=== PATIENT | female | born 1980 | race American Indian/Alaskan Native ===

== ENCOUNTER 2016-12-10 20:18 | Emergency (ER) | payer SELFPAY ==
[2016-12-10 20:29] VITALS: BP 148/102
[2016-12-10] MEDS ORDERED: BOOSTRIX IM ONE (22:55)
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
== END 2016-12-11 00:23 | disposition home or self-care (01) ==
LOC: ED 20:18
DX: S40.871A Other superficial bite of right upper arm, initial encounter (principal); Z23 Encounter for immunization; J45.909 Unspecified asthma, uncomplicated; W50.3XXD Accidental bite by another person, subsequent encounter; Y93.89 Activity, other specified; Y99.9 Unspecified external cause status; Y92.89 Other specified places as the place of occurrence of the external cause
CPT/HCPCS: 90471; 90715

== ENCOUNTER 2021-08-26 15:04 | Emergency (ER) | payer OTHER ==
[2021-08-26 15:18] VITALS: BP 137/81
--- NOTE | 2021-08-26 15:28 | Emergency Department Report ---
ED Eye Problem HPI - General Chief complaint: Eye Problems Stated complaint: CANT SEE/FUME IN EYES Time Seen by Provider: 08/26/21 15:19 Source: patient Mode of arrival: Ambulatory Limitations: No Limitations - History of Present Illness Initial comments: Patient is a 40-year-old female presents emergency room complaints of bilateral eye burning sensation that began yesterday. She states that it is worse in the left eye. She states that the left eye has had frequent watering. She states that there were some fumes at work and she is not sure if that is what is causing the eye irritation. She denies anything getting into the eye. She denies any contact lens use. She denies any mucus drainage, crusting, eyelash matting. She states her vision feels blurry but she is still able to see. Has medical history of asthma. No allergies medications. - Related Data Previous Rx's Medication Instructions Recorded Last Taken Type Amoxicillin/K Clav Tab [Augmentin 1 tab PO Q12HR #14 tab 12/10/16 Unknown Rx 875 mg] Ibuprofen [Motrin] 800 mg PO Q8HR PRN #30 tablet 12/10/16 Unknown Rx Erythromycin [Erythromycin Ophth 1 applic OS QID 7 Days #1 tube 08/26/21 Unknown Rx Oint] Ketotifen Fumarate [Zaditor] 1 drop OP BID #1 bottle 08/26/21 Unknown Rx Allergies Allergy/AdvReac Type Severity Reaction Status Date / Time No Known Allergies Allergy Unverified 12/10/16 20:29 ED Review of Systems ROS: Stated complaint: CANT SEE/FUME IN EYES Other details as noted in HPI Comment: All other systems reviewed and negative ED Past Medical Hx - Past Medical History Previous Medical History?: Yes Hx Asthma: Yes - Surgical History Past Surgical History?: Yes Additional Surgical History: hemorrhoidectomy - Social History Smoking Status: Never Smoker Substance Use Type: None - Medications Home Medications: Home Medications Medication Instructions Recorded Confirmed Last Taken Type Amoxicillin/K Clav Tab [Augmentin 1 tab PO Q12HR #14 tab 12/10/16 Unknown Rx 875 mg] Ibuprofen [Motrin] 800 mg PO Q8HR PRN #30 tablet 12/10/16 Unknown Rx Erythromycin [Erythromycin Ophth 1 applic OS QID 7 Days #1 tube 08/26/21 Unknown Rx Oint] Ketotifen Fumarate [Zaditor] 1 drop OP BID #1 bottle 08/26/21 Unknown Rx ED Physical Exam - General Limitations: No Limitations General appearance: alert, in no apparent distress - Head Head exam: Present: atraumatic, normocephalic - Eye Eye exam: Present: PERRL, EOMI, other (small internal hordeolum present to the left upper eyelid). Absent: scleral icterus, conjunctival injection, nystagmus - ENT ENT exam: Present: mucous membranes moist - Neurological Exam Neurological exam: Present: alert, oriented X3 - Psychiatric Psychiatric exam: Present: normal affect, normal mood - Skin Skin exam: Present: warm, dry, intact ED Course Vital Signs 08/26/21 15:15 Temperature 98.4 F Pulse Rate 80 Respiratory 16 Rate Blood Pressure 137/81 [Left] O2 Sat by Pulse 100 Oximetry ED Medical Decision Making - Medical Decision Making Patient is a 40-year-old female presents emergency room complaints of bilateral eye burning sensation that began yesterday. She states that it is worse in the left eye. She states that the left eye has had frequent watering. She states that there were some fumes at work and she is not sure if that is what is causing the eye irritation. She denies anything getting into the eye. She denies any contact lens use. She denies any mucus drainage, crusting, eyelash matting. She states her vision feels blurry but she is still able to see. Has medical history of asthma. No allergies medications. Vitals are stable. On exam:small internal hordeolum present to the left upper eyelid, EOMI, PERRLA, no conjunctival injection, no signs of foreign body. Patient given prescription for medication. Advised patientPlease use medication as prescribed. Please wash hands before and after using medication. Please use warm compresses. Please separate medication by 1 hour. If you use one medication please wait 1 hour before use any other medication. Follow-up with a eye doctor if symptoms are not improving. Return to emergency room for any new or worsening symptoms. Critical care attestation.: If time is entered above; I have spent that time in minutes in the direct care of this critically ill patient, excluding procedure time. ED Disposition Clinical Impression: Eye irritation Internal hordeolum Qualifiers: Laterality: left Eyelid: upper Qualified Code(s): H00.024 - Hordeolum internum left upper eyelid Disposition: 01 HOME / SELF CARE / HOMELESS Is pt being admited?: No Does the pt Need Aspirin: No Condition: Stable Instructions: Stye Additional Instructions: Please use medication as prescribed. Please wash hands before and after using medication. Please use warm compresses. Please separate medication by 1 hour. If you use one medication please wait 1 hour before use any other medication. Follow-up with a eye doctor if symptoms are not improving. Return to emergency room for any new or worsening symptoms. Prescriptions: Erythromycin [Erythromycin Ophth Oint] 1 applic OS QID 7 Days #1 tube Ketotifen Fumarate [Zaditor] 1 drop OP BID #1 bottle Referrals: [facility] [Provider Group] - 3-5 Days Forms: Work/School Release Form(ED) Time of Disposition: 15:26 Print Language: ZIMBABWEAN
== END 2021-08-26 16:14 | disposition home or self-care (01) ==
LOC: ED 15:04
DX: H00.024 Hordeolum internum left upper eyelid (principal); H00.021 Hordeolum internum right upper eyelid; H57.13 Ocular pain, bilateral; J45.909 Unspecified asthma, uncomplicated
CPT/HCPCS: 99281

== ENCOUNTER 2022-01-28 15:55 | Inpatient (IN) | payer OTHER ==
[2022-01-28] MEDS ORDERED: hydrALAZINE 20 MG/1 ML INJ IV ONE (17:18)
[2022-01-28] MEDS ORDERED: SODIUM CHLORIDE NASAL SPRAY 44ML NS PRN (17:24)
[2022-01-28] MEDS ORDERED: SIMETHICONE 80 MG CHEW TAB PO PRN (17:24)
[2022-01-28] MEDS ORDERED: MAGNESIUM SULFATE 4 GM/100 ML BAG IV ONE (17:24)
[2022-01-28] MEDS ORDERED: ALUM-MAG HYDROXIDE-SIMETHICONE 200-200-20MG/5ML ORAL LIQD 30 ML PO PRN (17:24)
[2022-01-28] MEDS ORDERED: MAGNESIUM HYDROXIDE (MOM) ORAL LIQD UDC PO PRN (17:24)
[2022-01-28] MEDS ORDERED: DOCUSATE SODIUM 100 MG CAP PO PRN (17:24)
[2022-01-28] MEDS ORDERED: CALCIUM GLUCONATE 1000 MG/10 ML INJ IV ONE (17:24)
[2022-01-28] MEDS ORDERED: ONDANSETRON 4 MG/2 ML INJ IV PRN (17:24)
--- NOTE | 2022-01-28 17:31 | History and Physical Report ---
History of Present Illness Date of examination: 01/28/22 Date of admission: 01/28/2022 Chief complaint: My stomach was hurting. 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 Upon entering room, @ 27.6 weeks resting upright in bed, alert and oriented x4, breathing on room air in no acute distress. Continuous FHR tracing difficult d/t maternal habitus and gestational age - FHTs 140s, and Cat 1 noted when continuously tracing. Pt reporting sudden onset of upper epigastric pressure that she presently rates 6/10 and she perceives worsens with movement. 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 Pain resolved, she ate a sandwich and one hour later epigastric pressure resumed when she was driving her daughter to work and she was unable to get out of car. Has experienced episode of similar, but less intense pain one month ago that resolved on its own. Affirms movement and denies headaches, chest pain, vision changes, RUQ, vaginal bleeding, LOF and NVD. Last bowel movement today. Last dose of PO Labetalol 100mg taken this AM, has not missed any doses. Upon questioning, feels pedal edema has worsened over last few days, state she is unable to wear shoes. Endorses SOB with minimal exertion. Frequent inhaler use, last albuterol use yesterday. Uses CPAP nightly. Of note pt is being followed by [facility] d/t history of cHTN, morbid obesity, + AFP for DS, and AMA. Her labs notable for baseline protein of 618 on 11/22. -Chronic hypertension- Diagnosed in 2003. Pt reports intermittent adherence to medication regimen. Inpatient admission to [facility] (2019) for blood pressure control. Presented with severe headache and vision changes, BPs >200s/100s. Was told she had a "mini stroke behind her eyes". This history was not mentioned during her initial visit. Pt expressed disappointment about missing her oldest daughter's softball tournament this weekend, but understands the rationale for the medical recommendation to remain inpatient. EDC Calculations 04/23/2022 Gestational Age: 27.6 weeks on admission Past History : 5 Term Births: 3 Premature Births: 0 Living Children: 3 Para: 3 Mult. Births: 0 Prev : 0 Aborta: 1 Elect. Ab: 0 Spont. Ab: 1 Ectopics: 0 # 1 Delivery date: 2003 Weeks Gestation: 37 Delivery type: Hours of labor: 24 Anesthesia type: epidural Delivery location: [facility] Sex: Female weight: 6-12 Comments: PPH: had blood transfusion # 2 Delivery date: 2006 Weeks Gestation: 38 Delivery type: Hours of labor: 8 Anesthesia type: epidural Delivery location: [facility] Sex: Female weight: 9-10 Comments: No complications # 3 Delivery date: 2014 Weeks Gestation: 38 labor: no Delivery type: Hours of labor: 24 Anesthesia type: epidural Delivery location: [facility] Sex: Male weight: 7-11 Comments: PPH: Had D&C after delivery # 4 Weeks Gestation: ? Delivery type: SAB Comments: No D&C needed Past Medical History: Reviewed and updated today: Hypertension Asthma Sleep Apnea Past Surgical History: Reviewed and updated today: negative Family History Summary: Mother - Has Family History of Hypertension - Entered On: 08/28/2021 Father - Has Family History of Diabetes - Entered On: 08/28/2021 Social History: Patient is Smoking History: Patient is a former smoker. Risk Factors: Smoked Tobacco Use: Former smoker Cigarettes: Yes Year Quit: 2020 Years Since Last Quit: 1 Smokeless Tobacco Use: Never Counseled to Quit/Cut Down: yes Passive Smoke Exposure: no HIV High Risk Behavior: no Exercise: yes Times/wk: 7 Type of Exercise: walking Seatbelt Use: 100 % Sun Exposure: rarely No Dietary Counseling Reason: pn yes PAP Smear History: Date of Last PAP Smear: 02/17/2021 Results: Normal Alcohol Use: no Drug Use: no Past Medical History Anesthesia Complications: negative Anemia: negative Autoimmune Disorder: negative Bleeding Disorder: negative Blood Transfusions: negative Breast Disease: negative Diabetes: negative Heart Disease: negative Hypertension: positive Hepatitis/Liver Disease: negative Kidney Disease/UTI: negative Neurologic/Epilepsy/Migraines: negative Phlebitis/Varicosities: negative Psychiatric: negative Pulmonary Disease/Asthma: positive Thyroid Disease: negative Hospitalizations: negative 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 Infection History Hx of STD: none HIV Risk Eval: no Hepatitis B Risk Eval: low risk Personal hx. of genital herpes: no Partner hx. of genital herpes: no Varicella/Chicken Pox Status: Previous Disease TB Risk: no Genetic History ADVANCED MATERNAL AGE Congenital Heart Defect: Mom: no Dad: no Kash Disease: Mom: no Dad: no Thalassemia Mom: no Dad: no Neural Tube Defect Mom: no Dad: no Down's Syndrome Mom: no Dad: no Boogie-Sachs Mom: no Dad: no Sickle Cell Disease/Trait Mom: no Dad: no Hemophilia Mom: no Dad: no Muscular Dystrophy Mom: no Dad: no Cystic Fibrosis Mom: no Dad: no [place] Chorea Mom: no Dad: no Mental Retardation Mom: no Dad: no Fragile X Mom: no Dad: no Other Genetic/Chromosomal Disorder Mom: no Dad: no Child w/other defect Mom: no Dad: no Enviromental Exposures Xray Exposure: no Medication, drug, or alcohol use since LMP: no Chemical/Other Exposure: no Exposure to Cat Liter: no Hx of Parvovirus (Fifth Disease): no Occupational Exposure to Children: none Current Allergies (reviewed today): No known allergies Past History Past Medical History: hypertension, other (Sleep Apnea) 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 (Followed by a normal PAP in 2020.), other (PPH with last ) Family/Genetic History: diabetes, hypertension Social history: no significant social history, smoking (Quit in 2019.) - Obstetrical History Expected Date of Delivery: 04/23/22 Actual Gestation: 27 Week(s) 6 Day(s) : 5 Para: 3 Hx # Term Pregnancies: 3 Number of Pregnancies: 0 Spontaneous Abortions: 1 Induced : 0 Number of Living Children: 3 Medications and Allergies Allergies Allergy/AdvReac Type Severity Reaction Status Date / Time No Known Allergies Allergy Verified 01/28/22 17:21 Home Medications Medication Instructions Recorded Confirmed Last Taken Type Amoxicillin/K Clav Tab [Augmentin 1 tab PO Q12HR #14 tab 12/10/16 Unknown Rx 875 mg] Ibuprofen [Motrin] 800 mg PO Q8HR PRN #30 tablet 12/10/16 Unknown Rx Erythromycin [Erythromycin Ophth 1 applic OS QID 7 Days #1 tube 08/26/21 Unknown Rx Oint] Ketotifen Fumarate [Zaditor] 1 drop OP BID #1 bottle 08/26/21 Unknown Rx Active Meds: Active Medications Acetaminophen (Acetaminophen 325 Mg Tab) 650 mg PO Q4H PRN PRN Reason: Pain MILD(1-3)/Fever >100.5/GROSSMAN Al Hydrox/Mg Hydrox/Simethicone (Alum-Mag Hydroxide-Simethicone [phone]/5ml Oral Liqd 30 Ml) 30 ml PO Q6H PRN PRN Reason: Indigestion Betamethasone Acet/Betameth SodPhos (Betamet Acet/Betamet Na Ph 6 Mg/Ml Inj 5 Ml Mdv) 12 mg IM Q24HR ANNAMARIA Stop: 01/29/22 10:01 Calcium Gluconate (Calcium Gluconate 1000 Mg/10 Ml Inj) 1,000 mg IV ONCE ONE Stop: 01/28/22 17:25 Docusate Sodium (Docusate Sodium 100 Mg Cap) 100 mg PO Q12H PRN PRN Reason: Constipation Hydralazine HCl (Hydralazine 20 Mg/1 Ml Inj) 5 mg IV Q30MIN PRN PRN Reason: Hypertension Magnesium Sulfate (Magnesium Sulfate 4gm/100ml) 4 gm in 100 mls @ 300 mls/hr IV ONCE ONE Stop: 01/28/22 17:43 Magnesium Sulfate (Magnesium Sulfate 40gm/1000ml) 40 gm in 1,000 mls @ 50 mls/hr IV DIRECT ANNAMARIA Magnesium Hydroxide (Magnesium Hydroxide (Mom) Oral Liqd Udc) 30 ml PO QHS PRN PRN Reason: Laxative Effect Multivitamins/Iron/Calcium ( Qnc66-Fy Fumarate-Folic Acid Vit Tab) 1 each PO QDAY ANNAMARIA Ondansetron HCl (Ondansetron 4 Mg/2 Ml Inj) 4 mg IV Q6H PRN PRN Reason: Nausea And Vomiting Simethicone (Simethicone 80 Mg Chew Tab) 80 mg PO Q6H PRN PRN Reason: Gas pain Sodium Chloride (Sodium Chloride Nasal [place] 44ml) 2 spray NS Q4H PRN PRN Reason: Congestion Review of Systems All systems: negative Cardiovascular: dyspnea on exertion, high blood pressure, leg edema Respiratory: dyspnea on exertion, sleep apnea Breasts: deferred Gastrointestinal: abdominal pain (Epigastric region.) Genitourinary: deferred Rectal Exam: deferred - Vital Signs Vital signs: Vital Signs Temp Pulse Resp BP Pulse Ox 98.2 F 86 16 174/95 99 01/28/22 16:23 01/28/22 16:23 01/28/22 16:23 01/28/22 16:23 01/28/22 16:23 Temp Pulse Resp BP Pulse Ox 98.2 F 77 16 160/93 100 01/28/22 16:23 01/28/22 17:29 01/28/22 16:23 01/28/22 17:29 01/28/22 17:25 Pt denies GROSSMAN, blurred vision, spots before her eyes, shortness of breath. States that she has some upper abdominal pain. When pt asked to point to where the pain was at, she pointed to the epigastric region. - Physical Exam Breasts: Positive: deferred Cardiovascular: Normal S1, Normal S2 Lungs: Positive: Clear to auscultation Abdomen: Positive: normal appearance, soft, other (obeses) Uterus: Positive: enlarged (Morbid obesity and .) Extremities: Positive: edema (bilateral +2 pedal edema) Deep Tendon Reflex Grade: Normal +2 - Obstetrical FHR: other (non-continuous; FHTs 140s) Uterine Contraction Monitor Mode: External Results Result Diagrams: 01/28/22 17:17 01/28/22 Unknown All other labs normal. HBsAg Screen Negative Negative *1 RPR Non Reactive Non Reactive *2 Rubella Antibodies, IgG 1.49 index Immune >0.99 *3 Non-immune <0.90 Equivocal 0.90 - 0.99 Immune >0.99 ABO Grouping O *4 Rh Factor Positive *5 Please note: Prior records for this patient's ABO / Rh type are not available for additional verification. Antibody Screen Negative Negative *6 WBC [H] 11.4 x10E3/uL 3.4-10.8 *7 RBC 3.93 x10E6/uL 3.77-5.28 *8 Hemoglobin 11.5 g/dL 11.1-15.9 *9 Hematocrit 35.2 % 34.0-46.6 *10 MCV 90 fL 79-97 *11 MCH 29.3 pg 26.6-33.0 *12 MCHC 32.7 g/dL 31.5-35.7 *13 RDW 14.1 % 11.7-15.4 *14 Platelets 295 x10E3/uL 150-450 *15 Neutrophils 74 % Not Estab. *16 Lymphs 16 % Not Estab. *17 Monocytes 7 % Not Estab. *18 Eos 3 % Not Estab. *19 Basos 0 % Not Estab. *20 ! Immature Cells <No Reported Value> *21 Neutrophils (Absolute) [H] 8.4 x10E3/uL 1.4-7.0 *22 Lymphs (Absolute) 1.8 x10E3/uL 0.7-3.1 *23 Monocytes(Absolute) 0.8 x10E3/uL 0.1-0.9 *24 Eos (Absolute) 0.3 x10E3/uL 0.0-0.4 *25 Baso (Absolute) 0.0 x10E3/uL 0.0-0.2 *26 ! Immature Granulocytes 0 % Not Estab. *27 ! Immature Grans (Abs) 0.0 x10E3/uL 0.0-0.1 *28 ! NRBC <No Reported Value> *29 Hematology Comments: <No Reported Value> *30 Tests: (2) HB Solu + Rflx Frac ([id number]) Hemoglobin (Hgb) Solubility Negative Negative *31 Tests: (3) HIV Ag/Ab with Reflex ([id number]) HIV Screen 4th Generation wRfx Non Reactive Non Reactive *32 Tests: (4) HCV Antibody reflex to SWAPNA ([id number]) HCV Ab 0.3 s/co ratio 0.0-0.9 *33 Tests: (5) Interpretation: ([id number]) ! Interpretation: SPRCS *34 Negative Not infected with HCV, unless recent infection is suspected or other evidence exists to indicate HCV infection. Assessment and Plan A: 41 y.o. @ 27.6 wks. cHTN, morbid obesity, sleep apnea. Elevated blood pressures in . - Patient Problems (1) Chronic hypertension affecting Current Visit: Yes Status: Acute Plan to address problem: Consulted with Dr. Montemayor. Admit to labor and delivery. Initiate IV. Draw admission and pre eclampsia labs. Initiate 24 hour urine. Aguilera catheter for strict I&O's and during magnesium infusion. Steroids for lung maturity. Magnesium sulfate infusion. Increase Labetaolol to 300mg BID. Was originally on 100mg BID. IV antihypertensives ordered. (2) with 27 completed weeks gestation Current Visit: Yes Status: Acute Plan to address problem: Continuous EFM to monitor status. (3) History of sleep apnea Current Visit: Yes Status: Acute Plan to address problem: Respiratory therapy consulted for CPAP placement q HS. Anesthesia consult to be placed per [facility] recommendation d/t sleep apnea. (4) Morbid obesity Current Visit: Yes Status: Acute (5) History of asthma Current Visit: Yes Status: Acute Plan to address problem: PRN nebulizer treatments ordered.
[2022-01-28] MEDS ORDERED: LACTATED RINGERS 1,000 ML ONE (17:34)
[2022-01-28 17:46] LABS: Bilirubin,Urine NEG (Negative); Blood,Urine NEG (Negative); Color,Urine Yellow (Yellow); Mucus,Urine FEW /HPF; Protein,Urine <15 mg/dL mg/dL (Negative); Urobilinogen,Urine < 2.0 mg/dL (<2.0)
[2022-01-28] MEDS: BETAMET ACET/BETAMET NA PH 6 MG/ML INJ 5 ML MDV IM SCH (17:50)
[2022-01-28] MEDS ORDERED: MAGNESIUM SULFATE 40GM/1000ML 40 GM/1,000 ML BAG IV SCH (18:00)
[2022-01-28 18:07] LABS: Alanine Aminotransferase 27 units/L (7-56); Uric Acid 4.1 mg/dL (3.5-7.6)
[2022-01-28 18:26] LABS: Basophils % (Auto) 0.2 % (0.0-1.8); Eosinophils # (Auto) 0.1 K/mm3 (0.0-0.4); Eosinophils % (Auto) 0.9 % (0.0-4.3); Hematocrit 31.3 % (30.3-42.9); Hemoglobin 10.8 gm/dl (10.1-14.3); Lymphocytes # (Auto) 1.9 K/mm3 (1.2-5.4); Lymphocytes % (Auto) 17.7 % (13.4-35.0); Mean Corpuscular HGB Conc 35 % (30-34); Mean Corpuscular Volume 87 fl (79-97); Monocytes # (Auto) 0.8 K/mm3 (0.0-0.8); Monocytes % (Auto) 7.7 % (0.0-7.3); Platelet Count 231 K/mm3 (140-440); Red Cell Distribution Width 14.6 % (13.2-15.2)
[2022-01-28] MEDS: hydrALAZINE 20 MG/1 ML INJ IV PRN (19:23)
[2022-01-28] MEDS: ACETAMINOPHEN 325 MG TAB PO PRN (19:45)
[2022-01-29] MEDS: ACETAMINOPHEN 325 MG TAB PO PRN (00:46)
[2022-01-29] MEDS: hydrALAZINE 20 MG/1 ML INJ IV PRN ×2 (02:19→23:45)
[2022-01-29] MEDS: diphenhydrAMINE 25 MG CAP PO PRN ×3 (02:40→22:41)
[2022-01-29] MEDS ORDERED: LACTATED RINGERS 1,000 ML ONE (05:29)
[2022-01-29] MEDS ORDERED: ACETAMINOPHEN 500 MG TAB PO ONE (08:38)
[2022-01-29] MEDS: PRENATAL VIT27-FE FUMARATE-FOLIC ACID VIT TAB PO SCH (09:05)
[2022-01-29] MEDS ORDERED: METOCLOPRAMIDE 10 MG/2 ML INJ IV ONE (10:54)
--- NOTE | 2022-01-29 10:55 | Progress Note ---
Assessment and Plan Patient sitting up in bed talking on phone, denies epigastric pain or visual changes. she endorses active FM, denies ctx, leaking, bleeding. Pt states she has a migraine currently only slightly relieved by tylenol by and eating. AMFM consult ordered. - Patient Problems (1) 28 weeks gestation of Current Visit: Yes Status: Acute Plan to address problem: Continuous EFM and toco as possible - difficult d/t maternal habitus (2) Migraine Current Visit: Yes Status: Acute Qualifiers: Migraine type: without aura Intractability: intractable Plan to address problem: Pt reports hx of migraines prior to - states she usually takes something with codeine Pt reports GROSSMAN better after eating given Coke for caffeine and will give reglan/benadryl combo (3) Chronic hypertension affecting Current Visit: Yes Status: Acute Plan to address problem: 24hr urine in progress mag sulfate 2gm/hr Mag level q6h Labetalol 300mg PO BID; will titrate for b/p control (4) Morbid obesity Current Visit: Yes Status: Acute Subjective - Subjective Date of service: 01/29/22 Principal diagnosis: IUP @ 28wks; chtn & migraine Patient reports: movement normal, other (Migraine), no loss of fluid, no vaginal bleeding, no contractions Objective - Vital Signs Vital Signs: Vital Signs - 12hr 01/28/22 01/28/22 01/28/22 22:59 23:04 23:06 Temperature Pulse Rate 83 84 85 Respiratory Rate Blood Pressure 145/71 O2 Sat by Pulse 99 99 Oximetry O2 Sat by Pulse Oximetry [ Anterior Bilateral Throughout] 01/28/22 01/28/22 01/28/22 23:09 23:14 23:19 Temperature Pulse Rate 85 83 85 Respiratory Rate Blood Pressure O2 Sat by Pulse 97 98 97 Oximetry O2 Sat by Pulse Oximetry [ Anterior Bilateral Throughout] 01/28/22 01/28/22 01/28/22 23:21 23:24 23:29 Temperature Pulse Rate 86 85 98 H Respiratory Rate Blood Pressure 137/71 O2 Sat by Pulse 98 99 Oximetry O2 Sat by Pulse Oximetry [ Anterior Bilateral Throughout] 01/28/22 01/28/22 01/28/22 23:34 23:36 23:39 Temperature Pulse Rate 91 H 90 89 Respiratory Rate Blood Pressure 144/80 O2 Sat by Pulse 99 99 Oximetry O2 Sat by Pulse Oximetry [ Anterior Bilateral Throughout] 01/28/22 01/28/22 01/28/22 23:44 23:49 23:54 Temperature Pulse Rate 90 89 88 Respiratory Rate Blood Pressure O2 Sat by Pulse 99 99 100 Oximetry O2 Sat by Pulse Oximetry [ Anterior Bilateral Throughout] 01/28/22 01/29/22 01/29/22 23:59 00:04 00:09 Temperature Pulse Rate 95 H 93 H 88 Respiratory Rate Blood Pressure O2 Sat by Pulse 100 100 100 Oximetry O2 Sat by Pulse Oximetry [ Anterior Bilateral Throughout] 01/29/22 01/29/22 01/29/22 00:14 00:19 00:24 Temperature Pulse Rate 86 86 85 Respiratory Rate Blood Pressure 158/93 O2 Sat by Pulse 98 100 100 Oximetry O2 Sat by Pulse Oximetry [ Anterior Bilateral Throughout] 01/29/22 01/29/22 01/29/22 00:29 00:34 00:37 Temperature 97.7 F Pulse Rate 88 84 Respiratory 18 Rate Blood Pressure O2 Sat by Pulse 99 100 Oximetry O2 Sat by Pulse Oximetry [ Anterior Bilateral Throughout] 01/29/22 01/29/22 01/29/22 00:39 00:44 00:46 Temperature Pulse Rate 84 83 82 Respiratory Rate Blood Pressure 172/96 165/87 O2 Sat by Pulse 99 99 Oximetry O2 Sat by Pulse Oximetry [ Anterior Bilateral Throughout] 01/29/22 01/29/22 01/29/22 00:49 00:54 00:59 Temperature Pulse Rate 87 84 83 Respiratory Rate Blood Pressure O2 Sat by Pulse 100 100 100 Oximetry O2 Sat by Pulse Oximetry [ Anterior Bilateral Throughout] 01/29/22 01/29/22 01/29/22 01:04 01:09 01:14 Temperature Pulse Rate 85 82 88 Respiratory Rate Blood Pressure 153/87 O2 Sat by Pulse 100 100 100 Oximetry O2 Sat by Pulse Oximetry [ Anterior Bilateral Throughout] 01/29/22 01/29/22 01/29/22 01:19 01:24 01:29 Temperature Pulse Rate 82 82 80 Respiratory Rate Blood Pressure O2 Sat by Pulse 100 99 99 Oximetry O2 Sat by Pulse Oximetry [ Anterior Bilateral Throughout] 01/29/22 01/29/22 01/29/22 01:34 01:39 01:44 Temperature Pulse Rate 81 85 84 Respiratory Rate Blood Pressure 142/85 O2 Sat by Pulse 99 100 98 Oximetry O2 Sat by Pulse Oximetry [ Anterior Bilateral Throughout] 01/29/22 01/29/22 01/29/22 01:49 01:54 01:59 Temperature Pulse Rate 82 97 H 85 Respiratory Rate Blood Pressure O2 Sat by Pulse 99 98 99 Oximetry O2 Sat by Pulse Oximetry [ Anterior Bilateral Throughout] 01/29/22 01/29/22 01/29/22 02:04 02:09 02:14 Temperature Pulse Rate 75 92 H 76 Respiratory Rate Blood Pressure 175/91 O2 Sat by Pulse 100 99 98 Oximetry O2 Sat by Pulse Oximetry [ Anterior Bilateral Throughout] 01/29/22 01/29/22 01/29/22 02:19 02:24 02:30 Temperature Pulse Rate 83 82 83 Respiratory Rate Blood Pressure 175/91 O2 Sat by Pulse 100 100 98 Oximetry O2 Sat by Pulse Oximetry [ Anterior Bilateral Throughout] 01/29/22 01/29/22 01/29/22 02:32 02:35 02:40 Temperature Pulse Rate 90 85 85 Respiratory Rate Blood Pressure O2 Sat by Pulse 86 98 100 Oximetry O2 Sat by Pulse Oximetry [ Anterior Bilateral Throughout] 01/29/22 01/29/22 01/29/22 02:45 02:50 02:55 Temperature Pulse Rate 81 83 84 Respiratory Rate Blood Pressure 149/72 O2 Sat by Pulse 100 100 100 Oximetry O2 Sat by Pulse Oximetry [ Anterior Bilateral Throughout] 01/29/22 01/29/22 01/29/22 03:00 03:05 03:10 Temperature Pulse Rate 81 76 81 Respiratory Rate Blood Pressure 136/70 O2 Sat by Pulse 99 99 99 Oximetry O2 Sat by Pulse Oximetry [ Anterior Bilateral Throughout] 01/29/22 01/29/22 01/29/22 03:15 03:20 03:25 Temperature Pulse Rate 94 H 85 80 Respiratory Rate Blood Pressure 136/84 O2 Sat by Pulse 99 99 99 Oximetry O2 Sat by Pulse Oximetry [ Anterior Bilateral Throughout] 01/29/22 01/29/22 01/29/22 03:30 03:35 03:40 Temperature Pulse Rate 76 89 77 Respiratory Rate Blood Pressure 148/81 O2 Sat by Pulse 99 99 98 Oximetry O2 Sat by Pulse Oximetry [ Anterior Bilateral Throughout] 01/29/22 01/29/22 01/29/22 03:45 03:50 03:55 Temperature Pulse Rate 79 80 85 Respiratory Rate Blood Pressure 150/86 O2 Sat by Pulse 98 98 98 Oximetry O2 Sat by Pulse Oximetry [ Anterior Bilateral Throughout] 01/29/22 01/29/22 01/29/22 04:00 04:05 04:10 Temperature Pulse Rate 78 79 78 Respiratory Rate Blood Pressure 146/80 O2 Sat by Pulse 98 97 98 Oximetry O2 Sat by Pulse Oximetry [ Anterior Bilateral Throughout] 01/29/22 01/29/22 01/29/22 04:15 04:20 04:25 Temperature Pulse Rate 80 77 79 Respiratory Rate Blood Pressure 144/76 O2 Sat by Pulse 98 97 98 Oximetry O2 Sat by Pulse Oximetry [ Anterior Bilateral Throughout] 01/29/22 01/29/22 01/29/22 04:30 04:34 04:35 Temperature Pulse Rate 76 89 87 Respiratory Rate Blood Pressure 141/78 O2 Sat by Pulse 99 93 100 Oximetry O2 Sat by Pulse Oximetry [ Anterior Bilateral Throughout] 01/29/22 01/29/22 01/29/22 04:40 04:45 04:50 Temperature Pulse Rate 77 79 78 Respiratory Rate Blood Pressure 145/82 O2 Sat by Pulse 99 99 99 Oximetry O2 Sat by Pulse Oximetry [ Anterior Bilateral Throughout] 01/29/22 01/29/22 01/29/22 04:55 05:00 05:05 Temperature Pulse Rate 77 81 78 Respiratory Rate Blood Pressure 145/82 O2 Sat by Pulse 99 99 99 Oximetry O2 Sat by Pulse Oximetry [ Anterior Bilateral Throughout] 01/29/22 01/29/22 01/29/22 05:10 05:15 05:20 Temperature Pulse Rate 76 75 78 Respiratory Rate Blood Pressure 146/79 O2 Sat by Pulse 99 98 98 Oximetry O2 Sat by Pulse Oximetry [ Anterior Bilateral Throughout] 01/29/22 01/29/22 01/29/22 05:25 05:30 05:35 Temperature Pulse Rate 78 84 72 Respiratory Rate Blood Pressure O2 Sat by Pulse 98 99 100 Oximetry O2 Sat by Pulse Oximetry [ Anterior Bilateral Throughout] 01/29/22 01/29/22 01/29/22 05:40 05:45 05:50 Temperature Pulse Rate 71 72 71 Respiratory Rate Blood Pressure O2 Sat by Pulse 100 100 99 Oximetry O2 Sat by Pulse Oximetry [ Anterior Bilateral Throughout] 01/29/22 01/29/22 01/29/22 05:55 05:58 06:00 Temperature Pulse Rate 71 72 74 Respiratory Rate Blood Pressure 147/79 O2 Sat by Pulse 99 99 Oximetry O2 Sat by Pulse Oximetry [ Anterior Bilateral Throughout] 01/29/22 01/29/22 01/29/22 06:05 06:10 06:15 Temperature Pulse Rate 79 79 76 Respiratory Rate Blood Pressure O2 Sat by Pulse 99 100 100 Oximetry O2 Sat by Pulse Oximetry [ Anterior Bilateral Throughout] 01/29/22 01/29/22 01/29/22 06:20 06:25 06:29 Temperature Pulse Rate 75 76 74 Respiratory Rate Blood Pressure 152/84 O2 Sat by Pulse 99 99 Oximetry O2 Sat by Pulse Oximetry [ Anterior Bilateral Throughout] 01/29/22 01/29/22 01/29/22 06:30 06:35 06:37 Temperature Pulse Rate 71 76 76 Respiratory Rate Blood Pressure O2 Sat by Pulse 99 99 93 Oximetry O2 Sat by Pulse Oximetry [ Anterior Bilateral Throughout] 01/29/22 01/29/22 01/29/22 06:40 06:45 06:50 Temperature 97.7 F Pulse Rate 75 81 71 Respiratory 19 Rate Blood Pressure O2 Sat by Pulse 99 100 99 Oximetry O2 Sat by Pulse Oximetry [ Anterior Bilateral Throughout] 01/29/22 01/29/22 01/29/22 06:55 06:59 07:00 Temperature Pulse Rate 85 80 79 Respiratory Rate Blood Pressure 176/91 O2 Sat by Pulse 100 100 Oximetry O2 Sat by Pulse Oximetry [ Anterior Bilateral Throughout] 01/29/22 01/29/22 01/29/22 07:05 07:10 07:15 Temperature Pulse Rate 80 79 80 Respiratory Rate Blood Pressure O2 Sat by Pulse 99 100 100 Oximetry O2 Sat by Pulse Oximetry [ Anterior Bilateral Throughout] 01/29/22 01/29/22 01/29/22 07:20 07:25 07:29 Temperature Pulse Rate 80 89 95 H Respiratory Rate Blood Pressure 211/126 O2 Sat by Pulse 100 100 Oximetry O2 Sat by Pulse Oximetry [ Anterior Bilateral Throughout] 01/29/22 01/29/22 01/29/22 07:30 07:35 07:40 Temperature Pulse Rate 89 84 86 Respiratory Rate Blood Pressure O2 Sat by Pulse 100 99 99 Oximetry O2 Sat by Pulse Oximetry [ Anterior Bilateral Throughout] 01/29/22 01/29/22 01/29/22 07:45 07:50 07:53 Temperature 98 F Pulse Rate 86 81 Respiratory 20 Rate Blood Pressure 151/86 O2 Sat by Pulse 99 99 Oximetry O2 Sat by Pulse 100 Oximetry [ Anterior Bilateral Throughout] 01/29/22 01/29/22 01/29/22 07:55 07:58 08:00 Temperature Pulse Rate 77 85 85 Respiratory Rate Blood Pressure 138/83 O2 Sat by Pulse 99 99 Oximetry O2 Sat by Pulse Oximetry [ Anterior Bilateral Throughout] 01/29/22 01/29/22 01/29/22 08:05 08:17 08:22 Temperature Pulse Rate 84 85 89 Respiratory Rate Blood Pressure O2 Sat by Pulse 100 100 99 Oximetry O2 Sat by Pulse Oximetry [ Anterior Bilateral Throughout] 01/29/22 01/29/22 01/29/22 08:27 08:28 08:31 Temperature Pulse Rate 93 H 82 80 Respiratory Rate Blood Pressure 162/94 129/68 O2 Sat by Pulse 100 Oximetry O2 Sat by Pulse Oximetry [ Anterior Bilateral Throughout] 01/29/22 01/29/22 01/29/22 08:32 08:37 08:42 Temperature Pulse Rate 83 81 83 Respiratory Rate Blood Pressure O2 Sat by Pulse 99 98 99 Oximetry O2 Sat by Pulse Oximetry [ Anterior Bilateral Throughout] 01/29/22 01/29/22 01/29/22 08:47 08:52 08:57 Temperature Pulse Rate 85 98 H 95 H Respiratory Rate Blood Pressure O2 Sat by Pulse 100 100 100 Oximetry O2 Sat by Pulse Oximetry [ Anterior Bilateral Throughout] 01/29/22 01/29/22 01/29/22 09:02 09:07 09:12 Temperature Pulse Rate 91 H 93 H 85 Respiratory Rate Blood Pressure O2 Sat by Pulse 99 100 99 Oximetry O2 Sat by Pulse Oximetry [ Anterior Bilateral Throughout] 01/29/22 01/29/22 01/29/22 09:17 09:22 09:27 Temperature Pulse Rate 87 84 100 H Respiratory Rate Blood Pressure O2 Sat by Pulse 99 100 100 Oximetry O2 Sat by Pulse Oximetry [ Anterior Bilateral Throughout] 01/29/22 01/29/22 01/29/22 09:32 09:37 09:42 Temperature Pulse Rate 91 H 88 95 H Respiratory Rate Blood Pressure 132/63 O2 Sat by Pulse 100 100 99 Oximetry O2 Sat by Pulse Oximetry [ Anterior Bilateral Throughout] 01/29/22 01/29/22 01/29/22 09:47 09:52 09:57 Temperature Pulse Rate 94 H 93 H 93 H Respiratory Rate Blood Pressure O2 Sat by Pulse 100 98 100 Oximetry O2 Sat by Pulse Oximetry [ Anterior Bilateral Throughout] 01/29/22 01/29/22 01/29/22 10:02 10:07 10:12 Temperature Pulse Rate 91 H 86 86 Respiratory Rate Blood Pressure O2 Sat by Pulse 99 98 98 Oximetry O2 Sat by Pulse Oximetry [ Anterior Bilateral Throughout] 01/29/22 01/29/22 01/29/22 10:17 10:22 10:27 Temperature Pulse Rate 89 87 85 Respiratory Rate Blood Pressure O2 Sat by Pulse 98 98 98 Oximetry O2 Sat by Pulse Oximetry [ Anterior Bilateral Throughout] 01/29/22 01/29/22 01/29/22 10:32 10:37 10:42 Temperature Pulse Rate 89 89 89 Respiratory Rate Blood Pressure 138/74 O2 Sat by Pulse 100 99 99 Oximetry O2 Sat by Pulse Oximetry [ Anterior Bilateral Throughout] 01/29/22 01/29/22 10:47 10:52 Temperature Pulse Rate 86 90 Respiratory Rate Blood Pressure O2 Sat by Pulse 99 100 Oximetry O2 Sat by Pulse Oximetry [ Anterior Bilateral Throughout] - Exam Breasts: normal Cardiovascular: Regular rate Lungs: Normal air movement Abdomen: Present: normal appearance, soft Uterus: Present: normal, fundal height above umbilicus FHR: auscultation normal, category 1 Uterine Contraction Monitor Mode: External Uterine Contraction Pattern: Absent Uterine Tone Measurement Phase: Resting Extremities: edema (2+ pitting) Deep Tendon Reflex Grade: Normal +2 - Labs Labs: Abnormal Labs 01/28/22 01/28/22 01/29/22 17:17 Unknown 00:33 RBC 3.60 L MCHC 35 H [place] % (Auto) 7.7 H Seg Neutrophils % 73.5 H Seg Neutrophils # 8.0 H Creatinine 0.5 L Magnesium 4.10 H Lactate Dehydrogenase 252 H 01/29/22 05:28 RBC MCHC [place] % (Auto) Seg Neutrophils % Seg Neutrophils # Creatinine Magnesium 4.70 H Lactate Dehydrogenase Laboratory Results - last 24 hr 01/28/22 01/28/22 01/28/22 17:17 Unknown Unknown WBC 10.9 RBC 3.60 L Hgb 10.8 Hct 31.3 MCV 87 MCH 30 MCHC 35 H RDW 14.6 Plt Count 231 Lymph % (Auto) 17.7 [place] % (Auto) 7.7 H Eos % (Auto) 0.9 Baso % (Auto) 0.2 Lymph # (Auto) 1.9 [place] # (Auto) 0.8 Eos # (Auto) 0.1 Baso # (Auto) 0.0 Seg Neutrophils % 73.5 H Seg Neutrophils # 8.0 H Creatinine 0.5 L Estimated GFR > 60 Uric Acid 4.1 Magnesium 2.00 AST 22 ALT 27 Lactate Dehydrogenase 252 H Urine Color Yellow Urine Turbidity Clear Urine pH 7.0 Ur Specific [place] 1.015 Urine Protein <15 mg/dl Urine Glucose (UA) Neg Urine Ketones Neg Urine Blood Neg Urine Nitrite Neg Urine Bilirubin Neg Urine Urobilinogen < 2.0 Ur Leukocyte Esterase Neg Urine WBC (Auto) 1.0 Urine RBC (Auto) 1.0 U Epithel Cells (Auto) 3.0 Urine Mucus Few Syphilis IgG/IgM Ab Blood Type Antibody Screen 01/28/22 01/28/22 01/29/22 Unknown Unknown 00:33 WBC RBC Hgb Hct MCV MCH MCHC RDW Plt Count Lymph % (Auto) [place] % (Auto) Eos % (Auto) Baso % (Auto) Lymph # (Auto) [place] # (Auto) Eos # (Auto) Baso # (Auto) Seg Neutrophils % Seg Neutrophils # Creatinine Estimated GFR Uric Acid Magnesium 4.10 H AST ALT Lactate Dehydrogenase Urine Color Urine Turbidity Urine pH Ur Specific [place] Urine Protein Urine Glucose (UA) Urine Ketones Urine Blood Urine Nitrite Urine Bilirubin Urine Urobilinogen Ur Leukocyte Esterase Urine WBC (Auto) Urine RBC (Auto) U Epithel Cells (Auto) Urine Mucus Syphilis IgG/IgM Ab Nonreactive Blood Type O POSITIVE Antibody Screen Negative 01/29/22 05:28 WBC RBC Hgb Hct MCV MCH MCHC RDW Plt Count Lymph % (Auto) [place] % (Auto) Eos % (Auto) Baso % (Auto) Lymph # (Auto) [place] # (Auto) Eos # (Auto) Baso # (Auto) Seg Neutrophils % Seg Neutrophils # Creatinine Estimated GFR Uric Acid Magnesium 4.70 H AST ALT Lactate Dehydrogenase Urine Color Urine Turbidity Urine pH Ur Specific [place] Urine Protein Urine Glucose (UA) Urine Ketones Urine Blood Urine Nitrite Urine Bilirubin Urine Urobilinogen Ur Leukocyte Esterase Urine WBC (Auto) Urine RBC (Auto) U Epithel Cells (Auto) Urine Mucus Syphilis IgG/IgM Ab Blood Type Antibody Screen
[2022-01-29] MEDS: BETAMET ACET/BETAMET NA PH 6 MG/ML INJ 5 ML MDV IM SCH (18:29)
[2022-01-29] MEDS: ALBUTEROL 2.5 MG/3 ML NEBU IH PRN (23:36)
[2022-01-30] MEDS: ACETAMINOPHEN 325 MG TAB PO PRN (00:28)
--- NOTE | 2022-01-30 07:57 | Progress Note ---
Assessment and Plan Patient sleeping without complaints -denies epigastric pain or visual changes. she endorses active FM, denies ctx, leaking, bleeding. AMFM consult ordered. Labetalol increased to 300mg TID for better coverage. Plan discussed with patient, all questions addressed. 24hr urine TP 255. - Patient Problems (1) 28 weeks gestation of Current Visit: Yes Status: Acute (2) Migraine Current Visit: Yes Status: Resolved Qualifiers: Migraine type: without aura Intractability: intractable (3) Chronic hypertension affecting Current Visit: Yes Status: Acute Plan to address problem: Labetalol 300mg PO TID; will titrate for b/p control (4) Morbid obesity Current Visit: Yes Status: Acute Subjective - Subjective Date of service: 01/30/22 Principal diagnosis: IUP @ 28+1wks; chtn Patient reports: movement normal, no loss of fluid, no vaginal bleeding, no contractions Objective - Vital Signs Vital Signs: Vital Signs - 12hr 01/29/22 01/29/22 01/29/22 19:57 20:02 20:07 Temperature Pulse Rate 91 H 84 86 Pulse Rate [ Anterior Bilateral Throughout] Respiratory Rate Respiratory Rate [Anterior Bilateral Throughout] Blood Pressure O2 Sat by Pulse 100 100 98 Oximetry 01/29/22 01/29/22 01/29/22 20:56 22:36 22:38 Temperature Pulse Rate 84 72 72 Pulse Rate [ Anterior Bilateral Throughout] Respiratory Rate Respiratory Rate [Anterior Bilateral Throughout] Blood Pressure 147/79 163/85 163/85 O2 Sat by Pulse Oximetry 01/29/22 01/29/22 01/29/22 23:29 23:36 23:38 Temperature 98.3 F Pulse Rate 85 Pulse Rate [ 89 Anterior Bilateral Throughout] Respiratory 18 Rate Respiratory 22 Rate [Anterior Bilateral Throughout] Blood Pressure 183/72 O2 Sat by Pulse Oximetry 01/29/22 01/29/22 01/29/22 23:40 23:45 23:50 Temperature Pulse Rate 84 85 76 Pulse Rate [ Anterior Bilateral Throughout] Respiratory Rate Respiratory Rate [Anterior Bilateral Throughout] Blood Pressure 183/72 O2 Sat by Pulse 94 99 97 Oximetry 01/29/22 01/30/22 01/30/22 23:55 00:00 00:05 Temperature Pulse Rate 90 87 80 Pulse Rate [ Anterior Bilateral Throughout] Respiratory Rate Respiratory Rate [Anterior Bilateral Throughout] Blood Pressure 147/82 O2 Sat by Pulse 97 96 96 Oximetry 01/30/22 01/30/22 01/30/22 00:10 00:15 00:24 Temperature Pulse Rate 77 79 85 Pulse Rate [ Anterior Bilateral Throughout] Respiratory Rate Respiratory Rate [Anterior Bilateral Throughout] Blood Pressure O2 Sat by Pulse 96 96 98 Oximetry 01/30/22 01/30/22 01/30/22 00:29 00:34 00:35 Temperature Pulse Rate 92 H 86 85 Pulse Rate [ Anterior Bilateral Throughout] Respiratory Rate Respiratory Rate [Anterior Bilateral Throughout] Blood Pressure 143/73 O2 Sat by Pulse 96 97 Oximetry 01/30/22 01/30/22 01/30/22 00:39 00:44 00:49 Temperature Pulse Rate 82 90 87 Pulse Rate [ Anterior Bilateral Throughout] Respiratory Rate Respiratory Rate [Anterior Bilateral Throughout] Blood Pressure O2 Sat by Pulse 98 97 97 Oximetry 01/30/22 01/30/22 01/30/22 00:50 00:54 00:59 Temperature Pulse Rate 86 89 87 Pulse Rate [ Anterior Bilateral Throughout] Respiratory Rate Respiratory Rate [Anterior Bilateral Throughout] Blood Pressure 141/68 O2 Sat by Pulse 98 98 Oximetry 01/30/22 01/30/22 01/30/22 01:06 01:11 01:16 Temperature Pulse Rate 97 H 91 H 89 Pulse Rate [ Anterior Bilateral Throughout] Respiratory Rate Respiratory Rate [Anterior Bilateral Throughout] Blood Pressure O2 Sat by Pulse 97 97 98 Oximetry 01/30/22 01/30/22 01/30/22 01:20 01:21 01:26 Temperature Pulse Rate 90 88 89 Pulse Rate [ Anterior Bilateral Throughout] Respiratory Rate Respiratory Rate [Anterior Bilateral Throughout] Blood Pressure 161/83 O2 Sat by Pulse 98 98 Oximetry 01/30/22 01/30/22 01/30/22 01:31 01:35 01:36 Temperature Pulse Rate 94 H 88 89 Pulse Rate [ Anterior Bilateral Throughout] Respiratory Rate Respiratory Rate [Anterior Bilateral Throughout] Blood Pressure 150/73 O2 Sat by Pulse 97 97 Oximetry 01/30/22 01/30/22 01/30/22 01:41 01:46 01:50 Temperature Pulse Rate 90 100 H 97 H Pulse Rate [ Anterior Bilateral Throughout] Respiratory Rate Respiratory Rate [Anterior Bilateral Throughout] Blood Pressure 154/84 O2 Sat by Pulse 96 97 Oximetry 01/30/22 01/30/22 01/30/22 01:51 01:56 02:08 Temperature Pulse Rate 95 H 95 H 85 Pulse Rate [ Anterior Bilateral Throughout] Respiratory Rate Respiratory Rate [Anterior Bilateral Throughout] Blood Pressure O2 Sat by Pulse 98 97 97 Oximetry 01/30/22 01/30/22 01/30/22 02:13 02:18 02:20 Temperature Pulse Rate 87 79 75 Pulse Rate [ Anterior Bilateral Throughout] Respiratory Rate Respiratory Rate [Anterior Bilateral Throughout] Blood Pressure 148/81 O2 Sat by Pulse 97 96 Oximetry 01/30/22 01/30/22 01/30/22 02:23 02:28 02:33 Temperature Pulse Rate 78 80 84 Pulse Rate [ Anterior Bilateral Throughout] Respiratory Rate Respiratory Rate [Anterior Bilateral Throughout] Blood Pressure O2 Sat by Pulse 96 96 97 Oximetry 01/30/22 01/30/22 01/30/22 02:35 02:38 02:43 Temperature Pulse Rate 81 81 80 Pulse Rate [ Anterior Bilateral Throughout] Respiratory Rate Respiratory Rate [Anterior Bilateral Throughout] Blood Pressure 144/78 O2 Sat by Pulse 97 97 Oximetry 01/30/22 01/30/22 01/30/22 02:48 02:50 02:53 Temperature Pulse Rate 81 85 78 Pulse Rate [ Anterior Bilateral Throughout] Respiratory Rate Respiratory Rate [Anterior Bilateral Throughout] Blood Pressure 142/75 O2 Sat by Pulse 97 96 Oximetry 01/30/22 01/30/22 01/30/22 02:58 03:03 03:05 Temperature Pulse Rate 76 75 77 Pulse Rate [ Anterior Bilateral Throughout] Respiratory Rate Respiratory Rate [Anterior Bilateral Throughout] Blood Pressure 141/73 O2 Sat by Pulse 97 97 Oximetry 01/30/22 01/30/22 01/30/22 03:08 03:13 03:18 Temperature Pulse Rate 77 77 74 Pulse Rate [ Anterior Bilateral Throughout] Respiratory Rate Respiratory Rate [Anterior Bilateral Throughout] Blood Pressure O2 Sat by Pulse 96 97 98 Oximetry 01/30/22 01/30/22 01/30/22 03:20 03:23 03:28 Temperature Pulse Rate 69 73 72 Pulse Rate [ Anterior Bilateral Throughout] Respiratory Rate Respiratory Rate [Anterior Bilateral Throughout] Blood Pressure 129/67 O2 Sat by Pulse 97 97 Oximetry 01/30/22 01/30/22 01/30/22 03:33 03:35 03:38 Temperature Pulse Rate 76 78 77 Pulse Rate [ Anterior Bilateral Throughout] Respiratory Rate Respiratory Rate [Anterior Bilateral Throughout] Blood Pressure 129/67 O2 Sat by Pulse 97 97 Oximetry 01/30/22 01/30/22 01/30/22 03:43 03:48 03:50 Temperature Pulse Rate 87 80 76 Pulse Rate [ Anterior Bilateral Throughout] Respiratory Rate Respiratory Rate [Anterior Bilateral Throughout] Blood Pressure 138/73 O2 Sat by Pulse 92 98 Oximetry 01/30/22 01/30/22 01/30/22 03:53 03:58 04:03 Temperature Pulse Rate 81 82 79 Pulse Rate [ Anterior Bilateral Throughout] Respiratory Rate Respiratory Rate [Anterior Bilateral Throughout] Blood Pressure O2 Sat by Pulse 98 98 98 Oximetry 01/30/22 01/30/22 01/30/22 04:05 04:08 04:13 Temperature Pulse Rate 77 77 76 Pulse Rate [ Anterior Bilateral Throughout] Respiratory Rate Respiratory Rate [Anterior Bilateral Throughout] Blood Pressure 149/84 O2 Sat by Pulse 97 97 Oximetry 01/30/22 01/30/22 01/30/22 04:18 04:20 04:23 Temperature Pulse Rate 75 73 73 Pulse Rate [ Anterior Bilateral Throughout] Respiratory Rate Respiratory Rate [Anterior Bilateral Throughout] Blood Pressure 151/79 O2 Sat by Pulse 97 97 Oximetry 01/30/22 01/30/22 01/30/22 04:28 04:33 04:35 Temperature Pulse Rate 81 75 86 Pulse Rate [ Anterior Bilateral Throughout] Respiratory Rate Respiratory Rate [Anterior Bilateral Throughout] Blood Pressure 141/76 O2 Sat by Pulse 99 98 Oximetry 01/30/22 01/30/22 01/30/22 04:38 04:43 04:48 Temperature Pulse Rate 72 73 73 Pulse Rate [ Anterior Bilateral Throughout] Respiratory Rate Respiratory Rate [Anterior Bilateral Throughout] Blood Pressure O2 Sat by Pulse 98 97 98 Oximetry 01/30/22 01/30/22 01/30/22 04:50 04:53 04:58 Temperature Pulse Rate 72 82 72 Pulse Rate [ Anterior Bilateral Throughout] Respiratory Rate Respiratory Rate [Anterior Bilateral Throughout] Blood Pressure 155/81 O2 Sat by Pulse 97 97 Oximetry 01/30/22 01/30/22 01/30/22 05:03 05:05 05:08 Temperature Pulse Rate 73 69 72 Pulse Rate [ Anterior Bilateral Throughout] Respiratory Rate Respiratory Rate [Anterior Bilateral Throughout] Blood Pressure 160/83 O2 Sat by Pulse 97 97 Oximetry 01/30/22 01/30/22 01/30/22 05:13 05:18 05:20 Temperature Pulse Rate 73 73 76 Pulse Rate [ Anterior Bilateral Throughout] Respiratory Rate Respiratory Rate [Anterior Bilateral Throughout] Blood Pressure 168/91 O2 Sat by Pulse 97 97 Oximetry 01/30/22 01/30/22 01/30/22 05:23 05:24 05:28 Temperature Pulse Rate 95 H 93 H 71 Pulse Rate [ Anterior Bilateral Throughout] Respiratory Rate Respiratory Rate [Anterior Bilateral Throughout] Blood Pressure 170/116 O2 Sat by Pulse 97 98 Oximetry 01/30/22 01/30/22 01/30/22 05:31 05:33 05:35 Temperature Pulse Rate 77 83 75 Pulse Rate [ Anterior Bilateral Throughout] Respiratory Rate Respiratory Rate [Anterior Bilateral Throughout] Blood Pressure 149/83 O2 Sat by Pulse 93 97 Oximetry 01/30/22 01/30/22 01/30/22 05:38 05:43 05:48 Temperature Pulse Rate 77 76 73 Pulse Rate [ Anterior Bilateral Throughout] Respiratory Rate Respiratory Rate [Anterior Bilateral Throughout] Blood Pressure O2 Sat by Pulse 97 98 98 Oximetry 01/30/22 01/30/22 01/30/22 05:50 05:53 05:58 Temperature Pulse Rate 93 H 71 75 Pulse Rate [ Anterior Bilateral Throughout] Respiratory Rate Respiratory Rate [Anterior Bilateral Throughout] Blood Pressure 147/81 O2 Sat by Pulse 99 100 Oximetry 01/30/22 01/30/22 01/30/22 06:03 06:05 06:08 Temperature Pulse Rate 73 71 73 Pulse Rate [ Anterior Bilateral Throughout] Respiratory Rate Respiratory Rate [Anterior Bilateral Throughout] Blood Pressure 140/80 O2 Sat by Pulse 100 100 Oximetry 01/30/22 01/30/22 01/30/22 06:13 06:18 06:20 Temperature Pulse Rate 71 73 69 Pulse Rate [ Anterior Bilateral Throughout] Respiratory Rate Respiratory Rate [Anterior Bilateral Throughout] Blood Pressure 142/82 O2 Sat by Pulse 100 100 Oximetry 01/30/22 01/30/22 01/30/22 06:23 06:28 06:33 Temperature Pulse Rate 69 75 69 Pulse Rate [ Anterior Bilateral Throughout] Respiratory Rate Respiratory Rate [Anterior Bilateral Throughout] Blood Pressure O2 Sat by Pulse 100 100 99 Oximetry 01/30/22 01/30/22 01/30/22 06:35 06:38 06:43 Temperature Pulse Rate 67 68 71 Pulse Rate [ Anterior Bilateral Throughout] Respiratory Rate Respiratory Rate [Anterior Bilateral Throughout] Blood Pressure 151/85 O2 Sat by Pulse 100 100 Oximetry 01/30/22 01/30/22 01/30/22 06:48 06:50 06:53 Temperature Pulse Rate 74 73 72 Pulse Rate [ Anterior Bilateral Throughout] Respiratory Rate Respiratory Rate [Anterior Bilateral Throughout] Blood Pressure 149/85 O2 Sat by Pulse 100 99 Oximetry 01/30/22 06:54 Temperature Pulse Rate 70 Pulse Rate [ Anterior Bilateral Throughout] Respiratory Rate Respiratory Rate [Anterior Bilateral Throughout] Blood Pressure O2 Sat by Pulse 80 L Oximetry - Exam Breasts: normal Cardiovascular: Regular rate Lungs: Normal air movement Abdomen: Present: normal appearance, soft FHR: auscultation normal Uterine Contraction Monitor Mode: External Uterine Contraction Pattern: Absent Uterine Tone Measurement Phase: Resting Extremities: edema Deep Tendon Reflex Grade: Normal +2 - Labs Labs: Abnormal Labs 01/28/22 01/28/22 01/28/22 17:17 18:00 Unknown RBC 3.60 L MCHC 35 H [place] % (Auto) 7.7 H Seg Neutrophils % 73.5 H Seg Neutrophils # 8.0 H Creatinine 0.5 L Magnesium Lactate Dehydrogenase 252 H Ur Total Protein 24 Hr 255.00 H 01/29/22 01/29/22 01/29/22 00:33 05:28 12:51 RBC MCHC [place] % (Auto) Seg Neutrophils % Seg Neutrophils # Creatinine Magnesium 4.10 H 4.70 H 5.20 H Lactate Dehydrogenase Ur Total Protein 24 Hr Laboratory Results - last 24 hr 01/28/22 01/29/22 01/29/22 18:00 12:50 12:51 Magnesium 5.20 H Urine Total Volume 4250 Ur Total Protein 24 Hr 255.00 H Urine Total Protein 6 SARS-CoV-2 (PCR) Negative
[2022-01-30] MEDS: PRENATAL VIT27-FE FUMARATE-FOLIC ACID VIT TAB PO SCH (10:30)
[2022-01-30] MEDS: hydrALAZINE 20 MG/1 ML INJ IV PRN (15:12)
--- NOTE | 2022-01-30 15:19 | Event Note ---
Date: 01/30/22 Dr. D[place] called after seeing patient and gave these recommendations; * he does not believe patient has pre-e * Pt needs growth scan to r/o IUGR * pt needs upper abd scan to r/o gallbladder dx * She may d/c home if b/p's are well controlled and scans are NL * Pt has existing appt scheduled with [facility] Thursday 02/01 that she should keep if she is d/c'd by that time.
--- NOTE | 2022-01-30 17:20 | Ultrasound Report ---
ULTRASOUND OBSTETRIC, 01/30/2022 CLINICAL INFORMATION/INDICATION: Evaluate well-being COMPARISON: None FINDINGS: There is a single intrauterine . BPD = 6.7 cm = 27 weeks, 0 day(s). Head circumference = 26.6 cm = 29 weeks, 0 day(s). Abdominal circumference = 24.6 cm = 28 weeks, 6 day(s). Femur length = 5.6 cm = 29 weeks, 2 day(s). Overall estimated sonographic age = 28 weeks, 4 day(s). heart rate is 131 beats per minute. Estimated weight is 1298 grams which is 24th percentile. position is cephalic. Amniotic fluid volume appears within normal limits measuring 13.1 cm. Impression: 1. Single living intrauterine with estimated sonographic age of 28 weeks, 4 day(s). Signer Name: Cleopatra Etienne MD Signed: 01/30/2022 5:16 PM Workstation Name: [id number]
--- NOTE | 2022-01-30 17:21 | Ultrasound Report ---
ULTRASOUND BIOPHYSICAL PROFILE, 01/30/2022 INDICATION / CLINICAL INFORMATION: Evaluate well-being COMPARISON: Limited obstetrical ultrasound, 01/30/2022 FINDINGS: BREATHING MOVEMENT = 2 GROSS BODY MOVEMENT = 2 TONE = 2 QUALITATIVE AMNIOTIC FLUID VOLUME = 2 AMNIOTIC FLUID INDEX (cm) = 13.1 cm PRESENTATION: Cephalic. HEART RATE (beats per minute): 131 IMPRESSION: 1. biophysical profile = 06/06 Signer Name: Cleopatra Etienne MD Signed: 01/30/2022 5:17 PM Workstation Name: [id number]
--- NOTE | 2022-01-30 18:42 | Ultrasound Report ---
ULTRASOUND ABDOMEN, LIMITED (RIGHT UPPER QUADRANT), 01/30/2022 INDICATION: Right upper quadrant pain. COMPARISON: None FINDINGS: Pancreas: Visualized portion shows no significant abnormality. Liver: The liver appears normal in size measuring 13.2 cm in greatest dimension. Gallbladder: There is a single shadowing stone measuring approximately 5 mm within the neck of the ga llbladder. There is no wall thickening or pericholecystic fluid. Bile ducts: Common Bile Duct is normal in caliber measuring 3 mm Free fluid: None. Additional Findings: None. IMPRESSION: 1. Single stone within the neck of the gallbladder without sonographic evidence to suggest cholecysti tis Signer Name: Cleopatra Etienne MD Signed: 01/30/2022 6:38 PM Workstation Name: [id number]
[2022-01-30] MEDS: diphenhydrAMINE 25 MG CAP PO PRN (20:15)
--- NOTE | 2022-01-31 08:22 | Progress Note ---
Assessment and Plan Pt denies all complaints this am; reports +FM. POC with precautions and follow up d/w pt. Questions encouraged and addressed. Dr. Perez aware. Plan to discharge home if continues stable today to follow up with [facility] tomorrow. Pt verbalizes understanding and agrees to POC. - Patient Problems (1) 28 weeks gestation of Current Visit: Yes Status: Acute Plan to address problem[facility] (2) Chronic hypertension affecting Current Visit: Yes Status: Acute Plan to address problem: monitor for ssx of worsening BP status labetalol 300mg TID (3) Morbid obesity Current Visit: Yes Status: Acute Subjective - Subjective Date of service: 01/31/22 Principal diagnosis: IUP @ 28+2wks; chtn Patient reports: movement normal, other (denies GROSSMAN, vision changes, and RUQ pain), no new complaints, no loss of fluid, no vaginal bleeding, no contractions Objective - Vital Signs Vital Signs: Vital Signs - 12hr 01/30/22 01/30/22 01/30/22 20:24 20:29 20:34 Temperature Pulse Rate 84 95 H 84 Respiratory Rate Blood Pressure Blood Pressure [Right] O2 Sat by Pulse 99 99 99 Oximetry 01/30/22 01/30/22 01/30/22 20:39 20:44 20:49 Temperature Pulse Rate 93 H 87 79 Respiratory Rate Blood Pressure Blood Pressure [Right] O2 Sat by Pulse 99 100 100 Oximetry 01/30/22 01/30/22 01/30/22 20:54 20:59 21:04 Temperature Pulse Rate 84 83 83 Respiratory Rate Blood Pressure Blood Pressure [Right] O2 Sat by Pulse 100 99 99 Oximetry 01/30/22 01/30/22 01/30/22 21:09 21:14 21:19 Temperature Pulse Rate 80 80 74 Respiratory Rate Blood Pressure Blood Pressure [Right] O2 Sat by Pulse 100 99 99 Oximetry 01/30/22 01/30/22 01/30/22 21:24 21:29 21:34 Temperature Pulse Rate 71 71 68 Respiratory Rate Blood Pressure Blood Pressure [Right] O2 Sat by Pulse 99 99 99 Oximetry 01/30/22 01/30/22 01/30/22 21:39 21:44 21:49 Temperature Pulse Rate 76 68 68 Respiratory Rate Blood Pressure Blood Pressure [Right] O2 Sat by Pulse 99 98 98 Oximetry 01/30/22 01/30/22 01/30/22 21:54 21:59 22:04 Temperature Pulse Rate 70 70 66 Respiratory Rate Blood Pressure Blood Pressure [Right] O2 Sat by Pulse 98 98 98 Oximetry 01/30/22 01/30/22 01/30/22 22:09 22:14 22:19 Temperature Pulse Rate 69 69 68 Respiratory Rate Blood Pressure Blood Pressure [Right] O2 Sat by Pulse 98 98 98 Oximetry 01/30/22 01/30/22 01/30/22 22:24 22:29 22:34 Temperature Pulse Rate 67 67 89 Respiratory Rate Blood Pressure Blood Pressure [Right] O2 Sat by Pulse 98 98 98 Oximetry 01/30/22 01/30/22 01/30/22 22:39 22:44 22:49 Temperature Pulse Rate 65 64 68 Respiratory Rate Blood Pressure Blood Pressure [Right] O2 Sat by Pulse 98 98 98 Oximetry 01/30/22 01/30/22 01/30/22 22:54 22:59 23:04 Temperature Pulse Rate 66 68 70 Respiratory Rate Blood Pressure Blood Pressure [Right] O2 Sat by Pulse 98 98 98 Oximetry 01/30/22 01/30/22 01/30/22 23:09 23:14 23:19 Temperature Pulse Rate 66 62 63 Respiratory Rate Blood Pressure Blood Pressure [Right] O2 Sat by Pulse 98 98 98 Oximetry 01/30/22 01/30/22 01/30/22 23:24 23:34 23:39 Temperature Pulse Rate 67 95 H 73 Respiratory Rate Blood Pressure Blood Pressure [Right] O2 Sat by Pulse 98 97 98 Oximetry 01/30/22 01/30/22 01/30/22 23:41 23:43 23:44 Temperature 98.7 F Pulse Rate 72 71 74 Respiratory 18 Rate Blood Pressure 178/87 152/73 Blood Pressure 152/73 [Right] O2 Sat by Pulse 100 100 Oximetry 01/30/22 01/30/22 01/30/22 23:49 23:54 23:59 Temperature Pulse Rate 72 93 H 82 Respiratory Rate Blood Pressure Blood Pressure [Right] O2 Sat by Pulse 100 100 100 Oximetry 01/31/22 01/31/22 01/31/22 00:04 00:09 00:14 Temperature Pulse Rate 68 74 73 Respiratory Rate Blood Pressure Blood Pressure [Right] O2 Sat by Pulse 100 100 100 Oximetry 01/31/22 01/31/22 01/31/22 00:19 00:24 00:29 Temperature Pulse Rate 77 81 80 Respiratory Rate Blood Pressure Blood Pressure [Right] O2 Sat by Pulse 100 100 100 Oximetry 01/31/22 01/31/22 01/31/22 00:34 00:39 00:44 Temperature Pulse Rate 80 91 H 80 Respiratory Rate Blood Pressure Blood Pressure [Right] O2 Sat by Pulse 100 100 98 Oximetry 01/31/22 01/31/22 01/31/22 00:49 00:54 00:59 Temperature Pulse Rate 80 73 76 Respiratory Rate Blood Pressure Blood Pressure [Right] O2 Sat by Pulse 100 100 100 Oximetry 01/31/22 01/31/22 01/31/22 01:04 01:09 01:14 Temperature Pulse Rate 79 77 79 Respiratory Rate Blood Pressure Blood Pressure [Right] O2 Sat by Pulse 99 100 99 Oximetry 01/31/22 01/31/22 01/31/22 01:19 01:24 01:29 Temperature Pulse Rate 79 79 76 Respiratory Rate Blood Pressure Blood Pressure [Right] O2 Sat by Pulse 99 99 99 Oximetry 01/31/22 01/31/22 01/31/22 01:34 01:39 01:44 Temperature Pulse Rate 75 77 82 Respiratory Rate Blood Pressure Blood Pressure [Right] O2 Sat by Pulse 99 99 99 Oximetry 01/31/22 01/31/22 01/31/22 01:49 01:54 01:59 Temperature Pulse Rate 86 88 88 Respiratory Rate Blood Pressure Blood Pressure [Right] O2 Sat by Pulse 99 99 98 Oximetry 01/31/22 01/31/22 01/31/22 02:00 02:04 02:05 Temperature Pulse Rate 104 H 84 107 H Respiratory Rate Blood Pressure Blood Pressure [Right] O2 Sat by Pulse 93 99 93 Oximetry 01/31/22 01/31/22 01/31/22 02:09 02:14 02:19 Temperature Pulse Rate 85 81 80 Respiratory Rate Blood Pressure Blood Pressure [Right] O2 Sat by Pulse 98 99 99 Oximetry 01/31/22 01/31/22 01/31/22 02:24 02:29 02:34 Temperature Pulse Rate 78 80 82 Respiratory Rate Blood Pressure Blood Pressure [Right] O2 Sat by Pulse 99 99 99 Oximetry 01/31/22 01/31/22 01/31/22 02:39 02:44 02:49 Temperature Pulse Rate 84 85 78 Respiratory Rate Blood Pressure Blood Pressure [Right] O2 Sat by Pulse 99 99 99 Oximetry 01/31/22 01/31/22 01/31/22 02:54 02:59 03:04 Temperature Pulse Rate 80 91 H 77 Respiratory Rate Blood Pressure Blood Pressure [Right] O2 Sat by Pulse 99 100 100 Oximetry 01/31/22 01/31/22 01/31/22 03:13 03:18 03:23 Temperature Pulse Rate 97 H 78 97 H Respiratory Rate Blood Pressure Blood Pressure [Right] O2 Sat by Pulse 99 99 98 Oximetry 01/31/22 01/31/22 01/31/22 03:28 03:33 03:38 Temperature Pulse Rate 89 77 75 Respiratory Rate Blood Pressure Blood Pressure [Right] O2 Sat by Pulse 100 100 100 Oximetry 01/31/22 01/31/22 01/31/22 03:43 03:48 03:53 Temperature Pulse Rate 74 74 73 Respiratory Rate Blood Pressure Blood Pressure [Right] O2 Sat by Pulse 100 100 100 Oximetry 01/31/22 01/31/22 01/31/22 03:58 04:03 04:08 Temperature Pulse Rate 76 69 64 Respiratory Rate Blood Pressure Blood Pressure [Right] O2 Sat by Pulse 100 100 100 Oximetry 01/31/22 01/31/22 01/31/22 04:13 04:18 04:23 Temperature Pulse Rate 68 69 68 Respiratory Rate Blood Pressure Blood Pressure [Right] O2 Sat by Pulse 100 99 99 Oximetry 01/31/22 01/31/22 01/31/22 04:28 04:33 04:38 Temperature Pulse Rate 67 69 71 Respiratory Rate Blood Pressure Blood Pressure [Right] O2 Sat by Pulse 100 100 99 Oximetry 01/31/22 01/31/22 01/31/22 04:40 04:43 04:48 Temperature Pulse Rate 87 78 76 Respiratory Rate Blood Pressure Blood Pressure [Right] O2 Sat by Pulse 94 99 100 Oximetry 01/31/22 01/31/22 01/31/22 04:49 04:53 04:58 Temperature Pulse Rate 85 69 72 Respiratory Rate Blood Pressure Blood Pressure [Right] O2 Sat by Pulse 89 100 99 Oximetry 01/31/22 01/31/22 01/31/22 05:03 05:08 05:13 Temperature Pulse Rate 71 74 76 Respiratory Rate Blood Pressure Blood Pressure [Right] O2 Sat by Pulse 99 99 99 Oximetry 01/31/22 01/31/22 01/31/22 05:18 05:23 05:28 Temperature Pulse Rate 76 76 79 Respiratory Rate Blood Pressure Blood Pressure [Right] O2 Sat by Pulse 99 99 99 Oximetry 01/31/22 01/31/22 01/31/22 05:33 05:38 05:43 Temperature Pulse Rate 76 77 76 Respiratory Rate Blood Pressure Blood Pressure [Right] O2 Sat by Pulse 99 99 99 Oximetry 01/31/22 01/31/22 01/31/22 05:48 05:53 05:56 Temperature Pulse Rate 80 79 70 Respiratory Rate Blood Pressure 131/69 Blood Pressure [Right] O2 Sat by Pulse 99 99 Oximetry 01/31/22 01/31/22 01/31/22 05:58 06:01 06:03 Temperature 98.1 F Pulse Rate 76 70 69 Respiratory 18 Rate Blood Pressure Blood Pressure 131/69 [Right] O2 Sat by Pulse 98 100 98 Oximetry 01/31/22 01/31/22 01/31/22 06:08 06:13 06:18 Temperature Pulse Rate 73 87 77 Respiratory Rate Blood Pressure Blood Pressure [Right] O2 Sat by Pulse 98 98 98 Oximetry 01/31/22 01/31/22 01/31/22 06:23 06:31 06:36 Temperature Pulse Rate 77 83 79 Respiratory Rate Blood Pressure Blood Pressure [Right] O2 Sat by Pulse 98 99 99 Oximetry 01/31/22 01/31/22 01/31/22 06:41 06:46 06:51 Temperature Pulse Rate 69 73 75 Respiratory Rate Blood Pressure Blood Pressure [Right] O2 Sat by Pulse 99 99 99 Oximetry 01/31/22 01/31/22 01/31/22 06:56 07:01 07:06 Temperature Pulse Rate 75 68 78 Respiratory Rate Blood Pressure Blood Pressure [Right] O2 Sat by Pulse 99 99 99 Oximetry 01/31/22 01/31/22 01/31/22 07:11 07:13 07:16 Temperature Pulse Rate 77 92 H 83 Respiratory Rate Blood Pressure Blood Pressure [Right] O2 Sat by Pulse 99 88 99 Oximetry 01/31/22 01/31/22 01/31/22 07:21 07:26 07:31 Temperature Pulse Rate 81 76 70 Respiratory Rate Blood Pressure Blood Pressure [Right] O2 Sat by Pulse 99 99 99 Oximetry 01/31/22 01/31/22 01/31/22 07:36 07:41 07:46 Temperature Pulse Rate 73 85 83 Respiratory Rate Blood Pressure Blood Pressure [Right] O2 Sat by Pulse 99 98 99 Oximetry 01/31/22 01/31/22 01/31/22 07:51 07:56 08:01 Temperature Pulse Rate 81 78 74 Respiratory Rate Blood Pressure Blood Pressure [Right] O2 Sat by Pulse 100 99 99 Oximetry 01/31/22 01/31/22 01/31/22 08:03 08:06 08:07 Temperature 98.3 F Pulse Rate 73 78 Respiratory Rate Blood Pressure 137/70 137/70 137/70 Blood Pressure [Right] O2 Sat by Pulse 99 Oximetry 01/31/22 01/31/22 08:11 08:16 Temperature Pulse Rate 75 97 H Respiratory Rate Blood Pressure Blood Pressure [Right] O2 Sat by Pulse 100 100 Oximetry - Exam Breasts: deferred Cardiovascular: Regular rate Lungs: Normal air movement Abdomen: Present: normal appearance, soft. Absent: distention, tenderness, g uarding Uterus: Present: normal, other (gravid) FHR: auscultation normal, category 1 Uterine Contraction Monitor Mode: Palpation Uterine Contraction Pattern: Absent Uterine Tone Measurement Phase: Resting Extremities: normal - Labs Labs: Abnormal Labs 01/28/22 01/28/22 01/28/22 17:17 18:00 Unknown RBC 3.60 L MCHC 35 H [place] % (Auto) 7.7 H Seg Neutrophils % 73.5 H Seg Neutrophils # 8.0 H Creatinine 0.5 L Magnesium Lactate Dehydrogenase 252 H Ur Total Protein 24 Hr 255.00 H 01/29/22 01/29/22 01/29/22 00:33 05:28 12:51 RBC MCHC [place] % (Auto) Seg Neutrophils % Seg Neutrophils # Creatinine Magnesium 4.10 H 4.70 H 5.20 H Lactate Dehydrogenase Ur Total Protein 24 Hr
[2022-01-31] MEDS: ACETAMINOPHEN 325 MG TAB PO PRN (12:29)
[2022-01-31] MEDS: PRENATAL VIT27-FE FUMARATE-FOLIC ACID VIT TAB PO SCH (12:29)
--- NOTE | 2022-01-31 19:20 | Progress Note ---
Assessment and Plan VS reviewed and elevated BP's noted. Pt denies all complaints and reports desires for discharge home. NST reviewed and nonreactive; RN requested to bedside, continuous efm and toco requested. Ultrasound done and BPP 04/06. Dr. Perez made aware. Orders received. - Patient Problems (1) 28 weeks gestation of Current Visit: Yes Status: Acute (2) Chronic hypertension affecting Current Visit: Yes Status: Acute Plan to address problem: monitor for ssx of worsening BP status labetalol increased to 400mg TID (3) Morbid obesity Current Visit: Yes Status: Acute Subjective - Subjective Date of service: 01/31/22 Principal diagnosis: IUP @ 28+2wks; chtn Patient reports: movement normal, other (denies GROSSMAN, vision changes, and RUQ pain), no new complaints, no loss of fluid, no vaginal bleeding, no contractions Objective - Vital Signs Vital Signs: Vital Signs - 12hr 01/31/22 01/31/22 01/31/22 07:16 07:21 07:26 Temperature Pulse Rate 83 81 76 Blood Pressure O2 Sat by Pulse 99 99 99 Oximetry O2 Sat by Pulse Oximetry [ Anterior Bilateral Throughout] 01/31/22 01/31/22 01/31/22 07:31 07:36 07:41 Temperature Pulse Rate 70 73 85 Blood Pressure O2 Sat by Pulse 99 99 98 Oximetry O2 Sat by Pulse Oximetry [ Anterior Bilateral Throughout] 01/31/22 01/31/22 01/31/22 07:46 07:51 07:56 Temperature Pulse Rate 83 81 78 Blood Pressure O2 Sat by Pulse 99 100 99 Oximetry O2 Sat by Pulse Oximetry [ Anterior Bilateral Throughout] 01/31/22 01/31/22 01/31/22 08:01 08:03 08:06 Temperature 98.3 F Pulse Rate 74 73 78 Blood Pressure 137/70 137/70 O2 Sat by Pulse 99 99 Oximetry O2 Sat by Pulse Oximetry [ Anterior Bilateral Throughout] 01/31/22 01/31/22 01/31/22 08:07 08:11 08:16 Temperature Pulse Rate 75 97 H Blood Pressure 137/70 O2 Sat by Pulse 100 100 Oximetry O2 Sat by Pulse Oximetry [ Anterior Bilateral Throughout] 01/31/22 01/31/22 01/31/22 08:32 10:30 12:10 Temperature Pulse Rate Blood Pressure O2 Sat by Pulse Oximetry O2 Sat by Pulse 99 99 99 Oximetry [ Anterior Bilateral Throughout] 01/31/22 01/31/22 01/31/22 12:52 12:56 14:02 Temperature Pulse Rate 81 83 Blood Pressure 162/90 132/63 O2 Sat by Pulse Oximetry O2 Sat by Pulse 99 Oximetry [ Anterior Bilateral Throughout] 01/31/22 01/31/22 01/31/22 16:36 16:38 18:06 Temperature 98.6 F Pulse Rate 78 80 80 Blood Pressure 153/72 143/79 158/86 O2 Sat by Pulse Oximetry O2 Sat by Pulse 99 Oximetry [ Anterior Bilateral Throughout] 01/31/22 01/31/22 18:08 18:10 Temperature Pulse Rate 80 84 Blood Pressure 164/86 157/85 O2 Sat by Pulse Oximetry O2 Sat by Pulse Oximetry [ Anterior Bilateral Throughout] - Exam Breasts: deferred Cardiovascular: Regular rate Lungs: Normal air movement Abdomen: Present: normal appearance, soft, other (morbidly obese). Absent: distention, tenderness, guarding FHR: category 2 Uterine Contraction Monitor Mode: External Uterine Contraction Pattern: Absent Uterine Tone Measurement Phase: Resting Extremities: normal - Labs Labs: Abnormal Labs 01/28/22 01/28/22 01/28/22 17:17 18:00 Unknown RBC 3.60 L MCHC 35 H [place] % (Auto) 7.7 H Seg Neutrophils % 73.5 H Seg Neutrophils # 8.0 H Creatinine 0.5 L Magnesium Lactate Dehydrogenase 252 H Ur Total Protein 24 Hr 255.00 H 01/29/22 01/29/22 01/29/22 00:33 05:28 12:51 RBC MCHC [place] % (Auto) Seg Neutrophils % Seg Neutrophils # Creatinine Magnesium 4.10 H 4.70 H 5.20 H Lactate Dehydrogenase Ur Total Protein 24 Hr
--- NOTE | 2022-01-31 20:05 | Ultrasound Report ---
US OB BPP wo non-stress INDICATION / CLINICAL INFORMATION: wellbeing. TECHNIQUE: Transabdominal. Duplex Color Doppler used: Yes. COMPARISON: None available FINDINGS: Biophysical Profile: breathing movements: 0 movements:2 posture and tone:2 Qualitative amniotic fluid volume: 2 heart rate is 147 bpm. IMPRESSION: 1. Biophysical profile 6 of 8. No breathing movements detected. Signer Name: Liban Lucio MD Signed: 01/31/2022 8:00 PM Workstation Name: [email or web address]
[2022-01-31] MEDS: diphenhydrAMINE 25 MG CAP PO PRN (21:29)
[2022-01-31] MEDS: ALBUTEROL 2.5 MG/3 ML NEBU IH PRN (22:27)
--- NOTE | 2022-02-01 07:47 | Progress Note ---
Assessment and Plan pt sitting up in chair, anxious to go home but understanding of plan.Pt denies s/s pre-e, reports + FM, denies ctx, leaking or bleeding. blood pressures 140-160/70-90's after labetalol titrated to 400mg TID. Will add procardia 30mg QD. plan to continue cont efm/toco and repeat bpp this afternoon. RN aware of plan, all questions addressed. - Patient Problems (1) 28 weeks gestation of Current Visit: Yes Status: Acute (2) Migraine Current Visit: Yes Status: Resolved Qualifiers: Migraine type: without aura Intractability: intractable (3) Chronic hypertension affecting Current Visit: Yes Status: Acute Plan to address problem: Labetalol 400 mg PO TID Procardia 30 QD added - will titrate for b/p control (4) Morbid obesity Current Visit: Yes Status: Acute Subjective - Subjective Date of service: 02/01/22 Principal diagnosis: IUP @ 28+3 wks; chtn Patient reports: movement normal, other (denies GROSSMAN, vision changes, and RUQ pain), no new complaints, no loss of fluid, no vaginal bleeding, no contractions Objective - Vital Signs Vital Signs: Vital Signs - 12hr 01/31/22 01/31/22 01/31/22 20:00 20:23 22:28 Pulse Rate 75 75 Pulse Rate [ 66 Anterior Bilateral Throughout] Respiratory 16 Rate [Anterior Bilateral Throughout] Blood Pressure 160/75 160/75 O2 Sat by Pulse Oximetry 01/31/22 01/31/22 01/31/22 22:30 22:35 22:39 Pulse Rate 74 64 41 L Pulse Rate [ Anterior Bilateral Throughout] Respiratory Rate [Anterior Bilateral Throughout] Blood Pressure O2 Sat by Pulse 99 99 91 Oximetry 01/31/22 01/31/22 01/31/22 23:01 23:03 23:04 Pulse Rate 76 70 Pulse Rate [ Anterior Bilateral Throughout] Respiratory Rate [Anterior Bilateral Throughout] Blood Pressure 168/97 O2 Sat by Pulse 92 98 Oximetry 01/31/22 01/31/22 01/31/22 23:08 23:13 23:18 Pulse Rate 68 70 63 Pulse Rate [ Anterior Bilateral Throughout] Respiratory Rate [Anterior Bilateral Throughout] Blood Pressure O2 Sat by Pulse 98 98 97 Oximetry 01/31/22 01/31/22 01/31/22 23:23 23:28 23:33 Pulse Rate 67 79 68 Pulse Rate [ Anterior Bilateral Throughout] Respiratory Rate [Anterior Bilateral Throughout] Blood Pressure O2 Sat by Pulse 98 99 97 Oximetry 01/31/22 01/31/22 01/31/22 23:38 23:43 23:48 Pulse Rate 64 68 89 Pulse Rate [ Anterior Bilateral Throughout] Respiratory Rate [Anterior Bilateral Throughout] Blood Pressure O2 Sat by Pulse 97 97 98 Oximetry 01/31/22 01/31/22 02/01/22 23:53 23:58 00:03 Pulse Rate 81 74 84 Pulse Rate [ Anterior Bilateral Throughout] Respiratory Rate [Anterior Bilateral Throughout] Blood Pressure O2 Sat by Pulse 100 97 99 Oximetry 02/01/22 02/01/22 02/01/22 00:13 00:18 00:23 Pulse Rate 91 H 80 82 Pulse Rate [ Anterior Bilateral Throughout] Respiratory Rate [Anterior Bilateral Throughout] Blood Pressure O2 Sat by Pulse 98 98 99 Oximetry 02/01/22 02/01/22 02/01/22 00:28 00:33 00:35 Pulse Rate 78 80 91 H Pulse Rate [ Anterior Bilateral Throughout] Respiratory Rate [Anterior Bilateral Throughout] Blood Pressure O2 Sat by Pulse 98 100 94 Oximetry 02/01/22 02/01/22 02/01/22 00:38 00:43 00:48 Pulse Rate 78 74 72 Pulse Rate [ Anterior Bilateral Throughout] Respiratory Rate [Anterior Bilateral Throughout] Blood Pressure O2 Sat by Pulse 96 96 97 Oximetry 02/01/22 02/01/22 02/01/22 00:53 00:58 01:03 Pulse Rate 72 72 70 Pulse Rate [ Anterior Bilateral Throughout] Respiratory Rate [Anterior Bilateral Throughout] Blood Pressure 149/81 O2 Sat by Pulse 98 97 98 Oximetry 02/01/22 02/01/22 02/01/22 01:08 01:11 01:13 Pulse Rate 76 84 79 Pulse Rate [ Anterior Bilateral Throughout] Respiratory Rate [Anterior Bilateral Throughout] Blood Pressure O2 Sat by Pulse 96 93 98 Oximetry 02/01/22 02/01/22 02/01/22 01:18 01:23 01:28 Pulse Rate 77 74 71 Pulse Rate [ Anterior Bilateral Throughout] Respiratory Rate [Anterior Bilateral Throughout] Blood Pressure O2 Sat by Pulse 97 97 97 Oximetry 02/01/22 02/01/22 02/01/22 01:33 01:38 01:43 Pulse Rate 70 73 71 Pulse Rate [ Anterior Bilateral Throughout] Respiratory Rate [Anterior Bilateral Throughout] Blood Pressure O2 Sat by Pulse 97 97 97 Oximetry 02/01/22 02/01/22 02/01/22 01:48 01:53 01:58 Pulse Rate 73 69 71 Pulse Rate [ Anterior Bilateral Throughout] Respiratory Rate [Anterior Bilateral Throughout] Blood Pressure O2 Sat by Pulse 97 97 97 Oximetry 02/01/22 02/01/22 02/01/22 02:03 02:04 02:08 Pulse Rate 75 70 71 Pulse Rate [ Anterior Bilateral Throughout] Respiratory Rate [Anterior Bilateral Throughout] Blood Pressure 145/77 O2 Sat by Pulse 97 97 Oximetry 02/01/22 02/01/22 02/01/22 02:13 02:18 02:23 Pulse Rate 72 68 69 Pulse Rate [ Anterior Bilateral Throughout] Respiratory Rate [Anterior Bilateral Throughout] Blood Pressure O2 Sat by Pulse 99 98 98 Oximetry 02/01/22 02/01/22 02/01/22 02:28 02:33 02:38 Pulse Rate 68 73 78 Pulse Rate [ Anterior Bilateral Throughout] Respiratory Rate [Anterior Bilateral Throughout] Blood Pressure O2 Sat by Pulse 98 98 98 Oximetry 02/01/22 02/01/22 02/01/22 02:43 02:48 02:51 Pulse Rate 70 88 74 Pulse Rate [ Anterior Bilateral Throughout] Respiratory Rate [Anterior Bilateral Throughout] Blood Pressure O2 Sat by Pulse 98 96 92 Oximetry 02/01/22 02/01/22 02/01/22 02:53 02:58 03:03 Pulse Rate 80 72 78 Pulse Rate [ Anterior Bilateral Throughout] Respiratory Rate [Anterior Bilateral Throughout] Blood Pressure O2 Sat by Pulse 97 97 98 Oximetry 02/01/22 02/01/22 02/01/22 03:04 03:08 03:13 Pulse Rate 74 72 71 Pulse Rate [ Anterior Bilateral Throughout] Respiratory Rate [Anterior Bilateral Throughout] Blood Pressure 144/78 O2 Sat by Pulse 98 98 Oximetry 02/01/22 02/01/22 02/01/22 03:18 03:23 03:28 Pulse Rate 71 79 74 Pulse Rate [ Anterior Bilateral Throughout] Respiratory Rate [Anterior Bilateral Throughout] Blood Pressure O2 Sat by Pulse 97 97 97 Oximetry 02/01/22 02/01/22 02/01/22 03:33 03:38 03:43 Pulse Rate 74 71 73 Pulse Rate [ Anterior Bilateral Throughout] Respiratory Rate [Anterior Bilateral Throughout] Blood Pressure O2 Sat by Pulse 97 97 98 Oximetry 02/01/22 02/01/22 02/01/22 03:48 03:53 03:58 Pulse Rate 72 71 69 Pulse Rate [ Anterior Bilateral Throughout] Respiratory Rate [Anterior Bilateral Throughout] Blood Pressure O2 Sat by Pulse 98 98 98 Oximetry 02/01/22 02/01/22 02/01/22 04:03 04:04 04:08 Pulse Rate 70 69 75 Pulse Rate [ Anterior Bilateral Throughout] Respiratory Rate [Anterior Bilateral Throughout] Blood Pressure 124/61 O2 Sat by Pulse 98 97 Oximetry 02/01/22 02/01/22 02/01/22 04:13 04:18 04:23 Pulse Rate 70 68 70 Pulse Rate [ Anterior Bilateral Throughout] Respiratory Rate [Anterior Bilateral Throughout] Blood Pressure O2 Sat by Pulse 98 98 98 Oximetry 02/01/22 02/01/22 02/01/22 04:27 04:28 04:32 Pulse Rate 78 74 82 Pulse Rate [ Anterior Bilateral Throughout] Respiratory Rate [Anterior Bilateral Throughout] Blood Pressure O2 Sat by Pulse 94 97 93 Oximetry 02/01/22 02/01/22 02/01/22 04:33 04:38 04:43 Pulse Rate 69 73 77 Pulse Rate [ Anterior Bilateral Throughout] Respiratory Rate [Anterior Bilateral Throughout] Blood Pressure O2 Sat by Pulse 98 97 99 Oximetry 02/01/22 02/01/22 02/01/22 04:48 04:53 05:01 Pulse Rate 69 81 81 Pulse Rate [ Anterior Bilateral Throughout] Respiratory Rate [Anterior Bilateral Throughout] Blood Pressure O2 Sat by Pulse 98 97 98 Oximetry 02/01/22 02/01/22 02/01/22 05:04 05:06 05:11 Pulse Rate 73 77 76 Pulse Rate [ Anterior Bilateral Throughout] Respiratory Rate [Anterior Bilateral Throughout] Blood Pressure 143/91 O2 Sat by Pulse 99 99 Oximetry 02/01/22 02/01/22 02/01/22 05:16 05:21 05:26 Pulse Rate 70 71 76 Pulse Rate [ Anterior Bilateral Throughout] Respiratory Rate [Anterior Bilateral Throughout] Blood Pressure O2 Sat by Pulse 96 96 96 Oximetry 02/01/22 02/01/22 02/01/22 05:31 05:36 05:41 Pulse Rate 73 69 83 Pulse Rate [ Anterior Bilateral Throughout] Respiratory Rate [Anterior Bilateral Throughout] Blood Pressure O2 Sat by Pulse 97 98 98 Oximetry 02/01/22 02/01/22 02/01/22 05:46 05:51 05:56 Pulse Rate 94 H 77 74 Pulse Rate [ Anterior Bilateral Throughout] Respiratory Rate [Anterior Bilateral Throughout] Blood Pressure O2 Sat by Pulse 97 97 98 Oximetry 02/01/22 02/01/22 02/01/22 06:01 06:04 06:06 Pulse Rate 80 81 82 Pulse Rate [ Anterior Bilateral Throughout] Respiratory Rate [Anterior Bilateral Throughout] Blood Pressure 149/81 O2 Sat by Pulse 99 98 Oximetry 02/01/22 02/01/22 02/01/22 06:11 06:16 06:21 Pulse Rate 79 95 H 88 Pulse Rate [ Anterior Bilateral Throughout] Respiratory Rate [Anterior Bilateral Throughout] Blood Pressure O2 Sat by Pulse 98 97 97 Oximetry 02/01/22 02/01/22 02/01/22 06:33 06:38 06:43 Pulse Rate 86 81 76 Pulse Rate [ Anterior Bilateral Throughout] Respiratory Rate [Anterior Bilateral Throughout] Blood Pressure O2 Sat by Pulse 100 99 99 Oximetry 02/01/22 02/01/22 02/01/22 06:48 06:53 06:58 Pulse Rate 75 75 79 Pulse Rate [ Anterior Bilateral Throughout] Respiratory Rate [Anterior Bilateral Throughout] Blood Pressure O2 Sat by Pulse 99 100 99 Oximetry 02/01/22 02/01/22 02/01/22 07:03 07:08 07:13 Pulse Rate 78 78 78 Pulse Rate [ Anterior Bilateral Throughout] Respiratory Rate [Anterior Bilateral Throughout] Blood Pressure O2 Sat by Pulse 100 99 100 Oximetry 02/01/22 02/01/22 02/01/22 07:18 07:23 07:28 Pulse Rate 76 79 77 Pulse Rate [ Anterior Bilateral Throughout] Respiratory Rate [Anterior Bilateral Throughout] Blood Pressure O2 Sat by Pulse 99 100 100 Oximetry 02/01/22 02/01/22 02/01/22 07:33 07:38 07:43 Pulse Rate 77 79 76 Pulse Rate [ Anterior Bilateral Throughout] Respiratory Rate [Anterior Bilateral Throughout] Blood Pressure O2 Sat by Pulse 99 99 99 Oximetry - Exam Breasts: normal Cardiovascular: Regular rate Lungs: Normal air movement Abdomen: Present: soft Vulva: both: normal Uterus: Present: normal FHR: category 1 Uterine Contraction Monitor Mode: External Uterine Contraction Pattern: Absent Uterine Tone Measurement Phase: Resting Extremities: edema Deep Tendon Reflex Grade: Normal +2 - Labs Labs: Abnormal Labs 01/28/22 01/28/22 01/28/22 17:17 18:00 Unknown RBC 3.60 L MCHC 35 H Carl[place] % (Auto) 7.7 H Seg Neutrophils % 73.5 H Seg Neutrophils # 8.0 H Creatinine 0.5 L Magnesium Lactate Dehydrogenase 252 H Ur Total Protein 24 Hr 255.00 H 01/29/22 01/29/22 01/29/22 00:33 05:28 12:51 RBC MCHC Carl[place] % (Auto) Seg Neutrophils % Seg Neutrophils # Creatinine Magnesium 4.10 H 4.70 H 5.20 H Lactate Dehydrogenase Ur Total Protein 24 Hr
[2022-02-01] MEDS ORDERED: NIFEdipine XL 30 MG TAB PO SCH (10:00)
[2022-02-01] MEDS: PRENATAL VIT27-FE FUMARATE-FOLIC ACID VIT TAB PO SCH (10:10)
[2022-02-01 16:08] VITALS: BP 157/87
--- NOTE | 2022-02-01 16:25 | Discharge Summary ---
Providers - Providers Date of Admission: 01/28/22 17:25 Date of discharge: 02/01/22 Attending physician: MONTANA BYNUM 01/29/22 11:52 Consult to Physician [CONS] Routine Comment: Consulting Provider: MARJORIE BOB Physician Instructions: Reason For Exam: elevated b/p r/o superimposed pre-e @ 28wks Primary care physician: [facility] Hospitalization Reason for admission: other (elevated blood pressure) Pertinent studies: BPP 8 Condition at discharge: Good Disposition: 01 HOME / SELF CARE / HOMELESS - Discharge Diagnoses (1) 28 weeks gestation of Status: Acute (2) Migraine Status: Resolved Qualifiers: Migraine type: without aura Intractability: intractable (3) Chronic hypertension affecting Status: Acute (4) Morbid obesity Status: Acute Plan - Discharge Medications Prescriptions: labetaloL [Labetalol 200mg TAB] 400 mg PO TID #60 tab Albuterol Mdi (or & Nicu Only) [ProAir HFA Inhaler] 2 puff IH Q6HR PRN #8.5 gram PRN Reason: Bronchospasm NIFEdipine XL [Procardia Xl] 30 mg PO QDAY #30 tablet - Provider Discharge Summary Activity: routine Diet: routine Instructions: routine Additional instructions: [] Smoking cessation referral if applicable(refer to patient education folder for contact #) [] Refer to [facility]'s [facility] Booklet Call your doctor immediately for: * Fever > 100.5 * Severe persistent headache * Shortness of breath * Reddened, hot, painful area to leg or breast * decreased movement * Vaginal bleeding, leaking fluid from vagina or contractions. - Follow up plan Follow up: PRIMARY CARE, [Primary Care Provider] - 7 Days LISSA WEINBERG CNM [Advanced Practice Nurse] - 02/02/22 9:30 am (Please call for any headaches, upper abdominal pain or changes to your vision. We will see you tomorrow morning @ 0930 in the [place] office. Call [facility] to reschedule your appointment SANDI.)
--- NOTE | 2022-02-01 18:02 | Ultrasound Report ---
ULTRASOUND OBSTETRIC LIMITED ULTRASOUND BIOPHYSICAL PROFILE INDICATION / CLINICAL INFORMATION: well being. Clinical Gestational Age (GA) in weeks, days: 29, 4 TECHNIQUE: Transabdominal. COMPARISON: None available. FINDINGS: BREATHING MOVEMENT = 2 GROSS BODY MOVEMENT = 2 TONE = 2 QUALITATIVE AMNIOTIC FLUID VOLUME = 2 TOTAL BIOPHYSICAL SCORE = 8/8 HEART RATE (beats per minute): 143 PRESENTATION: Cephalic. ADDITIONAL FINDINGS: None. IMPRESSION: 1. Biophysical Score = 8/8 Signer Name: Charly Teresa DO Signed: 02/01/2022 5:57 PM Workstation Name: [id number]
== END 2022-02-01 17:09 | disposition home or self-care (01) | DRG 781 ==
LOC: TRG 15:55 → APU 15:56 → TRG 17:56 → LD 18:31
PROVIDERS: ADMIT Obstetrics & Gynecology; ATTEND Obstetrics & Gynecology
DX: O10.913 Unspecified pre-existing hypertension complicating pregnancy, third trimester (principal); E66.01 Morbid (severe) obesity due to excess calories; Z20.822 Contact with and (suspected) exposure to COVID-19; O99.213 Obesity complicating pregnancy, third trimester; O99.513 Diseases of the respiratory system complicating pregnancy, third trimester; Z3A.27 27 weeks gestation of pregnancy; O99.353 Diseases of the nervous system complicating pregnancy, third trimester; G43.909 Migraine, unspecified, not intractable, without status migrainosus
CPT/HCPCS: 36415; 59025; 76705; 76816; 76819; 81001; 82565; 83615; 83735; 84156; 84450; 84460; 84550; 85025; 86592; 86850; 86900; 86901; 94640; 96360; 96365; 96366; G0378; J3490; J0360; J0702; J2765; J3475; U0003

== ENCOUNTER 2022-02-08 17:04 | Inpatient (IN) | payer OTHER ==
[2022-02-08] MEDS ORDERED: SENNOSIDES/DOCUSATE SODIUM 8.6/50 MG TAB PO PRN (17:26)
[2022-02-08] MEDS ORDERED: ONDANSETRON 4 MG/2 ML INJ IV PRN (17:26)
[2022-02-08] MEDS ORDERED: ACETAMINOPHEN 325 MG TAB PO PRN (17:26)
[2022-02-08] MEDS ORDERED: ALUM-MAG HYDROXIDE-SIMETHICONE 200-200-20MG/5ML ORAL LIQD 30 ML PO PRN (17:26)
[2022-02-08] MEDS ORDERED: NIFEdipine XL 30 MG TAB PO SCH (18:00)
[2022-02-08 18:03] LABS: Bacteria,Urine 4+ /HPF (Negative); Bilirubin,Urine NEG (Negative); Blood,Urine NEG (Negative); Color,Urine Yellow (Yellow); Mucus,Urine FEW /HPF
--- NOTE | 2022-02-08 18:12 | History and Physical Report ---
History of Present Illness Date of examination: 02/08/22 (272) Date of admission: 02/08/22 17:27 Chief complaint: "My blood pressure is high." Sent from [facility] for sustained SRBP History of present illness: @ 29 wks sent from [facility] appointment this afternoon for sustained SRBP. Affirms movement and denies vaginal bleeding, LOF, chest pain, SOB at rest, headaches and NVD. Upon questioning does endorse SOB with minimal exertion, as well as intermittent blurred vision since discharge from hospital last week. States blurred vision occurs randomly. Pt affirms she has not missed any of her prescribed antihypertensives in the last 2 days, though she did miss one dose of her TID labetalol on both Monday and Monday this past weekend. Of note pt was previously admitted to the antepartum service from 01/28-02/01/22 for blood pressure control. Total 24 hr protein in September 2021 was 618 and last admission on 01/28/2022 was 255. EDC Calculations LMP: 04/23/2022 Gestational Age: 29.3 weeks on admission Past History : 5 Term Births: 3 Premature Births: 0 Living Children: 3 Para: 3 Mult. Births: 0 Prev : 0 Aborta: 1 Elect. Ab: 0 Spont. Ab: 1 Ectopics: 0 # 1 Delivery date: 2003 Weeks Gestation: 37 Delivery type: Hours of labor: 24 Anesthesia type: epidural Delivery location: [facility] Sex: Female weight: 6-12 Comments: PPH: had blood transfusion # 2 Delivery date: 2005 Weeks Gestation: 38 Delivery type: Hours of labor: 8 Anesthesia type: epidural Delivery location: [facility] Sex: Female weight: 9-10 Comments: No complications # 3 Delivery date: 2013 Weeks Gestation: 38 labor: no Delivery type: Hours of labor: 24 Anesthesia type: epidural Delivery location: [facility] Sex: Male weight: 7-11 Comments: PPH: Had D&C after delivery # 4 Weeks Gestation: ? Delivery type: SAB Comments: No D&C needed Past Medical History: Reviewed and updated today: Hypertension Asthma Sleep Apnea Past Surgical History: Reviewed and updated today: D&C ( 2013) Family History Summary: Mother - Has Family History of Hypertension - Entered On: 08/28/2021 Father - Has Family History of Diabetes - Entered On: 08/28/2021 Risk Factors: Smoked Tobacco Use: Former smoker Cigarettes: Yes Year Quit: 2020 Years Since Last Quit: 1 Smokeless Tobacco Use: Never Counseled to Quit/Cut Down: yes Passive Smoke Exposure: no HIV High Risk Behavior: no Exercise: yes Times/wk: 7 Type of Exercise: walking Seatbelt Use: 100 % Sun Exposure: rarely No Dietary Counseling Reason: pn yes PAP Smear History: Date of Last PAP Smear: 02/17/2021 Results: Normal Alcohol Use: no Drug Use: no Past Medical History: Anesthesia Complications: negative Anemia: negative Autoimmune Disorder: negative Bleeding Disorder: negative Blood Transfusions: negative Breast Disease: negative Diabetes: negative Heart Disease: negative Hypertension: positive Hepatitis/Liver Disease: negative Kidney Disease/UTI: negative Neurologic/Epilepsy/Migraines: negative Phlebitis/Varicosities: negative Psychiatric: negative Pulmonary Disease/Asthma: positive Thyroid Disease: negative Hospitalizations: negative Surgery (Non-city wellness coordinator): negative Abnormal PAP: positive, HPV, this PAP 2020 normal SHANNAN Exposure: negative Infertility: negative Uterine Anomaly: negative Uterine Surgery (not C/S): negative Other Gynecologic Problems: negative Social Hx: Patient is Smoking History: Patient is a former smoker. Infection History: Hx of STD: none HIV Risk Eval: no Hepatitis B Risk Eval: low risk Personal hx. of genital herpes: no Partner hx. of genital herpes: no Varicella/Chicken Pox Status: Previous Disease TB Risk: no Genetic History: ADVANCED MATERNAL AGE Congenital Heart Defect: Mom: no Dad: no Kash Disease: Mom: no Dad: no Thalassemia Mom: no Dad: no Neural Tube Defect Mom: no Dad: no Down's Syndrome Mom: no Dad: no Boogie-Sachs Mom: no Dad: no Sickle Cell Disease/Trait Mom: no Dad: no Hemophilia Mom: no Dad: no Muscular Dystrophy Mom: no Dad: no Cystic Fibrosis Mom: no Dad: no Roane Chorea Mom: no Dad: no Mental Retardation Mom: no Dad: no Fragile X Mom: no Dad: no Other Genetic/Chromosomal Disorder Mom: no Dad: no Child w/other defect Mom: no Dad: no Environmental Exposures: Xray Exposure: no Medication, drug, or alcohol use since LMP: no Chemical/Other Exposure: no Exposure to Cat Liter: no Hx of Parvovirus (Fifth Disease): no Occupational Exposure to Children: none Current Allergies (reviewed today): No known allergies Past History Past Medical History: asthma, hypertension, other (morbid obesity (BMI 60); sleep apnea; advanced maternal age) Past Surgical History: D&C (2013 ()) Family/Genetic History: diabetes, hypertension Social history: - Obstetrical History Expected Date of Delivery: 04/23/22 Actual Gestation: 29 Week(s) 3 Day(s) : 5 Para: 3 Hx # Term Pregnancies: 3 Number of Pregnancies: 0 Spontaneous Abortions: 1 Induced : 0 Number of Living Children: 3 Medications and Allergies Allergies Allergy/AdvReac Type Severity Reaction Status Date / Time No Known Allergies Allergy Verified 01/28/22 17:21 Home Medications Medication Instructions Recorded Confirmed Last Taken Type Amoxicillin/K Clav Tab [Augmentin 1 tab PO Q12HR #14 tab 12/10/16 Unknown Rx 875 mg] Ibuprofen [Motrin] 800 mg PO Q8HR PRN #30 tablet 12/10/16 Unknown Rx Erythromycin [Erythromycin Ophth 1 applic OS QID 7 Days #1 tube 08/26/21 Unknown Rx Oint] Ketotifen Fumarate [Zaditor] 1 drop OP BID #1 bottle 08/26/21 Unknown Rx Albuterol Mdi (or & Nicu Only) 2 puff IH Q6HR PRN #8.5 gram 02/01/22 Unknown Rx [ProAir HFA Inhaler] NIFEdipine XL [Procardia Xl] 30 mg PO QDAY #30 tablet 02/01/22 Unknown Rx labetaloL [Labetalol 200mg TAB] 400 mg PO TID #60 tab 02/01/22 Unknown Rx Active Meds: Active Medications Acetaminophen (Acetaminophen 325 Mg Tab) 650 mg PO Q4H PRN PRN Reason: Pain MILD(1-3)/Fever >100.5/GROSSMAN Al Hydrox/Mg Hydrox/Simethicone (Alum-Mag Hydroxide-Simethicone [id number]/5ml Oral Liqd 30 Ml) 30 ml PO Q6H PRN PRN Reason: Indigestion Docusate Sodium (Docusate Sodium 100 Mg Cap) 100 mg PO Q12H PRN PRN Reason: Constipation Lactated Ringer's (Lactated Ringers) 1,000 mls @ 75 mls/hr IV DIRECT ANNAMARIA Labetalol HCl (Labetalol 200 Mg Tab) 400 mg PO TID ANNAMARIA Magnesium Hydroxide (Magnesium Hydroxide (Mom) Oral Liqd Udc) 30 ml PO QHS PRN PRN Reason: Laxative Effect Multivitamins/Iron/Calcium ( Lgb02-Fu Fumarate-Folic Acid Vit Tab) 1 each PO QDAY ANNAMARIA Nifedipine (Nifedipine Xl 30 Mg Tab) 30 mg PO QDAY ANNAMARIA Ondansetron HCl (Ondansetron 4 Mg/2 Ml Inj) 4 mg IV Q6H PRN PRN Reason: Nausea And Vomiting Senna/Docusate Sodium (Sennosides/Docusate Sodium 8.6/50 Mg Tab) 2 tab PO Q12H PRN PRN Reason: Laxative Effect Simethicone (Simethicone 80 Mg Chew Tab) 80 mg PO Q6H PRN PRN Reason: Gas pain Review of Systems Cardiovascular: dyspnea on exertion, high blood pressure, leg edema Breasts: deferred Rectal Exam: deferred Neurological: other (intermittent blurred vision) - Physical Exam Breasts: Positive: deferred Cardiovascular: Regular rate Lungs: Positive: Clear to auscultation, Normal air movement Extremities: Positive: edema Results All other labs normal. HBsAg Screen Negative Negative *1 RPR Non Reactive Non Reactive *2 Rubella Antibodies, IgG 1.49 index Immune >0.99 *3 Non-immune <0.90 Equivocal 0.90 - 0.99 Immune >0.99 ABO Grouping O *4 Rh Factor Positive *5 Please note: Prior records for this patient's ABO / Rh type are not available for additional verification. Antibody Screen Negative Negative *6 Tests: (2) HB Solu + Rflx Fra (176800) Hemoglobin (Hgb) Solubility Negative Negative *31 Tests: (3) HIV Ag/Ab with Reflex (211229) HIV Screen 4th Generation wRfx Non Reactive Non Reactive *32 Tests: (4) HCV Antibody reflex to SWAPNA (801960) HCV Ab 0.3 s/co ratio 0.0-0.9 *33 Tests: (5) Interpretation: ([id number]) ! Interpretation: SPRCS *34 Negative Not infected with HCV, unless recent infection is suspected or other evidence exists to indicate HCV infection. Assessment and Plan A: 41 yo @29.3 weeks cHTN, compliance with anti-hypertensive medication regimen? vs cHTN not well controlled Advanced maternal age Asthma Morbid obesity Sleep apnea P: Blood pressure monitoring 24 hour urine collection Preeclampsia labs cEFM Maintain BP <160/90 Titration of medication if needed Monitor for signs and symptoms of worsening preeclampsia - Patient Problems (1) Chronic hypertension affecting Current Visit: Yes Status: Chronic (2) History of asthma Current Visit: Yes Status: Chronic (3) History of sleep apnea Current Visit: Yes Status: Chronic (4) Morbid obesity Current Visit: Yes Status: Chronic (5) with 29 completed weeks gestation Current Visit: Yes Status: Acute
[2022-02-08 19:10] LABS: Hematocrit 32.5 % (30.3-42.9); Hemoglobin 10.3 gm/dl (10.1-14.3); Mean Corpuscular HGB Conc 32 % (30-34); Mean Corpuscular Volume 89 fl (79-97); Platelet Count 220 K/mm3 (140-440); Red Blood Count 3.67 M/mm3 (3.65-5.03)
[2022-02-08 19:35] LABS: Alanine Aminotransferase 25 units/L (7-56); Uric Acid 5.6 mg/dL (3.5-7.6)
[2022-02-08] MEDS ORDERED: MAGNESIUM SULFATE 4 GM/100 ML BAG IV ONE (20:49)
[2022-02-08] MEDS ORDERED: hydrALAZINE 20 MG/1 ML INJ IV ONE (21:00)
[2022-02-08] MEDS: NIFEdipine XL 30 MG TAB PO SCH (21:13)
[2022-02-08] MEDS: MAGNESIUM SULFATE 40GM/1000ML 40 GM/1,000 ML BAG IV SCH (21:30)
[2022-02-09] MEDS: NITROFURANTOIN MONOHYD/M-CRYST 100 MG CAP PO SCH ×3 (01:14→23:07)
[2022-02-09] MEDS: hydrALAZINE 20 MG/1 ML INJ IV PRN ×4 (04:02→20:52)
[2022-02-09 05:20] LABS: Creatinine,Urine 24.2 mg/dL (0.1-20.0); Protein/Creatinine Ratio,Urine 0.45
--- NOTE | 2022-02-09 07:26 | Progress Note ---
Assessment and Plan patient sleeping on and off during assessment. She reports feeling hungry and having migraine that started earlier this morning. Pt states she is otherwise symptom free - no epigastric pain, no visual changes, + FM, no ctx/SROM/vag bleeding. 24hr urine in progress. AM labetalol due now, if b/p remains in severe range will need dose of hydralizine. - Patient Problems (1) with 29 completed weeks gestation Current Visit: Yes Status: Acute (2) Chronic hypertension affecting Current Visit: Yes Status: Chronic Plan to address problem: Blood pressure monitoring 24 hour urine collection ( started @ 0400) Preeclampsia labs cEFM Maintain BP <160/90 Titration of medication if needed Monitor for signs and symptoms of worsening preeclampsia (3) Morbid obesity Current Visit: Yes Status: Chronic (4) Migraine Current Visit: No Status: Resolved Qualifiers: Migraine type: without aura Intractability: intractable Plan to address problem: Fioricet PO now light low/decreased simulation Pt given apple sauce Subjective - Subjective Date of service: 02/09/22 Principal diagnosis: IUP @ 29+4; htn r/o superimposed pre-e Patient reports: new complaints (Migrane started @ 0400), movement normal, no loss of fluid, no vaginal bleeding, no contractions, no other (no epigastric pain, SOB, visual changes) Objective - Vital Signs Vital Signs: Vital Signs - 12hr 02/08/22 02/08/22 02/08/22 19:29 19:34 19:38 Temperature Pulse Rate 78 79 79 Respiratory Rate Blood Pressure 187/104 O2 Sat by Pulse 98 98 Oximetry O2 Sat by Pulse Oximetry [ Bilateral Throughout] 02/08/22 02/08/22 02/08/22 19:39 19:43 19:44 Temperature Pulse Rate 80 78 81 Respiratory Rate Blood Pressure 187/103 O2 Sat by Pulse 98 98 Oximetry O2 Sat by Pulse Oximetry [ Bilateral Throughout] 02/08/22 02/08/22 02/08/22 19:49 19:54 19:58 Temperature Pulse Rate 83 85 75 Respiratory Rate Blood Pressure 174/97 O2 Sat by Pulse 98 98 Oximetry O2 Sat by Pulse Oximetry [ Bilateral Throughout] 02/08/22 02/08/22 02/08/22 19:59 20:04 20:09 Temperature Pulse Rate 76 84 75 Respiratory Rate Blood Pressure 199/101 O2 Sat by Pulse 98 98 98 Oximetry O2 Sat by Pulse Oximetry [ Bilateral Throughout] 02/08/22 02/08/22 02/08/22 20:11 20:42 20:47 Temperature Pulse Rate 77 73 73 Respiratory Rate Blood Pressure 194/95 178/92 O2 Sat by Pulse 99 98 Oximetry O2 Sat by Pulse Oximetry [ Bilateral Throughout] 02/08/22 02/08/22 02/08/22 20:52 20:57 20:58 Temperature Pulse Rate 77 79 77 Respiratory Rate Blood Pressure 178/92 O2 Sat by Pulse 98 99 Oximetry O2 Sat by Pulse Oximetry [ Bilateral Throughout] 02/08/22 02/08/22 02/08/22 20:59 21:02 21:07 Temperature Pulse Rate 78 76 85 Respiratory Rate Blood Pressure 178/92 O2 Sat by Pulse 98 99 Oximetry O2 Sat by Pulse Oximetry [ Bilateral Throughout] 02/08/22 02/08/22 02/08/22 21:12 21:16 21:17 Temperature Pulse Rate 86 92 H 87 Respiratory Rate Blood Pressure 171/102 O2 Sat by Pulse 99 93 100 Oximetry O2 Sat by Pulse Oximetry [ Bilateral Throughout] 02/08/22 02/08/22 02/08/22 21:22 21:27 21:32 Temperature Pulse Rate 83 83 81 Respiratory Rate Blood Pressure O2 Sat by Pulse 99 99 98 Oximetry O2 Sat by Pulse Oximetry [ Bilateral Throughout] 02/08/22 02/08/22 02/08/22 21:37 21:42 21:46 Temperature Pulse Rate 83 83 85 Respiratory Rate Blood Pressure O2 Sat by Pulse 98 99 94 Oximetry O2 Sat by Pulse Oximetry [ Bilateral Throughout] 02/08/22 02/08/22 02/08/22 21:47 21:52 21:57 Temperature Pulse Rate 85 86 78 Respiratory Rate Blood Pressure 156/84 O2 Sat by Pulse 98 98 99 Oximetry O2 Sat by Pulse Oximetry [ Bilateral Throughout] 02/08/22 02/08/22 02/08/22 22:02 22:03 22:07 Temperature Pulse Rate 84 81 83 Respiratory Rate Blood Pressure 138/75 O2 Sat by Pulse 98 94 97 Oximetry O2 Sat by Pulse Oximetry [ Bilateral Throughout] 02/08/22 02/08/22 02/08/22 22:08 22:12 22:13 Temperature Pulse Rate 77 81 77 Respiratory Rate Blood Pressure 145/80 152/81 O2 Sat by Pulse 97 Oximetry O2 Sat by Pulse Oximetry [ Bilateral Throughout] 02/08/22 02/08/22 02/08/22 22:17 22:18 22:22 Temperature Pulse Rate 82 81 79 Respiratory Rate Blood Pressure 146/76 O2 Sat by Pulse 97 94 97 Oximetry O2 Sat by Pulse Oximetry [ Bilateral Throughout] 02/08/22 02/08/22 02/08/22 22:23 22:27 22:28 Temperature Pulse Rate 80 81 80 Respiratory Rate Blood Pressure 149/78 147/78 O2 Sat by Pulse 97 94 Oximetry O2 Sat by Pulse Oximetry [ Bilateral Throughout] 02/08/22 02/08/22 02/08/22 22:32 22:33 22:37 Temperature Pulse Rate 81 81 80 Respiratory Rate Blood Pressure 147/77 O2 Sat by Pulse 97 97 Oximetry O2 Sat by Pulse Oximetry [ Bilateral Throughout] 02/08/22 02/08/22 02/08/22 22:38 22:42 22:43 Temperature Pulse Rate 79 90 85 Respiratory Rate Blood Pressure 143/77 149/83 O2 Sat by Pulse 94 98 Oximetry O2 Sat by Pulse Oximetry [ Bilateral Throughout] 02/08/22 02/08/22 02/08/22 22:47 22:48 22:52 Temperature Pulse Rate 84 85 95 H Respiratory Rate Blood Pressure 142/77 O2 Sat by Pulse 97 99 Oximetry O2 Sat by Pulse Oximetry [ Bilateral Throughout] 02/08/22 02/08/22 02/08/22 22:57 22:59 23:02 Temperature Pulse Rate 91 H 88 84 Respiratory Rate Blood Pressure 152/66 O2 Sat by Pulse 97 97 Oximetry O2 Sat by Pulse Oximetry [ Bilateral Throughout] 02/08/22 02/08/22 02/08/22 23:03 23:07 23:08 Temperature Pulse Rate 83 82 79 Respiratory Rate Blood Pressure 158/83 160/91 O2 Sat by Pulse 93 98 Oximetry O2 Sat by Pulse Oximetry [ Bilateral Throughout] 02/08/22 02/08/22 02/08/22 23:12 23:13 23:17 Temperature Pulse Rate 84 80 86 Respiratory Rate Blood Pressure 153/84 O2 Sat by Pulse 99 97 Oximetry O2 Sat by Pulse Oximetry [ Bilateral Throughout] 02/08/22 02/08/22 02/08/22 23:22 23:27 23:32 Temperature Pulse Rate 86 84 84 Respiratory Rate Blood Pressure O2 Sat by Pulse 98 98 98 Oximetry O2 Sat by Pulse Oximetry [ Bilateral Throughout] 02/08/22 02/08/22 02/08/22 23:33 23:35 23:37 Temperature 98.7 F Pulse Rate 78 Respiratory 18 Rate Blood Pressure O2 Sat by Pulse 97 Oximetry O2 Sat by Pulse 97 Oximetry [ Bilateral Throughout] 02/08/22 02/08/22 02/08/22 23:42 23:44 23:47 Temperature Pulse Rate 77 78 76 Respiratory Rate Blood Pressure 150/89 O2 Sat by Pulse 97 90 97 Oximetry O2 Sat by Pulse Oximetry [ Bilateral Throughout] 02/08/22 02/08/22 02/08/22 23:52 23:56 23:57 Temperature Pulse Rate 78 77 81 Respiratory Rate Blood Pressure O2 Sat by Pulse 97 93 97 Oximetry O2 Sat by Pulse Oximetry [ Bilateral Throughout] 02/09/22 02/09/22 02/09/22 00:02 00:03 00:07 Temperature Pulse Rate 76 80 82 Respiratory Rate Blood Pressure O2 Sat by Pulse 97 94 97 Oximetry O2 Sat by Pulse Oximetry [ Bilateral Throughout] 02/09/22 02/09/22 02/09/22 00:08 00:12 00:14 Temperature Pulse Rate 78 83 77 Respiratory Rate Blood Pressure 149/86 O2 Sat by Pulse 94 97 90 Oximetry O2 Sat by Pulse Oximetry [ Bilateral Throughout] 02/09/22 02/09/22 02/09/22 00:17 00:22 00:27 Temperature Pulse Rate 77 77 77 Respiratory Rate Blood Pressure O2 Sat by Pulse 97 97 97 Oximetry O2 Sat by Pulse Oximetry [ Bilateral Throughout] 02/09/22 02/09/22 02/09/22 00:32 00:37 00:42 Temperature Pulse Rate 79 78 77 Respiratory Rate Blood Pressure O2 Sat by Pulse 97 97 97 Oximetry O2 Sat by Pulse Oximetry [ Bilateral Throughout] 02/09/22 02/09/22 02/09/22 00:44 00:47 00:52 Temperature Pulse Rate 75 76 77 Respiratory Rate Blood Pressure 143/84 O2 Sat by Pulse 94 97 97 Oximetry O2 Sat by Pulse Oximetry [ Bilateral Throughout] 02/09/22 02/09/22 02/09/22 00:57 01:02 01:07 Temperature Pulse Rate 87 76 76 Respiratory Rate Blood Pressure O2 Sat by Pulse 98 97 97 Oximetry O2 Sat by Pulse Oximetry [ Bilateral Throughout] 02/09/22 02/09/22 02/09/22 01:12 01:14 01:17 Temperature Pulse Rate 81 80 81 Respiratory Rate Blood Pressure 136/83 O2 Sat by Pulse 99 93 99 Oximetry O2 Sat by Pulse Oximetry [ Bilateral Throughout] 02/09/22 02/09/22 02/09/22 01:22 01:34 01:39 Temperature Pulse Rate 84 87 82 Respiratory Rate Blood Pressure O2 Sat by Pulse 99 99 98 Oximetry O2 Sat by Pulse Oximetry [ Bilateral Throughout] 02/09/22 02/09/22 02/09/22 01:44 01:50 01:55 Temperature Pulse Rate 81 81 78 Respiratory Rate Blood Pressure 129/76 O2 Sat by Pulse 97 99 98 Oximetry O2 Sat by Pulse Oximetry [ Bilateral Throughout] 02/09/22 02/09/22 02/09/22 02:00 02:05 02:10 Temperature 98.5 F Pulse Rate 77 80 81 Respiratory Rate Blood Pressure O2 Sat by Pulse 98 99 99 Oximetry O2 Sat by Pulse Oximetry [ Bilateral Throughout] 02/09/22 02/09/22 02/09/22 02:14 02:15 02:20 Temperature Pulse Rate 78 83 78 Respiratory Rate Blood Pressure 138/74 O2 Sat by Pulse 98 98 Oximetry O2 Sat by Pulse Oximetry [ Bilateral Throughout] 02/09/22 02/09/22 02/09/22 02:25 02:30 02:35 Temperature Pulse Rate 75 74 73 Respiratory Rate Blood Pressure O2 Sat by Pulse 98 98 98 Oximetry O2 Sat by Pulse Oximetry [ Bilateral Throughout] 02/09/22 02/09/22 02/09/22 02:40 02:44 02:45 Temperature Pulse Rate 74 75 74 Respiratory Rate Blood Pressure 140/73 O2 Sat by Pulse 98 98 Oximetry O2 Sat by Pulse Oximetry [ Bilateral Throughout] 02/09/22 02/09/22 02/09/22 02:50 02:55 03:00 Temperature Pulse Rate 74 74 75 Respiratory Rate Blood Pressure O2 Sat by Pulse 98 98 99 Oximetry O2 Sat by Pulse Oximetry [ Bilateral Throughout] 02/09/22 02/09/22 02/09/22 03:05 03:10 03:14 Temperature Pulse Rate 73 73 76 Respiratory Rate Blood Pressure 141/76 O2 Sat by Pulse 98 98 94 Oximetry O2 Sat by Pulse Oximetry [ Bilateral Throughout] 02/09/22 02/09/22 02/09/22 03:15 03:20 03:25 Temperature Pulse Rate 74 83 86 Respiratory Rate Blood Pressure O2 Sat by Pulse 98 99 98 Oximetry O2 Sat by Pulse Oximetry [ Bilateral Throughout] 02/09/22 02/09/22 02/09/22 03:30 03:35 03:40 Temperature Pulse Rate 82 87 84 Respiratory Rate Blood Pressure O2 Sat by Pulse 99 99 98 Oximetry O2 Sat by Pulse Oximetry [ Bilateral Throughout] 02/09/22 02/09/22 02/09/22 03:44 03:45 03:48 Temperature Pulse Rate 83 88 82 Respiratory Rate Blood Pressure 177/106 164/89 O2 Sat by Pulse 94 97 Oximetry O2 Sat by Pulse Oximetry [ Bilateral Throughout] 02/09/22 02/09/22 02/09/22 03:50 03:55 04:00 Temperature Pulse Rate 89 79 79 Respiratory Rate Blood Pressure O2 Sat by Pulse 99 99 99 Oximetry O2 Sat by Pulse Oximetry [ Bilateral Throughout] 02/09/22 02/09/22 02/09/22 04:02 04:05 04:10 Temperature Pulse Rate 78 82 79 Respiratory Rate Blood Pressure 164/89 O2 Sat by Pulse 99 100 Oximetry O2 Sat by Pulse Oximetry [ Bilateral Throughout] 02/09/22 02/09/22 02/09/22 04:14 04:15 04:20 Temperature Pulse Rate 78 79 83 Respiratory Rate Blood Pressure 137/93 O2 Sat by Pulse 100 100 Oximetry O2 Sat by Pulse Oximetry [ Bilateral Throughout] 02/09/22 02/09/22 02/09/22 04:25 04:30 04:35 Temperature Pulse Rate 81 80 82 Respiratory Rate Blood Pressure O2 Sat by Pulse 100 100 99 Oximetry O2 Sat by Pulse Oximetry [ Bilateral Throughout] 02/09/22 02/09/22 02/09/22 04:39 04:44 04:50 Temperature Pulse Rate 81 81 81 Respiratory Rate Blood Pressure 156/92 O2 Sat by Pulse 99 99 99 Oximetry O2 Sat by Pulse Oximetry [ Bilateral Throughout] 02/09/22 02/09/22 02/09/22 04:53 04:55 05:00 Temperature Pulse Rate 78 86 79 Respiratory Rate Blood Pressure O2 Sat by Pulse 92 99 98 Oximetry O2 Sat by Pulse Oximetry [ Bilateral Throughout] 04/02/09/22 02/09/22 05:05 05:10 05:14 Temperature Pulse Rate 82 79 81 Respiratory Rate Blood Pressure 140/93 O2 Sat by Pulse 98 98 92 Oximetry O2 Sat by Pulse Oximetry [ Bilateral Throughout] 02/09/22 02/09/22 02/09/22 05:15 05:20 05:25 Temperature Pulse Rate 77 76 77 Respiratory Rate Blood Pressure O2 Sat by Pulse 97 97 97 Oximetry O2 Sat by Pulse Oximetry [ Bilateral Throughout] 02/09/22 02/09/22 02/09/22 05:30 05:35 05:40 Temperature Pulse Rate 77 77 76 Respiratory Rate Blood Pressure O2 Sat by Pulse 97 97 97 Oximetry O2 Sat by Pulse Oximetry [ Bilateral Throughout] 02/09/22 02/09/22 02/09/22 05:44 05:45 05:50 Temperature Pulse Rate 77 77 86 Respiratory Rate Blood Pressure 142/89 O2 Sat by Pulse 93 97 98 Oximetry O2 Sat by Pulse Oximetry [ Bilateral Throughout] 02/09/22 02/09/22 02/09/22 05:55 06:00 06:05 Temperature Pulse Rate 76 77 74 Respiratory Rate Blood Pressure O2 Sat by Pulse 97 98 97 Oximetry O2 Sat by Pulse Oximetry [ Bilateral Throughout] 02/09/22 02/09/22 02/09/22 06:09 06:10 06:14 Temperature Pulse Rate 80 76 79 Respiratory Rate Blood Pressure 144/76 O2 Sat by Pulse 89 95 92 Oximetry O2 Sat by Pulse Oximetry [ Bilateral Throughout] 02/09/22 02/09/22 02/09/22 06:15 06:20 06:25 Temperature Pulse Rate 80 81 79 Respiratory Rate Blood Pressure O2 Sat by Pulse 93 93 97 Oximetry O2 Sat by Pulse Oximetry [ Bilateral Throughout] 02/09/22 02/09/22 02/09/22 06:30 06:35 06:40 Temperature Pulse Rate 79 88 78 Respiratory Rate Blood Pressure O2 Sat by Pulse 98 99 98 Oximetry O2 Sat by Pulse Oximetry [ Bilateral Throughout] 02/09/22 02/09/22 02/09/22 06:44 06:45 06:50 Temperature Pulse Rate 85 86 83 Respiratory Rate Blood Pressure 136/69 O2 Sat by Pulse 97 98 Oximetry O2 Sat by Pulse Oximetry [ Bilateral Throughout] 04/13/22 04/13/22 04/13/22 06:55 07:00 07:05 Temperature Pulse Rate 86 82 80 Respiratory Rate Blood Pressure O2 Sat by Pulse 98 98 98 Oximetry O2 Sat by Pulse Oximetry [ Bilateral Throughout] 02/09/22 02/09/22 02/09/22 07:10 07:14 07:15 Temperature Pulse Rate 78 78 79 Respiratory Rate Blood Pressure 156/87 O2 Sat by Pulse 98 94 97 Oximetry O2 Sat by Pulse Oximetry [ Bilateral Throughout] 02/09/22 02/09/22 07:20 07:25 Temperature Pulse Rate 75 76 Respiratory Rate Blood Pressure O2 Sat by Pulse 96 96 Oximetry O2 Sat by Pulse Oximetry [ Bilateral Throughout] - Exam Breasts: normal Cardiovascular: Regular rate Lungs: Normal air movement Abdomen: Present: normal appearance, soft Uterus: Present: fundal height above umbilicus FHR: category 1 Uterine Contraction Monitor Mode: External Uterine Contraction Pattern: Absent Uterine Tone Measurement Phase: Resting Extremities: edema (1+) - Labs Labs: Abnormal Labs 02/08/22 02/08/22 02/08/22 18:40 18:40 22:52 WBC 11.8 H Magnesium 3.80 H Lactate Dehydrogenase 305 H Urine Creatinine 02/09/22 02/09/22 04:42 05:49 WBC Magnesium 5.20 H Lactate Dehydrogenase Urine Creatinine 24.2 H Laboratory Results - last 24 hr 02/08/22 02/08/22 02/08/22 18:40 18:40 18:40 WBC 11.8 H RBC 3.67 Hgb 10.3 Hct 32.5 MCV 89 MCH 28 MCHC 32 RDW 15.0 Plt Count 220 Creatinine 0.7 Estimated GFR > 60 Uric Acid 5.6 Magnesium AST 22 ALT 25 Lactate Dehydrogenase 305 H Urine Color Urine Turbidity Urine pH Ur Specific [place] Urine Protein Urine Glucose (UA) Urine Ketones Urine Blood Urine Nitrite Urine Bilirubin Urine Urobilinogen Ur Leukocyte Esterase Urine WBC (Auto) Urine RBC (Auto) U Epithel Cells (Auto) Urine Bacteria (Auto) Urine Mucus Urine Creatinine Protein/Creatinin Ratio Urine Total Protein Syphilis IgG/IgM Ab Blood Type O POSITIVE Antibody Screen Negative 02/08/22 02/08/22 02/08/22 18:40 22:52 Unknown WBC RBC Hgb Hct MCV MCH MCHC RDW Plt Count Creatinine Estimated GFR Uric Acid Magnesium 3.80 H AST ALT Lactate Dehydrogenase Urine Color Yellow Urine Turbidity Hazy Urine pH 6.0 Ur Specific [place] 1.024 Urine Protein 30 mg/dl Urine Glucose (UA) Neg Urine Ketones Neg Urine Blood Neg Urine Nitrite Pos Urine Bilirubin Neg Urine Urobilinogen 2.0 Ur Leukocyte Esterase Neg Urine WBC (Auto) 2.0 Urine RBC (Auto) 1.0 U Epithel Cells (Auto) < 1.0 Urine Bacteria (Auto) 4+ Urine Mucus Few Urine Creatinine Protein/Creatinin Ratio Urine Total Protein Syphilis IgG/IgM Ab Nonreactive Blood Type Antibody Screen 02/09/22 02/09/22 04:42 05:49 WBC RBC Hgb Hct MCV MCH MCHC RDW Plt Count Creatinine Estimated GFR Uric Acid Magnesium 5.20 H AST ALT Lactate Dehydrogenase Urine Color Urine Turbidity Urine pH Ur Specific [place] Urine Protein Urine Glucose (UA) Urine Ketones Urine Blood Urine Nitrite Urine Bilirubin Urine Urobilinogen Ur Leukocyte Esterase Urine WBC (Auto) Urine RBC (Auto) U Epithel Cells (Auto) Urine Bacteria (Auto) Urine Mucus Urine Creatinine 24.2 H Protein/Creatinin Ratio 0.45 Urine Total Protein 11 Syphilis IgG/IgM Ab Blood Type Antibody Screen
[2022-02-09] MEDS ORDERED: BUTALB/ACETAMINOPHEN/CAFFEINE TAB PO NR (07:50)
[2022-02-09] MEDS: PRENATAL VIT27-FE FUMARATE-FOLIC ACID VIT TAB PO SCH (10:18)
[2022-02-09] MEDS: NIFEdipine XL 30 MG TAB PO SCH ×2 (10:18→23:07)
[2022-02-09] MEDS: LACTATED RINGERS 1,000 ML IV SCH (10:20)
--- NOTE | 2022-02-09 11:33 | Event Note ---
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 24 urine restred due to previous sample being thrown out but is in progress at this time. Pt continues to need coverage with hydralazine due to elevated blood pressure. Will await recommendations from m regarding adjusting meds as well as results of ECHO that was ordered. Con't current management at this time.
--- NOTE | 2022-02-09 12:07 | Consultation ---
History of Present Illness Consult date: 02/09/22 Past History Past Medical History: asthma, hypertension, other (morbid obesity (BMI 60); sleep apnea; advanced maternal age) Past Surgical History: D&C (2013 ()) Family/Genetic History: diabetes, hypertension - Obstetrical History : 5 Medications and Allergies Allergies Allergy/AdvReac Type Severity Reaction Status Date / Time No Known Allergies Allergy Verified 01/28/22 17:21 Home Medications Medication Instructions Recorded Confirmed Last Taken Type Amoxicillin/K Clav Tab [Augmentin 1 tab PO Q12HR #14 tab 12/10/16 Unknown Rx 875 mg] Ibuprofen [Motrin] 800 mg PO Q8HR PRN #30 tablet 12/10/16 Unknown Rx Erythromycin [Erythromycin Ophth 1 applic OS QID 7 Days #1 tube 08/26/21 Unknown Rx Oint] Ketotifen Fumarate [Zaditor] 1 drop OP BID #1 bottle 08/26/21 Unknown Rx Albuterol Mdi (or & Nicu Only) 2 puff IH Q6HR PRN #8.5 gram 02/01/22 Unknown Rx [ProAir HFA Inhaler] NIFEdipine XL [Procardia Xl] 30 mg PO QDAY #30 tablet 02/01/22 Unknown Rx labetaloL [Labetalol 200mg TAB] 400 mg PO TID #60 tab 02/01/22 Unknown Rx Active Meds: Active Medications Acetaminophen (Acetaminophen 325 Mg Tab) 650 mg PO Q4H PRN PRN Reason: Pain MILD(1-3)/Fever >100.5/[facility]OS[employer] Al Hydrox/Mg Hydrox/Simethicone (Alum-Mag Hydroxide-Simethicone [id number]/5ml Oral Liqd 30 Ml) 30 ml PO Q6H PRN PRN Reason: Indigestion Docusate Sodium (Docusate Sodium 100 Mg Cap) 100 mg PO Q12H PRN PRN Reason: Constipation Hydralazine HCl (Hydralazine 20 Mg/1 Ml Inj) 5 mg IV Q30MIN PRN PRN Reason: Hypertension Last Admin: 02/09/22 08:08 Dose: 5 mg Lactated Ringer's (Lactated Ringers) 1,000 mls @ 75 mls/hr IV DIRECT [facility] Last Admin: 02/09/22 10:20 Dose: 75 mls/hr Magnesium Sulfate (Magnesium Sulfate 40gm/1000ml) 40 gm in 1,000 mls @ 50 mls/hr IV DIRECT [facility] Last Admin: 02/08/22 21:30 Dose: 2 gm/hr, 50 mls/hr Labetalol HCl (Labetalol 200 Mg Tab) 400 mg PO TID [facility] Last Admin: 02/09/22 08:03 Dose: 400 mg Magnesium Hydroxide (Magnesium Hydroxide (Mom) Oral Liqd Udc) 30 ml PO QHS PRN PRN Reason: Laxative Effect Multivitamins/Iron/Calcium ( Cji63-Bl Fumarate-Folic Acid Vit Tab) 1 each PO QDAY [facility] Last Admin: 02/09/22 10:18 Dose: 1 each Nifedipine (Nifedipine Xl 30 Mg Tab) 30 mg PO BID [facility] Last Admin: 02/09/22 10:18 Dose: 30 mg Nitrofurantoin Macrocrystals (Nitrofurantoin Monohyd/M-Cryst 100 Mg Cap) 100 mg PO Q12HR [facility] Stop: 02/13/22 10:01 Last Admin: 02/09/22 10:17 Dose: 100 mg Ondansetron HCl (Ondansetron 4 Mg/2 Ml Inj) 4 mg IV Q6H PRN PRN Reason: Nausea And Vomiting Senna/Docusate Sodium (Sennosides/Docusate Sodium 8.6/50 Mg Tab) 2 tab PO Q12H PRN PRN Reason: Laxative Effect Simethicone (Simethicone 80 Mg Chew Tab) 80 mg PO Q6H PRN PRN Reason: Gas pain - Vital Signs Vital signs: Vital Signs Pulse BP Pulse Ox 83 146/90 98 02/08/22 18:23 02/08/22 18:23 02/08/22 18:23 Temp Pulse Resp BP Pulse Ox 97.9 F 78 18 155/71 98 02/09/22 07:32 02/09/22 12:05 02/09/22 07:32 02/09/22 11:44 02/09/22 12:05 Results Result Diagrams: 02/08/22 18:40 02/08/22 18:40 Abnormal lab results 02/08/22 02/08/22 02/08/22 Range/Units 18:40 18:40 22:52 WBC 11.8 H (4.5-11.0) K/mm3 Magnesium 3.80 H (1.7-2.3) mg/dL Lactate Dehydrogenase 305 H (91-180) units/L Urine Creatinine (0.1-20.0) mg/dL 02/09/22 02/09/22 Range/Units 04:42 05:49 WBC (4.5-11.0) K/mm3 Magnesium 5.20 H (1.7-2.3) mg/dL Lactate Dehydrogenase (91-180) units/L Urine Creatinine 24.2 H (0.1-20.0) mg/dL All other labs normal. Assessment and Plan [facility] Pt seen Full consult to follow
[2022-02-09] MEDS: diphenhydrAMINE 50 MG CAP PO SCH (14:08)
[2022-02-09] MEDS: MAGNESIUM SULFATE 40GM/1000ML 40 GM/1,000 ML BAG IV SCH (16:30)
[2022-02-09] MEDS ORDERED: diphenhydrAMINE 50 MG CAP PO NR (23:45)
[2022-02-10] MEDS: diphenhydrAMINE 50 MG CAP PO SCH (00:06)
[2022-02-10] MEDS: LACTATED RINGERS 1,000 ML IV SCH ×2 (00:06→15:19)
[2022-02-10] MEDS ORDERED: hydrALAZINE 20 MG/1 ML INJ IV ONE (05:07)
[2022-02-10] MEDS ORDERED: BUTALB/ACETAMINOPHEN/CAFFEINE TAB PO ONE (05:09)
--- NOTE | 2022-02-10 05:38 | Progress Note ---
Assessment and Plan Pt reports migraine headache and took fioricet recently as desired and ordered. BP 178/104, hydralazine 10mg IV given and BP now 157/87. Urine 24hr protein 495. Dr Johnson made aware. ECHO requested to be done as ordered. Per RN, to be completed today on day shift. Pt denies any questions or concerns. Magnesium infusing. Pt to receive PO labetalol 600mg @0730. Continue to monitor and notify provider for any ssx of worsening preeclampsia. - Patient Problems (1) with 29 completed weeks gestation Current Visit: Yes Status: Acute (2) Chronic hypertension affecting Current Visit: Yes Status: Chronic (3) History of asthma Current Visit: Yes Status: Chronic (4) History of sleep apnea Current Visit: Yes Status: Chronic (5) Morbid obesity Current Visit: Yes Status: Chronic (6) Migraine Current Visit: No Status: Resolved Qualifiers: Migraine type: without aura Intractability: intractable Subjective - Subjective Date of service: 02/10/22 Principal diagnosis: IUP @ 29+5; htn r/o superimposed pre-e, asthma, BMI 60, sleep apnea Patient reports: movement normal, no new complaints, no loss of fluid, no vaginal bleeding, no contractions, no other (no epigastric pain, SOB, visual changes, abdominal pain, or chest pain) Objective - Vital Signs Vital Signs: Vital Signs - 12hr 02/09/22 02/09/22 02/09/22 17:41 17:44 17:46 Temperature Pulse Rate 80 78 80 Respiratory Rate Blood Pressure 143/89 O2 Sat by Pulse 97 99 Oximetry O2 Sat by Pulse Oximetry [ Bilateral Throughout] 02/09/22 02/09/22 02/09/22 17:51 17:56 18:01 Temperature Pulse Rate 87 84 81 Respiratory Rate Blood Pressure O2 Sat by Pulse 100 100 99 Oximetry O2 Sat by Pulse Oximetry [ Bilateral Throughout] 02/09/22 02/09/22 02/09/22 18:06 18:11 18:14 Temperature Pulse Rate 86 81 83 Respiratory Rate Blood Pressure 173/103 O2 Sat by Pulse 100 99 Oximetry O2 Sat by Pulse Oximetry [ Bilateral Throughout] 02/09/22 02/09/22 02/09/22 18:16 18:21 18:26 Temperature Pulse Rate 84 83 84 Respiratory Rate Blood Pressure O2 Sat by Pulse 99 99 98 Oximetry O2 Sat by Pulse Oximetry [ Bilateral Throughout] 02/09/22 02/09/22 02/09/22 18:28 18:31 18:36 Temperature Pulse Rate 81 82 81 Respiratory Rate Blood Pressure 152/80 O2 Sat by Pulse 98 99 Oximetry O2 Sat by Pulse Oximetry [ Bilateral Throughout] 02/09/22 02/09/22 02/09/22 18:41 18:44 18:46 Temperature Pulse Rate 92 H 81 79 Respiratory Rate Blood Pressure 157/93 O2 Sat by Pulse 99 99 Oximetry O2 Sat by Pulse Oximetry [ Bilateral Throughout] 02/09/22 02/09/22 02/09/22 18:51 18:56 19:01 Temperature Pulse Rate 83 85 83 Respiratory Rate Blood Pressure O2 Sat by Pulse 99 99 100 Oximetry O2 Sat by Pulse Oximetry [ Bilateral Throughout] 02/09/22 02/09/22 02/09/22 19:06 19:11 19:14 Temperature Pulse Rate 85 87 82 Respiratory Rate Blood Pressure 161/100 O2 Sat by Pulse 98 100 Oximetry O2 Sat by Pulse Oximetry [ Bilateral Throughout] 02/09/22 02/09/22 02/09/22 19:17 19:22 19:27 Temperature Pulse Rate 88 80 86 Respiratory Rate Blood Pressure O2 Sat by Pulse 100 99 100 Oximetry O2 Sat by Pulse Oximetry [ Bilateral Throughout] 02/09/22 02/09/22 02/09/22 19:32 19:37 19:42 Temperature Pulse Rate 82 82 81 Respiratory Rate Blood Pressure O2 Sat by Pulse 98 99 98 Oximetry O2 Sat by Pulse Oximetry [ Bilateral Throughout] 02/09/22 02/09/22 02/09/22 19:44 19:47 19:52 Temperature Pulse Rate 82 81 89 Respiratory Rate Blood Pressure 170/85 O2 Sat by Pulse 98 97 Oximetry O2 Sat by Pulse Oximetry [ Bilateral Throughout] 02/09/22 02/09/22 02/09/22 19:57 20:02 20:07 Temperature Pulse Rate 83 79 79 Respiratory Rate Blood Pressure O2 Sat by Pulse 98 100 100 Oximetry O2 Sat by Pulse Oximetry [ Bilateral Throughout] 02/09/22 02/09/22 02/09/22 20:12 20:14 20:17 Temperature Pulse Rate 79 79 78 Respiratory Rate Blood Pressure 156/92 O2 Sat by Pulse 99 99 Oximetry O2 Sat by Pulse Oximetry [ Bilateral Throughout] 02/09/22 02/09/22 02/09/22 20:20 20:22 20:27 Temperature Pulse Rate 83 79 86 Respiratory 19 Rate Blood Pressure O2 Sat by Pulse 99 100 Oximetry O2 Sat by Pulse 99 Oximetry [ Bilateral Throughout] 02/09/22 02/09/22 02/09/22 20:32 20:37 20:42 Temperature Pulse Rate 83 84 87 Respiratory Rate Blood Pressure O2 Sat by Pulse 99 99 98 Oximetry O2 Sat by Pulse Oximetry [ Bilateral Throughout] 02/09/22 02/09/22 02/09/22 20:45 20:47 20:52 Temperature Pulse Rate 82 79 81 Respiratory Rate Blood Pressure 171/98 171/98 O2 Sat by Pulse 94 97 99 Oximetry O2 Sat by Pulse Oximetry [ Bilateral Throughout] 02/09/22 02/09/22 02/09/22 20:54 20:57 21:02 Temperature Pulse Rate 88 90 Respiratory Rate Blood Pressure 171/98 O2 Sat by Pulse 100 99 Oximetry O2 Sat by Pulse Oximetry [ Bilateral Throughout] 02/09/22 02/09/22 02/09/22 21:07 21:12 21:14 Temperature Pulse Rate 80 81 79 Respiratory Rate Blood Pressure 146/88 O2 Sat by Pulse 99 99 93 Oximetry O2 Sat by Pulse Oximetry [ Bilateral Throughout] 02/09/22 02/09/22 02/09/22 21:17 21:22 21:27 Temperature Pulse Rate 79 80 81 Respiratory Rate Blood Pressure O2 Sat by Pulse 98 99 99 Oximetry O2 Sat by Pulse Oximetry [ Bilateral Throughout] 02/09/22 02/09/22 02/09/22 21:32 21:37 21:42 Temperature Pulse Rate 78 83 87 Respiratory Rate Blood Pressure O2 Sat by Pulse 99 98 98 Oximetry O2 Sat by Pulse Oximetry [ Bilateral Throughout] 02/09/22 02/09/22 02/09/22 21:44 21:47 21:52 Temperature Pulse Rate 89 86 78 Respiratory Rate Blood Pressure 136/82 O2 Sat by Pulse 93 99 98 Oximetry O2 Sat by Pulse Oximetry [ Bilateral Throughout] 02/09/22 02/09/22 02/09/22 21:57 22:02 22:07 Temperature Pulse Rate 79 81 81 Respiratory Rate Blood Pressure O2 Sat by Pulse 97 97 99 Oximetry O2 Sat by Pulse Oximetry [ Bilateral Throughout] 02/09/22 02/09/2222 22:12 22:14 22:17 Temperature Pulse Rate 81 81 79 Respiratory Rate Blood Pressure 137/89 O2 Sat by Pulse 99 94 99 Oximetry O2 Sat by Pulse Oximetry [ Bilateral Throughout] 02/09/22 02/09/22 02/09/22 22:22 22:27 22:32 Temperature Pulse Rate 80 81 81 Respiratory Rate Blood Pressure O2 Sat by Pulse 99 99 99 Oximetry O2 Sat by Pulse Oximetry [ Bilateral Throughout] 02/09/22 02/09/22 02/09/22 22:37 22:42 22:44 Temperature Pulse Rate 80 78 79 Respiratory Rate Blood Pressure 136/86 O2 Sat by Pulse 99 99 92 Oximetry O2 Sat by Pulse Oximetry [ Bilateral Throughout] 02/09/22 02/09/22 02/09/22 22:47 22:52 22:57 Temperature Pulse Rate 79 77 79 Respiratory Rate Blood Pressure O2 Sat by Pulse 99 100 99 Oximetry O2 Sat by Pulse Oximetry [ Bilateral Throughout] 02/09/22 02/09/22 02/09/22 23:02 23:07 23:12 Temperature Pulse Rate 83 83 86 Respiratory Rate Blood Pressure O2 Sat by Pulse 98 99 97 Oximetry O2 Sat by Pulse Oximetry [ Bilateral Throughout] 02/09/22 02/09/22 02/09/22 23:17 23:22 23:27 Temperature Pulse Rate 86 83 82 Respiratory Rate Blood Pressure O2 Sat by Pulse 97 96 96 Oximetry O2 Sat by Pulse Oximetry [ Bilateral Throughout] 02/09/22 02/09/22 02/09/22 23:32 23:37 23:42 Temperature Pulse Rate 81 82 80 Respiratory Rate Blood Pressure O2 Sat by Pulse 97 97 98 Oximetry O2 Sat by Pulse Oximetry [ Bilateral Throughout] 02/09/22 02/09/22 02/09/22 23:44 23:47 23:52 Temperature Pulse Rate 80 80 83 Respiratory Rate Blood Pressure 136/91 O2 Sat by Pulse 94 98 98 Oximetry O2 Sat by Pulse Oximetry [ Bilateral Throughout] 02/09/22 02/10/22 02/10/22 23:57 00:02 00:07 Temperature Pulse Rate 82 81 87 Respiratory Rate Blood Pressure O2 Sat by Pulse 97 97 99 Oximetry O2 Sat by Pulse Oximetry [ Bilateral Throughout] 02/10/22 02/10/22 02/10/22 00:12 00:14 00:17 Temperature Pulse Rate 81 80 79 Respiratory Rate Blood Pressure 134/82 O2 Sat by Pulse 98 94 97 Oximetry O2 Sat by Pulse Oximetry [ Bilateral Throughout] 02/10/22 02/10/22 02/10/22 00:22 00:27 00:32 Temperature Pulse Rate 79 78 79 Respiratory Rate Blood Pressure O2 Sat by Pulse 97 97 97 Oximetry O2 Sat by Pulse Oximetry [ Bilateral Throughout] 02/10/22 02/10/22 02/10/22 00:37 00:42 00:44 Temperature Pulse Rate 78 78 78 Respiratory Rate Blood Pressure 133/81 O2 Sat by Pulse 97 97 90 Oximetry O2 Sat by Pulse Oximetry [ Bilateral Throughout] 02/10/22 02/10/22 02/10/22 00:47 00:52 00:57 Temperature Pulse Rate 77 76 76 Respiratory Rate Blood Pressure O2 Sat by Pulse 97 97 98 Oximetry O2 Sat by Pulse Oximetry [ Bilateral Throughout] 02/10/22 02/10/22 02/10/22 01:02 01:07 01:12 Temperature Pulse Rate 77 75 76 Respiratory Rate Blood Pressure O2 Sat by Pulse 97 97 97 Oximetry O2 Sat by Pulse Oximetry [ Bilateral Throughout] 02/10/22 02/10/22 02/10/22 01:14 01:17 01:22 Temperature Pulse Rate 73 74 75 Respiratory Rate Blood Pressure 139/85 O2 Sat by Pulse 94 97 97 Oximetry O2 Sat by Pulse Oximetry [ Bilateral Throughout] 02/10/22 02/10/22 02/10/22 01:27 01:32 01:37 Temperature Pulse Rate 78 75 74 Respiratory Rate Blood Pressure O2 Sat by Pulse 98 98 98 Oximetry O2 Sat by Pulse Oximetry [ Bilateral Throughout] 02/10/22 02/10/22 02/10/22 01:42 01:44 01:47 Temperature Pulse Rate 74 73 76 Respiratory Rate Blood Pressure 155/94 O2 Sat by Pulse 98 93 98 Oximetry O2 Sat by Pulse Oximetry [ Bilateral Throughout] 02/10/22 02/10/22 02/10/22 01:52 01:57 02:02 Temperature 98.2 F Pulse Rate 75 74 85 Respiratory 18 Rate Blood Pressure O2 Sat by Pulse 97 97 99 Oximetry O2 Sat by Pulse Oximetry [ Bilateral Throughout] 02/10/22 02/10/22 02/10/22 02:07 02:12 02:14 Temperature Pulse Rate 73 73 73 Respiratory Rate Blood Pressure 158/99 O2 Sat by Pulse 98 98 93 Oximetry O2 Sat by Pulse Oximetry [ Bilateral Throughout] 02/10/22 02/10/22 02/10/22 02:17 02:22 02:25 Temperature Pulse Rate 74 74 77 Respiratory Rate Blood Pressure O2 Sat by Pulse 98 97 94 Oximetry O2 Sat by Pulse Oximetry [ Bilateral Throughout] 02/10/22 02/10/22 02/10/22 02:27 02:32 02:34 Temperature Pulse Rate 76 76 77 Respiratory Rate Blood Pressure O2 Sat by Pulse 97 96 94 Oximetry O2 Sat by Pulse Oximetry [ Bilateral Throughout] 02/10/22 02/10/22 02/10/22 02:37 02:42 02:43 Temperature Pulse Rate 77 73 80 Respiratory Rate Blood Pressure O2 Sat by Pulse 98 98 93 Oximetry O2 Sat by Pulse Oximetry [ Bilateral Throughout] 02/10/22 02/10/22 02/10/22 02:44 02:47 02:52 Temperature Pulse Rate 80 78 74 Respiratory Rate Blood Pressure 159/97 O2 Sat by Pulse 98 98 Oximetry O2 Sat by Pulse Oximetry [ Bilateral Throughout] 02/10/22 02/10/22 02/10/22 02:57 03:02 03:07 Temperature Pulse Rate 77 78 76 Respiratory Rate Blood Pressure O2 Sat by Pulse 98 98 98 Oximetry O2 Sat by Pulse Oximetry [ Bilateral Throughout] 02/10/22 02/10/22 02/10/22 03:12 03:14 03:17 Temperature Pulse Rate 77 75 76 Respiratory Rate Blood Pressure 156/94 O2 Sat by Pulse 98 91 97 Oximetry O2 Sat by Pulse Oximetry [ Bilateral Throughout] 02/10/22 02/10/22 02/10/22 03:22 03:27 03:32 Temperature Pulse Rate 75 76 74 Respiratory Rate Blood Pressure O2 Sat by Pulse 97 98 98 Oximetry O2 Sat by Pulse Oximetry [ Bilateral Throughout] 02/10/22 02/10/22 02/10/22 03:37 03:42 03:44 Temperature Pulse Rate 75 75 75 Respiratory Rate Blood Pressure 156/92 O2 Sat by Pulse 98 98 91 Oximetry O2 Sat by Pulse Oximetry [ Bilateral Throughout] 02/10/22 02/10/22 02/10/22 03:47 03:52 03:57 Temperature Pulse Rate 76 77 77 Respiratory Rate Blood Pressure O2 Sat by Pulse 97 98 97 Oximetry O2 Sat by Pulse Oximetry [ Bilateral Throughout] 02/10/22 02/10/22 02/10/22 04:02 04:07 04:12 Temperature Pulse Rate 77 76 78 Respiratory Rate Blood Pressure O2 Sat by Pulse 97 98 98 Oximetry O2 Sat by Pulse Oximetry [ Bilateral Throughout] 02/10/22 02/10/22 02/10/22 04:14 04:17 04:19 Temperature Pulse Rate 77 77 76 Respiratory Rate Blood Pressure 145/93 O2 Sat by Pulse 91 98 90 Oximetry O2 Sat by Pulse Oximetry [ Bilateral Throughout] 02/10/22 02/10/22 02/10/22 04:22 04:27 04:32 Temperature Pulse Rate 77 93 H 84 Respiratory Rate Blood Pressure O2 Sat by Pulse 97 98 99 Oximetry O2 Sat by Pulse Oximetry [ Bilateral Throughout] 02/10/22 02/10/22 02/10/22 04:37 04:42 04:44 Temperature Pulse Rate 82 83 84 Respiratory Rate Blood Pressure 178/104 O2 Sat by Pulse 97 98 93 Oximetry O2 Sat by Pulse Oximetry [ Bilateral Throughout] 02/10/22 02/10/22 02/10/22 04:47 04:52 04:57 Temperature Pulse Rate 83 83 83 Respiratory Rate Blood Pressure O2 Sat by Pulse 97 97 97 Oximetry O2 Sat by Pulse Oximetry [ Bilateral Throughout] 02/10/22 02/10/22 02/10/22 05:02 05:07 05:12 Temperature Pulse Rate 82 84 80 Respiratory Rate Blood Pressure O2 Sat by Pulse 97 97 97 Oximetry O2 Sat by Pulse Oximetry [ Bilateral Throughout] 02/10/22 02/10/22 02/10/22 05:14 05:16 05:17 Temperature Pulse Rate 76 82 83 Respiratory Rate Blood Pressure 178/104 O2 Sat by Pulse 92 98 Oximetry O2 Sat by Pulse Oximetry [ Bilateral Throughout] 02/10/22 02/10/22 02/10/22 05:22 05:27 05:31 Temperature Pulse Rate 90 84 85 Respiratory Rate Blood Pressure 157/87 O2 Sat by Pulse 98 99 94 Oximetry O2 Sat by Pulse Oximetry [ Bilateral Throughout] 02/10/22 02/10/22 05:33 05:38 Temperature Pulse Rate 85 84 Respiratory Rate Blood Pressure O2 Sat by Pulse 97 97 Oximetry O2 Sat by Pulse Oximetry [ Bilateral Throughout] - Exam Breasts: deferred Cardiovascular: Regular rate Lungs: Normal air movement Abdomen: Present: normal appearance, soft, other (obese). Absent: tenderness, guarding Uterus: Present: normal, other (gravid) FHR: auscultation normal, category 1 Uterine Contraction Monitor Mode: External Uterine Contraction Pattern: Absent Uterine Tone Measurement Phase: Resting Extremities: edema (2+ pitting BLE ) - Labs Labs: Abnormal Labs 02/08/22 02/08/22 02/08/22 18:40 18:40 22:52 WBC 11.8 H Magnesium 3.80 H Lactate Dehydrogenase 305 H Urine Creatinine Ur Total Protein 24 Hr 02/09/22 02/09/22 02/09/22 04:00 04:42 05:49 WBC Magnesium 5.20 H Lactate Dehydrogenase Urine Creatinine 24.2 H Ur Total Protein 24 Hr 495.00 H 02/09/22 02/10/22 12:07 00:05 WBC Magnesium 5.30 H 5.00 H Lactate Dehydrogenase Urine Creatinine Ur Total Protein 24 Hr Laboratory Results - last 24 hr 02/09/22 02/09/22 02/09/22 04:00 05:49 12:07 Magnesium 5.20 H 5.30 H Urine Total Volume 4500 Ur Total Protein 24 Hr 495.00 H Urine Total Protein 11 02/10/22 00:05 Magnesium 5.00 H Urine Total Volume Ur Total Protein 24 Hr Urine Total Protein
[2022-02-10] MEDS: DOCUSATE SODIUM 100 MG CAP PO PRN (10:54)
[2022-02-10] MEDS: NIFEdipine XL 30 MG TAB PO SCH ×2 (10:54→22:04)
[2022-02-10] MEDS: NITROFURANTOIN MONOHYD/M-CRYST 100 MG CAP PO SCH ×2 (10:54→22:03)
--- NOTE | 2022-02-10 13:20 | Progress Note ---
Assessment and Plan A: IUP at 29 5/7 weeks gestation CHTN with superimposed preeclampsia with severe features LI Morbid obesity Echo reviewed , normal EF , mild Pul HTN Rec: Continue Labetalol 600mg TID , procardia 30mg XL Titrate the Labetalol to maintain BP 120-160/80-105mmhg , if her HR allows Max goal is 2400mg daily Magnesium sulfate can be held today if her BP remains stable /cerebral symptoms do not return Twice weekly CBC/CMP to screen for end organ damage ( renal failure, thrombocytopenia, HELLP) Growth scan q 3 weeks Twice weekly BPP Cardiology consult NICU consult Delivery at 34 0/7 weeks gestations. Immediate delivery is advised if her severe HTN is uncontrolled, Cerebral symptoms persist, pt develops Pul edema, HELLP, renal failure, plt count <100,000, eclampsia, distress Discussed with Jazmin Senior Subjective - Subjective Date of service: 02/10/22 Principal diagnosis: IUP @ 29+5; htn r/o superimposed pre-e, asthma, BMI 60, sleep apnea Interval history: She had a GROSSMAN earlier that improved with Fiorecet She denied visual changes, CP, SOB, abdominal pain Patient reports: movement normal, no new complaints, no loss of fluid, no vaginal bleeding, no contractions, no other (no epigastric pain, SOB, visual changes, abdominal pain, or chest pain) Objective - Vital Signs Vital Signs: Vital Signs - 12hr 02/10/22 02/10/22 02/10/22 01:17 01:22 01:27 Temperature Pulse Rate 74 75 78 Respiratory Rate Blood Pressure O2 Sat by Pulse 97 97 98 Oximetry O2 Sat by Pulse Oximetry [ Bilateral Throughout] 02/10/22 02/10/22 02/10/22 01:32 01:37 01:42 Temperature Pulse Rate 75 74 74 Respiratory Rate Blood Pressure O2 Sat by Pulse 98 98 98 Oximetry O2 Sat by Pulse Oximetry [ Bilateral Throughout] 02/10/22 02/10/22 02/10/22 01:44 01:47 01:52 Temperature Pulse Rate 73 76 75 Respiratory Rate Blood Pressure 155/94 O2 Sat by Pulse 93 98 97 Oximetry O2 Sat by Pulse Oximetry [ Bilateral Throughout] 02/10/22 02/10/22 02/10/22 01:57 02:02 02:07 Temperature 98.2 F Pulse Rate 74 85 73 Respiratory 18 Rate Blood Pressure O2 Sat by Pulse 97 99 98 Oximetry O2 Sat by Pulse Oximetry [ Bilateral Throughout] 02/10/22 02/10/22 02/10/22 02:12 02:14 02:17 Temperature Pulse Rate 73 73 74 Respiratory Rate Blood Pressure 158/99 O2 Sat by Pulse 98 93 98 Oximetry O2 Sat by Pulse Oximetry [ Bilateral Throughout] 02/10/22 02/10/22 02/10/22 02:22 02:25 02:27 Temperature Pulse Rate 74 77 76 Respiratory Rate Blood Pressure O2 Sat by Pulse 97 94 97 Oximetry O2 Sat by Pulse Oximetry [ Bilateral Throughout] 02/10/22 02/10/22 02/10/22 02:32 02:34 02:37 Temperature Pulse Rate 76 77 77 Respiratory Rate Blood Pressure O2 Sat by Pulse 96 94 98 Oximetry O2 Sat by Pulse Oximetry [ Bilateral Throughout] 02/10/22 02/10/22 02/10/22 02:42 02:43 02:44 Temperature Pulse Rate 73 80 80 Respiratory Rate Blood Pressure 159/97 O2 Sat by Pulse 98 93 Oximetry O2 Sat by Pulse Oximetry [ Bilateral Throughout] 02/10/22 02/10/22 02/10/22 02:47 02:52 02:57 Temperature Pulse Rate 78 74 77 Respiratory Rate Blood Pressure O2 Sat by Pulse 98 98 98 Oximetry O2 Sat by Pulse Oximetry [ Bilateral Throughout] 02/10/22 02/10/22 02/10/22 03:02 03:07 03:12 Temperature Pulse Rate 78 76 77 Respiratory Rate Blood Pressure O2 Sat by Pulse 98 98 98 Oximetry O2 Sat by Pulse Oximetry [ Bilateral Throughout] 02/10/22 02/10/22 02/10/22 03:14 03:17 03:22 Temperature Pulse Rate 75 76 75 Respiratory Rate Blood Pressure 156/94 O2 Sat by Pulse 91 97 97 Oximetry O2 Sat by Pulse Oximetry [ Bilateral Throughout] 02/10/22 02/10/22 02/10/22 03:27 03:32 03:37 Temperature Pulse Rate 76 74 75 Respiratory Rate Blood Pressure O2 Sat by Pulse 98 98 98 Oximetry O2 Sat by Pulse Oximetry [ Bilateral Throughout] 02/10/22 02/10/22 02/10/22 03:42 03:44 03:47 Temperature Pulse Rate 75 75 76 Respiratory Rate Blood Pressure 156/92 O2 Sat by Pulse 98 91 97 Oximetry O2 Sat by Pulse Oximetry [ Bilateral Throughout] 02/10/22 02/10/22 02/10/22 03:52 03:57 04:02 Temperature Pulse Rate 77 77 77 Respiratory Rate Blood Pressure O2 Sat by Pulse 98 97 97 Oximetry O2 Sat by Pulse Oximetry [ Bilateral Throughout] 02/10/22 02/10/22 02/10/22 04:07 04:12 04:14 Temperature Pulse Rate 76 78 77 Respiratory Rate Blood Pressure 145/93 O2 Sat by Pulse 98 98 91 Oximetry O2 Sat by Pulse Oximetry [ Bilateral Throughout] 02/10/22 02/10/22 02/10/22 04:17 04:19 04:22 Temperature Pulse Rate 77 76 77 Respiratory Rate Blood Pressure O2 Sat by Pulse 98 90 97 Oximetry O2 Sat by Pulse Oximetry [ Bilateral Throughout] 02/10/22 02/10/22 02/10/22 04:27 04:32 04:37 Temperature Pulse Rate 93 H 84 82 Respiratory Rate Blood Pressure O2 Sat by Pulse 98 99 97 Oximetry O2 Sat by Pulse Oximetry [ Bilateral Throughout] 02/10/22 02/10/22 02/10/22 04:42 04:44 04:47 Temperature Pulse Rate 83 84 83 Respiratory Rate Blood Pressure 178/104 O2 Sat by Pulse 98 93 97 Oximetry O2 Sat by Pulse Oximetry [ Bilateral Throughout] 02/10/22 02/10/22 02/10/22 04:52 04:57 05:02 Temperature Pulse Rate 83 83 82 Respiratory Rate Blood Pressure O2 Sat by Pulse 97 97 97 Oximetry O2 Sat by Pulse Oximetry [ Bilateral Throughout] 02/10/22 02/10/22 02/10/22 05:07 05:12 05:14 Temperature Pulse Rate 84 80 76 Respiratory Rate Blood Pressure O2 Sat by Pulse 97 97 92 Oximetry O2 Sat by Pulse Oximetry [ Bilateral Throughout] 02/10/22 02/10/22 02/10/22 05:16 05:17 05:22 Temperature Pulse Rate 82 83 90 Respiratory Rate Blood Pressure 178/104 O2 Sat by Pulse 98 98 Oximetry O2 Sat by Pulse Oximetry [ Bilateral Throughout] 02/10/22 02/10/22 02/10/22 05:27 05:31 05:33 Temperature Pulse Rate 84 85 85 Respiratory Rate Blood Pressure 157/87 O2 Sat by Pulse 99 94 97 Oximetry O2 Sat by Pulse Oximetry [ Bilateral Throughout] 04/02/10/22 02/10/22 05:38 05:40 05:43 Temperature Pulse Rate 84 83 83 Respiratory Rate Blood Pressure 154/88 O2 Sat by Pulse 97 97 Oximetry O2 Sat by Pulse Oximetry [ Bilateral Throughout] 02/10/22 02/10/22 02/10/22 05:48 05:50 05:53 Temperature Pulse Rate 81 81 83 Respiratory Rate Blood Pressure 152/89 O2 Sat by Pulse 97 97 Oximetry O2 Sat by Pulse Oximetry [ Bilateral Throughout] 02/10/22 02/10/22 02/10/22 05:58 06:00 06:03 Temperature Pulse Rate 81 83 80 Respiratory Rate Blood Pressure 153/86 O2 Sat by Pulse 97 94 97 Oximetry O2 Sat by Pulse Oximetry [ Bilateral Throughout] 02/10/22 02/10/22 02/10/22 06:07 06:08 06:10 Temperature Pulse Rate 76 83 78 Respiratory Rate Blood Pressure 148/82 O2 Sat by Pulse 92 91 Oximetry O2 Sat by Pulse Oximetry [ Bilateral Throughout] 02/10/22 02/10/22 02/10/22 06:12 06:13 06:18 Temperature Pulse Rate 78 80 83 Respiratory Rate Blood Pressure O2 Sat by Pulse 93 94 97 Oximetry O2 Sat by Pulse Oximetry [ Bilateral Throughout] 02/10/22 02/10/22 02/10/22 06:20 06:23 06:25 Temperature 97.9 F Pulse Rate 80 81 Respiratory 20 Rate Blood Pressure 149/84 O2 Sat by Pulse 94 96 Oximetry O2 Sat by Pulse Oximetry [ Bilateral Throughout] 02/10/22 02/10/22 02/10/22 06:28 06:33 06:38 Temperature Pulse Rate 80 79 76 Respiratory Rate Blood Pressure O2 Sat by Pulse 97 96 97 Oximetry O2 Sat by Pulse Oximetry [ Bilateral Throughout] 02/10/22 02/10/22 02/10/22 06:43 06:48 06:53 Temperature Pulse Rate 86 78 78 Respiratory Rate Blood Pressure 144/87 O2 Sat by Pulse 93 97 97 Oximetry O2 Sat by Pulse Oximetry [ Bilateral Throughout] 02/10/22 02/10/22 02/10/22 06:58 07:03 07:08 Temperature Pulse Rate 74 76 78 Respiratory Rate Blood Pressure 151/86 O2 Sat by Pulse 94 97 97 Oximetry O2 Sat by Pulse Oximetry [ Bilateral Throughout] 02/10/22 02/10/2222 07:13 07:18 07:23 Temperature Pulse Rate 71 80 75 Respiratory Rate Blood Pressure 154/82 O2 Sat by Pulse 94 97 97 Oximetry O2 Sat by Pulse Oximetry [ Bilateral Throughout] 02/10/22 02/10/22 02/10/22 07:28 07:33 07:34 Temperature Pulse Rate 76 76 78 Respiratory Rate Blood Pressure 157/80 O2 Sat by Pulse 94 97 91 Oximetry O2 Sat by Pulse Oximetry [ Bilateral Throughout] 02/10/22 02/10/22 02/10/22 07:38 07:40 07:43 Temperature Pulse Rate 75 77 80 Respiratory Rate Blood Pressure 161/89 O2 Sat by Pulse 95 86 94 Oximetry O2 Sat by Pulse Oximetry [ Bilateral Throughout] 02/10/22 02/10/22 02/10/22 07:48 07:53 07:58 Temperature Pulse Rate 79 77 77 Respiratory Rate Blood Pressure 153/91 O2 Sat by Pulse 95 97 93 Oximetry O2 Sat by Pulse Oximetry [ Bilateral Throughout] 02/10/22 02/10/22 02/10/22 08:03 08:08 08:13 Temperature Pulse Rate 87 79 84 Respiratory Rate Blood Pressure 149/73 O2 Sat by Pulse 98 100 94 Oximetry O2 Sat by Pulse Oximetry [ Bilateral Throughout] 02/10/22 02/10/22 02/10/22 08:15 08:18 08:23 Temperature Pulse Rate 86 88 Respiratory Rate Blood Pressure O2 Sat by Pulse 99 97 Oximetry O2 Sat by Pulse 97 Oximetry [ Bilateral Throughout] 02/10/22 02/10/22 02/10/22 08:28 08:33 08:38 Temperature Pulse Rate 83 84 83 Respiratory Rate Blood Pressure 149/82 O2 Sat by Pulse 94 97 97 Oximetry O2 Sat by Pulse Oximetry [ Bilateral Throughout] 02/10/22 02/10/22 02/10/22 08:43 08:48 08:53 Temperature Pulse Rate 81 82 80 Respiratory Rate Blood Pressure 125/66 O2 Sat by Pulse 94 96 96 Oximetry O2 Sat by Pulse Oximetry [ Bilateral Throughout] 02/10/22 02/10/22 02/10/22 08:58 09:03 09:08 Temperature Pulse Rate 77 78 77 Respiratory Rate Blood Pressure 137/71 O2 Sat by Pulse 94 96 96 Oximetry O2 Sat by Pulse Oximetry [ Bilateral Throughout] 02/10/22 02/10/2222 09:13 09:18 09:23 Temperature Pulse Rate 82 81 86 Respiratory Rate Blood Pressure 101/57 O2 Sat by Pulse 98 97 97 Oximetry O2 Sat by Pulse Oximetry [ Bilateral Throughout] 02/10/22 02/10/22 02/10/22 09:28 09:33 09:38 Temperature Pulse Rate 82 70 81 Respiratory Rate Blood Pressure O2 Sat by Pulse 100 98 97 Oximetry O2 Sat by Pulse Oximetry [ Bilateral Throughout] 02/10/22 02/10/22 02/10/22 09:43 09:48 09:53 Temperature Pulse Rate 83 81 78 Respiratory Rate Blood Pressure O2 Sat by Pulse 97 98 98 Oximetry O2 Sat by Pulse Oximetry [ Bilateral Throughout] 02/10/22 02/10/22 02/10/22 09:58 10:03 10:08 Temperature Pulse Rate 83 80 79 Respiratory Rate Blood Pressure O2 Sat by Pulse 98 98 99 Oximetry O2 Sat by Pulse Oximetry [ Bilateral Throughout] 02/10/22 02/10/22 02/10/22 10:14 10:19 10:24 Temperature Pulse Rate 83 78 87 Respiratory Rate Blood Pressure O2 Sat by Pulse 99 98 98 Oximetry O2 Sat by Pulse Oximetry [ Bilateral Throughout] 02/10/22 02/10/22 02/10/22 10:29 10:34 10:39 Temperature Pulse Rate 82 85 87 Respiratory Rate Blood Pressure O2 Sat by Pulse 100 98 99 Oximetry O2 Sat by Pulse Oximetry [ Bilateral Throughout] 02/10/22 02/10/22 02/10/22 10:44 10:49 10:54 Temperature Pulse Rate 87 88 86 Respiratory Rate Blood Pressure O2 Sat by Pulse 99 95 99 Oximetry O2 Sat by Pulse Oximetry [ Bilateral Throughout] 02/10/22 02/10/22 02/10/22 10:59 11:04 11:09 Temperature Pulse Rate 85 85 84 Respiratory Rate Blood Pressure O2 Sat by Pulse 97 97 100 Oximetry O2 Sat by Pulse Oximetry [ Bilateral Throughout] 02/10/22 02/10/22 02/10/22 11:14 11:19 11:24 Temperature Pulse Rate 89 88 88 Respiratory Rate Blood Pressure O2 Sat by Pulse 98 98 98 Oximetry O2 Sat by Pulse Oximetry [ Bilateral Throughout] 02/10/22 02/10/22 02/10/22 11:29 11:34 11:36 Temperature Pulse Rate 87 85 104 H Respiratory Rate Blood Pressure O2 Sat by Pulse 97 98 80 L Oximetry O2 Sat by Pulse Oximetry [ Bilateral Throughout] - Exam Narrative Exam: Sitting at bedside Extremities: edema (3+) - Labs Labs: Abnormal Labs 02/08/22 02/08/22 02/08/22 18:40 18:40 22:52 WBC 11.8 H Magnesium 3.80 H Lactate Dehydrogenase 305 H Urine Creatinine Ur Total Protein 24 Hr 02/09/22 02/09/22 02/09/22 04:00 04:42 05:49 WBC Magnesium 5.20 H Lactate Dehydrogenase Urine Creatinine 24.2 H Ur Total Protein 24 Hr 495.00 H 02/09/22 02/10/22 02/10/22 12:07 00:05 06:40 WBC Magnesium 5.30 H 5.00 H 5.40 H Lactate Dehydrogenase Urine Creatinine Ur Total Protein 24 Hr Laboratory Results - last 24 hr 02/09/22 02/10/22 02/10/22 04:00 00:05 06:40 Magnesium 5.00 H 5.40 H Urine Total Volume 4500 Ur Total Protein 24 Hr 495.00 H Urine Total Protein 11
[2022-02-10 14:05] LABS: Hematocrit 33.2 % (30.3-42.9); Mean Corpuscular HGB Conc 33 % (30-34); Mean Corpuscular Volume 89 fl (79-97); Platelet Count 218 K/mm3 (140-440); Red Blood Count 3.74 M/mm3 (3.65-5.03); Red Cell Distribution Width 15.2 % (13.2-15.2)
[2022-02-10] MEDS: hydrALAZINE 20 MG/1 ML INJ IV PRN ×2 (15:08→22:09)
--- NOTE | 2022-02-10 18:48 | Consultation ---
History of Present Illness Consult date: 02/10/22 Consult reason: hypertension History of present illness: The patient is a 41-year-old who is 30 weeks , admitted with preecl ampsia and uncontrolled hypertension. And her pre state, she has chronic hypertension managed with lisinopril. However during this , her blood pressure has elevated, has remained uncontrolled despite the use of magnesium infusion, labetalol, nifedipine XL. Cardiology consultation is requested for assistance in blood pressure management. Current systolic blood pressures have ranged from 140s to 160s. The patient has no chest pain, no shortness of breath, no palpitations, no lower extremity edema. She otherwise looks and feels well. A current 12-lead ECG is not available in the chart, but she had an echocardiogram that demonstrated normal left ventricular systolic function with ejection fraction 55 to 60%. Past History Past Medical History: hypertension Social history: Medications and Allergies Allergies Allergy/AdvReac Type Severity Reaction Status Date / Time No Known Allergies Allergy Verified 01/28/22 17:21 Home Medications Medication Instructions Recorded Confirmed Last Taken Type Amoxicillin/K Clav Tab [Augmentin 1 tab PO Q12HR #14 tab 12/10/16 Unknown Rx 875 mg] Ibuprofen [Motrin] 800 mg PO Q8HR PRN #30 tablet 12/10/16 Unknown Rx Erythromycin [Erythromycin Ophth 1 applic OS QID 7 Days #1 tube 08/26/21 Unknown Rx Oint] Ketotifen Fumarate [Zaditor] 1 drop OP BID #1 bottle 08/26/21 Unknown Rx Albuterol Mdi (or & Nicu Only) 2 puff IH Q6HR PRN #8.5 gram 02/01/22 Unknown Rx [ProAir HFA Inhaler] NIFEdipine XL [Procardia Xl] 30 mg PO QDAY #30 tablet 02/01/22 Unknown Rx labetaloL [Labetalol 200mg TAB] 400 mg PO TID #60 tab 02/01/22 Unknown Rx Active Meds: Active Medications Acetaminophen (Acetaminophen 325 Mg Tab) 650 mg PO Q4H PRN PRN Reason: Pain MILD(1-3)/Fever >100.5/GROSSMAN Al Hydrox/Mg Hydrox/Simethicone (Alum-Mag Hydroxide-Simethicone [id number]/5ml Oral Liqd 30 Ml) 30 ml PO Q6H PRN PRN Reason: Indigestion Docusate Sodium (Docusate Sodium 100 Mg Cap) 100 mg PO Q12H PRN PRN Reason: Constipation Last Admin: 02/10/22 10:54 Dose: 100 mg Hydralazine HCl (Hydralazine 20 Mg/1 Ml Inj) 5 mg IV Q30MIN PRN PRN Reason: Hypertension Last Admin: 02/10/22 15:08 Dose: 5 mg Hydralazine HCl (Hydralazine 25 Mg Tab) 50 mg PO Q8HR [facility] Lactated Ringer's (Lactated Ringers) 1,000 mls @ 75 mls/hr IV DIRECT [facility] Last Admin: 02/10/22 15:19 Dose: 75 mls/hr Labetalol HCl (Labetalol 200 Mg Tab) 600 mg PO TID [facility] Last Admin: 02/10/22 15:10 Dose: 600 mg Magnesium Hydroxide (Magnesium Hydroxide (Mom) Oral Liqd Udc) 30 ml PO QHS PRN PRN Reason: Laxative Effect Multivitamins/Iron/Calcium ( Ont47-Br Fumarate-Folic Acid Vit Tab) 1 each PO QDAY [facility] Last Admin: 02/09/22 10:18 Dose: 1 each Nifedipine (Nifedipine Xl 30 Mg Tab) 60 mg PO BID [facility] Nitrofurantoin Macrocrystals (Nitrofurantoin Monohyd/M-Cryst 100 Mg Cap) 100 mg PO Q12HR [facility] Stop: 02/13/22 10:01 Last Admin: 02/10/22 10:54 Dose: 100 mg Ondansetron HCl (Ondansetron 4 Mg/2 Ml Inj) 4 mg IV Q6H PRN PRN Reason: Nausea And Vomiting Senna/Docusate Sodium (Sennosides/Docusate Sodium 8.6/50 Mg Tab) 2 tab PO Q12H PRN PRN Reason: Laxative Effect Simethicone (Simethicone 80 Mg Chew Tab) 80 mg PO Q6H PRN PRN Reason: Gas pain Review of Systems Cardiovascular: no chest pain, no orthopnea, no palpitations, no rapid/irregular heart beat, no edema, no syncope, no lightheadedness, no shortness of breath Physical Examination Vital Signs Pulse BP Pulse Ox 83 146/90 98 02/08/22 18:23 02/08/22 18:23 02/08/22 18:23 General appearance: no acute distress HEENT: Positive: PERRL Neck: Positive: neck supple Cardiac: Positive: Reg Rate and Rhythm Lungs: Positive: clear to auscultation Neuro: Positive: Grossly Intact Abdomen: Positive: Distended (30 weeks ) Female genitourinary: deferred Skin: Positive: Clear Extremities: Absent: edema Results 02/10/22 13:31 02/08/22 18:40 CBC 02/10/22 Range/Units 13:31 WBC 10.8 (4.5-11.0) K/mm3 RBC 3.74 (3.65-5.03) M/mm3 Hgb 11.0 (10.1-14.3) gm/dl Hct 33.2 (30.3-42.9) % Plt Count 218 (140-440) K/mm3 Assessment and Plan - Patient Problems (1) Chronic hypertension affecting Current Visit: Yes Status: Chronic Plan to address problem: We will increase Procardia XL to 60 mg twice daily, and add hydralazine 50 mg every 8 hours. Continue supportive management of blood pressure and medical therapy as tolerated. Otherwise, no further cardiac interventions, will follow intermittently.
[2022-02-10] MEDS ORDERED: diphenhydrAMINE 50 MG CAP PO NR (21:00)
[2022-02-10] MEDS: hydrALAZINE 25 MG TAB PO SCH (21:12)
[2022-02-11] MEDS: hydrALAZINE 20 MG/1 ML INJ IV PRN (00:30)
--- NOTE | 2022-02-11 00:41 | Event Note ---
Date: 02/11/22 b/p 167/111 after PM dose of hydralizine and procardia as ordered by cardiology. reviewed with Dr. Perez, Will treat severe range b/p >160/100 with Labetaol IV 10mg and titrate to 20mg if needed for b/p management.
[2022-02-11] MEDS: hydrALAZINE 25 MG TAB PO SCH ×3 (07:26→22:19)
--- NOTE | 2022-02-11 08:22 | Progress Note ---
Assessment and Plan Pt reports migraine headaches and takes fioricet with relief. Denies all other complaints today. Precautions and POC reviewed. Questions encouraged. No questions verbalized. Pt verbalizes understanding and agrees to POC. Continue to monitor and notify provider for any ssx of worsening preeclampsia. Dr. Benavides aware. Per [facility]- Rec: Continue Labetalol 600mg TID , procardia 30mg XL Titrate the Labetalol to maintain BP 120-160/80-105mmhg , if her HR allows Max goal is 2400mg daily Magnesium sulfate can be held if her BP remains stable /cerebral symptoms do not return Twice weekly CBC/CMP to screen for end organ damage ( renal failure, thrombocytopenia, HELLP), next ordered on 02/13 Growth scan q 3 weeks Twice weekly BPP, next ordered for today Cardiology consult NICU consult Delivery at 34 0/7 weeks gestations. Immediate delivery is advised if her severe HTN is uncontrolled, Cerebral symptoms persist, pt develops Pul edema, HELLP, renal failure, plt count <100,000, eclampsia, distress - Patient Problems (1) with 29 completed weeks gestation Current Visit: Yes Status: Acute (2) Chronic hypertension affecting Current Visit: Yes Status: Chronic (3) History of asthma Current Visit: Yes Status: Chronic (4) History of sleep apnea Current Visit: Yes Status: Chronic (5) Morbid obesity Current Visit: Yes Status: Chronic (6) Migraine Current Visit: No Status: Resolved Qualifiers: Migraine type: without aura Intractability: intractable Subjective - Subjective Date of service: 02/11/22 Principal diagnosis: IUP @ 29+6; htn r/o superimposed pre-e, asthma, BMI 60, sleep apnea Patient reports: movement normal, no new complaints, no loss of fluid, no vaginal bleeding, no contractions, no other (no RUQ abdominal pain or vision changes) Objective - Vital Signs Vital Signs: Vital Signs - 12hr 02/10/22 02/10/22 02/10/22 21:12 21:13 21:42 Pulse Rate 83 83 81 Blood Pressure 159/99 159/99 168/107 02/10/22 02/10/22 02/10/22 22:07 22:09 22:41 Pulse Rate 81 81 86 Blood Pressure 173/101 173/101 157/90 02/11/22 02/11/22 02/11/22 00:12 00:39 00:49 Pulse Rate 74 80 88 Blood Pressure 167/111 174/104 171/102 02/11/22 02/11/22 02/11/22 00:59 01:09 01:19 Pulse Rate 89 87 95 H Blood Pressure 153/79 138/73 126/65 02/11/22 02/11/22 02/11/22 01:29 01:39 01:49 Pulse Rate 90 90 87 Blood Pressure 112/59 106/52 110/51 02/11/22 02/11/22 02/11/22 01:59 02:09 02:18 Pulse Rate 88 81 98 H Blood Pressure 108/53 94/53 106/53 02/11/22 02/11/22 02/11/22 02:29 02:39 02:49 Pulse Rate 85 83 82 Blood Pressure 124/67 147/87 124/62 - Exam Lungs: Normal air movement Abdomen: Present: soft, other (morbid obesity) FHR: category 2 Uterine Contraction Monitor Mode: Palpation Uterine Contraction Pattern: Absent Uterine Tone Measurement Phase: Resting Extremities: normal - Labs Labs: Abnormal Labs 02/08/22 02/08/22 02/08/22 18:40 18:40 22:52 WBC 11.8 H Magnesium 3.80 H Lactate Dehydrogenase 305 H Urine Creatinine Ur Total Protein 24 Hr 02/09/22 02/09/22 02/09/22 04:00 04:42 05:49 WBC Magnesium 5.20 H Lactate Dehydrogenase Urine Creatinine 24.2 H Ur Total Protein 24 Hr 495.00 H 02/09/22 02/10/22 02/10/22 12:07 00:05 06:40 WBC Magnesium 5.30 H 5.00 H 5.40 H Lactate Dehydrogenase Urine Creatinine Ur Total Protein 24 Hr 02/10/22 13:49 WBC Magnesium 4.70 H Lactate Dehydrogenase Urine Creatinine Ur Total Protein 24 Hr Laboratory Results - last 24 hr 02/10/22 02/10/22 13:31 13:49 WBC 10.8 RBC 3.74 Hgb 11.0 Hct 33.2 MCV 89 MCH 29 MCHC 33 RDW 15.2 Plt Count 218 Magnesium 4.70 H
[2022-02-11] MEDS: NIFEdipine XL 30 MG TAB PO SCH ×2 (10:46→23:41)
[2022-02-11] MEDS: PRENATAL VIT27-FE FUMARATE-FOLIC ACID VIT TAB PO SCH (10:46)
[2022-02-11] MEDS: NITROFURANTOIN MONOHYD/M-CRYST 100 MG CAP PO SCH ×2 (10:46→22:19)
[2022-02-11] MEDS ORDERED: ACETAMINOPHEN 325 MG TAB PO PRN (15:59)
--- NOTE | 2022-02-11 16:41 | Ultrasound Report ---
ULTRASOUND BIOPHYSICAL PROFILE INDICATION / CLINICAL INFORMATION: well being. COMPARISON: 02/01/2022 FINDINGS: BREATHING MOVEMENT = 2 GROSS BODY MOVEMENT = 2 TONE = 2 QUALITATIVE AMNIOTIC FLUID VOLUME = 2 TOTAL BIOPHYSICAL SCORE = 06/06 PRESENTATION: Cephalic. HEART RATE (beats per minute): 134 IMPRESSION: 1. biophysical profile = 06/06 Signer Name: Lars Saenz MD Signed: 02/11/2022 4:37 PM Workstation Name: [employer]
--- NOTE | 2022-02-11 19:41 | Event Note ---
Date: 02/11/22 Patient restingin bed, no complaints. States GROSSMAN feels he same as when she has a migraine that resolves with Fioricet. She was given one dose and GROSSMAN has improved. .Questions encouraged and answered. Plan of care explained, she voiced understanding. BP's improved with Hydralazine 50mg q8hr and Procardia XL 60mg daily BID.
[2022-02-12] MEDS ORDERED: ALBUTEROL 2.5 MG/3 ML NEBU IH PRN (00:05)
[2022-02-12] MEDS: diphenhydrAMINE 25 MG CAP PO PRN (00:54)
[2022-02-12] MEDS: hydrALAZINE 25 MG TAB PO SCH ×2 (06:43→14:44)
--- NOTE | 2022-02-12 09:16 | Progress Note ---
Assessment and Plan Pt reports headaches have resolved. Denies all complaints today. Precautions and POC reviewed. Questions and answered. Pt verbalizes understanding and agrees to POC. Continue to monitor and notify provider for any ssx of worsening status. Dr. Johnson made aware. Plan: Twice weekly CBC/CMP to screen for end organ damage ( renal failure, t hrombocytopenia, HELLP), next ordered on 02/13 Growth scan q 3 weeks, last completed 02/08/22 EFW 52% 1464g, next due March 01 Twice weekly BPP, 06/06 yesterday, next ordered on 02/13 Cardiology consult completed and medications changed to Procardia XL to 60 mg twice daily, and add hydralazine 50 mg every 8 hours NICU consult ordered Delivery at 34 0/7 weeks gestations. Immediate delivery is advised if her severe HTN is uncontrolled, Cerebral symptoms persist, pt develops Pul edema, HELLP, renal failure, plt count <100,000, eclampsia, distress - Patient Problems (1) Chronic hypertension affecting Current Visit: Yes Status: Chronic (2) History of asthma Current Visit: Yes Status: Chronic (3) History of sleep apnea Current Visit: Yes Status: Chronic (4) Morbid obesity Current Visit: Yes Status: Chronic (5) 30 weeks gestation of Current Visit: Yes Status: Acute Subjective - Subjective Date of service: 02/12/22 Principal diagnosis: IUP @ 30wks ; CHTN with superimposed Preeclampsia, BMI 60, sleep apnea Patient reports: movement normal, no new complaints, no loss of fluid, no vaginal bleeding, no contractions, no other (denies GROSSMAN, RUQ abdominal pain, and vision changes) Objective - Vital Signs Vital Signs: Vital Signs - 12hr 02/11/22 02/11/22 02/11/22 21:30 22:18 22:20 Pulse Rate 83 75 Pulse Rate [ 101 H Bilateral Throughout] Respiratory 18 Rate [Bilateral Throughout] Blood Pressure 166/88 162/88 O2 Sat by Pulse Oximetry 02/11/22 02/11/22 02/11/22 23:15 23:17 23:20 Pulse Rate 94 H 93 H 87 Pulse Rate [ Bilateral Throughout] Respiratory Rate [Bilateral Throughout] Blood Pressure 204/110 O2 Sat by Pulse 100 100 Oximetry 02/11/22 02/11/22 02/11/22 23:25 23:30 23:35 Pulse Rate 78 79 84 Pulse Rate [ Bilateral Throughout] Respiratory Rate [Bilateral Throughout] Blood Pressure O2 Sat by Pulse 100 100 100 Oximetry 02/11/22 02/11/22 02/11/22 23:38 23:40 23:45 Pulse Rate 81 77 82 Pulse Rate [ Bilateral Throughout] Respiratory Rate [Bilateral Throughout] Blood Pressure 166/90 O2 Sat by Pulse 100 100 Oximetry 02/11/22 02/11/22 02/12/22 23:50 23:55 00:00 Pulse Rate 79 80 80 Pulse Rate [ Bilateral Throughout] Respiratory Rate [Bilateral Throughout] Blood Pressure O2 Sat by Pulse 100 100 100 Oximetry 02/12/22 02/12/22 02/12/22 00:05 00:09 00:10 Pulse Rate 75 81 81 Pulse Rate [ Bilateral Throughout] Respiratory Rate [Bilateral Throughout] Blood Pressure 162/81 O2 Sat by Pulse 99 100 Oximetry 02/12/22 02/12/22 02/12/22 00:15 00:17 00:25 Pulse Rate 87 89 Pulse Rate [ Bilateral Throughout] Respiratory Rate [Bilateral Throughout] Blood Pressure O2 Sat by Pulse 100 85 81 L Oximetry 02/12/22 02/12/22 02/12/22 00:31 00:47 00:52 Pulse Rate Pulse Rate [ Bilateral Throughout] Respiratory Rate [Bilateral Throughout] Blood Pressure O2 Sat by Pulse 77 L 90 79 L Oximetry 02/12/22 02/12/22 02/12/22 00:53 01:09 01:39 Pulse Rate 82 87 87 Pulse Rate [ Bilateral Throughout] Respiratory Rate [Bilateral Throughout] Blood Pressure 191/103 157/79 180/86 O2 Sat by Pulse Oximetry 02/12/22 02/12/22 02/12/22 01:51 02:17 02:22 Pulse Rate 93 H 89 81 Pulse Rate [ Bilateral Throughout] Respiratory Rate [Bilateral Throughout] Blood Pressure 158/82 160/82 159/80 O2 Sat by Pulse Oximetry 02/12/22 02/12/22 02/12/22 02:52 03:22 06:41 Pulse Rate 100 H 77 88 Pulse Rate [ Bilateral Throughout] Respiratory Rate [Bilateral Throughout] Blood Pressure 166/94 144/71 158/74 O2 Sat by Pulse Oximetry 02/12/22 02/12/22 02/12/22 07:12 07:42 08:12 Pulse Rate 78 73 76 Pulse Rate [ Bilateral Throughout] Respiratory Rate [Bilateral Throughout] Blood Pressure 155/91 160/93 145/78 O2 Sat by Pulse Oximetry - Exam Abdomen: Present: soft, other (morbidly obese) Uterine Contraction Pattern: Absent Extremities: normal - Labs Labs: Abnormal Labs 02/08/22 02/08/22 02/08/22 18:40 18:40 22:52 WBC 11.8 H Magnesium 3.80 H Lactate Dehydrogenase 305 H Urine Creatinine Ur Total Protein 24 Hr 02/09/22 02/09/22 02/09/22 04:00 04:42 05:49 WBC Magnesium 5.20 H Lactate Dehydrogenase Urine Creatinine 24.2 H Ur Total Protein 24 Hr 495.00 H 02/09/22 02/10/22 02/10/22 12:07 00:05 06:40 WBC Magnesium 5.30 H 5.00 H 5.40 H Lactate Dehydrogenase Urine Creatinine Ur Total Protein 24 Hr 02/10/22 13:49 WBC Magnesium 4.70 H Lactate Dehydrogenase Urine Creatinine Ur Total Protein 24 Hr
[2022-02-12] MEDS: NITROFURANTOIN MONOHYD/M-CRYST 100 MG CAP PO SCH ×2 (10:01→21:48)
[2022-02-12] MEDS: NIFEdipine XL 30 MG TAB PO SCH ×2 (10:02→21:48)
[2022-02-12] MEDS: PRENATAL VIT27-FE FUMARATE-FOLIC ACID VIT TAB PO SCH (10:02)
--- NOTE | 2022-02-12 11:24 | Event Note ---
Date: 02/12/22 (late entry Pt seen at 0800) Agree with MW note and exam. Pt seen and evaluated. Plan of care d/w including possible need for delivery. NICU consulted today. Pt bps have improved with mediation change by Cardiology team who is also following pt with thanks. At this point, she does not show an s/sx of worsening disease so will con't to c losely monitor. Questions were encouraged and were addressed and answered.
[2022-02-12] MEDS: hydrALAZINE 20 MG/1 ML INJ IV PRN (13:12)
--- NOTE | 2022-02-12 14:08 | Event Note ---
Date: 02/12/22 Cardiology BP signfiicantly elevated today - will add PO labetalol AG
--- NOTE | 2022-02-12 14:49 | Event Note ---
Date: 02/12/[address] Denton. BP's reviewed and in severe range for the last 2 hours. CNM not made aware. Shira RN requested to call if BP >160 systolic or >100 diastolic. RN verbalizes understanding. Dr. Denton to bedside for exam. Pt denies all complaints. Dr. Johnson made aware. Cardiology consult recently completed and medications changed to add 200mg labetalol PO. RN to give dose now. POC discussed with Dr. Oconnell Fisher Seal and Dr. Denton on unit. Orders received to discontinue Hydralazine PO and change dose to up-titrate labetalol starting at 600mg TID to max of 2400mg per day. Dr. Johnson made aware. Will continue to follow consult recommendations.
--- NOTE | 2022-02-12 14:50 | Progress Note ---
Assessment and Plan 1. IUP at 300/7 weeks' 2. Essential hypertension with severe range BP's 3. Morbid obesity 4. AMA 1. Restart labetalol at 600 mg tid; titrate up to 800 mg tid to keep BP < 160/110 2. Repeat CBC/CMP today 3. Continue BPP at least twice weekly 4. EFW q 2 weeks 5. Proceed with delivery if unable to control BP [<160/110] Subjective - Subjective Date of service: 02/12/22 Principal diagnosis: IUP @ 30wks ; CHTN with superimposed Preeclampsia, BMI 60, sleep apnea Interval history: Feeling well, fetus active; specifically denied GROSSMAN, scotomata, epigastric pain. Reported an active fetus. Patient reports: movement normal, no new complaints, no loss of fluid, no vaginal bleeding, no contractions, no other (denies GROSSMAN, RUQ abdominal pain, and vision changes) Objective - Vital Signs Vital Signs: Vital Signs - 12hr 02/12/22 02/12/22 02/12/22 02:52 03:22 06:41 Pulse Rate 100 H 77 88 Blood Pressure 166/94 144/71 158/74 02/12/22 02/12/22 02/12/22 07:12 07:42 08:12 Pulse Rate 78 73 76 Blood Pressure 155/91 160/93 145/78 02/12/22 02/12/22 02/12/22 12:04 12:44 13:12 Pulse Rate 75 77 77 Blood Pressure 167/90 184/106 184/106 02/12/22 02/12/22 02/12/22 13:55 13:57 14:05 Pulse Rate 93 H 88 90 Blood Pressure 193/103 184/98 191/104 - Exam Narrative Exam: Abd soft, nontender; FHT's reassuring; DTR 2+ - Labs Labs: Abnormal Labs 02/08/22 02/08/22 02/08/22 18:40 18:40 22:52 WBC 11.8 H Magnesium 3.80 H Lactate Dehydrogenase 305 H Urine Creatinine Ur Total Protein 24 Hr 02/09/22 02/09/22 02/09/22 04:00 04:42 05:49 WBC Magnesium 5.20 H Lactate Dehydrogenase Urine Creatinine 24.2 H Ur Total Protein 24 Hr 495.00 H 02/09/22 02/10/22 02/10/22 12:07 00:05 06:40 WBC Magnesium 5.30 H 5.00 H 5.40 H Lactate Dehydrogenase Urine Creatinine Ur Total Protein 24 Hr 02/10/22 13:49 WBC Magnesium 4.70 H Lactate Dehydrogenase Urine Creatinine Ur Total Protein 24 Hr
--- NOTE | 2022-02-12 15:22 | Progress Note ---
Assessment and Plan Uncontrolled hypertension Third trimester Recommend: Restart PO labetalol and continue procardia Subjective Date of service: 02/12/22 Principal diagnosis: IUP @ 30wks ; CHTN with superimposed Preeclampsia, BMI 60, sleep apnea Interval history: BP significantly elevated today Pt has no cardiac complaints Objective Vital Signs Temp Pulse Pulse Resp BP Pulse Ox Pulse Ox 02/12/22 15:13 87 177/111 02/12/22 14:45 191/104 02/12/22 14:44 191/104 02/12/22 14:05 90 191/104 02/12/22 13:57 88 184/98 02/12/22 13:55 93 H 193/103 02/12/22 13:12 77 184/106 02/12/22 12:44 77 184/106 02/12/22 12:04 75 167/90 02/12/22 08:12 76 145/78 02/12/22 07:42 73 160/93 02/12/22 07:12 78 155/91 02/12/22 06:41 88 158/74 02/12/22 03:22 77 144/71 02/12/22 02:52 100 H 166/94 02/12/22 02:22 81 159/80 02/12/22 02:17 89 160/82 02/12/22 01:51 93 H 158/82 02/12/22 01:39 87 180/86 02/12/22 01:09 87 157/79 02/12/22 00:53 82 191/103 02/12/22 00:52 79 L 02/12/22 00:47 90 02/12/22 00:31 77 L 02/12/22 00:25 81 L 02/12/22 00:17 89 85 02/12/22 00:15 87 100 02/12/22 00:10 81 100 02/12/22 00:09 81 162/81 02/12/22 00:05 75 99 02/12/22 00:00 80 100 02/11/22 23:55 80 100 02/11/22 23:50 79 100 02/11/22 23:45 82 100 02/11/22 23:40 77 100 02/11/22 23:38 81 166/90 02/11/22 23:35 84 100 02/11/22 23:30 79 100 02/11/22 23:25 78 100 02/11/22 23:20 87 100 02/11/22 23:17 93 H 204/110 02/11/22 23:15 94 H 100 02/11/22 22:20 75 162/88 02/11/22 22:18 83 166/88 02/11/22 21:30 101 H 18 02/11/22 20:00 98.8 F 98 02/11/22 18:52 94 H 144/73 02/11/22 18:00 98.5 F 02/11/22 17:58 97 H 147/77 - Physical Examination HEENT: Positive: PERRL Neck: Positive: neck supple Cardiac: Positive: Reg Rate and Rhythm Lungs: Positive: clear to auscultation Neuro: Positive: Grossly Intact Abdomen: Positive: Distended (30 weeks ) Skin: Positive: Clear Extremities: Absent: edema
[2022-02-12 17:28] LABS: Hematocrit 32.9 % (30.3-42.9); Hemoglobin 10.9 gm/dl (10.1-14.3); Mean Corpuscular HGB Conc 33 % (30-34); Mean Corpuscular Volume 89 fl (79-97); Red Cell Distribution Width 15.2 % (13.2-15.2)
[2022-02-12 17:48] LABS: Alanine Aminotransferase 25 units/L (7-56); Albumin 3.3 g/dL (3.9-5); Blood Urea Nitrogen 10 mg/dL (7-17); Calcium 9.3 mg/dL (8.4-10.2); Hemolysis Index 39
[2022-02-12 17:49] LABS: BUN/Creatinine Ratio 14
[2022-02-12] MEDS ORDERED: BUTALB/ACETAMINOPHEN/CAFFEINE TAB PO ONE (18:00)
[2022-02-12 18:10] LABS: Platelet Count 73 K/mm3 (140-440)
--- NOTE | 2022-02-12 18:48 | Event Note ---
Date: 02/12/22 Platelets are 73. Consult[address] with Dr[address] Bertin FRITZ and recommends delivery due to worsening symptoms and now begining of HELLP. Plan of care d/w pt and all questions were addressed and answered. Will obtain sono to confirm presentation and make charge nurse and NICU aware.
[2022-02-12] MEDS ORDERED: MAGNESIUM SULFATE 4 GM/100 ML BAG IV ONE (19:25)
--- NOTE | 2022-02-12 19:25 | Progress Note ---
Assessment and Plan Labs significant for platelets decreased to 73 (today) from 218 (on 02/10). Delivery advised if platelets less than 100. Dr. Johnson at bedside. POC reviewed with pt. Questions encouraged and answered. Pt verbalizes understanding and agrees to POC. Pt cephalic on bedside ultrasound at this time. Plan to start Magnesium Sulfate IV and cervidil induction. RN made aware. Continue to monitor and notify provider for any ssx of worsening status. - Patient Problems (1) Chronic hypertension affecting Current Visit: Yes Status: Chronic Plan to address problem: Continue labetalol 600mg TID, will increase up to max of 2400mg/day for uncontrolled BPs continue procardia XL 60mg daily Magnesium Sulfate 4gm bolus and 2gm/hr maintenance rate seizure precautions monitor closely for ssx of worsening preeclampsia cervidil ordered to be placed (2) History of asthma Current Visit: Yes Status: Chronic Plan to address problem: respiratory treatments as ordered will not give Hemabate (3) History of sleep apnea Current Visit: Yes Status: Chronic (4) Morbid obesity Current Visit: Yes Status: Chronic (5) 30 weeks gestation of Current Visit: Yes Status: Acute Plan to address problem: NICU requested to consult GBS unknown- Ampicillin q4h until delivery ordered Subjective - Subjective Date of service: 02/12/22 Principal diagnosis: IUP @ 30wks ; CHTN with superimposed Preeclampsia, BMI 60, sleep apnea Patient reports: movement normal, no new complaints, no loss of fluid, no vaginal bleeding, no contractions Objective - Vital Signs Vital Signs: Vital Signs - 12hr 02/12/22 02/12/22 02/12/22 07:42 08:12 12:04 Pulse Rate 73 76 75 Blood Pressure 160/93 145/78 167/90 02/12/22 02/12/22 02/12/22 12:44 13:12 13:55 Pulse Rate 77 77 93 H Blood Pressure 184/106 184/106 193/103 02/12/22 02/12/22 02/12/22 13:57 14:05 14:44 Pulse Rate 88 90 Blood Pressure 184/98 191/104 191/104 02/12/22 02/12/22 02/12/22 14:45 15:13 15:28 Pulse Rate 87 89 Blood Pressure 191/104 177/111 154/97 02/12/22 02/12/22 02/12/22 15:43 15:58 16:13 Pulse Rate 90 86 84 Blood Pressure 153/93 139/84 151/89 02/12/22 02/12/22 02/12/22 16:28 16:43 16:58 Pulse Rate 81 81 83 Blood Pressure 141/80 140/79 159/96 02/12/22 02/12/22 02/12/22 18:13 18:28 18:43 Pulse Rate 95 H 85 83 Blood Pressure 176/94 168/87 161/83 02/12/22 18:58 Pulse Rate 90 Blood Pressure 165/88 - Exam Abdomen: Present: soft, other (morbidly obese). Absent: tenderness Vulva: both: normal Uterine Contraction Monitor Mode: Palpation Cervical Dilatation: 0 Cervical Effacement Percentage: 0 station: -4 Uterine Contraction Pattern: Absent Uterine Tone Measurement Phase: Resting - Labs Labs: Abnormal Labs 02/08/22 02/08/22 02/08/22 18:40 18:40 22:52 WBC 11.8 H Plt Count Sodium Carbon Dioxide Magnesium 3.80 H Alkaline Phosphatase Lactate Dehydrogenase 305 H Albumin Urine Creatinine Ur Total Protein 24 Hr 02/09/22 02/09/22 02/09/22 04:00 04:42 05:49 WBC Plt Count Sodium Carbon Dioxide Magnesium 5.20 H Alkaline Phosphatase Lactate Dehydrogenase Albumin Urine Creatinine 24.2 H Ur Total Protein 24 Hr 495.00 H 02/09/22 02/10/22 02/10/22 12:07 00:05 06:40 WBC Plt Count Sodium Carbon Dioxide Magnesium 5.30 H 5.00 H 5.40 H Alkaline Phosphatase Lactate Dehydrogenase Albumin Urine Creatinine Ur Total Protein 24 Hr 02/10/22 02/12/22 02/12/22 13:49 16:56 16:56 WBC Plt Count 73 L Sodium 131 L Carbon Dioxide 19 L Magnesium 4.70 H Alkaline Phosphatase 205 H Lactate Dehydrogenase Albumin 3.3 L Urine Creatinine Ur Total Protein 24 Hr Laboratory Results - last 24 hr 02/12/22 02/12/22 16:56 16:56 WBC 9.4 RBC 3.70 Hgb 10.9 Hct 32.9 MCV 89 MCH 29 MCHC 33 RDW 15.2 Plt Count 73 L Sodium 131 L Potassium 5.0 Chloride 100.0 Carbon Dioxide 19 L Anion Gap 17 BUN 10 Creatinine 0.7 Estimated GFR > 60 BUN/Creatinine Ratio 14 Glucose 80 Calcium 9.3 Total Bilirubin 0.20 AST 24 ALT 25 Alkaline Phosphatase 205 H Total Protein 6.5 Albumin 3.3 L Albumin/Globulin Ratio 1.0
[2022-02-12] MEDS ORDERED: OXYTOCIN 10 UNIT/1 ML INJ IM PRN (19:27)
[2022-02-12] MEDS ORDERED: NalbUPHINE 10 MG/1 ML INJ IV PRN (19:27)
[2022-02-12] MEDS ORDERED: LIDOCAINE (2%) 20 MG/1 ML VIAL 20 ML MDV INFILTRATI ONE (19:27)
[2022-02-12] MEDS ORDERED: AMPICILLIN/NS 2 GM/100 ML 2 GM/100 ML BAG IV ONE (19:27)
[2022-02-12] MEDS ORDERED: MINERAL OIL 30 ML ORAL LIQD PO PRN (19:27)
[2022-02-12] MEDS ORDERED: ePHEDrine SULFATE 50 MG/1 ML INJ IV PRN (19:27)
[2022-02-12] MEDS ORDERED: DINOPROSTONE 10 MG VAG SUPP VG ONE (19:27)
[2022-02-12] MEDS ORDERED: BUTORPHANOL 2 MG/1 ML INJ IV PRN (19:27)
[2022-02-12] MEDS ORDERED: miSOPROStol 200 MCG TAB PR PRN (19:27)
[2022-02-12] MEDS ORDERED: LACTATED RINGERS 1,000 ML IV SCH ×2 (19:30)
--- NOTE | 2022-02-12 19:44 | Ultrasound Report ---
ULTRASOUND OBSTETRIC LIMITED INDICATION / CLINICAL INFORMATION: presentation. - Clinical Gestational Age (GA) in weeks, days: 31, 1 TECHNIQUE: Transabdominal. COMPARISON: Ultrasound dated 02/11/22 FINDINGS: HEART RATE (beats per minute): 143 AMNIOTIC FLUID INDEX (cm) = not evaluated (normal = 7-24 cm) PRESENTATION: Cephalic. ADDITIONAL FINDINGS: None. IMPRESSION: 1. Cephalic presentation. Signer Name: Yfn Saavedra MD Signed: 02/12/2022 7:39 PM Workstation Name: [id number]
--- NOTE | 2022-02-12 19:59 | Event Note ---
Date: 02/12/22 As per [facility] recommendations will proceed with ordering the platelets q 4 hours and plan to transfuse if less than 50K. Will order platelets at this time. As per the blood bank, there are not any that are inhouse at this time. Will start magnesium sulfate, antibx, and order platelets so that they can be inhouse at time of induction of labor is being started.
[2022-02-12] MEDS ORDERED: OXYTOCIN DRIP 30 UNITS/500 ML BAG IV SCH ×2 (20:00)
[2022-02-12] MEDS ORDERED: MAGNESIUM SULFATE 40GM/1000ML 40 GM/1,000 ML BAG IV SCH (20:00)
[2022-02-12] MEDS ORDERED: SODIUM CHLORIDE 0.9% 500 ML 500 ML IV ONE (20:08)
[2022-02-12] MEDS ORDERED: TERBUTALINE 1 MG/1 ML INJ SUB-Q PRN (20:30)
[2022-02-12 21:44] LABS: Hematocrit 31.6 % (30.3-42.9); Hemoglobin 10.6 gm/dl (10.1-14.3); Mean Corpuscular HGB Conc 34 % (30-34); Mean Corpuscular Volume 88 fl (79-97); Platelet Count 219 K/mm3 (140-440); Red Blood Count 3.58 M/mm3 (3.65-5.03); Red Cell Distribution Width 15.3 % (13.2-15.2)
[2022-02-12] MEDS: LACTATED RINGERS 1,000 ML IV SCH (21:51)
--- NOTE | 2022-02-12 22:52 | Consultation ---
Consult Note - Parent Education I met with parent(s) and discussed the following:: Need for NICU admission, Poss ible need for intubation and surfactant or other resp support, Temperature regulation, Head ultrasounds to evaluate IVH, Eye exams for ROP screening, Possible need for IV fluids/TPN and IV antibiotics, Possible need for umbilical lines, Importance of providing breast milk & encouraged pumping aft delivery, Slow feeding advancement and monitoring of tolerance. NG/OG feeds, Need to monitor for jaundice, Data for survival & survival without significant co- morbidities Parent(s) demonstrated understanding of all the information:: Yes Additional Comment: Asked to consult with Mrs Villela for IUP @ 30wks ; CHTN with superimposed Preeclampsia, BMI 60, sleep apnea; history of asthma. SHe is receiving, labetalol, and Mag Sulfate; mom reports EFW last Monday of ~ 3 lbs; she did receive x 2 doses of steroids during her previous admission last week; OB is planning induction when plt count is stable and platelets are available for transfusion. Explained that NICU team would be present for delivery and would keep both mom and dad updated on 's condition. Mom has a 17yr and 15yr old at home and hopes they will be allowed to see the baby. Assessment and Plan - Assessment Gestation:: 30 Estimated Weight: 3 pounds per mom Baby's gender: Male - Plan Plan: Agree with Mag & steroids Will attend delivery Please call NICU with questions
[2022-02-13] MEDS ORDERED: AMPICILLIN/NS 1 GM/50 ML 1 GM/50 ML BAG IV SCH
[2022-02-13 00:37] LABS: Hematocrit 31.5 % (30.3-42.9); Hemoglobin 10.6 gm/dl (10.1-14.3); Mean Corpuscular HGB Conc 34 % (30-34); Mean Corpuscular Volume 88 fl (79-97); Platelet Count 223 K/mm3 (140-440); Red Blood Count 3.59 M/mm3 (3.65-5.03); Red Cell Distribution Width 15.4 % (13.2-15.2)
[2022-02-13] MEDS ORDERED: hydrALAZINE 20 MG/1 ML INJ ONE (02:51)
[2022-02-13] MEDS: hydrALAZINE 20 MG/1 ML INJ IV PRN ×2 (02:59→18:47)
[2022-02-13] MEDS: LACTATED RINGERS 1,000 ML IV SCH (04:00)
[2022-02-13 05:26] LABS: Hematocrit 32.7 % (30.3-42.9); Hemoglobin 10.5 gm/dl (10.1-14.3); Mean Corpuscular HGB Conc 32 % (30-34); Mean Corpuscular Volume 89 fl (79-97); Platelet Count 229 K/mm3 (140-440); Red Blood Count 3.66 M/mm3 (3.65-5.03); Red Cell Distribution Width 15.3 % (13.2-15.2)
[2022-02-13] MEDS ORDERED: BUTALB/ACETAMINOPHEN/CAFFEINE TAB PO ONE (07:31)
[2022-02-13 07:45] LABS: Hemoglobin 10.8 gm/dl (10.1-14.3); Mean Corpuscular HGB Conc 33 % (30-34); Mean Corpuscular Volume 88 fl (79-97); Platelet Count 216 K/mm3 (140-440); Red Blood Count 3.73 M/mm3 (3.65-5.03); Red Cell Distribution Width 15.3 % (13.2-15.2)
[2022-02-13 07:46] LABS: Alanine Aminotransferase 24 units/L (7-56); Albumin 3.3 g/dL (3.9-5); Blood Urea Nitrogen 10 mg/dL (7-17); Calcium 8.3 mg/dL (8.4-10.2); Hemolysis Index 12
[2022-02-13 07:53] LABS: BUN/Creatinine Ratio 14
--- NOTE | 2022-02-13 08:53 | Event Note ---
Date: 02/13/22 Appears the initial platelet count was a lab error as all subsequent counts have been normal. Blood pressures are improved but pt also restarted on the magnesium in prep for IOL. Will con't to monitor labs at this time as welll as d/c the magnesium as we are not inducing at this time.
--- NOTE | 2022-02-13 09:25 | Progress Note ---
Assessment and Plan Orders received from Dr. Johnson to discontinue IOL orders and Magnesium IV. POC reviewed with pt. Pt denies all complaints this am and reports positive movement. Questions encouraged and answered. Pt verbalizes understanding and agrees to POC. RN made aware. Pt may eat cardiac diet breakfast. Continue to monitor and notify provider for any ssx of worsening status. Plan: Twice weekly CMP to screen for end organ damage ( renal failure, thrombocytopenia, HELLP), last completed yesterday, next ordered for tomorrow Daily CBC to watch platelet trends Growth scan q 2 weeks, last completed 02/08/22 EFW 52% 1464g, next due 02/22 Twice weekly BPP, 8/8 on 02/11, next ordered for today Cardiology consult completed and medications changed to Procardia XL to 60 mg twice daily, and labetalol 600mg TID NICU consult ordered Delivery at 34 0/7 weeks gestations. Immediate delivery is advised if her severe HTN is uncontrolled, Cerebral symptoms persist, pt develops Pul edema, HELLP, renal failure, plt count <100,000, eclampsia, distress - Patient Problems (1) Chronic hypertension affecting Current Visit: Yes Status: Chronic Plan to address problem: Continue labetalol 600mg TID, will increase per consults, up to max of 2400mg/day for uncontrolled BPs continue procardia XL 60mg daily Magnesium Sulfate stopped continue to monitor closely for ssx of worsening preeclampsia strict I&O (2) History of asthma Current Visit: Yes Status: Chronic Plan to address problem: respiratory treatments as ordered will not order Hemabate for post delivery (3) History of sleep apnea Current Visit: Yes Status: Chronic (4) Morbid obesity Current Visit: Yes Status: Chronic (5) 30 weeks gestation of Current Visit: Yes Status: Acute Subjective - Subjective Date of service: 02/13/22 Principal diagnosis: IUP @ 30.1wks ; CHTN with superimposed Preeclampsia, BMI 60, sleep apnea Patient reports: movement normal, other (no complaints), no new complaints, no loss of fluid, no vaginal bleeding, no contractions Objective - Vital Signs Vital Signs: Vital Signs - 12hr 02/12/22 02/12/22 02/12/22 21:28 21:33 21:38 Temperature Pulse Rate 80 84 84 Respiratory Rate Blood Pressure Blood Pressure [Right] O2 Sat by Pulse 99 100 99 Oximetry O2 Sat by Pulse Oximetry [ Bilateral Throughout] 02/12/22 02/12/22 02/12/22 21:41 21:43 21:46 Temperature 98.2 F Pulse Rate 83 83 86 Respiratory 18 Rate Blood Pressure 173/95 164/92 Blood Pressure [Right] O2 Sat by Pulse 93 99 99 Oximetry O2 Sat by Pulse Oximetry [ Bilateral Throughout] 02/12/22 02/12/22 02/12/22 21:47 21:48 21:53 Temperature Pulse Rate 82 83 83 Respiratory Rate Blood Pressure 164/92 Blood Pressure [Right] O2 Sat by Pulse 98 99 Oximetry O2 Sat by Pulse Oximetry [ Bilateral Throughout] 02/12/22 02/12/22 02/12/22 21:58 22:03 22:08 Temperature Pulse Rate 82 79 82 Respiratory Rate Blood Pressure Blood Pressure [Right] O2 Sat by Pulse 99 99 98 Oximetry O2 Sat by Pulse Oximetry [ Bilateral Throughout] 02/12/22 02/12/22 02/12/22 22:13 22:18 22:23 Temperature Pulse Rate 78 81 80 Respiratory Rate Blood Pressure Blood Pressure [Right] O2 Sat by Pulse 99 99 99 Oximetry O2 Sat by Pulse Oximetry [ Bilateral Throughout] 02/12/22 02/12/22 02/12/22 22:28 22:33 22:37 Temperature Pulse Rate 82 81 81 Respiratory 20 Rate Blood Pressure 143/95 Blood Pressure [Right] O2 Sat by Pulse 98 98 99 Oximetry O2 Sat by Pulse Oximetry [ Bilateral Throughout] 02/12/22 02/12/22 02/12/22 22:38 22:43 22:48 Temperature Pulse Rate 86 88 83 Respiratory Rate Blood Pressure Blood Pressure [Right] O2 Sat by Pulse 99 98 100 Oximetry O2 Sat by Pulse Oximetry [ Bilateral Throughout] 02/12/22 02/12/22 02/12/22 22:53 22:57 23:03 Temperature Pulse Rate 83 86 84 Respiratory Rate Blood Pressure Blood Pressure [Right] O2 Sat by Pulse 100 98 99 Oximetry O2 Sat by Pulse Oximetry [ Bilateral Throughout] 02/12/22 02/12/22 02/12/22 23:08 23:13 23:18 Temperature Pulse Rate 84 84 84 Respiratory Rate Blood Pressure Blood Pressure [Right] O2 Sat by Pulse 100 100 99 Oximetry O2 Sat by Pulse Oximetry [ Bilateral Throughout] 02/12/22 02/12/22 02/12/22 23:23 23:28 23:32 Temperature Pulse Rate 82 83 83 Respiratory Rate Blood Pressure 143/88 Blood Pressure [Right] O2 Sat by Pulse 99 99 87 Oximetry O2 Sat by Pulse Oximetry [ Bilateral Throughout] 02/12/22 02/12/22 02/12/22 23:33 23:38 23:41 Temperature Pulse Rate 83 83 80 Respiratory 20 Rate Blood Pressure 140/83 Blood Pressure [Right] O2 Sat by Pulse 100 99 Oximetry O2 Sat by Pulse Oximetry [ Bilateral Throughout] 02/12/22 02/12/22 02/12/22 23:43 23:48 23:53 Temperature Pulse Rate 83 89 84 Respiratory Rate Blood Pressure Blood Pressure [Right] O2 Sat by Pulse 99 100 98 Oximetry O2 Sat by Pulse Oximetry [ Bilateral Throughout] 02/12/22 02/13/22 02/13/22 23:58 00:03 00:08 Temperature Pulse Rate 86 86 84 Respiratory Rate Blood Pressure Blood Pressure [Right] O2 Sat by Pulse 99 100 99 Oximetry O2 Sat by Pulse Oximetry [ Bilateral Throughout] 02/13/22 02/13/22 02/13/22 00:13 00:18 00:23 Temperature Pulse Rate 79 81 79 Respiratory Rate Blood Pressure Blood Pressure [Right] O2 Sat by Pulse 98 99 99 Oximetry O2 Sat by Pulse Oximetry [ Bilateral Throughout] 02/13/22 02/13/22 02/13/22 00:28 00:33 00:38 Temperature Pulse Rate 82 80 80 Respiratory Rate Blood Pressure Blood Pressure [Right] O2 Sat by Pulse 99 99 99 Oximetry O2 Sat by Pulse Oximetry [ Bilateral Throughout] 02/13/22 02/13/22 02/13/22 00:42 00:43 00:48 Temperature 97.9 F Pulse Rate 80 80 78 Respiratory 18 Rate Blood Pressure 133/76 Blood Pressure [Right] O2 Sat by Pulse 99 99 99 Oximetry O2 Sat by Pulse Oximetry [ Bilateral Throughout] 02/13/22 02/13/22 02/13/22 00:53 00:58 01:03 Temperature Pulse Rate 80 78 78 Respiratory Rate Blood Pressure Blood Pressure [Right] O2 Sat by Pulse 99 99 99 Oximetry O2 Sat by Pulse Oximetry [ Bilateral Throughout] 02/13/22 02/13/22 02/13/22 01:08 01:13 01:18 Temperature Pulse Rate 82 83 78 Respiratory Rate Blood Pressure Blood Pressure [Right] O2 Sat by Pulse 98 99 98 Oximetry O2 Sat by Pulse Oximetry [ Bilateral Throughout] 02/13/22 02/13/22 02/13/22 01:21 01:23 01:28 Temperature Pulse Rate 83 84 79 Respiratory Rate Blood Pressure Blood Pressure [Right] O2 Sat by Pulse 92 99 99 Oximetry O2 Sat by Pulse Oximetry [ Bilateral Throughout] 02/13/22 02/13/22 02/13/22 01:33 01:38 01:42 Temperature Pulse Rate 80 80 75 Respiratory Rate Blood Pressure 136/78 Blood Pressure [Right] O2 Sat by Pulse 99 99 Oximetry O2 Sat by Pulse Oximetry [ Bilateral Throughout] 02/13/22 02/13/22 02/13/22 01:43 01:48 01:51 Temperature Pulse Rate 78 78 Respiratory 18 Rate Blood Pressure Blood Pressure [Right] O2 Sat by Pulse 93 99 99 Oximetry O2 Sat by Pulse Oximetry [ Bilateral Throughout] 02/13/22 02/13/22 02/13/22 01:53 01:58 02:03 Temperature Pulse Rate 82 78 79 Respiratory Rate Blood Pressure Blood Pressure [Right] O2 Sat by Pulse 99 99 99 Oximetry O2 Sat by Pulse Oximetry [ Bilateral Throughout] 02/13/22 02/13/22 02/13/22 02:08 02:13 02:18 Temperature Pulse Rate 79 79 76 Respiratory Rate Blood Pressure Blood Pressure [Right] O2 Sat by Pulse 99 98 98 Oximetry O2 Sat by Pulse Oximetry [ Bilateral Throughout] 02/13/22 02/13/22 02/13/22 02:23 02:28 02:33 Temperature Pulse Rate 85 78 79 Respiratory Rate Blood Pressure Blood Pressure [Right] O2 Sat by Pulse 99 99 98 Oximetry O2 Sat by Pulse Oximetry [ Bilateral Throughout] 02/13/22 02/13/22 02/13/22 02:38 02:42 02:43 Temperature Pulse Rate 84 80 80 Respiratory Rate Blood Pressure 162/94 Blood Pressure [Right] O2 Sat by Pulse 99 91 99 Oximetry O2 Sat by Pulse Oximetry [ Bilateral Throughout] 02/13/22 02/13/22 02/13/22 02:44 02:48 02:53 Temperature Pulse Rate 83 84 76 Respiratory Rate Blood Pressure 169/93 Blood Pressure [Right] O2 Sat by Pulse 99 99 Oximetry O2 Sat by Pulse Oximetry [ Bilateral Throughout] 02/13/22 02/13/22 02/13/22 02:58 03:03 03:05 Temperature Pulse Rate 77 75 77 Respiratory Rate Blood Pressure 166/109 Blood Pressure [Right] O2 Sat by Pulse 99 99 Oximetry O2 Sat by Pulse Oximetry [ Bilateral Throughout] 02/13/22 02/13/22 02/13/22 03:06 03:08 03:13 Temperature Pulse Rate 81 78 78 Respiratory Rate Blood Pressure 142/91 Blood Pressure [Right] O2 Sat by Pulse 98 98 Oximetry O2 Sat by Pulse Oximetry [ Bilateral Throughout] 02/13/22 02/13/22 02/13/22 03:18 03:23 03:28 Temperature Pulse Rate 81 80 77 Respiratory Rate Blood Pressure Blood Pressure [Right] O2 Sat by Pulse 98 99 100 Oximetry O2 Sat by Pulse Oximetry [ Bilateral Throughout] 02/13/22 02/13/22 02/13/22 03:33 03:37 03:38 Temperature Pulse Rate 77 76 76 Respiratory 20 Rate Blood Pressure 135/78 Blood Pressure [Right] O2 Sat by Pulse 99 94 99 Oximetry O2 Sat by Pulse Oximetry [ Bilateral Throughout] 02/13/22 02/13/22 02/13/22 03:43 03:48 03:53 Temperature Pulse Rate 77 80 79 Respiratory Rate Blood Pressure Blood Pressure [Right] O2 Sat by Pulse 99 99 99 Oximetry O2 Sat by Pulse Oximetry [ Bilateral Throughout] 02/13/22 02/13/22 02/13/22 03:58 04:03 04:07 Temperature Pulse Rate 79 89 82 Respiratory Rate Blood Pressure 138/84 Blood Pressure [Right] O2 Sat by Pulse 99 99 Oximetry O2 Sat by Pulse Oximetry [ Bilateral Throughout] 02/13/22 02/13/22 02/13/22 04:08 04:13 04:15 Temperature Pulse Rate 86 86 82 Respiratory Rate Blood Pressure Blood Pressure [Right] O2 Sat by Pulse 100 97 93 Oximetry O2 Sat by Pulse Oximetry [ Bilateral Throughout] 02/13/22 02/13/22 02/13/22 04:18 04:23 04:28 Temperature Pulse Rate 82 78 81 Respiratory Rate Blood Pressure Blood Pressure [Right] O2 Sat by Pulse 98 99 99 Oximetry O2 Sat by Pulse Oximetry [ Bilateral Throughout] 02/13/22 02/13/22 02/13/22 04:33 04:37 04:38 Temperature 98.3 F Pulse Rate 80 79 78 Respiratory 20 Rate Blood Pressure 146/90 Blood Pressure [Right] O2 Sat by Pulse 98 93 97 Oximetry O2 Sat by Pulse Oximetry [ Bilateral Throughout] 02/13/22 02/13/22 02/13/22 04:43 04:48 04:53 Temperature Pulse Rate 79 78 77 Respiratory Rate Blood Pressure Blood Pressure [Right] O2 Sat by Pulse 97 99 98 Oximetry O2 Sat by Pulse Oximetry [ Bilateral Throughout] 02/13/22 02/13/22 02/13/22 04:58 05:03 05:07 Temperature Pulse Rate 88 78 75 Respiratory Rate Blood Pressure 137/95 Blood Pressure [Right] O2 Sat by Pulse 99 99 87 Oximetry O2 Sat by Pulse Oximetry [ Bilateral Throughout] 02/13/22 02/13/22 02/13/22 05:08 05:13 05:18 Temperature Pulse Rate 80 77 81 Respiratory Rate Blood Pressure Blood Pressure [Right] O2 Sat by Pulse 97 98 99 Oximetry O2 Sat by Pulse Oximetry [ Bilateral Throughout] 02/13/22 02/13/22 02/13/22 05:23 05:28 05:33 Temperature Pulse Rate 78 77 79 Respiratory Rate Blood Pressure Blood Pressure [Right] O2 Sat by Pulse 99 99 99 Oximetry O2 Sat by Pulse Oximetry [ Bilateral Throughout] 02/13/22 02/13/22 02/13/22 05:37 05:38 05:43 Temperature Pulse Rate 81 81 79 Respiratory 20 Rate Blood Pressure 135/80 Blood Pressure [Right] O2 Sat by Pulse 93 99 99 Oximetry O2 Sat by Pulse Oximetry [ Bilateral Throughout] 02/13/22 02/13/22 02/13/22 05:48 05:53 05:54 Temperature Pulse Rate 79 79 80 Respiratory Rate Blood Pressure Blood Pressure [Right] O2 Sat by Pulse 99 98 92 Oximetry O2 Sat by Pulse Oximetry [ Bilateral Throughout] 02/13/22 02/13/22 02/13/22 05:58 06:03 06:07 Temperature Pulse Rate 86 84 78 Respiratory Rate Blood Pressure 130/79 Blood Pressure [Right] O2 Sat by Pulse 98 98 Oximetry O2 Sat by Pulse Oximetry [ Bilateral Throughout] 02/13/22 02/13/22 02/13/22 06:08 06:13 06:18 Temperature Pulse Rate 72 78 79 Respiratory Rate Blood Pressure Blood Pressure [Right] O2 Sat by Pulse 99 100 99 Oximetry O2 Sat by Pulse Oximetry [ Bilateral Throughout] 02/13/22 02/13/22 02/13/22 06:23 06:28 06:33 Temperature Pulse Rate 77 76 78 Respiratory Rate Blood Pressure Blood Pressure [Right] O2 Sat by Pulse 99 99 99 Oximetry O2 Sat by Pulse Oximetry [ Bilateral Throughout] 02/13/22 02/13/22 02/13/22 06:37 06:38 06:43 Temperature Pulse Rate 78 77 78 Respiratory 20 Rate Blood Pressure 134/75 Blood Pressure [Right] O2 Sat by Pulse 91 97 100 Oximetry O2 Sat by Pulse Oximetry [ Bilateral Throughout] 02/13/22 02/13/22 02/13/22 06:48 06:53 06:58 Temperature Pulse Rate 77 76 75 Respiratory Rate Blood Pressure Blood Pressure [Right] O2 Sat by Pulse 99 100 100 Oximetry O2 Sat by Pulse Oximetry [ Bilateral Throughout] 02/13/22 02/13/22 02/13/22 07:03 07:07 07:08 Temperature Pulse Rate 91 H 77 76 Respiratory Rate Blood Pressure 135/84 Blood Pressure [Right] O2 Sat by Pulse 99 93 99 Oximetry O2 Sat by Pulse Oximetry [ Bilateral Throughout] 02/13/22 02/13/22 02/13/22 07:13 07:18 07:23 Temperature Pulse Rate 85 78 79 Respiratory Rate Blood Pressure Blood Pressure [Right] O2 Sat by Pulse 99 99 99 Oximetry O2 Sat by Pulse Oximetry [ Bilateral Throughout] 02/13/22 02/13/22 02/13/22 07:28 07:29 07:33 Temperature Pulse Rate 81 80 76 Respiratory Rate Blood Pressure Blood Pressure [Right] O2 Sat by Pulse 98 94 98 Oximetry O2 Sat by Pulse Oximetry [ Bilateral Throughout] 02/13/22 02/13/22 02/13/22 07:37 07:38 07:43 Temperature Pulse Rate 78 80 77 Respiratory Rate Blood Pressure 140/82 Blood Pressure [Right] O2 Sat by Pulse 89 99 99 Oximetry O2 Sat by Pulse Oximetry [ Bilateral Throughout] 02/13/22 02/13/22 02/13/22 07:45 07:48 07:53 Temperature 98.6 F Pulse Rate 87 82 79 Respiratory 20 Rate Blood Pressure Blood Pressure 140/82 [Right] O2 Sat by Pulse 99 99 99 Oximetry O2 Sat by Pulse 99 Oximetry [ Bilateral Throughout] 04/02/13/22 02/13/22 07:58 08:03 08:08 Temperature Pulse Rate 80 78 88 Respiratory Rate Blood Pressure 128/106 Blood Pressure [Right] O2 Sat by Pulse 99 99 93 Oximetry O2 Sat by Pulse Oximetry [ Bilateral Throughout] 02/13/22 02/13/22 02/13/22 08:13 08:18 08:23 Temperature Pulse Rate 79 80 76 Respiratory Rate Blood Pressure Blood Pressure [Right] O2 Sat by Pulse 98 98 98 Oximetry O2 Sat by Pulse Oximetry [ Bilateral Throughout] 02/13/22 02/13/22 02/13/22 08:28 08:33 08:37 Temperature Pulse Rate 82 76 73 Respiratory Rate Blood Pressure 142/95 Blood Pressure [Right] O2 Sat by Pulse 98 99 Oximetry O2 Sat by Pulse Oximetry [ Bilateral Throughout] 02/13/22 02/13/22 02/13/22 08:38 08:43 08:48 Temperature Pulse Rate 78 87 83 Respiratory Rate Blood Pressure Blood Pressure [Right] O2 Sat by Pulse 99 100 100 Oximetry O2 Sat by Pulse Oximetry [ Bilateral Throughout] 02/13/22 02/13/22 02/13/22 08:53 08:58 09:03 Temperature Pulse Rate 80 88 84 Respiratory Rate Blood Pressure Blood Pressure [Right] O2 Sat by Pulse 99 99 99 Oximetry O2 Sat by Pulse Oximetry [ Bilateral Throughout] 02/13/22 02/13/22 02/13/22 09:07 09:08 09:09 Temperature Pulse Rate 85 85 80 Respiratory Rate Blood Pressure 150/85 Blood Pressure [Right] O2 Sat by Pulse 94 97 Oximetry O2 Sat by Pulse Oximetry [ Bilateral Throughout] 02/13/22 02/13/22 02/13/22 09:13 09:18 09:23 Temperature Pulse Rate 80 52 L 79 Respiratory Rate Blood Pressure Blood Pressure [Right] O2 Sat by Pulse 99 96 98 Oximetry O2 Sat by Pulse Oximetry [ Bilateral Throughout] - Exam Abdomen: Present: soft, other (morbidly obese) Uterine Contraction Monitor Mode: Palpation Uterine Contraction Pattern: Absent Uterine Tone Measurement Phase: Resting Extremities: normal - Labs Labs: Abnormal Labs 02/08/22 02/08/22 02/08/22 18:40 18:40 22:52 WBC 11.8 H RBC RDW Plt Count Sodium Chloride Carbon Dioxide Calcium Magnesium 3.80 H Alkaline Phosphatase Lactate Dehydrogenase 305 H Albumin Urine Creatinine Ur Total Protein 24 Hr 02/09/22 02/09/22 02/09/22 04:00 04:42 05:49 WBC RBC RDW Plt Count Sodium Chloride Carbon Dioxide Calcium Magnesium 5.20 H Alkaline Phosphatase Lactate Dehydrogenase Albumin Urine Creatinine 24.2 H Ur Total Protein 24 Hr 495.00 H 02/09/22 02/10/22 02/10/22 12:07 00:05 06:40 WBC RBC RDW Plt Count Sodium Chloride Carbon Dioxide Calcium Magnesium 5.30 H 5.00 H 5.40 H Alkaline Phosphatase Lactate Dehydrogenase Albumin Urine Creatinine Ur Total Protein 24 Hr 02/10/22 02/12/22 02/12/22 13:49 16:56 16:56 WBC RBC RDW Plt Count 73 L Sodium 131 L Chloride Carbon Dioxide 19 L Calcium Magnesium 4.70 H Alkaline Phosphatase 205 H Lactate Dehydrogenase Albumin 3.3 L Urine Creatinine Ur Total Protein 24 Hr 02/12/22 02/13/22 02/13/22 20:22 00:23 02:25 WBC RBC 3.58 L 3.59 L RDW 15.3 H 15.4 H Plt Count Sodium Chloride Carbon Dioxide Calcium Magnesium 4.30 H Alkaline Phosphatase Lactate Dehydrogenase Albumin Urine Creatinine Ur Total Protein 24 Hr 02/13/22 02/13/22 02/13/22 04:38 07:12 07:12 WBC RBC RDW 15.3 H 15.3 H Plt Count Sodium 131 L Chloride 97.5 L Carbon Dioxide 21 L Calcium 8.3 L Magnesium Alkaline Phosphatase 200 H Lactate Dehydrogenase Albumin 3.3 L Urine Creatinine Ur Total Protein 24 Hr Laboratory Results - last 24 hr 02/12/22 02/12/22 02/12/22 16:56 16:56 19:46 WBC 9.4 RBC 3.70 Hgb 10.9 Hct 32.9 MCV 89 MCH 29 MCHC 33 RDW 15.2 Plt Count 73 L Sodium 131 L Potassium 5.0 Chloride 100.0 Carbon Dioxide 19 L Anion Gap 17 BUN 10 Creatinine 0.7 Estimated GFR > 60 BUN/Creatinine Ratio 14 Glucose 80 Calcium 9.3 Magnesium Total Bilirubin 0.20 AST 24 ALT 25 Alkaline Phosphatase 205 H Total Protein 6.5 Albumin 3.3 L Albumin/Globulin Ratio 1.0 Syphilis IgG/IgM Ab Blood Type O POSITIVE Antibody Screen Negative 02/12/22 02/12/22 02/13/22 20:22 20:22 00:23 WBC 10.8 10.9 RBC 3.58 L 3.59 L Hgb 10.6 10.6 Hct 31.6 31.5 MCV 88 88 MCH 30 30 MCHC 34 34 RDW 15.3 H 15.4 H Plt Count 219 D 223 Sodium Potassium Chloride Carbon Dioxide Anion Gap BUN Creatinine Estimated GFR BUN/Creatinine Ratio Glucose Calcium Magnesium Total Bilirubin AST ALT Alkaline Phosphatase Total Protein Albumin Albumin/Globulin Ratio Syphilis IgG/IgM Ab Nonreactive Blood Type Antibody Screen 02/13/22 02/13/22 02/13/22 02:25 04:38 07:12 WBC 9.8 9.4 RBC 3.66 3.73 Hgb 10.5 10.8 Hct 32.7 33.0 MCV 89 88 MCH 29 29 MCHC 32 33 RDW 15.3 H 15.3 H Plt Count 229 216 Sodium Potassium Chloride Carbon Dioxide Anion Gap BUN Creatinine Estimated GFR BUN/Creatinine Ratio Glucose Calcium Magnesium 4.30 H Total Bilirubin AST ALT Alkaline Phosphatase Total Protein Albumin Albumin/Globulin Ratio Syphilis IgG/IgM Ab Blood Type Antibody Screen 02/13/22 07:12 WBC RBC Hgb Hct MCV MCH MCHC RDW Plt Count Sodium 131 L Potassium 4.9 Chloride 97.5 L Carbon Dioxide 21 L Anion Gap 17 BUN 10 Creatinine 0.7 Estimated GFR > 60 BUN/Creatinine Ratio 14 Glucose 85 Calcium 8.3 L Magnesium Total Bilirubin 0.30 AST 21 ALT 24 Alkaline Phosphatase 200 H Total Protein 6.4 Albumin 3.3 L Albumin/Globulin Ratio 1.1 Syphilis IgG/IgM Ab Blood Type Antibody Screen
--- NOTE | 2022-02-13 11:02 | Ultrasound Report ---
ULTRASOUND BIOPHYSICAL PROFILE INDICATION / CLINICAL INFORMATION: well being. Clinical Gestational Age (GA) in weeks, days: 31 weeks 2 days TECHNIQUE: Transabdominal. COMPARISON: 02/11/2022 FINDINGS: BREATHING MOVEMENT = 2 GROSS BODY MOVEMENT = 2 TONE = 2 QUALITATIVE AMNIOTIC FLUID VOLUME = 2 TOTAL BIOPHYSICAL SCORE = 8/8 HEART RATE (beats per minute): 130 PRESENTATION: Cephalic. ADDITIONAL FINDINGS: None. IMPRESSION: 1. Biophysical Score = 8/8 Signer Name: Mai Hood MD Signed: 02/13/2022 10:58 AM Workstation Name: [id number]
[2022-02-13] MEDS: NIFEdipine XL 30 MG TAB PO SCH ×2 (11:04→23:12)
[2022-02-13] MEDS: NITROFURANTOIN MONOHYD/M-CRYST 100 MG CAP PO SCH (11:04)
[2022-02-13] MEDS: PRENATAL VIT27-FE FUMARATE-FOLIC ACID VIT TAB PO SCH (11:05)
[2022-02-13] MEDS: ACETAMINOPHEN 500 MG TAB PO PRN (18:48)
[2022-02-13] MEDS: diphenhydrAMINE 25 MG CAP PO PRN (23:12)
--- NOTE | 2022-02-14 07:49 | Progress Note ---
Assessment and Plan A: 41 y.o. @ 30.2 wks, CHTN with superimposed Preeclampsia, BMI 60 - Patient Problems (1) Morbid obesity Current Visit: Yes Status: Chronic (2) 30 weeks gestation of Current Visit: Yes Status: Acute Plan to address problem: Continue with q 4 hr NST's. BPP twice weekly. - Last completed on 02/13/, vertex, SHAYY WNL. - Next ordered for 02/15. Growth Scans q 2 wks. - Ordered for 02/15. (3) Pre-eclampsia superimposed on chronic hypertension Current Visit: Yes Status: Acute Plan to address problem: Cardiology and AMFM continues to follow patient. Continue Labetalol; titrate up to 800 mg tid to keep BP < 160/110 Continue with Procardia 60 mg BID. Repeat CBC/CMP at least twice weekly - Platelets 219 today. -CMP next ordered for 02/16. - Next CBC ordered for 02/15. Proceed with delivery if unable to control BP [<160/110] Continue to monitor blood pressures. Continue to monitor for worsening s/sx of pre eclampsia. Subjective - Subjective Date of service: 02/14/22 Principal diagnosis: IUP @ 30.2 wks, CHTN with superimposed Preeclampsia, BMI 60 Interval history: Pt denies GROSSMAN, blurred vision, spots before her eyes, chest pain, shortness of breath, upper abdominal pain, ctxs, vaginal bleeding, LOF. Patient reports: movement normal, other (no complaints), no new complaints, no loss of fluid, no vaginal bleeding, no contractions Objective - Vital Signs Vital Signs: Vital Signs - 12hr 02/13/22 02/13/22 02/13/22 19:57 20:12 20:26 Temperature Pulse Rate 83 83 81 Respiratory Rate Blood Pressure 111/64 117/83 113/75 02/13/22 02/13/22 02/13/22 20:41 20:56 21:12 Temperature Pulse Rate 77 86 78 Respiratory Rate Blood Pressure 117/74 120/76 123/75 02/13/22 02/14/22 02/14/22 23:43 00:05 05:32 Temperature 97.7 F Pulse Rate 76 79 Respiratory 15 Rate Blood Pressure 142/83 136/77 02/14/22 05:40 Temperature 97.9 F Pulse Rate Respiratory 15 Rate Blood Pressure - Exam Breasts: deferred Cardiovascular: Regular rate Lungs: Normal air movement Abdomen: Present: normal appearance, soft FHR: category 1 (NST's have been category 1. ) Uterine Contraction Pattern: Absent Extremities: edema (+1 edema noted to bilateral hands and feet. ) Deep Tendon Reflex Grade: Normal +2 - Labs Labs: Abnormal Labs 02/08/22 02/08/22 02/08/22 18:40 18:40 22:52 WBC 11.8 H RBC RDW Plt Count Sodium Chloride Carbon Dioxide Calcium Magnesium 3.80 H Alkaline Phosphatase Lactate Dehydrogenase 305 H Albumin Urine Creatinine Ur Total Protein 24 Hr 02/09/22 02/09/22 02/09/22 04:00 04:42 05:49 WBC RBC RDW Plt Count Sodium Chloride Carbon Dioxide Calcium Magnesium 5.20 H Alkaline Phosphatase Lactate Dehydrogenase Albumin Urine Creatinine 24.2 H Ur Total Protein 24 Hr 495.00 H 02/09/22 02/10/22 02/10/22 12:07 00:05 06:40 WBC RBC RDW Plt Count Sodium Chloride Carbon Dioxide Calcium Magnesium 5.30 H 5.00 H 5.40 H Alkaline Phosphatase Lactate Dehydrogenase Albumin Urine Creatinine Ur Total Protein 24 Hr 02/10/22 02/12/22 02/12/22 13:49 16:56 16:56 WBC RBC RDW Plt Count 73 L Sodium 131 L Chloride Carbon Dioxide 19 L Calcium Magnesium 4.70 H Alkaline Phosphatase 205 H Lactate Dehydrogenase Albumin 3.3 L Urine Creatinine Ur Total Protein 24 Hr 02/12/22 02/13/22 02/13/22 20:22 00:23 02:25 WBC RBC 3.58 L 3.59 L RDW 15.3 H 15.4 H Plt Count Sodium Chloride Carbon Dioxide Calcium Magnesium 4.30 H Alkaline Phosphatase Lactate Dehydrogenase Albumin Urine Creatinine Ur Total Protein 24 Hr 02/13/22 02/13/22 02/13/22 04:38 07:12 07:12 WBC RBC RDW 15.3 H 15.3 H Plt Count Sodium 131 L Chloride 97.5 L Carbon Dioxide 21 L Calcium 8.3 L Magnesium Alkaline Phosphatase 200 H Lactate Dehydrogenase Albumin 3.3 L Urine Creatinine Ur Total Protein 24 Hr Laboratory Results - last 24 hr 02/13/22 02/13/22 02/13/22 07:12 07:12 10:00 WBC 9.4 RBC 3.73 Hgb 10.8 Hct 33.0 MCV 88 MCH 29 MCHC 33 RDW 15.3 H Plt Count 216 Sodium 131 L Potassium 4.9 Chloride 97.5 L Carbon Dioxide 21 L Anion Gap 17 BUN 10 Creatinine 0.7 Estimated GFR > 60 BUN/Creatinine Ratio 14 Glucose 85 Calcium 8.3 L Total Bilirubin 0.30 AST 21 ALT 24 Alkaline Phosphatase 200 H Total Protein 6.4 Albumin 3.3 L Albumin/Globulin Ratio 1.1 SARS-CoV-2 (PCR) Negative
[2022-02-14 08:23] LABS: Hematocrit 32.5 % (30.3-42.9); Hemoglobin 10.9 gm/dl (10.1-14.3); Mean Corpuscular HGB Conc 33 % (30-34); Mean Corpuscular Volume 88 fl (79-97); Platelet Count 219 K/mm3 (140-440); Red Blood Count 3.71 M/mm3 (3.65-5.03); Red Cell Distribution Width 15.4 % (13.2-15.2)
[2022-02-14 08:46] LABS: Alanine Aminotransferase 20 units/L (7-56); Albumin 3.4 g/dL (3.9-5); BUN/Creatinine Ratio 17; Blood Urea Nitrogen 15 mg/dL (7-17); Calcium 8.8 mg/dL (8.4-10.2); Hemolysis Index 6
[2022-02-14] MEDS: NIFEdipine XL 30 MG TAB PO SCH ×2 (11:27→22:21)
[2022-02-14] MEDS: PRENATAL VIT27-FE FUMARATE-FOLIC ACID VIT TAB PO SCH (11:27)
--- NOTE | 2022-02-14 18:22 | Progress Note ---
Assessment and Plan 1. IUP at 30 2/7 weeks' 2. Essential hypertension with severe range BP's 3. Morbid obesity 4. AMA 1. Continue labetalol; titrate up to 800 mg tid to keep BP < 160/110 2. Repeat CBC/CMP at least twice weekly 3. Continue BPP at least twice weekly 4. EFW q 2 weeks 5. Proceed with delivery if unable to control BP [<160/110] Subjective - Subjective Date of service: 02/14/22 Principal diagnosis: IUP @ 30.2 wks ; CHTN with superimposed Preeclampsia, BMI 60 Interval history: Patient in shower; chart reviewed Patient reports: movement normal, other (no complaints), no new complaints, no loss of fluid, no vaginal bleeding, no contractions Objective - Vital Signs Vital Signs: Vital Signs - 12hr 02/14/22 02/14/22 02/14/22 08:37 11:26 11:49 Pulse Rate 18 L 74 75 Blood Pressure 142/96 154/99 O2 Sat by Pulse 99 Oximetry [ Bilateral Throughout] 02/14/22 02/14/22 02/14/22 12:04 12:19 12:34 Pulse Rate 75 72 74 Blood Pressure 153/94 163/101 158/97 O2 Sat by Pulse Oximetry [ Bilateral Throughout] 02/14/22 02/14/22 02/14/22 13:04 13:19 13:34 Pulse Rate 85 77 83 Blood Pressure 133/74 128/67 127/67 O2 Sat by Pulse Oximetry [ Bilateral Throughout] 02/14/22 02/14/22 02/14/22 13:49 14:19 14:34 Pulse Rate 86 81 76 Blood Pressure 126/68 122/75 144/79 O2 Sat by Pulse Oximetry [ Bilateral Throughout] 02/14/22 02/14/22 02/14/22 15:34 15:49 16:04 Pulse Rate 78 75 79 Blood Pressure 117/62 147/94 147/94 O2 Sat by Pulse Oximetry [ Bilateral Throughout] 02/14/22 02/14/22 02/14/22 16:19 16:35 17:04 Pulse Rate 69 84 76 Blood Pressure 153/96 173/92 160/89 O2 Sat by Pulse Oximetry [ Bilateral Throughout] 02/14/22 17:20 Pulse Rate 86 Blood Pressure 179/104 O2 Sat by Pulse Oximetry [ Bilateral Throughout] - Exam Narrative Exam: FHT's reassuring; latest BPP 06/06; labs reviewed: no evidence HELLP Syndrome, renal insufficiency - Labs Labs: Abnormal Labs 02/08/22 02/08/22 02/08/22 18:40 18:40 22:52 WBC 11.8 H RBC RDW Plt Count Sodium Chloride Carbon Dioxide Glucose Calcium Magnesium 3.80 H Alkaline Phosphatase Lactate Dehydrogenase 305 H Albumin Urine Creatinine Ur Total Protein 24 Hr 02/09/22 02/09/22 02/09/22 04:00 04:42 05:49 WBC RBC RDW Plt Count Sodium Chloride Carbon Dioxide Glucose Calcium Magnesium 5.20 H Alkaline Phosphatase Lactate Dehydrogenase Albumin Urine Creatinine 24.2 H Ur Total Protein 24 Hr 495.00 H 02/09/22 02/10/22 02/10/22 12:07 00:05 06:40 WBC RBC RDW Plt Count Sodium Chloride Carbon Dioxide Glucose Calcium Magnesium 5.30 H 5.00 H 5.40 H Alkaline Phosphatase Lactate Dehydrogenase Albumin Urine Creatinine Ur Total Protein 24 Hr 02/10/22 02/12/22 02/12/22 13:49 16:56 16:56 WBC RBC RDW Plt Count 73 L Sodium 131 L Chloride Carbon Dioxide 19 L Glucose Calcium Magnesium 4.70 H Alkaline Phosphatase 205 H Lactate Dehydrogenase Albumin 3.3 L Urine Creatinine Ur Total Protein 24 Hr 02/12/22 02/13/22 02/13/22 20:22 00:23 02:25 WBC RBC 3.58 L 3.59 L RDW 15.3 H 15.4 H Plt Count Sodium Chloride Carbon Dioxide Glucose Calcium Magnesium 4.30 H Alkaline Phosphatase Lactate Dehydrogenase Albumin Urine Creatinine Ur Total Protein 24 Hr 02/13/22 02/13/22 02/13/22 04:38 07:12 07:12 WBC RBC RDW 15.3 H 15.3 H Plt Count Sodium 131 L Chloride 97.5 L Carbon Dioxide 21 L Glucose Calcium 8.3 L Magnesium Alkaline Phosphatase 200 H Lactate Dehydrogenase Albumin 3.3 L Urine Creatinine Ur Total Protein 24 Hr 02/14/22 02/14/22 08:19 08:19 WBC RBC RDW 15.4 H Plt Count Sodium 135 L Chloride Carbon Dioxide 21 L Glucose 133 H Calcium Magnesium Alkaline Phosphatase 200 H Lactate Dehydrogenase Albumin 3.4 L Urine Creatinine Ur Total Protein 24 Hr Laboratory Results - last 24 hr 02/14/22 02/14/22 08:19 08:19 WBC 9.3 RBC 3.71 Hgb 10.9 Hct 32.5 MCV 88 MCH 29 MCHC 33 RDW 15.4 H Plt Count 219 Sodium 135 L Potassium 4.6 Chloride 103.3 Carbon Dioxide 21 L Anion Gap 15 BUN 15 Creatinine 0.9 Estimated GFR > 60 BUN/Creatinine Ratio 17 Glucose 133 H Calcium 8.8 Total Bilirubin 0.20 AST 17 ALT 20 Alkaline Phosphatase 200 H Total Protein 6.5 Albumin 3.4 L Albumin/Globulin Ratio 1.1
[2022-02-14] MEDS: diphenhydrAMINE 25 MG CAP PO PRN (22:21)
[2022-02-15] MEDS: hydrALAZINE 20 MG/1 ML INJ IV PRN (04:59)
--- NOTE | 2022-02-15 08:18 | Progress Note ---
Assessment and Plan POC reviewed with pt. Pt denies all complaints and reports positive movement. Questions encouraged and answered. Pt verbalizes understanding and agrees to POC. Dr. Johnson made aware- BP uncontrolled, order received to increase labetalol Plan: Twice weekly CBC/CMP to screen for end organ damage ( renal failure, thrombocytopenia, HELLP), last completed yesterday, next ordered for tomorrow Growth scan q 2 weeks, last completed 02/08/22 EFW 52% 1464g, next ordered today Twice weekly BPP, 06/06 on 02/13, next ordered for today Cardiology consult completed Delivery at 34 0/7 weeks gestations. Immediate delivery is advised if her severe HTN is uncontrolled, Cerebral symptoms persist, pt develops Pul edema, HELLP, renal failure, plt count <100,000, eclampsia, distress - Patient Problems (1) Chronic hypertension affecting Current Visit: Yes Status: Chronic Plan to address problem: labetalol increased to 700mg TID, will increase per consults up to max of 2400mg/day for uncontrolled BPs continue procardia XL 60mg daily continue to monitor closely for ssx of worsening preeclampsia strict I&O (2) History of asthma Current Visit: Yes Status: Chronic Plan to address problem: respiratory treatments as ordered (3) History of sleep apnea Current Visit: Yes Status: Chronic (4) Morbid obesity Current Visit: Yes Status: Chronic (5) 30 weeks gestation of Current Visit: Yes Status: Acute Plan to address problem: NICU consult completed Subjective - Subjective Date of service: 02/15/22 Principal diagnosis: IUP @ 30.3 wks, CHTN with superimposed Preeclampsia, BMI 60 Patient reports: movement normal, other (no complaints), no new complaints, no loss of fluid, no vaginal bleeding, no contractions Objective - Vital Signs Vital Signs: Vital Signs - 12hr 02/14/22 02/14/22 02/14/22 21:09 22:09 22:39 Temperature Pulse Rate 78 82 69 Respiratory Rate Blood Pressure 139/87 133/85 143/95 02/14/22 02/14/22 02/15/22 23:09 23:45 00:09 Temperature 98.1 F Pulse Rate 80 70 Respiratory 18 Rate Blood Pressure 126/82 132/86 02/15/22 02/15/22 02/15/22 04:43 04:54 04:59 Temperature 98.2 F Pulse Rate 74 Respiratory 19 Rate Blood Pressure 163/94 163/94 02/15/22 02/15/22 02/15/22 05:15 05:30 05:45 Temperature Pulse Rate 78 79 86 Respiratory Rate Blood Pressure 161/100 155/82 143/84 02/15/22 02/15/22 02/15/22 06:00 06:15 06:32 Temperature Pulse Rate 85 84 79 Respiratory Rate Blood Pressure 142/78 137/71 138/76 02/15/22 02/15/22 02/15/22 06:45 07:00 07:15 Temperature Pulse Rate 78 76 75 Respiratory Rate Blood Pressure 133/71 139/72 137/71 02/15/22 02/15/22 02/15/22 07:30 07:45 08:00 Temperature Pulse Rate 72 75 68 Respiratory Rate Blood Pressure 149/78 139/73 140/70 02/15/22 08:15 Temperature Pulse Rate 78 Respiratory Rate Blood Pressure 153/77 - Exam Breasts: deferred Abdomen: Present: soft, other (morbidly obese) Uterus: Present: other (gravid) FHR: auscultation normal, category 1 Uterine Contraction Monitor Mode: Palpation Uterine Contraction Pattern: Absent Uterine Tone Measurement Phase: Resting Extremities: normal - Labs Labs: Abnormal Labs 02/08/22 02/08/22 02/08/22 18:40 18:40 22:52 WBC 11.8 H RBC RDW Plt Count Sodium Chloride Carbon Dioxide Glucose Calcium Magnesium 3.80 H Alkaline Phosphatase Lactate Dehydrogenase 305 H Albumin Urine Creatinine Ur Total Protein 24 Hr 02/09/22 02/09/22 02/09/22 04:00 04:42 05:49 WBC RBC RDW Plt Count Sodium Chloride Carbon Dioxide Glucose Calcium Magnesium 5.20 H Alkaline Phosphatase Lactate Dehydrogenase Albumin Urine Creatinine 24.2 H Ur Total Protein 24 Hr 495.00 H 02/09/22 02/10/22 02/10/22 12:07 00:05 06:40 WBC RBC RDW Plt Count Sodium Chloride Carbon Dioxide Glucose Calcium Magnesium 5.30 H 5.00 H 5.40 H Alkaline Phosphatase Lactate Dehydrogenase Albumin Urine Creatinine Ur Total Protein 24 Hr 02/10/22 02/12/22 02/12/22 13:49 16:56 16:56 WBC RBC RDW Plt Count 73 L Sodium 131 L Chloride Carbon Dioxide 19 L Glucose Calcium Magnesium 4.70 H Alkaline Phosphatase 205 H Lactate Dehydrogenase Albumin 3.3 L Urine Creatinine Ur Total Protein 24 Hr 02/12/22 02/13/22 02/13/22 20:22 00:23 02:25 WBC RBC 3.58 L 3.59 L RDW 15.3 H 15.4 H Plt Count Sodium Chloride Carbon Dioxide Glucose Calcium Magnesium 4.30 H Alkaline Phosphatase Lactate Dehydrogenase Albumin Urine Creatinine Ur Total Protein 24 Hr 02/13/22 02/13/22 02/13/22 04:38 07:12 07:12 WBC RBC RDW 15.3 H 15.3 H Plt Count Sodium 131 L Chloride 97.5 L Carbon Dioxide 21 L Glucose Calcium 8.3 L Magnesium Alkaline Phosphatase 200 H Lactate Dehydrogenase Albumin 3.3 L Urine Creatinine Ur Total Protein 24 Hr 02/14/22 02/14/22 08:19 08:19 WBC RBC RDW 15.4 H Plt Count Sodium 135 L Chloride Carbon Dioxide 21 L Glucose 133 H Calcium Magnesium Alkaline Phosphatase 200 H Lactate Dehydrogenase Albumin 3.4 L Urine Creatinine Ur Total Protein 24 Hr Laboratory Results - last 24 hr 02/14/22 02/14/22 08:19 08:19 WBC 9.3 RBC 3.71 Hgb 10.9 Hct 32.5 MCV 88 MCH 29 MCHC 33 RDW 15.4 H Plt Count 219 Sodium 135 L Potassium 4.6 Chloride 103.3 Carbon Dioxide 21 L Anion Gap 15 BUN 15 Creatinine 0.9 Estimated GFR > 60 BUN/Creatinine Ratio 17 Glucose 133 H Calcium 8.8 Total Bilirubin 0.20 AST 17 ALT 20 Alkaline Phosphatase 200 H Total Protein 6.5 Albumin 3.4 L Albumin/Globulin Ratio 1.1
[2022-02-15 10:03] LABS: Hematocrit 33.9 % (30.3-42.9); Hemoglobin 11.2 gm/dl (10.1-14.3); Mean Corpuscular HGB Conc 33 % (30-34); Mean Corpuscular Volume 88 fl (79-97); Platelet Count 233 K/mm3 (140-440); Red Blood Count 3.83 M/mm3 (3.65-5.03); Red Cell Distribution Width 15.3 % (13.2-15.2)
[2022-02-15] MEDS: NIFEdipine XL 30 MG TAB PO SCH (11:09)
[2022-02-15] MEDS: PRENATAL VIT27-FE FUMARATE-FOLIC ACID VIT TAB PO SCH (11:09)
--- NOTE | 2022-02-15 12:49 | Ultrasound Report ---
ULTRASOUND BIOPHYSICAL PROFILE INDICATION / CLINICAL INFORMATION: growth and well being. Clinical Gestational Age (GA) in weeks, days: 31 weeks 4 days TECHNIQUE: Transabdominal. COMPARISON: Biophysical profile 02/13/2022. FINDINGS: BREATHING MOVEMENT = 0 GROSS BODY MOVEMENT = 2 TONE = 2 QUALITATIVE AMNIOTIC FLUID VOLUME = 2 TOTAL BIOPHYSICAL SCORE = 6/8 HEART RATE (beats per minute): 131 BPM PRESENTATION: Cephalic. ADDITIONAL FINDINGS: None. IMPRESSION: 1. Biophysical Score = 6/8 ULTRASOUND OBSTETRIC LIMITED INDICATION / CLINICAL INFORMATION: growth and well being. Clinical Gestational Age (GA) in weeks, days: 31 weeks 4 days TECHNIQUE: Transabdominal. COMPARISON: Limited OB ultrasound 02/12/2022. FINDINGS: HEART RATE (beats per minute): 148 bpm AMNIOTIC FLUID INDEX (cm) = 19.6 cm (normal = 7-24 cm) PRESENTATION: Cephalic. Biparietal Diameter = 7.3 cm = 29.3 weeks, days Head Circumference = 28.1 cm = 30.6 weeks, days Abdominal Circumference = 26.8 cm = 30.6 weeks, days Femur Length = 5.6 cm = 29.3 weeks, days Average Ultrasound Age (AUA) = 30.1 weeks, days Estimated Weight in grams (if calculated): 1545 g ADDITIONAL FINDINGS: None. IMPRESSION: 1. Single, living intrauterine with estimated sonographic age of 30.1 weeks.days. 2. No significant sonographic abnormality. Scribed by: Susana Younger RDMS, CATRACHITO, SHILOH Scribed: 02/15/2022 11:10 AM I have reviewed the images, agree with this report, and edited this report as needed. Signer Name: Lars Saenz MD Signed: 02/15/2022 12:45 PM Workstation Name: [id number]
--- NOTE | 2022-02-15 13:44 | Event Note ---
Date: 02/15/22 Agree with MW note and exam. I have spoken to who is coving [facility] for AMFM today and updated her on both the increase in labetalol to 700mg tid for better bp control as well as bpp results today of 04/06 via text message. She acknowledged the message and notes adjustments. Will cont current plan at this time.
[2022-02-15] MEDS: NIFEdipine XL 60 MG TAB PO SCH (22:21)
[2022-02-15] MEDS: diphenhydrAMINE 25 MG CAP PO PRN (22:23)
[2022-02-16 05:33] LABS: Alanine Aminotransferase 24 units/L (7-56); Albumin 3.3 g/dL (3.9-5); BUN/Creatinine Ratio 23; Blood Urea Nitrogen 18 mg/dL (7-17); Calcium 8.8 mg/dL (8.4-10.2); Hemolysis Index 53
[2022-02-16] MEDS ORDERED: LOPERAMIDE 2 MG CAP ONE (08:16)
[2022-02-16 08:31] LABS: Hematocrit 31.6 % (30.3-42.9); Mean Corpuscular HGB Conc 35 % (30-34); Mean Corpuscular Volume 88 fl (79-97); Platelet Count 204 K/mm3 (140-440); Red Blood Count 3.61 M/mm3 (3.65-5.03); Red Cell Distribution Width 15.4 % (13.2-15.2)
[2022-02-16] MEDS: PRENATAL VIT27-FE FUMARATE-FOLIC ACID VIT TAB PO SCH (11:31)
[2022-02-16] MEDS: NIFEdipine XL 60 MG TAB PO SCH ×2 (11:57→21:52)
--- NOTE | 2022-02-16 13:42 | Progress Note ---
Assessment and Plan A: IUP at 30 4/7 weeks gestation CHTN with superimposed preeclampsia with severe features LI Morbid obesity Echo reviewed , normal EF , mild Pul HTN Rec: Continue Labetalol 700mg TID , procardia 30mg XL Titrate the Labetalol to maintain BP 120-160/80-105mmhg , if her HR allows Max goal is 2400mg daily Twice weekly CBC/CMP to screen for end organ damage ( renal failure, thrombocytopenia, HELLP) Growth scan q 3 weeks Twice weekly BPP NICU consult Delivery at 34 0/7 weeks gestations. Immediate delivery is advised if her severe HTN is uncontrolled, Cerebral symptoms persist, pt develops Pul edema, HELLP, renal failure, plt count <100,000, eclampsia, distress Subjective - Subjective Principal diagnosis: IUP @ 30.3 wks, CHTN with superimposed Preeclampsia, BMI 60 Interval history: Patient reports she is doing well and denies complaints. She denies headaches, visual changes, chest pain, SOB or RUQ pain. Good movement. Patient reports: movement normal, other (no complaints), no new complaints, no loss of fluid, no vaginal bleeding, no contractions Objective - Vital Signs Vital Signs: Vital Signs - 12hr 02/16/22 02/16/22 02/16/22 06:52 07:30 11:31 Temperature 98.4 F Pulse Rate 75 82 75 Respiratory 16 Rate Blood Pressure 121/68 121/68 Blood Pressure 144/75 [Right] 02/16/22 02/16/22 12:56 13:01 Temperature 98.8 F Pulse Rate 80 80 Respiratory 16 Rate Blood Pressure 130/76 Blood Pressure 130/76 [Right] - Exam Abdomen: Present: soft - Labs Labs: Abnormal Labs 02/08/22 02/08/22 02/08/22 18:40 18:40 22:52 WBC 11.8 H RBC MCHC RDW Plt Count Sodium Potassium Chloride Carbon Dioxide BUN Glucose Calcium Magnesium 3.80 H Alkaline Phosphatase Lactate Dehydrogenase 305 H Albumin Urine Creatinine Ur Total Protein 24 Hr 02/09/22 02/09/22 02/09/22 04:00 04:42 05:49 WBC RBC MCHC RDW Plt Count Sodium Potassium Chloride Carbon Dioxide BUN Glucose Calcium Magnesium 5.20 H Alkaline Phosphatase Lactate Dehydrogenase Albumin Urine Creatinine 24.2 H Ur Total Protein 24 Hr 495.00 H 02/09/22 02/10/22 02/10/22 12:07 00:05 06:40 WBC RBC MCHC RDW Plt Count Sodium Potassium Chloride Carbon Dioxide BUN Glucose Calcium Magnesium 5.30 H 5.00 H 5.40 H Alkaline Phosphatase Lactate Dehydrogenase Albumin Urine Creatinine Ur Total Protein 24 Hr 02/10/22 02/12/22 02/12/22 13:49 16:56 16:56 WBC RBC MCHC RDW Plt Count 73 L Sodium 131 L Potassium Chloride Carbon Dioxide 19 L BUN Glucose Calcium Magnesium 4.70 H Alkaline Phosphatase 205 H Lactate Dehydrogenase Albumin 3.3 L Urine Creatinine Ur Total Protein 24 Hr 02/12/22 02/13/22 02/13/22 20:22 00:23 02:25 WBC RBC 3.58 L 3.59 L MCHC RDW 15.3 H 15.4 H Plt Count Sodium Potassium Chloride Carbon Dioxide BUN Glucose Calcium Magnesium 4.30 H Alkaline Phosphatase Lactate Dehydrogenase Albumin Urine Creatinine Ur Total Protein 24 Hr 02/13/22 02/13/22 02/13/22 04:38 07:12 07:12 WBC RBC MCHC RDW 15.3 H 15.3 H Plt Count Sodium 131 L Potassium Chloride 97.5 L Carbon Dioxide 21 L BUN Glucose Calcium 8.3 L Magnesium Alkaline Phosphatase 200 H Lactate Dehydrogenase Albumin 3.3 L Urine Creatinine Ur Total Protein 24 Hr 02/14/22 02/14/22 02/15/22 08:19 08:19 09:41 WBC RBC MCHC RDW 15.4 H 15.3 H Plt Count Sodium 135 L Potassium Chloride Carbon Dioxide 21 L BUN Glucose 133 H Calcium Magnesium Alkaline Phosphatase 200 H Lactate Dehydrogenase Albumin 3.4 L Urine Creatinine Ur Total Protein 24 Hr 02/16/22 02/16/22 04:42 07:59 WBC RBC 3.61 L MCHC 35 H RDW 15.4 H Plt Count Sodium 136 L Potassium 5.3 H Chloride Carbon Dioxide BUN 18 H Glucose Calcium Magnesium Alkaline Phosphatase 204 H Lactate Dehydrogenase Albumin 3.3 L Urine Creatinine Ur Total Protein 24 Hr Laboratory Results - last 24 hr 02/16/22 02/16/22 04:42 07:59 WBC 8.9 RBC 3.61 L Hgb 11.0 Hct 31.6 MCV 88 MCH 30 MCHC 35 H RDW 15.4 H Plt Count 204 Sodium 136 L Potassium 5.3 H Chloride 104.2 Carbon Dioxide 22 Anion Gap 15 BUN 18 H Creatinine 0.8 Estimated GFR > 60 BUN/Creatinine Ratio 23 Glucose 92 Calcium 8.8 Total Bilirubin < 0.20 AST 22 ALT 24 Alkaline Phosphatase 204 H Total Protein 6.6 Albumin 3.3 L Albumin/Globulin Ratio 1.0
--- NOTE | 2022-02-16 16:45 | Progress Note ---
Assessment and Plan A: 41 y.o. @ 30.5 wks, cHTN super imposed on pre eclampsia, hyperkalemia, BMI 60, - Patient Problems (1) Morbid obesity Current Visit: Yes Status: Chronic (2) 30 weeks gestation of Current Visit: Yes Status: Acute Plan to address problem: Continue with q 4 hr NST's. BPP twice weekly. - Last completed on 02/16 8/, vertex, SHAYY WNL. - Next ordered for 02/18. - Vertex presentation. Growth Scans q 2 wks. - On 02/15 1545 gms. - Ordered next for March 01. (3) Pre-eclampsia superimposed on chronic hypertension Current Visit: Yes Status: Acute Plan to address problem: Cardiology and AMFM continues to follow patient. Continue Labetalol; titrate up to 800 mg tid to keep BP < 160/110 - Currently at 700mg TID. Continue with Procardia 60 mg BID. Repeat CBC/CMP at least twice weekly - Platelets 204 today. -CMP and CBC ordered for 02/18. Proceed with delivery if unable to control BP [<160/110] Continue to monitor blood pressures. Continue to monitor for worsening s/sx of pre eclampsia. (4) Hyperkalemia Current Visit: Yes Status: Acute Plan to address problem: Potassium on: - 02/15 was 5.3 - 02/16 was 5.2 -Trending down. - Next ordered for 02/17. Subjective - Subjective Date of service: 02/16/22 Principal diagnosis: IUP @ 30.4 wks, CHTN with superimposed Preeclampsia, BMI 60, hyperkalemia Interval history: Pt denies GROSSMAN, blurred vision, spots before her eyes, chest pain, shortness of breath, upper abdominal pain, ctxs, vaginal bleeding, LOF. Patient reports: movement normal, other (no complaints), no new complaints, no loss of fluid, no vaginal bleeding, no contractions Objective - Vital Signs Vital Signs: Vital Signs - 12hr 02/16/22 02/16/22 02/16/22 06:52 07:30 11:31 Temperature 98.4 F Pulse Rate 75 82 75 Respiratory 16 Rate Blood Pressure 121/68 121/68 Blood Pressure 144/75 [Right] O2 Sat by Pulse Oximetry [ Bilateral Throughout] 02/16/22 02/16/22 02/16/22 12:56 13:01 14:07 Temperature 98.8 F Pulse Rate 80 80 Respiratory 16 Rate Blood Pressure 130/76 Blood Pressure 130/76 [Right] O2 Sat by Pulse 99 Oximetry [ Bilateral Throughout] 02/16/22 16:25 Temperature Pulse Rate 77 Respiratory Rate Blood Pressure 125/73 Blood Pressure [Right] O2 Sat by Pulse Oximetry [ Bilateral Throughout] - Exam Breasts: deferred Cardiovascular: Regular rate Lungs: Normal air movement Abdomen: Present: normal appearance, soft Uterus: Present: normal FHR: category 1 Uterine Contraction Monitor Mode: External Uterine Contraction Pattern: Irregular (Occasional) Uterine Tone Measurement Phase: Resting Uterine Contraction Intensity: Mild Extremities: edema (+ 1 edema to bilateral hands and feet. ) Deep Tendon Reflex Grade: Normal +2 - Labs Labs: Abnormal Labs 02/08/22 02/08/22 02/08/22 18:40 18:40 22:52 WBC 11.8 H RBC MCHC RDW Plt Count Sodium Potassium Chloride Carbon Dioxide BUN Glucose Calcium Magnesium 3.80 H Alkaline Phosphatase Lactate Dehydrogenase 305 H Albumin Urine Creatinine Ur Total Protein 24 Hr 02/09/22 02/09/22 02/09/22 04:00 04:42 05:49 WBC RBC MCHC RDW Plt Count Sodium Potassium Chloride Carbon Dioxide BUN Glucose Calcium Magnesium 5.20 H Alkaline Phosphatase Lactate Dehydrogenase Albumin Urine Creatinine 24.2 H Ur Total Protein 24 Hr 495.00 H 02/09/22 02/10/22 02/10/22 12:07 00:05 06:40 WBC RBC MCHC RDW Plt Count Sodium Potassium Chloride Carbon Dioxide BUN Glucose Calcium Magnesium 5.30 H 5.00 H 5.40 H Alkaline Phosphatase Lactate Dehydrogenase Albumin Urine Creatinine Ur Total Protein 24 Hr 02/10/22 02/12/22 02/12/22 13:49 16:56 16:56 WBC RBC MCHC RDW Plt Count 73 L Sodium 131 L Potassium Chloride Carbon Dioxide 19 L BUN Glucose Calcium Magnesium 4.70 H Alkaline Phosphatase 205 H Lactate Dehydrogenase Albumin 3.3 L Urine Creatinine Ur Total Protein 24 Hr 02/12/22 02/13/22 02/13/22 20:22 00:23 02:25 WBC RBC 3.58 L 3.59 L MCHC RDW 15.3 H 15.4 H Plt Count Sodium Potassium Chloride Carbon Dioxide BUN Glucose Calcium Magnesium 4.30 H Alkaline Phosphatase Lactate Dehydrogenase Albumin Urine Creatinine Ur Total Protein 24 Hr 02/13/22 02/13/22 02/13/22 04:38 07:12 07:12 WBC RBC MCHC RDW 15.3 H 15.3 H Plt Count Sodium 131 L Potassium Chloride 97.5 L Carbon Dioxide 21 L BUN Glucose Calcium 8.3 L Magnesium Alkaline Phosphatase 200 H Lactate Dehydrogenase Albumin 3.3 L Urine Creatinine Ur Total Protein 24 Hr 02/14/22 02/14/22 02/15/22 08:19 08:19 09:41 WBC RBC MCHC RDW 15.4 H 15.3 H Plt Count Sodium 135 L Potassium Chloride Carbon Dioxide 21 L BUN Glucose 133 H Calcium Magnesium Alkaline Phosphatase 200 H Lactate Dehydrogenase Albumin 3.4 L Urine Creatinine Ur Total Protein 24 Hr 02/16/22 02/16/22 02/16/22 04:42 07:59 14:20 WBC RBC 3.61 L MCHC 35 H RDW 15.4 H Plt Count Sodium 136 L Potassium 5.3 H 5.2 H Chloride Carbon Dioxide BUN 18 H Glucose Calcium Magnesium Alkaline Phosphatase 204 H Lactate Dehydrogenase Albumin 3.3 L Urine Creatinine Ur Total Protein 24 Hr Laboratory Results - last 24 hr 02/16/22 02/16/22 02/16/22 04:42 07:59 14:20 WBC 8.9 RBC 3.61 L Hgb 11.0 Hct 31.6 MCV 88 MCH 30 MCHC 35 H RDW 15.4 H Plt Count 204 Sodium 136 L Potassium 5.3 H 5.2 H Chloride 104.2 Carbon Dioxide 22 Anion Gap 15 BUN 18 H Creatinine 0.8 Estimated GFR > 60 BUN/Creatinine Ratio 23 Glucose 92 Calcium 8.8 Total Bilirubin < 0.20 AST 22 ALT 24 Alkaline Phosphatase 204 H Total Protein 6.6 Albumin 3.3 L Albumin/Globulin Ratio 1.0
[2022-02-16] MEDS: DOCUSATE SODIUM 100 MG CAP PO PRN (21:49)
[2022-02-16] MEDS: diphenhydrAMINE 25 MG CAP PO PRN (21:58)
[2022-02-17] MEDS: LACTATED RINGERS 1,000 ML IV SCH (03:06)
--- NOTE | 2022-02-17 07:26 | Ultrasound Report ---
ULTRASOUND OBSTETRIC LIMITED ULTRASOUND BIOPHYSICAL PROFILE INDICATION / CLINICAL INFORMATION: wellbeing. TECHNIQUE: Transabdominal. COMPARISON: None available. FINDINGS: BREATHING MOVEMENT = 2 GROSS BODY MOVEMENT = 2 TONE = 2 QUALITATIVE AMNIOTIC FLUID VOLUME = 2 TOTAL BIOPHYSICAL SCORE = 8/8 HEART RATE (beats per minute): 127 PRESENTATION: Cephalic. ADDITIONAL FINDINGS: None. IMPRESSION: 1. Biophysical Score = 8/8 Signer Name: Nicholas Hinkle MD Signed: 02/16/2022 3:50 PM Workstation Name: [email or web address]
--- NOTE | 2022-02-17 07:54 | Event Note ---
Date: 02/17/22 Pt continue to do well. No changes from previous assessment. Pt continues to have occasional contractions. Denies GROSSMAN, blurred vision, spots before her eyes, chest pain, shortness of breath, upper abdominal pain, vaginal bleeding, LOF, ctxs. Discussed when to call with questions and concerns. Blood pressure ranges have been 120's-140's/60-90's. Discussed with patient should any of the above s/sx occur, she will let her nurse know immediately. Discussed with Dr. Montgomery. If K+ still elevated obtain an EKG and internal medicine consult.
--- NOTE | 2022-02-17 08:06 | Progress Note ---
Assessment and Plan A: IUP at 30 6/7 weeks gestation CHTN with superimposed preeclampsia with severe features LI Morbid obesity Echo reviewed , normal EF , mild Pul HTN Hyperkalemia Rec: Continue Labetalol 700mg TID , procardia 30mg XL Titrate the Labetalol to maintain BP 120-160/80-105mmhg , if her HR allows Max goal is 2400mg daily Twice weekly CBC/CMP to screen for end organ damage ( renal failure, thrombocytopenia, HELLP) Growth scan q 3 weeks Twice weekly BPP Delivery at 34 0/7 weeks gestations. Immediate delivery is advised if her severe HTN is uncontrolled, Cerebral symptoms persist, pt develops Pul edema, HELLP, renal failure, plt count <100,000, eclampsia, distress Repeat Potassium level is pending this morning . Perform Maternal EKG If the hyperkalemia persists. If normal continue to monitor potassium levels daily if they continue to trend downward . If there are EKG changes or K is >6, Consult IMS as pt will require treatment Subjective - Subjective Principal diagnosis: IUP @ 30.6 wks, CHTN with superimposed Preeclampsia, BMI 60, hyperkalemia Interval history: She has no complaints Denied chest pain , palpitations , SOB MAR reviewed Pt has not received any potassium repletion Patient reports: movement normal, other (no complaints), no new complaints, no loss of fluid, no vaginal bleeding, no contractions Objective - Vital Signs Vital Signs: Vital Signs - 12hr 02/16/22 02/16/22 02/16/22 20:15 20:19 20:20 Temperature Pulse Rate 81 77 Blood Pressure Blood Pressure 131/64 [Right] O2 Sat by Pulse 0 L 99 Oximetry O2 Sat by Pulse 100 Oximetry [ Bilateral Throughout] 02/16/22 02/16/22 02/16/22 20:25 20:30 20:35 Temperature Pulse Rate 83 83 84 Blood Pressure 131/64 Blood Pressure [Right] O2 Sat by Pulse 98 98 99 Oximetry O2 Sat by Pulse Oximetry [ Bilateral Throughout] 02/16/22 02/16/22 02/16/22 20:40 20:45 20:50 Temperature Pulse Rate 80 76 71 Blood Pressure Blood Pressure [Right] O2 Sat by Pulse 99 99 98 Oximetry O2 Sat by Pulse Oximetry [ Bilateral Throughout] 02/16/22 02/16/22 02/16/22 20:55 21:00 21:04 Temperature 98.5 F Pulse Rate 70 78 Blood Pressure Blood Pressure [Right] O2 Sat by Pulse 97 99 Oximetry O2 Sat by Pulse Oximetry [ Bilateral Throughout] 02/16/22 02/16/22 02/16/22 21:05 21:10 21:15 Temperature Pulse Rate 79 84 85 Blood Pressure Blood Pressure [Right] O2 Sat by Pulse 98 98 99 Oximetry O2 Sat by Pulse Oximetry [ Bilateral Throughout] 02/16/22 02/16/22 02/16/22 21:20 21:25 21:26 Temperature Pulse Rate 76 77 75 Blood Pressure Blood Pressure [Right] O2 Sat by Pulse 97 97 94 Oximetry O2 Sat by Pulse Oximetry [ Bilateral Throughout] 02/16/22 02/16/22 02/16/22 21:30 21:35 21:40 Temperature Pulse Rate 81 84 82 Blood Pressure Blood Pressure [Right] O2 Sat by Pulse 99 97 98 Oximetry O2 Sat by Pulse Oximetry [ Bilateral Throughout] 02/16/22 02/16/22 02/16/22 21:49 21:51 21:56 Temperature Pulse Rate 82 77 76 Blood Pressure 141/77 141/77 Blood Pressure [Right] O2 Sat by Pulse 95 98 Oximetry O2 Sat by Pulse Oximetry [ Bilateral Throughout] 02/16/22 02/16/22 02/16/22 22:01 22:06 22:11 Temperature Pulse Rate 73 80 76 Blood Pressure Blood Pressure [Right] O2 Sat by Pulse 98 100 99 Oximetry O2 Sat by Pulse Oximetry [ Bilateral Throughout] 02/16/22 02/16/22 02/16/22 22:16 22:21 22:26 Temperature Pulse Rate 76 76 74 Blood Pressure Blood Pressure [Right] O2 Sat by Pulse 100 98 99 Oximetry O2 Sat by Pulse Oximetry [ Bilateral Throughout] 02/16/22 02/16/22 02/16/22 22:27 22:31 22:36 Temperature Pulse Rate 71 75 74 Blood Pressure 138/82 Blood Pressure [Right] O2 Sat by Pulse 99 99 Oximetry O2 Sat by Pulse Oximetry [ Bilateral Throughout] 02/16/22 02/16/22 02/16/22 22:41 22:46 22:51 Temperature Pulse Rate 73 74 80 Blood Pressure Blood Pressure [Right] O2 Sat by Pulse 99 99 99 Oximetry O2 Sat by Pulse Oximetry [ Bilateral Throughout] 04/02/16/22 02/16/22 23:26 23:31 23:36 Temperature Pulse Rate 69 72 71 Blood Pressure 128/84 Blood Pressure [Right] O2 Sat by Pulse 97 97 98 Oximetry O2 Sat by Pulse Oximetry [ Bilateral Throughout] 02/16/22 02/16/22 02/16/22 23:41 23:46 23:51 Temperature Pulse Rate 71 70 78 Blood Pressure Blood Pressure [Right] O2 Sat by Pulse 97 97 98 Oximetry O2 Sat by Pulse Oximetry [ Bilateral Throughout] 02/16/22 02/17/22 02/17/22 23:56 00:01 00:06 Temperature Pulse Rate 69 67 77 Blood Pressure Blood Pressure [Right] O2 Sat by Pulse 98 98 97 Oximetry O2 Sat by Pulse Oximetry [ Bilateral Throughout] 02/17/22 02/17/22 02/17/22 00:11 00:16 00:21 Temperature Pulse Rate 74 72 70 Blood Pressure Blood Pressure [Right] O2 Sat by Pulse 96 96 96 Oximetry O2 Sat by Pulse Oximetry [ Bilateral Throughout] 02/17/22 02/17/22 02/17/22 00:26 00:31 00:36 Temperature Pulse Rate 69 72 70 Blood Pressure 139/87 Blood Pressure [Right] O2 Sat by Pulse 92 98 98 Oximetry O2 Sat by Pulse Oximetry [ Bilateral Throughout] 02/17/22 02/17/22 02/17/22 00:38 00:41 00:44 Temperature Pulse Rate 80 78 79 Blood Pressure Blood Pressure [Right] O2 Sat by Pulse 89 96 88 Oximetry O2 Sat by Pulse Oximetry [ Bilateral Throughout] 02/17/22 02/17/22 02/17/22 00:46 00:49 00:51 Temperature Pulse Rate 77 79 70 Blood Pressure Blood Pressure [Right] O2 Sat by Pulse 97 92 98 Oximetry O2 Sat by Pulse Oximetry [ Bilateral Throughout] 02/17/22 02/17/22 02/17/22 00:56 01:01 01:05 Temperature Pulse Rate 74 70 Blood Pressure Blood Pressure [Right] O2 Sat by Pulse 97 97 Oximetry O2 Sat by Pulse 98 Oximetry [ Bilateral Throughout] 02/17/22 02/17/22 02/17/22 01:06 01:11 01:16 Temperature Pulse Rate 69 70 70 Blood Pressure Blood Pressure [Right] O2 Sat by Pulse 97 97 97 Oximetry O2 Sat by Pulse Oximetry [ Bilateral Throughout] 02/17/22 02/17/22 02/17/22 01:21 01:26 01:31 Temperature Pulse Rate 71 71 72 Blood Pressure 132/85 Blood Pressure [Right] O2 Sat by Pulse 97 94 97 Oximetry O2 Sat by Pulse Oximetry [ Bilateral Throughout] 02/17/22 02/17/22 02/17/22 01:36 01:41 01:46 Temperature Pulse Rate 70 72 71 Blood Pressure Blood Pressure [Right] O2 Sat by Pulse 96 97 97 Oximetry O2 Sat by Pulse Oximetry [ Bilateral Throughout] 02/17/22 02/17/22 02/17/22 01:51 01:56 02:01 Temperature Pulse Rate 71 67 68 Blood Pressure Blood Pressure [Right] O2 Sat by Pulse 97 97 97 Oximetry O2 Sat by Pulse Oximetry [ Bilateral Throughout] 02/17/22 02/17/22 02/17/22 02:06 02:11 02:16 Temperature Pulse Rate 70 69 67 Blood Pressure Blood Pressure [Right] O2 Sat by Pulse 97 97 97 Oximetry O2 Sat by Pulse Oximetry [ Bilateral Throughout] 02/17/22 02/17/22 02/17/22 02:21 02:26 02:31 Temperature Pulse Rate 69 77 70 Blood Pressure 138/90 Blood Pressure [Right] O2 Sat by Pulse 97 94 98 Oximetry O2 Sat by Pulse Oximetry [ Bilateral Throughout] 02/17/22 02/17/22 02/17/22 02:32 02:36 02:39 Temperature Pulse Rate 73 70 73 Blood Pressure Blood Pressure [Right] O2 Sat by Pulse 92 97 94 Oximetry O2 Sat by Pulse Oximetry [ Bilateral Throughout] 02/17/22 02/17/22 02/17/22 02:40 02:41 02:53 Temperature 98.0 F Pulse Rate 73 75 Blood Pressure Blood Pressure [Right] O2 Sat by Pulse 97 100 Oximetry O2 Sat by Pulse Oximetry [ Bilateral Throughout] 02/17/22 02/17/22 02/17/22 02:58 03:03 03:08 Temperature Pulse Rate 75 70 72 Blood Pressure Blood Pressure [Right] O2 Sat by Pulse 98 98 98 Oximetry O2 Sat by Pulse Oximetry [ Bilateral Throughout] 02/17/22 02/17/22 02/17/22 03:13 03:18 03:23 Temperature Pulse Rate 72 71 69 Blood Pressure Blood Pressure [Right] O2 Sat by Pulse 99 99 99 Oximetry O2 Sat by Pulse Oximetry [ Bilateral Throughout] 02/17/22 02/17/22 02/17/22 03:25 03:26 03:28 Temperature Pulse Rate 81 71 72 Blood Pressure 133/85 140/91 Blood Pressure [Right] O2 Sat by Pulse 99 Oximetry O2 Sat by Pulse Oximetry [ Bilateral Throughout] 02/17/22 02/17/22 02/17/22 03:33 03:38 03:43 Temperature Pulse Rate 70 71 71 Blood Pressure Blood Pressure [Right] O2 Sat by Pulse 97 97 97 Oximetry O2 Sat by Pulse Oximetry [ Bilateral Throughout] 02/17/22 02/17/22 02/17/22 03:48 03:53 03:58 Temperature Pulse Rate 70 68 74 Blood Pressure Blood Pressure [Right] O2 Sat by Pulse 97 97 96 Oximetry O2 Sat by Pulse Oximetry [ Bilateral Throughout] 02/17/22 02/17/22 02/17/22 04:03 04:08 04:13 Temperature Pulse Rate 65 66 65 Blood Pressure Blood Pressure [Right] O2 Sat by Pulse 97 97 96 Oximetry O2 Sat by Pulse Oximetry [ Bilateral Throughout] 02/17/22 02/17/22 02/17/22 04:18 04:23 04:26 Temperature Pulse Rate 66 67 65 Blood Pressure 140/84 Blood Pressure [Right] O2 Sat by Pulse 97 97 94 Oximetry O2 Sat by Pulse Oximetry [ Bilateral Throughout] 02/17/22 02/17/22 02/17/22 04:28 04:32 04:33 Temperature Pulse Rate 72 73 75 Blood Pressure Blood Pressure [Right] O2 Sat by Pulse 94 91 93 Oximetry O2 Sat by Pulse Oximetry [ Bilateral Throughout] 02/17/22 02/17/22 02/17/22 04:37 04:38 04:43 Temperature Pulse Rate 71 68 78 Blood Pressure Blood Pressure [Right] O2 Sat by Pulse 93 97 97 Oximetry O2 Sat by Pulse Oximetry [ Bilateral Throughout] 02/17/22 02/17/22 02/17/22 04:48 04:51 04:53 Temperature Pulse Rate 69 70 67 Blood Pressure Blood Pressure [Right] O2 Sat by Pulse 97 94 97 Oximetry O2 Sat by Pulse Oximetry [ Bilateral Throughout] 02/17/22 02/17/22 02/17/22 04:58 05:03 05:08 Temperature Pulse Rate 64 68 68 Blood Pressure Blood Pressure [Right] O2 Sat by Pulse 97 97 97 Oximetry O2 Sat by Pulse Oximetry [ Bilateral Throughout] 02/17/22 02/17/22 02/17/22 05:13 05:18 05:22 Temperature 98.2 F Pulse Rate 67 68 Blood Pressure Blood Pressure [Right] O2 Sat by Pulse 97 97 Oximetry O2 Sat by Pulse Oximetry [ Bilateral Throughout] 02/17/22 02/17/22 02/17/22 05:23 05:30 05:35 Temperature Pulse Rate 67 94 H 67 Blood Pressure Blood Pressure [Right] O2 Sat by Pulse 97 97 98 Oximetry O2 Sat by Pulse Oximetry [ Bilateral Throughout] 02/17/22 02/17/22 02/17/22 05:40 05:45 05:50 Temperature Pulse Rate 71 71 72 Blood Pressure Blood Pressure [Right] O2 Sat by Pulse 97 98 98 Oximetry O2 Sat by Pulse Oximetry [ Bilateral Throughout] 02/17/22 02/17/22 02/17/22 05:55 06:00 06:05 Temperature Pulse Rate 75 74 79 Blood Pressure Blood Pressure [Right] O2 Sat by Pulse 98 97 99 Oximetry O2 Sat by Pulse Oximetry [ Bilateral Throughout] 02/17/22 02/17/22 02/17/22 06:10 06:15 06:20 Temperature Pulse Rate 77 75 82 Blood Pressure Blood Pressure [Right] O2 Sat by Pulse 98 97 98 Oximetry O2 Sat by Pulse Oximetry [ Bilateral Throughout] 02/17/22 02/17/22 02/17/22 06:25 06:26 06:30 Temperature Pulse Rate 76 76 79 Blood Pressure 121/65 Blood Pressure [Right] O2 Sat by Pulse 97 92 97 Oximetry O2 Sat by Pulse Oximetry [ Bilateral Throughout] 02/17/22 02/17/22 02/17/22 06:35 06:40 06:45 Temperature Pulse Rate 74 73 76 Blood Pressure Blood Pressure [Right] O2 Sat by Pulse 98 98 93 Oximetry O2 Sat by Pulse Oximetry [ Bilateral Throughout] 02/17/22 02/17/22 02/17/22 06:50 06:55 07:00 Temperature Pulse Rate 77 83 83 Blood Pressure Blood Pressure [Right] O2 Sat by Pulse 98 98 99 Oximetry O2 Sat by Pulse Oximetry [ Bilateral Throughout] 02/17/22 02/17/22 02/17/22 07:05 07:10 07:15 Temperature Pulse Rate 89 85 80 Blood Pressure Blood Pressure [Right] O2 Sat by Pulse 100 100 100 Oximetry O2 Sat by Pulse Oximetry [ Bilateral Throughout] 02/17/22 02/17/22 02/17/22 07:20 07:25 07:27 Temperature Pulse Rate 77 69 84 Blood Pressure Blood Pressure [Right] O2 Sat by Pulse 99 100 92 Oximetry O2 Sat by Pulse Oximetry [ Bilateral Throughout] 02/17/22 02/17/22 02/17/22 07:30 07:54 07:59 Temperature Pulse Rate 74 78 73 Blood Pressure Blood Pressure [Right] O2 Sat by Pulse 99 98 99 Oximetry O2 Sat by Pulse Oximetry [ Bilateral Throughout] - Exam Narrative Exam: sitting up in bed - Labs Labs: Abnormal Labs 02/08/22 02/08/22 02/08/22 18:40 18:40 22:52 WBC 11.8 H RBC MCHC RDW Plt Count Sodium Potassium Chloride Carbon Dioxide BUN Glucose Calcium Magnesium 3.80 H Alkaline Phosphatase Lactate Dehydrogenase 305 H Albumin Urine Creatinine Ur Total Protein 24 Hr 02/09/22 02/09/22 02/09/22 04:00 04:42 05:49 WBC RBC MCHC RDW Plt Count Sodium Potassium Chloride Carbon Dioxide BUN Glucose Calcium Magnesium 5.20 H Alkaline Phosphatase Lactate Dehydrogenase Albumin Urine Creatinine 24.2 H Ur Total Protein 24 Hr 495.00 H 02/09/22 02/10/22 02/10/22 12:07 00:05 06:40 WBC RBC MCHC RDW Plt Count Sodium Potassium Chloride Carbon Dioxide BUN Glucose Calcium Magnesium 5.30 H 5.00 H 5.40 H Alkaline Phosphatase Lactate Dehydrogenase Albumin Urine Creatinine Ur Total Protein 24 Hr 02/10/22 02/12/22 02/12/22 13:49 16:56 16:56 WBC RBC MCHC RDW Plt Count 73 L Sodium 131 L Potassium Chloride Carbon Dioxide 19 L BUN Glucose Calcium Magnesium 4.70 H Alkaline Phosphatase 205 H Lactate Dehydrogenase Albumin 3.3 L Urine Creatinine Ur Total Protein 24 Hr 02/12/22 02/13/22 02/13/22 20:22 00:23 02:25 WBC RBC 3.58 L 3.59 L MCHC RDW 15.3 H 15.4 H Plt Count Sodium Potassium Chloride Carbon Dioxide BUN Glucose Calcium Magnesium 4.30 H Alkaline Phosphatase Lactate Dehydrogenase Albumin Urine Creatinine Ur Total Protein 24 Hr 02/13/22 02/13/22 02/13/22 04:38 07:12 07:12 WBC RBC MCHC RDW 15.3 H 15.3 H Plt Count Sodium 131 L Potassium Chloride 97.5 L Carbon Dioxide 21 L BUN Glucose Calcium 8.3 L Magnesium Alkaline Phosphatase 200 H Lactate Dehydrogenase Albumin 3.3 L Urine Creatinine Ur Total Protein 24 Hr 02/14/22 02/14/22 02/15/22 08:19 08:19 09:41 WBC RBC MCHC RDW 15.4 H 15.3 H Plt Count Sodium 135 L Potassium Chloride Carbon Dioxide 21 L BUN Glucose 133 H Calcium Magnesium Alkaline Phosphatase 200 H Lactate Dehydrogenase Albumin 3.4 L Urine Creatinine Ur Total Protein 24 Hr 02/16/22 02/16/22 02/16/22 04:42 07:59 14:20 WBC RBC 3.61 L MCHC 35 H RDW 15.4 H Plt Count Sodium 136 L Potassium 5.3 H 5.2 H Chloride Carbon Dioxide BUN 18 H Glucose Calcium Magnesium Alkaline Phosphatase 204 H Lactate Dehydrogenase Albumin 3.3 L Urine Creatinine Ur Total Protein 24 Hr Laboratory Results - last 24 hr 02/16/22 02/16/22 07:59 14:20 WBC 8.9 RBC 3.61 L Hgb 11.0 Hct 31.6 MCV 88 MCH 30 MCHC 35 H RDW 15.4 H Plt Count 204 Potassium 5.2 H
[2022-02-17] MEDS: PRENATAL VIT27-FE FUMARATE-FOLIC ACID VIT TAB PO SCH (09:14)
[2022-02-17] MEDS: NIFEdipine XL 60 MG TAB PO SCH ×2 (10:49→22:09)
[2022-02-17 21:03] LABS: Alanine Aminotransferase 24 units/L (7-56); Albumin 3.6 g/dL (3.9-5); BUN/Creatinine Ratio 20; Blood Urea Nitrogen 18 mg/dL (7-17); Calcium 9.2 mg/dL (8.4-10.2); Hemolysis Index 0
[2022-02-17] MEDS: diphenhydrAMINE 25 MG CAP PO PRN (22:09)
[2022-02-17 22:44] LABS: Hepatitis B Surface Antigen Non-Reactive (Negative); Hepatitis C Virus Antibody Non-Reactive (NonReactive)
[2022-02-18] MEDS ORDERED: SODIUM POLYSTYRENE 15 GM/60 ML ORAL LIQD PO ONE (02:47)
[2022-02-18] MEDS ORDERED: CALCIUM GLUCONATE 1000 MG/10 ML INJ IV ONE (02:48)
--- NOTE | 2022-02-18 03:17 | Event Note ---
Date: 02/18/22 41 yrs old female IUP at 30 6/7 weeks gestation CHTN with superimposed preeclampsia with severe features LI Morbid obesity Echo reviewed , normal EF , mild Pul HTN Hyperkalemia Continue Labetalol 700mg TID , procardia 30mg XL Titrate the Labetalol to maintain BP 120-160/80-105mmhg , if her HR allows Max goal is 2400mg daily Medical consult for hyperkalemia. Patient is seen and examined. Patient is given Kayexalate 30 g p.o. x1 dose. Calcium gluconate 1 g IV x1 dose. We will recheck the BMP at 6:00 on 02/18/2022. We will monitor the patient closely.
[2022-02-18 07:16] LABS: BUN/Creatinine Ratio 20; Blood Urea Nitrogen 16 mg/dL (7-17); Calcium 9.4 mg/dL (8.4-10.2); Hemolysis Index 2
--- NOTE | 2022-02-18 08:04 | Progress Note ---
Assessment and Plan POC with precautions reviewed with pt. Pt denies all complaints and reports positive movement. Questions encouraged and answered. Pt verbalizes understanding and agrees to POC. Dr. Johnson made aware. Pt given Rx for breast pump and excuse letter for work. Plan: Daily CBC/CMP to screen for end organ damage ( renal failure, thrombocytopenia, HELLP) Growth scan q 2 weeks, last completed 02/15/22 EFW 1545g cephalic SHAYY 19.6cm Twice weekly BPP, 8/8 on 02/16, next ordered for today Delivery at 34 0/7 weeks gestations. Immediate delivery is advised if her severe HTN is uncontrolled, Cerebral symptoms persist, pt develops Pul edema, HELLP, renal failure, plt count <100,000, eclampsia, distress - Patient Problems (1) History of asthma Current Visit: Yes Status: Chronic Plan to address problem: respiratory treatments as ordered (2) History of sleep apnea Current Visit: Yes Status: Chronic (3) Morbid obesity Current Visit: Yes Status: Chronic (4) Hyperkalemia Current Visit: Yes Status: Acute Plan to address problem: Per Dr. Jerome consultation note- Medical consult completed; pt given Kayexalate 30 g p.o. x1 dose. Calcium gluconate 1 g IV x1 dose. rpt BMP completed 01/29 am. to continue to follow Per Dr. Montgomery consultation note- continue to monitor potassium levels daily; If there are EKG changes or K is >6, Consult IMS as pt will require treatment (5) 31 weeks gestation of Current Visit: Yes Status: Acute Plan to address problem: NICU consult completed (6) Pre-eclampsia superimposed on chronic hypertension Current Visit: Yes Status: Acute Plan to address problem: TP 495 on 02/09/22 cardiology consult done EKG done continue labetalol 700mg TID, will increase per consults up to max of 2400mg/day for uncontrolled BPs continue procardia XL 60mg daily continue to monitor closely for ssx of worsening preeclampsia Subjective - Subjective Date of service: 02/18/22 Principal diagnosis: IUP @ 31 wks, CHTN with superimposed Preeclampsia, BMI 60, hyperkalemia Patient reports: movement normal, other (no complaints), no new co mplaints, no loss of fluid, no vaginal bleeding, no contractions Objective - Vital Signs Vital Signs: Vital Signs - 12hr 02/17/22 02/17/22 02/17/22 20:16 20:19 20:20 Temperature 98.6 F Pulse Rate 70 72 74 Respiratory 18 Rate Blood Pressure 136/77 Blood Pressure 136/77 [Left] O2 Sat by Pulse 100 91 99 Oximetry O2 Sat by Pulse Oximetry [ Bilateral Throughout] 02/17/22 02/17/22 02/17/22 21:19 23:55 23:56 Temperature Pulse Rate 86 Respiratory Rate Blood Pressure Blood Pressure [Left] O2 Sat by Pulse 86 98 Oximetry O2 Sat by Pulse 100 Oximetry [ Bilateral Throughout] 02/17/22 02/18/22 02/18/22 23:58 00:01 00:06 Temperature 98.3 F Pulse Rate 73 73 72 Respiratory 16 Rate Blood Pressure 140/78 140/78 Blood Pressure 140/78 [Left] O2 Sat by Pulse 100 98 Oximetry O2 Sat by Pulse Oximetry [ Bilateral Throughout] 02/18/22 02/18/22 02/18/22 00:11 00:16 00:21 Temperature Pulse Rate 79 72 74 Respiratory Rate Blood Pressure Blood Pressure [Left] O2 Sat by Pulse 100 100 99 Oximetry O2 Sat by Pulse Oximetry [ Bilateral Throughout] 02/18/22 02/18/22 02/18/22 00:26 00:31 00:32 Temperature Pulse Rate 87 84 Respiratory Rate Blood Pressure Blood Pressure [Left] O2 Sat by Pulse 99 99 82 L Oximetry O2 Sat by Pulse Oximetry [ Bilateral Throughout] 02/18/22 02/18/22 02/18/22 00:41 00:44 00:46 Temperature Pulse Rate 72 57 L Respiratory Rate Blood Pressure Blood Pressure [Left] O2 Sat by Pulse 0 L 86 80 L Oximetry O2 Sat by Pulse Oximetry [ Bilateral Throughout] 02/18/22 02/18/22 02/18/22 00:52 00:57 01:04 Temperature Pulse Rate 70 51 L Respiratory Rate Blood Pressure Blood Pressure [Left] O2 Sat by Pulse 68 L 78 L 80 L Oximetry O2 Sat by Pulse Oximetry [ Bilateral Throughout] 02/18/22 02/18/22 02/18/22 01:09 05:12 05:13 Temperature Pulse Rate 68 82 Respiratory Rate Blood Pressure Blood Pressure [Left] O2 Sat by Pulse 70 L 84 92 Oximetry O2 Sat by Pulse Oximetry [ Bilateral Throughout] 02/18/22 02/18/22 05:16 05:18 Temperature 98.6 F Pulse Rate 73 163 H Respiratory 18 Rate Blood Pressure 136/92 Blood Pressure 136/92 [Left] O2 Sat by Pulse 99 78 L Oximetry O2 Sat by Pulse Oximetry [ Bilateral Throughout] - Exam Abdomen: Present: soft, other (morbidly obese) FHR: category 2 FHR comments: BPP ordered for today Uterine Contraction Pattern: Absent Uterine Tone Measurement Phase: Resting Extremities: normal - Labs Labs: Abnormal Labs 02/08/22 02/08/22 02/08/22 18:40 18:40 22:52 WBC 11.8 H RBC MCHC RDW Plt Count Sodium Potassium Chloride Carbon Dioxide BUN Glucose Calcium Magnesium 3.80 H Alkaline Phosphatase Lactate Dehydrogenase 305 H Albumin Urine Creatinine Ur Total Protein 24 Hr 02/09/22 02/09/22 02/09/22 04:00 04:42 05:49 WBC RBC MCHC RDW Plt Count Sodium Potassium Chloride Carbon Dioxide BUN Glucose Calcium Magnesium 5.20 H Alkaline Phosphatase Lactate Dehydrogenase Albumin Urine Creatinine 24.2 H Ur Total Protein 24 Hr 495.00 H 02/09/22 02/10/22 02/10/22 12:07 00:05 06:40 WBC RBC MCHC RDW Plt Count Sodium Potassium Chloride Carbon Dioxide BUN Glucose Calcium Magnesium 5.30 H 5.00 H 5.40 H Alkaline Phosphatase Lactate Dehydrogenase Albumin Urine Creatinine Ur Total Protein 24 Hr 02/10/22 02/12/22 02/12/22 13:49 16:56 16:56 WBC RBC MCHC RDW Plt Count 73 L Sodium 131 L Potassium Chloride Carbon Dioxide 19 L BUN Glucose Calcium Magnesium 4.70 H Alkaline Phosphatase 205 H Lactate Dehydrogenase Albumin 3.3 L Urine Creatinine Ur Total Protein 24 Hr 02/12/22 02/13/22 02/13/22 20:22 00:23 02:25 WBC RBC 3.58 L 3.59 L MCHC RDW 15.3 H 15.4 H Plt Count Sodium Potassium Chloride Carbon Dioxide BUN Glucose Calcium Magnesium 4.30 H Alkaline Phosphatase Lactate Dehydrogenase Albumin Urine Creatinine Ur Total Protein 24 Hr 02/13/22 02/13/22 02/13/22 04:38 07:12 07:12 WBC RBC MCHC RDW 15.3 H 15.3 H Plt Count Sodium 131 L Potassium Chloride 97.5 L Carbon Dioxide 21 L BUN Glucose Calcium 8.3 L Magnesium Alkaline Phosphatase 200 H Lactate Dehydrogenase Albumin 3.3 L Urine Creatinine Ur Total Protein 24 Hr 02/14/22 02/14/22 02/15/22 08:19 08:19 09:41 WBC RBC MCHC RDW 15.4 H 15.3 H Plt Count Sodium 135 L Potassium Chloride Carbon Dioxide 21 L BUN Glucose 133 H Calcium Magnesium Alkaline Phosphatase 200 H Lactate Dehydrogenase Albumin 3.4 L Urine Creatinine Ur Total Protein 24 Hr 02/16/22 02/16/22 02/16/22 04:42 07:59 14:20 WBC RBC 3.61 L MCHC 35 H RDW 15.4 H Plt Count Sodium 136 L Potassium 5.3 H 5.2 H Chloride Carbon Dioxide BUN 18 H Glucose Calcium Magnesium Alkaline Phosphatase 204 H Lactate Dehydrogenase Albumin 3.3 L Urine Creatinine Ur Total Protein 24 Hr 02/17/22 02/17/22 02/18/22 08:08 20:14 06:36 WBC RBC MCHC RDW Plt Count Sodium 134 L 136 L Potassium 5.1 H 5.4 H 5.2 H Chloride Carbon Dioxide 19 L 19 L BUN 18 H Glucose Calcium Magnesium Alkaline Phosphatase 231 H Lactate Dehydrogenase Albumin 3.6 L Urine Creatinine Ur Total Protein 24 Hr Laboratory Results - last 24 hr 02/17/22 02/17/22 02/17/22 08:08 20:14 22:00 Sodium 134 L Potassium 5.1 H 5.4 H Chloride 104.0 Carbon Dioxide 19 L Anion Gap 16 BUN 18 H Creatinine 0.9 Estimated GFR > 60 BUN/Creatinine Ratio 20 Glucose 87 Calcium 9.2 Total Bilirubin < 0.20 AST 17 ALT 24 Alkaline Phosphatase 231 H Total Protein 6.3 Albumin 3.6 L Albumin/Globulin Ratio 1.3 Hepatitis A IgM Ab Non-reactive Hep Bs Antigen Non-reactive Hep B Core IgM Ab Non-reactive Hepatitis C Antibody Non-reactive HIV 1&2 Antibody Rapid HIV P24 Antigen 02/17/22 02/18/22 22:00 06:36 Sodium 136 L Potassium 5.2 H Chloride 105.1 Carbon Dioxide 19 L Anion Gap 17 BUN 16 Creatinine 0.8 Estimated GFR > 60 BUN/Creatinine Ratio 20 Glucose 83 Calcium 9.4 Total Bilirubin AST ALT Alkaline Phosphatase Total Protein Albumin Albumin/Globulin Ratio Hepatitis A IgM Ab Hep Bs Antigen Hep B Core IgM Ab Hepatitis C Antibody HIV 1&2 Antibody Rapid Non react HIV P24 Antigen Non react
--- NOTE | 2022-02-18 10:17 | Electrocardiograph Report ---
[facility] Test Date: 2022-02-17 Test Time: 18:39:29 Pat Name: DIMITRIS VALDEZ Department: Room: 2004 10 Gender: F [employer]: BERNARDA : 1980 Requested By: SHAMAR ALEXANDER Order Number: [id number] Reading MD: Jonah Culver Measurements Intervals [place] Rate: 73 P: 18 OK: 160 QRS: -18 QRSD: 88 T: 44 QT: 363 QTc: 400 Interpretive Statements Sinus rhythm Left ventricular hypertrophy No previous ECG available for comparison Electronically Signed On 02-18-2022 10:16:56 EDT by Jonah Culver
[2022-02-18] MEDS: PRENATAL VIT27-FE FUMARATE-FOLIC ACID VIT TAB PO SCH (10:55)
[2022-02-18] MEDS: NIFEdipine XL 60 MG TAB PO SCH ×2 (10:56→22:16)
--- NOTE | 2022-02-18 15:28 | Ultrasound Report ---
ULTRASOUND OBSTETRIC LIMITED ULTRASOUND BIOPHYSICAL PROFILE INDICATION / CLINICAL INFORMATION: Well Being. Clinical Gestational Age (GA) in weeks, days: 32 weeks 0 days TECHNIQUE: Transabdominal. COMPARISON: Biophysical profile 02/16/2022. FINDINGS: BREATHING MOVEMENT = 2 GROSS BODY MOVEMENT = 2 TONE = 2 QUALITATIVE AMNIOTIC FLUID VOLUME = 2 TOTAL BIOPHYSICAL SCORE = 8/8 HEART RATE (beats per minute): 137 bpm PRESENTATION: Cephalic. ADDITIONAL FINDINGS: None. IMPRESSION: 1. Biophysical Score = 8/8 Scribed by: Susana Younger RDMS, RVT, RMSKS Scribed: 02/18/2022 12:54 PM I have reviewed the images, agree with this report, and edited this report as needed. Signer Name: Shaq Neves MD Signed: 02/18/2022 3:23 PM Workstation Name: [id number]
[2022-02-18] MEDS: hydrALAZINE 25 MG TAB PO SCH (21:19)
[2022-02-18] MEDS: diphenhydrAMINE 25 MG CAP PO PRN (22:50)
--- NOTE | 2022-02-18 23:10 | Consultation ---
History of Present Illness - Reason for Consult Consult date: 02/17/22 Hyperkalemia Requesting physician: RANDY OLMSTEAD - History of Present Illness 41 yrs old female IUP at 30 6/7 weeks gestation CHTN with superimposed preeclampsia with severe features LI Morbid obesity Echo reviewed , normal EF , mild Pul HTN Hyperkalemia Continue Labetalol 700mg TID , procardia 30mg XL Titrate the Labetalol to maintain BP 120-160/80-105mmhg , if her HR allows Max goal is 2400mg daily Medical consult for hyperkalemia. Patient is seen and examined. Patient is given Kayexalate 30 g p.o. x1 dose. Calcium gluconate 1 g IV x1 dose. We will recheck the BMP at 6:00 on 02/18/2022. We will monitor the patient closely. Past History Past Medical History: hypertension Social history: Medications and Allergies Allergies Allergy/AdvReac Type Severity Reaction Status Date / Time No Known Allergies Allergy Verified 01/28/22 17:21 Home Medications Medication Instructions Recorded Confirmed Last Taken Type Amoxicillin/K Clav Tab [Augmentin 1 tab PO Q12HR #14 tab 12/10/16 Unknown Rx 875 mg] Ibuprofen [Motrin] 800 mg PO Q8HR PRN #30 tablet 12/10/16 Unknown Rx Erythromycin [Erythromycin Ophth 1 applic OS QID 7 Days #1 tube 08/26/21 Unknown Rx Oint] Ketotifen Fumarate [Zaditor] 1 drop OP BID #1 bottle 08/26/21 Unknown Rx Albuterol Mdi (or & Nicu Only) 2 puff IH Q6HR PRN #8.5 gram 02/01/22 Unknown Rx [ProAir HFA Inhaler] NIFEdipine XL [Procardia Xl] 30 mg PO QDAY #30 tablet 02/01/22 Unknown Rx labetaloL [Labetalol 200mg TAB] 400 mg PO TID #60 tab 02/01/22 Unknown Rx Active Meds: Active Medications Acetaminophen (Acetaminophen 500 Mg Tab) 1,000 mg PO Q6H PRN PRN Reason: Pain, Mild (1-3) Last Admin: 02/13/22 18:48 Dose: 1,000 mg Al Hydrox/Mg Hydrox/Simethicone (Alum-Mag Hydroxide-Simethicone [id number]/5ml Oral Liqd 30 Ml) 30 ml PO Q6H PRN PRN Reason: Indigestion Albuterol (Albuterol 2.5 Mg/3 Ml Nebu) 2.5 mg IH Q4HRT PRN PRN Reason: Shortness Of Breath Diphenhydramine HCl (Diphenhydramine 25 Mg Cap) 25 mg PO QHS PRN PRN Reason: Sleep Last Admin: 02/18/22 22:50 Dose: 25 mg Docusate Sodium (Docusate Sodium 100 Mg Cap) 100 mg PO Q12H PRN PRN Reason: Constipation Last Admin: 02/16/22 21:49 Dose: 100 mg Ephedrine Sulfate (Ephedrine Sulfate 50 Mg/1 Ml Inj) 10 mg IV Q2M PRN PRN Reason: Hypotension Hydralazine HCl (Hydralazine 20 Mg/1 Ml Inj) 5 mg IV Q30MIN PRN PRN Reason: Hypertension Last Admin: 02/15/22 04:59 Dose: 5 mg Hydralazine HCl (Hydralazine 25 Mg Tab) 25 mg PO Q8HR [facility] Last Admin: 02/18/22 21:19 Dose: 25 mg Lactated Ringer's (Lactated Ringers) 1,000 mls @ 75 mls/hr IV DIRECT [facility] Last Admin: 02/17/22 03:06 Dose: 75 mls/hr Labetalol HCl (Labetalol 200 Mg Tab) 600 mg PO TID [facility] Last Admin: 02/18/22 20:01 Dose: 600 mg Labetalol HCl (Labetalol 100 Mg Tab) 100 mg PO TID [facility] Last Admin: 02/18/22 20:01 Dose: 100 mg Magnesium Hydroxide (Magnesium Hydroxide (Mom) Oral Liqd Udc) 30 ml PO QHS PRN PRN Reason: Laxative Effect Multivitamins/Iron/Calcium ( [id number]-Eo Fumarate-Folic Acid Vit Tab) 1 each PO QDAY [facility] Last Admin: 02/18/22 10:55 Dose: 1 each Nifedipine (Nifedipine Xl 60 Mg Tab) 60 mg PO BID [facility] Last Admin: 02/18/22 22:16 Dose: 60 mg Ondansetron HCl (Ondansetron 4 Mg/2 Ml Inj) 4 mg IV Q8H PRN PRN Reason: Nausea And Vomiting Senna/Docusate Sodium (Sennosides/Docusate Sodium 8.6/50 Mg Tab) 2 tab PO Q12H PRN PRN Reason: Laxative Effect Simethicone (Simethicone 80 Mg Chew Tab) 80 mg PO Q6H PRN PRN Reason: Gas pain Terbutaline Sulfate (Terbutaline 1 Mg/1 Ml Inj) 0.25 mg SUB-Q ONCE PRN PRN Reason: Hyperstimulation/Hypertonicity Review of Systems All systems: negative Exam - Constitutional Vitals: Temp Pulse Resp BP Pulse Ox 97.9 F 79 16 139/92 88 02/18/22 22:49 02/18/22 22:53 02/18/22 15:04 02/18/22 22:53 02/18/22 21:17 General appearance: Present: no acute distress, well-nourished - EENT Eyes: Present: PERRL ENT: hearing intact, clear oral mucosa - Neck Neck: Present: supple, normal ROM - Respiratory Respiratory effort: normal Respiratory: bilateral: CTA - Cardiovascular Heart Sounds: Present: S1 & S2. Absent: rub, click - Extremities Extremities: pulses symmetrical, No edema Peripheral Pulses: within normal limits - Abdominal General gastrointestinal: Present: soft, non-tender, non-distended, normal bowel sounds Female genitourinary: Present: normal - Integumentary Integumentary: Present: clear, warm, dry - Musculoskeletal Musculoskeletal: gait normal, strength equal bilaterally - Psychiatric Psychiatric: appropriate mood/affect, intact judgment & insight - Neurologic Neurologic: CNII-XII intact, moves all extremities Results - Labs CBC & Chem 7: 02/16/22 07:59 02/18/22 06:36 Labs: Abnormal lab results 02/18/22 Range/Units 06:36 Sodium 136 L (137-145) mmol/L Potassium 5.2 H (3.6-5.0) mmol/L Carbon Dioxide 19 L (22-30) mmol/L Assessment and Plan - Patient Problems (1) Hyperkalemia Current Visit: Yes Status: Acute Plan to address problem: 41 yrs old female IUP at 30 6/7 weeks gestation CHTN with superimposed preeclampsia with severe features LI Morbid obesity Echo reviewed , normal EF , mild Pul HTN Hyperkalemia Continue Labetalol 700mg TID , procardia 30mg XL Titrate the Labetalol to maintain BP 120-160/80-105mmhg , if her HR allows Max goal is 2400mg daily Medical consult for hyperkalemia. Patient is seen and examined. Patient is given Kayexalate 30 g p.o. x1 dose. Calcium gluconate 1 g IV x1 dose. We will recheck the BMP at 6:00 on 02/18/2022. We will monitor the patient closely.
[2022-02-19] MEDS: LACTATED RINGERS 1,000 ML IV SCH (05:44)
[2022-02-19] MEDS: hydrALAZINE 25 MG TAB PO SCH ×3 (06:44→22:36)
--- NOTE | 2022-02-19 09:12 | Ultrasound Report ---
ULTRASOUND OBSTETRIC LIMITED ULTRASOUND BIOPHYSICAL PROFILE INDICATION / CLINICAL INFORMATION: [facility]. TECHNIQUE: Transabdominal. COMPARISON: None available. FINDINGS: BREATHING MOVEMENT = 2 GROSS BODY MOVEMENT = 2 TONE = 2 QUALITATIVE AMNIOTIC FLUID VOLUME = 2 TOTAL BIOPHYSICAL SCORE = 8/8 HEART RATE (beats per minute): 141 PRESENTATION: Cephalic. ADDITIONAL FINDINGS: None. IMPRESSION: 1. Biophysical Score = 8/8 Signer Name: Nicholas Hinkle MD Signed: 02/19/2022 9:07 AM Workstation Name: [id number]
[2022-02-19] MEDS ORDERED: NIFEdipine XL 30 MG TAB PO ONE (09:51)
[2022-02-19] MEDS: PRENATAL VIT27-FE FUMARATE-FOLIC ACID VIT TAB PO SCH (10:02)
[2022-02-19] MEDS: NIFEdipine XL 60 MG TAB PO SCH ×2 (10:11→22:36)
[2022-02-19 12:09] LABS: Hematocrit 33.8 % (30.3-42.9); Hemoglobin 10.9 gm/dl (10.1-14.3); Mean Corpuscular HGB Conc 32 % (30-34); Mean Corpuscular Volume 90 fl (79-97); Platelet Count 225 K/mm3 (140-440); Red Blood Count 3.77 M/mm3 (3.65-5.03); Red Cell Distribution Width 15.7 % (13.2-15.2)
--- NOTE | 2022-02-19 12:27 | Progress Note ---
Assessment and Plan A: 41 y.o. @ 31 wks, CHTN with superimposed Preeclampsia, BMI 60 - Patient Problems (1) Morbid obesity Current Visit: Yes Status: Chronic (2) Pre-eclampsia superimposed on chronic hypertension Current Visit: Yes Status: Acute Plan to address problem: Cardiology and AMFM continues to follow patient. Continue Labetalol; titrate up to 800 mg tid to keep BP < 160/110 - Currently at 700mg TID. Continue with Procardia 60 mg BID. Hydralazine 25 mg PO q 8 hrs re-added to blood pressure regime. Repeat CBC/CMP at least twice weekly -CMP and CBC ordered for 02/21. Delivery at 34 0/7 weeks gestations. Immediate delivery is advised if her severe HTN is uncontrolled, Cerebral symptoms persist, pt develops Pul edema, HELLP, renal failure, plt count <100,000, eclampsia, distress Continue to monitor blood pressures. Continue to monitor for worsening s/sx of pre eclampsia. (3) Hyperkalemia Current Visit: Yes Status: Resolved Plan to address problem: Potassium on: - 02/15 was 5.3 - 02/16 was 5.2 -> 5.3 -02/18 5.2 -02/19 4.7 Now 4.7. - s/p Kayexalate and Calcium glcuconate (4) 31 weeks gestation of Current Visit: Yes Status: Acute Plan to address problem: Continue with q 4 hr NST's once monitor strip reactive. - For now continuous monitoring. BPP twice weekly. - Last completed on 02/19 06/06, vertex. - Next ordered for 02/20. - Vertex presentation. Growth Scans q 2 wks. - On 02/15 1545 gms. - Ordered next for March 01. Subjective - Subjective Date of service: 02/19/22 Principal diagnosis: IUP @ 31 wks, CHTN with superimposed Preeclampsia, BMI 60 Interval history: Pt denies GROSSMAN, blurred vision, spots before her eyes, chest pain, shortness of breath, upper abdominal pain, ctxs, vaginal bleeding, LOF. Patient reports: movement normal, other (no complaints), no new complaints, no loss of fluid, no vaginal bleeding, no contractions Objective - Vital Signs Vital Signs: Vital Signs - 12hr 02/19/22 02/19/22 02/19/22 00:27 00:29 00:32 Temperature Pulse Rate 67 68 67 Blood Pressure 147/92 O2 Sat by Pulse 100 100 Oximetry 02/19/22 02/19/22 02/19/22 00:37 00:42 00:44 Temperature Pulse Rate 67 68 61 Blood Pressure 151/91 O2 Sat by Pulse 99 99 Oximetry 02/19/22 02/19/22 02/19/22 00:47 00:52 00:57 Temperature Pulse Rate 64 65 67 Blood Pressure O2 Sat by Pulse 99 100 100 Oximetry 02/19/22 02/19/22 02/19/22 01:02 01:07 01:12 Temperature Pulse Rate 68 66 68 Blood Pressure O2 Sat by Pulse 100 100 100 Oximetry 02/19/22 02/19/22 02/19/22 01:17 01:22 01:27 Temperature Pulse Rate 77 74 73 Blood Pressure O2 Sat by Pulse 100 100 100 Oximetry 02/19/22 02/19/22 02/19/22 01:32 01:37 01:42 Temperature Pulse Rate 72 74 73 Blood Pressure O2 Sat by Pulse 99 99 98 Oximetry 02/19/22 02/19/22 02/19/22 01:47 01:50 01:52 Temperature Pulse Rate 72 71 70 Blood Pressure 124/66 O2 Sat by Pulse 99 99 Oximetry 02/19/22 02/19/22 02/19/22 01:57 02:02 02:07 Temperature Pulse Rate 73 71 69 Blood Pressure O2 Sat by Pulse 99 98 97 Oximetry 02/19/22 02/19/22 02/19/22 02:12 02:15 02:18 Temperature Pulse Rate 74 73 84 Blood Pressure O2 Sat by Pulse 99 94 99 Oximetry 02/19/22 02/19/22 02/19/22 03:44 03:47 03:50 Temperature 98.4 F Pulse Rate 73 71 Blood Pressure 173/80 161/79 O2 Sat by Pulse 100 Oximetry 02/19/22 02/19/22 02/19/22 03:52 03:57 04:02 Temperature Pulse Rate 70 70 67 Blood Pressure O2 Sat by Pulse 100 100 100 Oximetry 02/19/22 02/19/22 02/19/22 04:07 04:12 04:17 Temperature Pulse Rate 68 69 67 Blood Pressure O2 Sat by Pulse 100 100 100 Oximetry 02/19/22 02/19/22 02/19/22 04:22 04:27 04:32 Temperature Pulse Rate 63 67 67 Blood Pressure 143/83 O2 Sat by Pulse 100 100 100 Oximetry 02/19/22 02/19/22 02/19/22 04:37 04:42 04:47 Temperature Pulse Rate 65 65 66 Blood Pressure O2 Sat by Pulse 100 100 100 Oximetry 02/19/22 02/19/22 02/19/22 04:52 04:56 05:02 Temperature Pulse Rate 69 69 71 Blood Pressure 154/89 O2 Sat by Pulse 100 98 100 Oximetry 02/19/22 02/19/22 02/19/22 05:07 05:12 05:17 Temperature Pulse Rate 65 71 68 Blood Pressure O2 Sat by Pulse 100 100 100 Oximetry 02/19/22 02/19/22 02/19/22 05:22 05:27 05:32 Temperature Pulse Rate 73 74 75 Blood Pressure 140/75 O2 Sat by Pulse 100 100 100 Oximetry 02/19/22 02/19/22 02/19/22 05:37 05:52 05:53 Temperature Pulse Rate 85 67 67 Blood Pressure 140/88 O2 Sat by Pulse 100 100 Oximetry 02/19/22 02/19/22 02/19/22 05:57 06:02 06:07 Temperature Pulse Rate 69 63 63 Blood Pressure O2 Sat by Pulse 100 100 100 Oximetry 02/19/22 02/19/22 02/19/22 06:12 06:17 06:22 Temperature Pulse Rate 62 63 60 Blood Pressure 133/81 O2 Sat by Pulse 100 100 100 Oximetry 02/19/22 02/19/22 02/19/22 06:27 06:32 06:37 Temperature Pulse Rate 83 68 66 Blood Pressure O2 Sat by Pulse 100 100 100 Oximetry 02/19/22 02/19/22 02/19/22 06:42 06:47 06:52 Temperature Pulse Rate 68 67 65 Blood Pressure 133/71 O2 Sat by Pulse 100 100 100 Oximetry 02/19/22 02/19/22 02/19/22 06:57 07:02 07:07 Temperature Pulse Rate 70 70 68 Blood Pressure O2 Sat by Pulse 100 100 100 Oximetry 02/19/22 02/19/22 02/19/22 07:12 07:17 07:22 Temperature Pulse Rate 69 70 74 Blood Pressure 134/69 O2 Sat by Pulse 100 96 88 Oximetry 02/19/22 02/19/22 02/19/22 07:26 07:28 07:33 Temperature Pulse Rate 75 151 H Blood Pressure O2 Sat by Pulse 94 96 0 L Oximetry 02/19/22 02/19/22 02/19/22 07:38 07:43 07:45 Temperature Pulse Rate 74 75 84 Blood Pressure O2 Sat by Pulse 0 L 98 91 Oximetry 02/19/22 02/19/22 02/19/22 07:48 07:52 07:53 Temperature Pulse Rate 75 76 73 Blood Pressure 134/70 O2 Sat by Pulse 99 99 Oximetry 02/19/22 02/19/22 02/19/22 07:58 08:03 08:06 Temperature Pulse Rate 73 72 70 Blood Pressure 139/73 O2 Sat by Pulse 97 99 Oximetry 02/19/22 02/19/22 02/19/22 08:07 08:08 09:17 Temperature Pulse Rate 65 71 73 Blood Pressure 139/73 139/73 O2 Sat by Pulse 98 97 Oximetry 02/19/22 02/19/22 02/19/22 09:22 09:23 09:27 Temperature Pulse Rate 81 83 82 Blood Pressure 128/74 O2 Sat by Pulse 97 98 Oximetry 02/19/22 02/19/22 02/19/22 09:32 09:37 09:42 Temperature Pulse Rate 70 79 81 Blood Pressure O2 Sat by Pulse 92 99 99 Oximetry 02/19/22 02/19/22 02/19/22 09:47 09:52 09:57 Temperature Pulse Rate 78 76 83 Blood Pressure 109/82 O2 Sat by Pulse 99 99 99 Oximetry 02/19/22 02/19/22 02/19/22 10:02 10:07 10:12 Temperature Pulse Rate 78 91 H 84 Blood Pressure O2 Sat by Pulse 97 99 98 Oximetry 02/19/22 02/19/22 02/19/22 10:17 10:22 10:27 Temperature Pulse Rate 81 81 77 Blood Pressure 135/63 O2 Sat by Pulse 98 98 98 Oximetry 02/19/22 02/19/22 02/19/22 10:32 10:37 10:42 Temperature Pulse Rate 79 84 76 Blood Pressure O2 Sat by Pulse 99 99 99 Oximetry 02/19/22 02/19/22 02/19/22 10:47 10:52 10:53 Temperature Pulse Rate 79 79 76 Blood Pressure 126/68 O2 Sat by Pulse 99 99 Oximetry 02/19/22 02/19/22 02/19/22 10:57 11:02 11:07 Temperature Pulse Rate 92 H 78 83 Blood Pressure O2 Sat by Pulse 100 100 98 Oximetry 02/19/22 02/19/22 02/19/22 11:12 11:17 11:22 Temperature Pulse Rate 74 75 74 Blood Pressure 131/80 O2 Sat by Pulse 99 100 99 Oximetry 02/19/22 02/19/22 02/19/22 11:27 11:32 11:37 Temperature Pulse Rate 70 68 78 Blood Pressure O2 Sat by Pulse 99 99 100 Oximetry 02/19/22 02/19/22 02/19/22 11:45 11:50 11:52 Temperature Pulse Rate 75 73 67 Blood Pressure 121/75 O2 Sat by Pulse 100 99 Oximetry 02/19/22 02/19/22 02/19/22 11:55 12:00 12:05 Temperature Pulse Rate 65 75 81 Blood Pressure O2 Sat by Pulse 100 100 100 Oximetry 02/19/22 02/19/22 02/19/22 12:10 12:15 12:20 Temperature Pulse Rate 70 70 78 Blood Pressure O2 Sat by Pulse 80 L 82 L 82 L Oximetry 02/19/22 02/19/22 12:22 12:25 Temperature Pulse Rate 68 73 Blood Pressure 151/90 O2 Sat by Pulse 72 L Oximetry - Exam Narrative Exam: Minimal variability noted on monitor strip. Due to minimal variability a BPP was ordered and completed @ 0500am which resulted as 8/8. Breasts: deferred Cardiovascular: Normal S1, Normal S2 Lungs: Clear to auscultation Abdomen: Present: normal appearance, soft Uterus: Present: normal FHR: category 2 (Minimal variability.) Uterine Contraction Monitor Mode: External Uterine Contraction Pattern: Absent Extremities: edema (+1 edema noted to hands and feet.) - Labs Labs: Abnormal Labs 02/08/22 02/08/22 02/08/22 18:40 18:40 22:52 WBC 11.8 H RBC MCHC RDW Plt Count Sodium Potassium Chloride Carbon Dioxide BUN Glucose Calcium Magnesium 3.80 H Alkaline Phosphatase Lactate Dehydrogenase 305 H Albumin Urine Creatinine Ur Total Protein 24 Hr 02/09/22 02/09/22 02/09/22 04:00 04:42 05:49 WBC RBC MCHC RDW Plt Count Sodium Potassium Chloride Carbon Dioxide BUN Glucose Calcium Magnesium 5.20 H Alkaline Phosphatase Lactate Dehydrogenase Albumin Urine Creatinine 24.2 H Ur Total Protein 24 Hr 495.00 H 02/09/22 02/10/22 02/10/22 12:07 00:05 06:40 WBC RBC MCHC RDW Plt Count Sodium Potassium Chloride Carbon Dioxide BUN Glucose Calcium Magnesium 5.30 H 5.00 H 5.40 H Alkaline Phosphatase Lactate Dehydrogenase Albumin Urine Creatinine Ur Total Protein 24 Hr 02/10/22 02/12/22 02/12/22 13:49 16:56 16:56 WBC RBC MCHC RDW Plt Count 73 L Sodium 131 L Potassium Chloride Carbon Dioxide 19 L BUN Glucose Calcium Magnesium 4.70 H Alkaline Phosphatase 205 H Lactate Dehydrogenase Albumin 3.3 L Urine Creatinine Ur Total Protein 24 Hr 02/12/22 02/13/22 02/13/22 20:22 00:23 02:25 WBC RBC 3.58 L 3.59 L MCHC RDW 15.3 H 15.4 H Plt Count Sodium Potassium Chloride Carbon Dioxide BUN Glucose Calcium Magnesium 4.30 H Alkaline Phosphatase Lactate Dehydrogenase Albumin Urine Creatinine Ur Total Protein 24 Hr 02/13/22 02/13/22 02/13/22 04:38 07:12 07:12 WBC RBC MCHC RDW 15.3 H 15.3 H Plt Count Sodium 131 L Potassium Chloride 97.5 L Carbon Dioxide 21 L BUN Glucose Calcium 8.3 L Magnesium Alkaline Phosphatase 200 H Lactate Dehydrogenase Albumin 3.3 L Urine Creatinine Ur Total Protein 24 Hr 02/14/22 02/14/22 02/15/22 08:19 08:19 09:41 WBC RBC MCHC RDW 15.4 H 15.3 H Plt Count Sodium 135 L Potassium Chloride Carbon Dioxide 21 L BUN Glucose 133 H Calcium Magnesium Alkaline Phosphatase 200 H Lactate Dehydrogenase Albumin 3.4 L Urine Creatinine Ur Total Protein 24 Hr 02/16/22 02/16/22 02/16/22 04:42 07:59 14:20 WBC RBC 3.61 L MCHC 35 H RDW 15.4 H Plt Count Sodium 136 L Potassium 5.3 H 5.2 H Chloride Carbon Dioxide BUN 18 H Glucose Calcium Magnesium Alkaline Phosphatase 204 H Lactate Dehydrogenase Albumin 3.3 L Urine Creatinine Ur Total Protein 24 Hr 02/17/22 02/17/22 02/18/22 08:08 20:14 06:36 WBC RBC MCHC RDW Plt Count Sodium 134 L 136 L Potassium 5.1 H 5.4 H 5.2 H Chloride Carbon Dioxide 19 L 19 L BUN 18 H Glucose Calcium Magnesium Alkaline Phosphatase 231 H Lactate Dehydrogenase Albumin 3.6 L Urine Creatinine Ur Total Protein 24 Hr 02/19/22 11:48 WBC RBC MCHC RDW 15.7 H Plt Count Sodium Potassium Chloride Carbon Dioxide BUN Glucose Calcium Magnesium Alkaline Phosphatase Lactate Dehydrogenase Albumin Urine Creatinine Ur Total Protein 24 Hr Laboratory Results - last 24 hr 02/19/22 11:48 WBC 8.8 RBC 3.77 Hgb 10.9 Hct 33.8 MCV 90 MCH 29 MCHC 32 RDW 15.7 H Plt Count 225
[2022-02-19 12:32] LABS: Alanine Aminotransferase 20 units/L (7-56); Albumin 3.5 g/dL (3.9-5); Blood Urea Nitrogen 13 mg/dL (7-17); Calcium 9.5 mg/dL (8.4-10.2); Hemolysis Index 0
[2022-02-19 12:35] LABS: BUN/Creatinine Ratio 19
--- NOTE | 2022-02-19 14:10 | Progress Note ---
Assessment and Plan : IUP at 31 1/7 weeks gestation CHTN with superimposed preeclampsia with severe features LI Morbid obesity Echo reviewed , normal EF , mild Pul HTN Hyperkalemia - resolved Rec: Continue Labetalol 700mg TID , procardia 30mg XL Titrate the Labetalol to maintain BP 120-160/80-105mmhg , if her HR allows Max goal is 2400mg daily Twice weekly CBC/CMP to screen for end organ damage ( renal failure, thrombocytopenia, HELLP) Growth scan q 3 weeks Twice weekly BPP Delivery at 34 0/7 weeks gestations. Immediate delivery is advised if her severe HTN is uncontrolled, Cerebral symptoms persist, pt develops Pul edema, HELLP, renal failure, plt count <100,000, eclampsia, distress Subjective - Subjective Principal diagnosis: IUP @ 31 2/7 wks, CHTN with superimposed Preeclampsia, BMI 60, hyperkalemia Interval history: She has no complaints Denied chest pain , palpitations , SOB She is s/p treatment of hyperkalemia Patient reports: movement normal, other (no complaints), no new complaints, no loss of fluid, no vaginal bleeding, no contractions Objective - Vital Signs Vital Signs: Vital Signs - 12hr 02/19/22 02/19/22 02/19/22 02:12 02:15 02:18 Temperature Pulse Rate 74 73 84 Blood Pressure O2 Sat by Pulse 99 94 99 Oximetry 02/19/22 02/19/22 02/19/22 03:44 03:47 03:50 Temperature 98.4 F Pulse Rate 73 71 Blood Pressure 173/80 161/79 O2 Sat by Pulse 100 Oximetry 02/19/22 02/19/22 02/19/22 03:52 03:57 04:02 Temperature Pulse Rate 70 70 67 Blood Pressure O2 Sat by Pulse 100 100 100 Oximetry 02/19/22 02/19/22 02/19/22 04:07 04:12 04:17 Temperature Pulse Rate 68 69 67 Blood Pressure O2 Sat by Pulse 100 100 100 Oximetry 02/19/22 02/19/22 02/19/22 04:22 04:27 04:32 Temperature Pulse Rate 63 67 67 Blood Pressure 143/83 O2 Sat by Pulse 100 100 100 Oximetry 02/19/22 02/19/22 02/19/22 04:37 04:42 04:47 Temperature Pulse Rate 65 65 66 Blood Pressure O2 Sat by Pulse 100 100 100 Oximetry 02/19/22 02/19/22 02/19/22 04:52 04:56 05:02 Temperature Pulse Rate 69 69 71 Blood Pressure 154/89 O2 Sat by Pulse 100 98 100 Oximetry 02/19/22 02/19/22 02/19/22 05:07 05:12 05:17 Temperature Pulse Rate 65 71 68 Blood Pressure O2 Sat by Pulse 100 100 100 Oximetry 02/19/22 02/19/22 02/19/22 05:22 05:27 05:32 Temperature Pulse Rate 73 74 75 Blood Pressure 140/75 O2 Sat by Pulse 100 100 100 Oximetry 02/19/22 02/19/22 02/19/22 05:37 05:52 05:53 Temperature Pulse Rate 85 67 67 Blood Pressure 140/88 O2 Sat by Pulse 100 100 Oximetry 02/19/22 02/19/22 02/19/22 05:57 06:02 06:07 Temperature Pulse Rate 69 63 63 Blood Pressure O2 Sat by Pulse 100 100 100 Oximetry 02/19/22 02/19/22 02/19/22 06:12 06:17 06:22 Temperature Pulse Rate 62 63 60 Blood Pressure 133/81 O2 Sat by Pulse 100 100 100 Oximetry 02/19/22 02/19/22 02/19/22 06:27 06:32 06:37 Temperature Pulse Rate 83 68 66 Blood Pressure O2 Sat by Pulse 100 100 100 Oximetry 02/19/22 02/19/22 02/19/22 06:42 06:47 06:52 Temperature Pulse Rate 68 67 65 Blood Pressure 133/71 O2 Sat by Pulse 100 100 100 Oximetry 02/19/22 02/19/22 02/19/22 06:57 07:02 07:07 Temperature Pulse Rate 70 70 68 Blood Pressure O2 Sat by Pulse 100 100 100 Oximetry 02/19/22 02/19/22 02/19/22 07:12 07:17 07:22 Temperature Pulse Rate 69 70 74 Blood Pressure 134/69 O2 Sat by Pulse 100 96 88 Oximetry 02/19/22 02/19/22 02/19/22 07:26 07:28 07:33 Temperature Pulse Rate 75 151 H Blood Pressure O2 Sat by Pulse 94 96 0 L Oximetry 02/19/22 02/19/22 02/19/22 07:38 07:43 07:45 Temperature Pulse Rate 74 75 84 Blood Pressure O2 Sat by Pulse 0 L 98 91 Oximetry 02/19/22 02/19/22 02/19/22 07:48 07:52 07:53 Temperature Pulse Rate 75 76 73 Blood Pressure 134/70 O2 Sat by Pulse 99 99 Oximetry 02/19/22 02/19/22 02/19/22 07:58 08:03 08:06 Temperature Pulse Rate 73 72 70 Blood Pressure 139/73 O2 Sat by Pulse 97 99 Oximetry 02/19/22 02/19/22 02/19/22 08:07 08:08 09:17 Temperature Pulse Rate 65 71 73 Blood Pressure 139/73 139/73 O2 Sat by Pulse 98 97 Oximetry 02/19/22 02/19/22 02/19/22 09:22 09:23 09:27 Temperature Pulse Rate 81 83 82 Blood Pressure 128/74 O2 Sat by Pulse 97 98 Oximetry 02/19/22 02/19/22 02/19/22 09:32 09:37 09:42 Temperature Pulse Rate 70 79 81 Blood Pressure O2 Sat by Pulse 92 99 99 Oximetry 02/19/22 02/19/22 02/19/22 09:47 09:52 09:57 Temperature Pulse Rate 78 76 83 Blood Pressure 109/82 O2 Sat by Pulse 99 99 99 Oximetry 02/19/22 02/19/22 02/19/22 10:02 10:07 10:12 Temperature Pulse Rate 78 91 H 84 Blood Pressure O2 Sat by Pulse 97 99 98 Oximetry 02/19/22 02/19/22 02/19/22 10:17 10:22 10:27 Temperature Pulse Rate 81 81 77 Blood Pressure 135/63 O2 Sat by Pulse 98 98 98 Oximetry 02/19/22 02/19/22 02/19/22 10:32 10:37 10:42 Temperature Pulse Rate 79 84 76 Blood Pressure O2 Sat by Pulse 99 99 99 Oximetry 02/19/22 02/19/22 02/19/22 10:47 10:52 10:53 Temperature Pulse Rate 79 79 76 Blood Pressure 126/68 O2 Sat by Pulse 99 99 Oximetry 02/19/22 02/19/22 02/19/22 10:57 11:02 11:07 Temperature Pulse Rate 92 H 78 83 Blood Pressure O2 Sat by Pulse 100 100 98 Oximetry 02/19/22 02/19/2202/19/22 11:12 11:17 11:22 Temperature Pulse Rate 74 75 74 Blood Pressure 131/80 O2 Sat by Pulse 99 100 99 Oximetry 02/19/22 02/19/22 02/19/22 11:27 11:32 11:37 Temperature Pulse Rate 70 68 78 Blood Pressure O2 Sat by Pulse 99 99 100 Oximetry 02/19/22 02/19/22 02/19/22 11:45 11:50 11:52 Temperature Pulse Rate 75 73 67 Blood Pressure 121/75 O2 Sat by Pulse 100 99 Oximetry 02/19/22 02/19/22 02/19/22 11:55 12:00 12:05 Temperature Pulse Rate 65 75 81 Blood Pressure O2 Sat by Pulse 100 100 100 Oximetry 02/19/22 02/19/22 02/19/22 12:10 12:15 12:20 Temperature Pulse Rate 70 70 78 Blood Pressure O2 Sat by Pulse 80 L 82 L 82 L Oximetry 02/19/22 02/19/22 02/19/22 12:22 12:25 12:30 Temperature Pulse Rate 68 73 58 L Blood Pressure 151/90 O2 Sat by Pulse 72 L 80 L Oximetry 02/19/22 02/19/22 02/19/22 12:35 12:36 12:41 Temperature Pulse Rate 97 H 82 141 H Blood Pressure O2 Sat by Pulse 100 79 L 83 L Oximetry 02/19/22 02/19/22 02/19/22 12:46 12:51 12:52 Temperature Pulse Rate 72 76 75 Blood Pressure 118/86 O2 Sat by Pulse 99 99 Oximetry 02/19/22 02/19/22 02/19/22 13:23 13:28 13:33 Temperature Pulse Rate 84 85 84 Blood Pressure O2 Sat by Pulse 99 99 99 Oximetry 02/19/22 02/19/22 02/19/22 13:38 13:43 13:48 Temperature Pulse Rate 84 82 84 Blood Pressure O2 Sat by Pulse 99 98 99 Oximetry 02/19/22 02/19/22 02/19/22 13:52 13:53 13:58 Temperature Pulse Rate 86 90 80 Blood Pressure 128/64 O2 Sat by Pulse 99 99 Oximetry 02/19/22 02/19/22 14:03 14:06 Temperature Pulse Rate 78 79 Blood Pressure 128/64 O2 Sat by Pulse 97 Oximetry - Exam Narrative Exam: Laying in bed NAD Abdomen: Present: soft FHR: category 1 Uterine Contraction Pattern: Absent - Labs Labs: Abnormal Labs 02/08/22 02/08/22 02/08/22 18:40 18:40 22:52 WBC 11.8 H RBC MCHC RDW Plt Count Sodium Potassium Chloride Carbon Dioxide BUN Glucose Calcium Magnesium 3.80 H Alkaline Phosphatase Lactate Dehydrogenase 305 H Total Protein Albumin Urine Creatinine Ur Total Protein 24 Hr 02/09/22 02/09/22 02/09/22 04:00 04:42 05:49 WBC RBC MCHC RDW Plt Count Sodium Potassium Chloride Carbon Dioxide BUN Glucose Calcium Magnesium 5.20 H Alkaline Phosphatase Lactate Dehydrogenase Total Protein Albumin Urine Creatinine 24.2 H Ur Total Protein 24 Hr 495.00 H 02/09/22 02/10/22 02/10/22 12:07 00:05 06:40 WBC RBC MCHC RDW Plt Count Sodium Potassium Chloride Carbon Dioxide BUN Glucose Calcium Magnesium 5.30 H 5.00 H 5.40 H Alkaline Phosphatase Lactate Dehydrogenase Total Protein Albumin Urine Creatinine Ur Total Protein 24 Hr 02/10/22 02/12/22 02/12/22 13:49 16:56 16:56 WBC RBC MCHC RDW Plt Count 73 L Sodium 131 L Potassium Chloride Carbon Dioxide 19 L BUN Glucose Calcium Magnesium 4.70 H Alkaline Phosphatase 205 H Lactate Dehydrogenase Total Protein Albumin 3.3 L Urine Creatinine Ur Total Protein 24 Hr 02/12/22 02/13/22 02/13/22 20:22 00:23 02:25 WBC RBC 3.58 L 3.59 L MCHC RDW 15.3 H 15.4 H Plt Count Sodium Potassium Chloride Carbon Dioxide BUN Glucose Calcium Magnesium 4.30 H Alkaline Phosphatase Lactate Dehydrogenase Total Protein Albumin Urine Creatinine Ur Total Protein 24 Hr 02/13/22 02/13/22 02/13/22 04:38 07:12 07:12 WBC RBC MCHC RDW 15.3 H 15.3 H Plt Count Sodium 131 L Potassium Chloride 97.5 L Carbon Dioxide 21 L BUN Glucose Calcium 8.3 L Magnesium Alkaline Phosphatase 200 H Lactate Dehydrogenase Total Protein Albumin 3.3 L Urine Creatinine Ur Total Protein 24 Hr 02/14/22 02/14/22 02/15/22 08:19 08:19 09:41 WBC RBC MCHC RDW 15.4 H 15.3 H Plt Count Sodium 135 L Potassium Chloride Carbon Dioxide 21 L BUN Glucose 133 H Calcium Magnesium Alkaline Phosphatase 200 H Lactate Dehydrogenase Total Protein Albumin 3.4 L Urine Creatinine Ur Total Protein 24 Hr 02/16/22 02/16/22 02/16/22 04:42 07:59 14:20 WBC RBC 3.61 L MCHC 35 H RDW 15.4 H Plt Count Sodium 136 L Potassium 5.3 H 5.2 H Chloride Carbon Dioxide BUN 18 H Glucose Calcium Magnesium Alkaline Phosphatase 204 H Lactate Dehydrogenase Total Protein Albumin 3.3 L Urine Creatinine Ur Total Protein 24 Hr 02/17/22 02/17/22 02/18/22 08:08 20:14 06:36 WBC RBC MCHC RDW Plt Count Sodium 134 L 136 L Potassium 5.1 H 5.4 H 5.2 H Chloride Carbon Dioxide 19 L 19 L BUN 18 H Glucose Calcium Magnesium Alkaline Phosphatase 231 H Lactate Dehydrogenase Total Protein Albumin 3.6 L Urine Creatinine Ur Total Protein 24 Hr 02/19/22 02/19/22 11:48 11:48 WBC RBC MCHC RDW 15.7 H Plt Count Sodium 135 L Potassium Chloride Carbon Dioxide 19 L BUN Glucose Calcium Magnesium Alkaline Phosphatase 220 H Lactate Dehydrogenase Total Protein 5.9 L Albumin 3.5 L Urine Creatinine Ur Total Protein 24 Hr Laboratory Results - last 24 hr 02/19/22 02/19/22 11:48 11:48 WBC 8.8 RBC 3.77 Hgb 10.9 Hct 33.8 MCV 90 MCH 29 MCHC 32 RDW 15.7 H Plt Count 225 Sodium 135 L Potassium 4.7 Chloride 103.2 Carbon Dioxide 19 L Anion Gap 18 BUN 13 Creatinine 0.7 Estimated GFR > 60 BUN/Creatinine Ratio 19 Glucose 95 Calcium 9.5 Total Bilirubin < 0.20 AST 15 ALT 20 Alkaline Phosphatase 220 H Total Protein 5.9 L Albumin 3.5 L Albumin/Globulin Ratio 1.5
--- NOTE | 2022-02-19 17:09 | Event Note ---
Date: 02/19/22 monitor strip currently minimal variability with occasional decelerations. FHR monitor strip is hard to monitor d/t patient's morbid obesity, and patient moving around in bed. There was a period of the strip in the last 30 minutes that looked reactive. Consulted with Dr. Benavides. Discussed with patient the need for continuous monitoring at this time. We also discussed that we will obtain another BPP with a full SHAYY to see how the baby is doing. BPP with full SHAYY ordered for 0800am on 02/20.
--- NOTE | 2022-02-19 17:20 | Progress Note ---
Assessment and Plan Assessment and plan: --Hyperkalemia; resolved Closely monitor electrolytes --Hypertension; well controlled Continue current antihypertensives and as needed medications Rest of the management per [employer]ELTING [employer]INE[employer] Plan of care reviewed with the patient and her nurse Thank you for this consultation Will sign off Reconsult us if needed History Interval history: 41-year-old female patient with intrauterine at 30. 6/7 weeks gestation was admitted by SMELTING ENGINEER For further evaluation and management. Hospitalist service was consulted to manage hyperkalemia. Patient received doses of Kayexalate, today patient's potassium is within normal limits Blood pressures well controlled I have seen and examined the patient at the bedside in her room Patient feels better no new complaints Hospitalist Physical - Constitutional Vitals: Temp Pulse Resp BP Pulse Ox 98.4 F 62 16 136/82 81 L 02/19/22 03:44 02/19/22 17:14 02/18/22 15:04 02/19/22 16:52 02/19/22 17:14 General appearance: Present: no acute distress, well-nourished, obese (Morbidly obese) - EENT Eyes: Present: PERRL, EOM intact - Neck Neck: Present: supple, normal ROM - Respiratory Respiratory effort: normal Respiratory: bilateral: diminished, negative: rales, rhonchi, wheezing - Cardiovascular Rhythm: regular Heart Sounds: Present: S1 & S2 - Extremities Extremities: no ischemia, Full ROM - Abdominal General gastrointestinal: soft, non-tender, non-distended, normal bowel sounds - Integumentary Integumentary: Present: clear, warm - Psychiatric Psychiatric: appropriate mood/affect, cooperative - Neurologic Neurologic: moves all extremities Results - Labs CBC & Chem 7: 02/19/22 11:48 02/19/22 11:48 Labs: Laboratory Last Values WBC 8.8 K/mm3 (4.5-11.0) 02/19/22 11:48 RBC 3.77 M/mm3 (3.65-5.03) 02/19/22 11:48 Hgb 10.9 gm/dl (10.1-14.3) 02/19/22 11:48 Hct 33.8 % (30.3-42.9) 02/19/22 11:48 MCV 90 fl (79-97) 02/19/22 11:48 MCH 29 pg (28-32) 02/19/22 11:48 MCHC 32 % (30-34) 02/19/22 11:48 RDW 15.7 % (13.2-15.2) H 02/19/22 11:48 Plt Count 225 K/mm3 (140-440) 02/19/22 11:48 Sodium 135 mmol/L (137-145) L 02/19/22 11:48 Potassium 4.7 mmol/L (3.6-5.0) 02/19/22 11:48 Chloride 103.2 mmol/L (98-107) 02/19/22 11:48 Carbon Dioxide 19 mmol/L (22-30) L 02/19/22 11:48 Anion Gap 18 mmol/L 02/19/22 11:48 BUN 13 mg/dL (7-17) 02/19/22 11:48 Creatinine 0.7 mg/dL (0.6-1.2) 02/19/22 11:48 Estimated GFR > 60 ml/min 02/19/22 11:48 BUN/Creatinine Ratio 19 % 02/19/22 11:48 Glucose 95 mg/dL (65-100) 02/19/22 11:48 Uric Acid 5.6 mg/dL (3.5-7.6) 02/08/22 18:40 Calcium 9.5 mg/dL (8.4-10.2) 02/19/22 11:48 Magnesium 4.30 mg/dL (1.7-2.3) H 02/13/22 02:25 Total Bilirubin < 0.20 mg/dL (0.1-1.2) 02/19/22 11:48 AST 15 units/L (5-40) 02/19/22 11:48 ALT 20 units/L (7-56) 02/19/22 11:48 Alkaline Phosphatase 220 units/L (35-129) H 02/19/22 11:48 Lactate Dehydrogenase 305 units/L (91-180) H 02/08/22 18:40 Total Protein 5.9 g/dL (6.3-8.2) L 02/19/22 11:48 Albumin 3.5 g/dL (3.9-5) L 02/19/22 11:48 Albumin/Globulin Ratio 1.5 % 02/19/22 11:48 Urine Color Yellow (Yellow) 02/08/22 Unknown Urine Turbidity Hazy (Clear) 02/08/22 Unknown Urine pH 6.0 (5.0-7.0) 02/08/22 Unknown Ur Specific [place] 1.024 (1.003-1.030) 02/08/22 Unknown Urine Protein 30 mg/dl mg/dL (Negative) 02/08/22 Unknown Urine Glucose (UA) Neg mg/dL (Negative) 02/08/22 Unknown Urine Ketones Neg mg/dL (Negative) 02/08/22 Unknown Urine Blood Neg (Negative) 02/08/22 Unknown Urine Nitrite Pos (Negative) 02/08/22 Unknown Urine Bilirubin Neg (Negative) 02/08/22 Unknown Urine Urobilinogen 2.0 mg/dL (<2.0) 02/08/22 Unknown Ur Leukocyte Esterase Neg (Negative) 02/08/22 Unknown Urine WBC (Auto) 2.0 /HPF (0.0-6.0) 02/08/22 Unknown Urine RBC (Auto) 1.0 /HPF (0.0-6.0) 02/08/22 Unknown U Epithel Cells (Auto) < 1.0 /HPF (0-13.0) 02/08/22 Unknown Urine Bacteria (Auto) 4+ /HPF (Negative) 02/08/22 Unknown Urine Mucus Few /HPF 02/08/22 Unknown Urine Total Volume 4500 ml 02/09/22 04:00 Urine Creatinine 24.2 mg/dL (0.1-20.0) H 02/09/22 04:42 Ur Total Protein 24 Hr 495.00 mg/dL (2-200) H 02/09/22 04:00 Protein/Creatinin Ratio 0.45 02/09/22 04:42 Urine Total Protein 11 mg/dL (5-11.8) 02/09/22 04:42 Syphilis IgG/IgM Ab Nonreactive (NonReactive) 02/12/22 20:22 SARS-CoV-2 (PCR) Negative (Negative) 02/13/22 10:00 Hepatitis A IgM Ab Non-reactive (NonReactive) 02/17/22 22:00 Hep Bs Antigen Non-reactive (Negative) 02/17/22 22:00 Hep B Core IgM Ab Non-reactive (NonReactive) 02/17/22 22:00 Hepatitis C Antibody Non-reactive (NonReactive) 02/17/22 22:00 HIV 1&2 Antibody Rapid Non react (Non React) 02/17/22 22:00 HIV P24 Antigen Non react (Non React) 02/17/22 22:00 Blood Type O POSITIVE 02/12/22 19:46 Antibody Screen Negative 02/12/22 19:46 Active Medications - Current Medications Current Medications: Generic Name Dose Route Start Last Admin Trade Name Freq PRN Reason Stop Dose Admin Acetaminophen 1,000 mg 02/11/22 16:30 02/13/22 18:48 Acetaminophen 500 Mg Tab PO 1,000 mg Q6H PRN Administration Pain, Mild (1-3) Al Hydrox/Mg Hydrox/Simethicone 30 ml 02/08/22 17:26 Alum-Mag Hydroxide-Simethicone [id number] Oral Liqd 30 Ml PO Q6H PRN Indigestion Albuterol 2.5 mg 02/12/22 00:05 Albuterol 2.5 Mg/3 Ml Nebu IH Q4HRT PRN Shortness Of Breath Diphenhydramine HCl 25 mg 02/12/22 00:05 02/18/22 22:50 Diphenhydramine 25 Mg Cap PO 25 mg QHS PRN Administration Sleep Docusate Sodium 100 mg 02/08/22 17:26 02/16/22 21:49 Docusate Sodium 100 Mg Cap PO 100 mg Q12H PRN Administration Constipation Ephedrine Sulfate 10 mg 02/12/22 19:27 Ephedrine Sulfate 50 Mg/1 Ml Inj IV Q2M PRN Hypotension Hydralazine HCl 5 mg 02/08/22 20:14 02/15/22 04:59 Hydralazine 20 Mg/1 Ml Inj IV 5 mg Q30MIN PRN Administration Hypertension Hydralazine HCl 25 mg 02/18/22 14:00 02/19/22 14:48 Hydralazine 25 Mg Tab PO 25 mg Q8HR ANNAMARIA Administration Lactated Ringer's 1,000 mls @ 75 mls/hr 02/08/22 17:30 02/19/22 05:44 Lactated Ringers IV 75 mls/hr DIRECT ANNAMARIA Administration Labetalol HCl 600 mg 02/18/22 10:30 02/19/22 14:06 Labetalol 200 Mg Tab PO 600 mg TID ANNAMARIA Administration Labetalol HCl 100 mg 02/18/22 10:30 02/19/22 14:06 Labetalol 100 Mg Tab PO 100 mg TID ANNAMARIA Administration Magnesium Hydroxide 30 ml 02/08/22 17:26 Magnesium Hydroxide (Mom) Oral Liqd Udc PO QHS PRN Laxative Effect Multivitamins/Iron/Calcium 1 each 02/09/22 10:00 02/19/22 10:02 [id number] Fumarate-Folic Acid Vit Tab PO 1 each QDAY ANNAMARIA Administration Nifedipine 60 mg 02/15/22 22:00 02/19/22 10:11 Nifedipine Xl 60 Mg Tab PO 60 mg BID ANNAMARIA Administration Ondansetron HCl 4 mg 02/12/22 19:27 Ondansetron 4 Mg/2 Ml Inj IV Q8H PRN Nausea And Vomiting Senna/Docusate Sodium 2 tab 02/08/22 17:26 Sennosides/Docusate Sodium 8.6/50 Mg Tab PO Q12H PRN Laxative Effect Simethicone 80 mg 02/08/22 17:26 Simethicone 80 Mg Chew Tab PO Q6H PRN Gas pain Terbutaline Sulfate 0.25 mg 02/12/22 20:30 Terbutaline 1 Mg/1 Ml Inj SUB-Q ONCE PRN Hyperstimulation/Hypertonicity Nutrition/Malnutrition Assess - Dietary Evaluation Nutrition/Malnutrition Findings: Nutrition Notes Start: 02/15/22 16:33 Freq: Status: Active Protocol: Document 02/15/22 16:33 LUKAS (Rec: 02/15/22 16:48 LUKAS [email or web address]) Nutrition Notes Need for Assessment generated from: LOS Initial or Follow up Assessment Current Diagnosis Hypertension Other Pertinent Diagnosis Asthma, Sleep Apnea. Current Diet Cardiac Diet (since D 02/13). Labs/Tests 02/14: Na 135, CO2 21, Glu 133 . Pertinent Medications 02/15: Vitamins, others nutritionally unremarkable. Height 5 ft 1 in Weight 143.335 kg [place] Body Weight (kg) 47.72 BMI 59.7 Intake Prior to Admission Good Weight change and time frame Pt denies having loss body weight [employer]. Weight Status Morbidly Obese Subjective/Other Information RD consult for LOS assessment. No reports on Pt's PO intake of meals at the time, will assess at F/U. Pt is G5, P3, SA 1 LC 3, IUP @ 30w 3 d, according to Progress notes. Possible induce delivery at 34 w 0d if HTN still uncontrolled, according to Progress notes. Pt is on Room Air, O2 saturation @ 99%, according to Vital Signs notes. Percent of energy/protein needs met: Prescribed Cardiac Diet provides for energy/protein needs (2,230 Kcal/85 g) during LOS. Burn Absent Trauma Absent GI Symptoms None Food Allergy No Skin Integrity/Comment Assessment WNL. Minimum of two criteria No #1 Nutrition Diagnosis No nutrition diagnosis at this time Comments: Will assess Pt's PO intake of meals at F/U. Is patient on ventilator? No Is Patient Ambulatory and/or Out of Bed Yes REE-([facility]-ambulatory/OOB) [ 2659.449 [id number]] Kcal/Kg value to use for calculation 8 Approximate Energy Requirements Using 1147 kcal/Kg Calculation Used for Recommendations Kcal/kg Additional Notes Protein: 1.1 g/Kg AdjBW; 106 g /day. Fluids: 1 ml/Kcal, or as per MD. Nutrition Intervention Change Diet Order: Continue Cardiac Diet. Goal #1 Adjust the dietary intervention to better serve Pt's needs and clinical conditions during LOS. Goal #2 Maintain body weight within +/ -3% of admission body weight during LOS. Follow-Up By: 02/22/22 Additional Comments Continue monitoring food tolerance, %PO intake of meals , and BM.
--- NOTE | 2022-02-19 21:58 | Event Note ---
Date: 02/19/22 Received a call from nurse that there was a heart rate deceleration seen on the monitor. Upon enter room for assessment, pt was on her left lateral. There was a deceleration noted on the monitor. There was a lot of movement heard on the monitor. She has been category 2 but her BPP this AM at 0500 was 8/8. Pt also had complaints of increase in lower abdominal and vaginal pain. No contractions noted on monitor. Cervical exam 0/0/OOP. Will continue to monitor and keep with plan for continuous monitoring and BPP on 02/20.
[2022-02-19] MEDS: diphenhydrAMINE 25 MG CAP PO PRN (23:21)
--- NOTE | 2022-02-20 07:10 | Progress Note ---
Assessment and Plan IUP @ 31.1 wks, CHTN with superimposed Preeclampsia, BMI 60 - Patient Problems (1) Morbid obesity Current Visit: Yes Status: Chronic (2) Pre-eclampsia superimposed on chronic hypertension Current Visit: Yes Status: Acute Plan to address problem: Cardiology and AMFM continues to follow patient. Continue Labetalol; titrate up to 800 mg tid to keep BP < 160/110 - Currently at 700mg TID. Continue with Procardia 60 mg BID. Hydralazine 25 mg PO q 8 hrs re-added to blood pressure regime. Repeat CBC/CMP at least twice weekly -CMP and CBC ordered for 02/21. Delivery at 34 0/7 weeks gestations. Immediate delivery is advised if her severe HTN is uncontrolled, Cerebral symptoms persist, pt develops Pul edema, HELLP, renal failure, plt count <100,000, eclampsia, distress Continue to monitor blood pressures. Continue to monitor for worsening s/sx of pre eclampsia. (3) Hyperkalemia Current Visit: Yes Status: Resolved Plan to address problem: Potassium on: - 02/15 was 5.3 - 02/16 was 5.2 -> 5.3 -02/18 5.2 -02/19 4.7 -02/20 4.7. - s/p Kayexalate and Calcium glcuconate - Was managed by hospitalist. -They have signed off on her care. (4) 31 weeks gestation of Current Visit: Yes Status: Acute Plan to address problem: Continue with q 4 hr NST's. - monitor strip with variability at the time of this assessment. - RN aware now may be q 4 hr NST's. BPP twice weekly. - Last completed on 02/19 06/06, vertex. - Next ordered for 02/20. - Vertex presentation on last BPP. Growth Scans q 2 wks. - On 02/15 1545 gms. - Ordered next for March 01. Subjective - Subjective Date of service: 02/20/22 Principal diagnosis: IUP @ 31 wks, CHTN with superimposed Preeclampsia, BMI 60 Interval history: Pt denies GROSSMAN, blurred vision, spots before her eyes, chest pain, shortness of breath, upper abdominal pain, ctxs, vaginal bleeding, LOF. Patient reports: movement normal, other (no complaints), no new complaints, no loss of fluid, no vaginal bleeding, no contractions Objective - Vital Signs Vital Signs: Vital Signs - 12hr 02/19/22 02/19/22 02/19/22 19:09 19:11 19:15 Temperature Pulse Rate 60 80 Blood Pressure O2 Sat by Pulse 79 L 76 L 98 Oximetry O2 Sat by Pulse Oximetry [ Bilateral Throughout] 02/19/22 02/19/22 02/19/22 19:17 19:20 19:22 Temperature 98.6 F Pulse Rate 73 75 Blood Pressure 105/58 O2 Sat by Pulse 99 Oximetry O2 Sat by Pulse 99 Oximetry [ Bilateral Throughout] 02/19/22 02/19/22 02/19/22 19:25 19:30 19:35 Temperature Pulse Rate 73 69 71 Blood Pressure O2 Sat by Pulse 99 99 99 Oximetry O2 Sat by Pulse Oximetry [ Bilateral Throughout] 02/19/22 02/19/22 02/19/22 19:40 19:45 19:50 Temperature Pulse Rate 71 70 69 Blood Pressure O2 Sat by Pulse 99 100 99 Oximetry O2 Sat by Pulse Oximetry [ Bilateral Throughout] 02/19/22 02/19/22 02/19/22 19:52 19:55 20:00 Temperature Pulse Rate 68 66 71 Blood Pressure 119/65 O2 Sat by Pulse 99 100 Oximetry O2 Sat by Pulse Oximetry [ Bilateral Throughout] 02/19/22 02/19/22 02/19/22 20:01 20:02 20:05 Temperature Pulse Rate 73 73 85 Blood Pressure 119/65 119/65 O2 Sat by Pulse 100 Oximetry O2 Sat by Pulse Oximetry [ Bilateral Throughout] 02/19/22 02/19/22 02/19/22 20:10 20:15 20:20 Temperature Pulse Rate 79 77 73 Blood Pressure O2 Sat by Pulse 100 100 99 Oximetry O2 Sat by Pulse Oximetry [ Bilateral Throughout] 02/19/22 02/19/22 02/19/22 20:22 20:25 20:30 Temperature Pulse Rate 71 73 72 Blood Pressure 143/82 O2 Sat by Pulse 100 100 Oximetry O2 Sat by Pulse Oximetry [ Bilateral Throughout] 02/19/22 02/19/22 02/19/22 20:35 20:40 20:45 Temperature Pulse Rate 73 71 74 Blood Pressure O2 Sat by Pulse 99 99 100 Oximetry O2 Sat by Pulse Oximetry [ Bilateral Throughout] 02/19/22 02/19/2202/19/22 20:50 20:52 20:55 Temperature Pulse Rate 72 68 72 Blood Pressure 132/82 O2 Sat by Pulse 99 100 Oximetry O2 Sat by Pulse Oximetry [ Bilateral Throughout] 02/19/22 02/19/22 02/19/22 21:00 21:05 21:10 Temperature Pulse Rate 70 73 70 Blood Pressure O2 Sat by Pulse 100 100 100 Oximetry O2 Sat by Pulse Oximetry [ Bilateral Throughout] 02/19/22 02/19/22 02/19/22 21:15 21:20 21:22 Temperature Pulse Rate 74 79 73 Blood Pressure 140/88 O2 Sat by Pulse 100 100 Oximetry O2 Sat by Pulse Oximetry [ Bilateral Throughout] 02/19/22 02/19/22 02/19/22 21:25 21:30 21:35 Temperature Pulse Rate 83 79 74 Blood Pressure O2 Sat by Pulse 100 100 99 Oximetry O2 Sat by Pulse Oximetry [ Bilateral Throughout] 02/19/22 02/19/22 02/19/22 21:40 21:45 21:50 Temperature Pulse Rate 74 85 78 Blood Pressure O2 Sat by Pulse 99 99 100 Oximetry O2 Sat by Pulse Oximetry [ Bilateral Throughout] 02/19/22 02/19/22 02/19/22 21:52 21:55 22:00 Temperature Pulse Rate 76 79 76 Blood Pressure 133/64 O2 Sat by Pulse 100 100 Oximetry O2 Sat by Pulse Oximetry [ Bilateral Throughout] 02/19/22 02/19/22 02/19/22 22:28 22:33 22:34 Temperature Pulse Rate 78 75 74 Blood Pressure 162/97 O2 Sat by Pulse 99 99 Oximetry O2 Sat by Pulse Oximetry [ Bilateral Throughout] 02/19/22 02/19/22 02/19/22 22:36 22:38 22:43 Temperature Pulse Rate 74 71 77 Blood Pressure 162/92 O2 Sat by Pulse 99 100 Oximetry O2 Sat by Pulse Oximetry [ Bilateral Throughout] 02/19/22 02/19/22 02/19/22 22:49 22:52 22:54 Temperature Pulse Rate 71 69 71 Blood Pressure 156/98 O2 Sat by Pulse 100 100 Oximetry O2 Sat by Pulse Oximetry [ Bilateral Throughout] 02/19/22 02/19/22 02/19/22 22:59 23:04 23:09 Temperature Pulse Rate 74 70 73 Blood Pressure 165/99 O2 Sat by Pulse 99 99 100 Oximetry O2 Sat by Pulse Oximetry [ Bilateral Throughout] 02/19/22 02/19/22 02/19/22 23:11 23:14 23:19 Temperature 98.0 F Pulse Rate 77 72 Blood Pressure O2 Sat by Pulse 100 100 Oximetry O2 Sat by Pulse Oximetry [ Bilateral Throughout] 02/19/22 02/19/22 02/19/22 23:53 23:57 23:58 Temperature Pulse Rate 65 67 67 Blood Pressure 173/106 165/105 O2 Sat by Pulse 100 100 Oximetry O2 Sat by Pulse Oximetry [ Bilateral Throughout] 02/20/22 02/20/22 02/20/22 00:03 00:08 00:13 Temperature Pulse Rate 71 64 81 Blood Pressure O2 Sat by Pulse 100 100 99 Oximetry O2 Sat by Pulse Oximetry [ Bilateral Throughout] 02/20/22 02/20/22 02/20/22 00:18 00:23 00:28 Temperature Pulse Rate 78 85 67 Blood Pressure O2 Sat by Pulse 100 100 99 Oximetry O2 Sat by Pulse Oximetry [ Bilateral Throughout] 02/20/22 02/20/22 02/20/22 00:33 00:38 00:43 Temperature Pulse Rate 67 69 71 Blood Pressure O2 Sat by Pulse 99 99 99 Oximetry O2 Sat by Pulse Oximetry [ Bilateral Throughout] 02/20/22 02/20/22 02/20/22 00:48 00:53 00:58 Temperature Pulse Rate 71 72 75 Blood Pressure 159/91 O2 Sat by Pulse 99 99 98 Oximetry O2 Sat by Pulse Oximetry [ Bilateral Throughout] 02/20/22 02/20/22 02/20/22 01:03 01:09 01:14 Temperature Pulse Rate 72 96 H 68 Blood Pressure O2 Sat by Pulse 98 99 100 Oximetry O2 Sat by Pulse Oximetry [ Bilateral Throughout] 02/20/22 02/20/22 02/20/22 01:19 01:24 01:29 Temperature Pulse Rate 71 71 72 Blood Pressure O2 Sat by Pulse 100 100 100 Oximetry O2 Sat by Pulse Oximetry [ Bilateral Throughout] 02/20/22 02/20/22 02/20/22 01:34 01:39 01:44 Temperature Pulse Rate 79 80 76 Blood Pressure O2 Sat by Pulse 99 99 100 Oximetry O2 Sat by Pulse Oximetry [ Bilateral Throughout] 02/20/22 02/20/22 02/20/22 01:49 01:54 01:59 Temperature Pulse Rate 75 73 75 Blood Pressure O2 Sat by Pulse 100 100 100 Oximetry O2 Sat by Pulse Oximetry [ Bilateral Throughout] 02/20/22 02/20/22 02/20/22 02:04 02:09 02:14 Temperature 98.3 F Pulse Rate 73 72 73 Blood Pressure 144/87 O2 Sat by Pulse 99 100 99 Oximetry O2 Sat by Pulse Oximetry [ Bilateral Throughout] 02/20/22 02/20/22 02/20/22 02:19 02:24 02:29 Temperature Pulse Rate 71 72 71 Blood Pressure O2 Sat by Pulse 99 100 99 Oximetry O2 Sat by Pulse Oximetry [ Bilateral Throughout] 02/20/22 02/20/22 02/20/22 02:34 02:39 02:44 Temperature Pulse Rate 71 67 69 Blood Pressure O2 Sat by Pulse 99 100 100 Oximetry O2 Sat by Pulse Oximetry [ Bilateral Throughout] 02/20/22 02/20/22 02/20/22 02:49 02:54 02:59 Temperature Pulse Rate 70 71 68 Blood Pressure O2 Sat by Pulse 99 100 100 Oximetry O2 Sat by Pulse Oximetry [ Bilateral Throughout] 02/20/22 02/20/22 02/20/22 03:04 03:09 03:14 Temperature Pulse Rate 70 71 68 Blood Pressure O2 Sat by Pulse 100 99 100 Oximetry O2 Sat by Pulse Oximetry [ Bilateral Throughout] 02/20/22 02/20/22 02/20/22 03:19 03:24 03:29 Temperature Pulse Rate 71 70 72 Blood Pressure O2 Sat by Pulse 100 100 100 Oximetry O2 Sat by Pulse Oximetry [ Bilateral Throughout] 02/20/22 02/20/22 02/20/22 03:34 03:39 03:44 Temperature Pulse Rate 71 66 67 Blood Pressure O2 Sat by Pulse 99 99 100 Oximetry O2 Sat by Pulse Oximetry [ Bilateral Throughout] 02/20/22 02/20/22 02/20/22 03:49 03:54 03:59 Temperature Pulse Rate 67 74 65 Blood Pressure O2 Sat by Pulse 100 99 100 Oximetry O2 Sat by Pulse Oximetry [ Bilateral Throughout] 02/20/22 02/20/22 02/20/22 04:04 04:09 04:14 Temperature Pulse Rate 66 65 69 Blood Pressure O2 Sat by Pulse 100 100 100 Oximetry O2 Sat by Pulse Oximetry [ Bilateral Throughout] 02/20/22 02/20/22 02/20/22 04:19 04:24 04:29 Temperature Pulse Rate 72 69 69 Blood Pressure O2 Sat by Pulse 98 100 99 Oximetry O2 Sat by Pulse Oximetry [ Bilateral Throughout] 02/20/22 02/20/22 02/20/22 04:34 04:39 04:44 Temperature Pulse Rate 70 68 67 Blood Pressure O2 Sat by Pulse 100 99 99 Oximetry O2 Sat by Pulse Oximetry [ Bilateral Throughout] 02/20/22 02/20/22 02/20/22 04:49 04:54 04:59 Temperature Pulse Rate 63 66 68 Blood Pressure O2 Sat by Pulse 99 99 99 Oximetry O2 Sat by Pulse Oximetry [ Bilateral Throughout] 02/20/22 02/20/22 02/20/22 05:04 05:09 05:14 Temperature Pulse Rate 74 68 66 Blood Pressure O2 Sat by Pulse 99 99 99 Oximetry O2 Sat by Pulse Oximetry [ Bilateral Throughout] 02/20/22 02/20/22 02/20/22 05:19 05:24 05:29 Temperature Pulse Rate 67 71 68 Blood Pressure O2 Sat by Pulse 99 99 99 Oximetry O2 Sat by Pulse Oximetry [ Bilateral Throughout] 02/20/22 02/20/22 02/20/22 05:34 05:39 05:44 Temperature Pulse Rate 67 68 68 Blood Pressure O2 Sat by Pulse 99 99 99 Oximetry O2 Sat by Pulse Oximetry [ Bilateral Throughout] 02/20/22 02/20/22 02/20/22 05:49 05:52 05:53 Temperature 98.6 F Pulse Rate 70 77 Blood Pressure 159/92 O2 Sat by Pulse 99 Oximetry O2 Sat by Pulse Oximetry [ Bilateral Throughout] 02/20/22 02/20/22 02/20/22 05:54 05:59 06:04 Temperature Pulse Rate 84 72 80 Blood Pressure O2 Sat by Pulse 100 99 100 Oximetry O2 Sat by Pulse Oximetry [ Bilateral Throughout] 02/20/22 02/20/22 02/20/22 06:09 06:14 06:19 Temperature Pulse Rate 74 72 71 Blood Pressure O2 Sat by Pulse 100 100 100 Oximetry O2 Sat by Pulse Oximetry [ Bilateral Throughout] 02/20/22 02/20/22 02/20/22 06:24 06:29 06:34 Temperature Pulse Rate 70 76 70 Blood Pressure O2 Sat by Pulse 100 100 100 Oximetry O2 Sat by Pulse Oximetry [ Bilateral Throughout] 02/20/22 02/20/22 02/20/22 06:39 06:44 06:49 Temperature Pulse Rate 78 72 74 Blood Pressure O2 Sat by Pulse 100 100 100 Oximetry O2 Sat by Pulse Oximetry [ Bilateral Throughout] 02/20/22 02/20/22 02/20/22 06:54 06:59 07:04 Temperature Pulse Rate 78 72 79 Blood Pressure O2 Sat by Pulse 100 100 99 Oximetry O2 Sat by Pulse Oximetry [ Bilateral Throughout] - Exam Narrative Exam: Blood pressure ranges have mostly been 120-140's/80-90's. Pt has had some adjustments in her blood pressure medication. 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 Within an hour of administration of blood pressure medication blood pressure decreased to 150s/90's. There has also been an improvement of the monitor strip. No accelerations noted, but moderate variability noted. Breasts: deferred Cardiovascular: Regular rate Lungs: Normal air movement Abdomen: Present: normal appearance, soft Vulva: both: normal Uterus: Present: normal FHR: category 1 (moderate variability) Uterine Contraction Monitor Mode: External Uterine Contraction Pattern: Absent Uterine Contraction Intensity: Mild Extremities: edema (+ edema to hands and feet. ) - Labs Labs: Abnormal Labs 02/08/22 02/08/22 02/08/22 18:40 18:40 22:52 WBC 11.8 H RBC MCHC RDW Plt Count Sodium Potassium Chloride Carbon Dioxide BUN Glucose Calcium Magnesium 3.80 H Alkaline Phosphatase Lactate Dehydrogenase 305 H Total Protein Albumin Urine Creatinine Ur Total Protein 24 Hr 02/09/22 02/09/22 02/09/22 04:00 04:42 05:49 WBC RBC MCHC RDW Plt Count Sodium Potassium Chloride Carbon Dioxide BUN Glucose Calcium Magnesium 5.20 H Alkaline Phosphatase Lactate Dehydrogenase Total Protein Albumin Urine Creatinine 24.2 H Ur Total Protein 24 Hr 495.00 H 02/09/22 02/10/22 02/10/22 12:07 00:05 06:40 WBC RBC MCHC RDW Plt Count Sodium Potassium Chloride Carbon Dioxide BUN Glucose Calcium Magnesium 5.30 H 5.00 H 5.40 H Alkaline Phosphatase Lactate Dehydrogenase Total Protein Albumin Urine Creatinine Ur Total Protein 24 Hr 02/10/22 02/12/22 02/12/22 13:49 16:56 16:56 WBC RBC MCHC RDW Plt Count 73 L Sodium 131 L Potassium Chloride Carbon Dioxide 19 L BUN Glucose Calcium Magnesium 4.70 H Alkaline Phosphatase 205 H Lactate Dehydrogenase Total Protein Albumin 3.3 L Urine Creatinine Ur Total Protein 24 Hr 02/12/22 02/13/22 02/13/22 20:22 00:23 02:25 WBC RBC 3.58 L 3.59 L MCHC RDW 15.3 H 15.4 H Plt Count Sodium Potassium Chloride Carbon Dioxide BUN Glucose Calcium Magnesium 4.30 H Alkaline Phosphatase Lactate Dehydrogenase Total Protein Albumin Urine Creatinine Ur Total Protein 24 Hr 02/13/22 02/13/22 02/13/22 04:38 07:12 07:12 WBC RBC MCHC RDW 15.3 H 15.3 H Plt Count Sodium 131 L Potassium Chloride 97.5 L Carbon Dioxide 21 L BUN Glucose Calcium 8.3 L Magnesium Alkaline Phosphatase 200 H Lactate Dehydrogenase Total Protein Albumin 3.3 L Urine Creatinine Ur Total Protein 24 Hr 02/14/22 02/14/22 02/15/22 08:19 08:19 09:41 WBC RBC MCHC RDW 15.4 H 15.3 H Plt Count Sodium 135 L Potassium Chloride Carbon Dioxide 21 L BUN Glucose 133 H Calcium Magnesium Alkaline Phosphatase 200 H Lactate Dehydrogenase Total Protein Albumin 3.4 L Urine Creatinine Ur Total Protein 24 Hr 02/16/22 02/16/22 02/16/22 04:42 07:59 14:20 WBC RBC 3.61 L MCHC 35 H RDW 15.4 H Plt Count Sodium 136 L Potassium 5.3 H 5.2 H Chloride Carbon Dioxide BUN 18 H Glucose Calcium Magnesium Alkaline Phosphatase 204 H Lactate Dehydrogenase Total Protein Albumin 3.3 L Urine Creatinine Ur Total Protein 24 Hr 02/17/22 02/17/22 02/18/22 08:08 20:14 06:36 WBC RBC MCHC RDW Plt Count Sodium 134 L 136 L Potassium 5.1 H 5.4 H 5.2 H Chloride Carbon Dioxide 19 L 19 L BUN 18 H Glucose Calcium Magnesium Alkaline Phosphatase 231 H Lactate Dehydrogenase Total Protein Albumin 3.6 L Urine Creatinine Ur Total Protein 24 Hr 02/19/22 02/19/22 11:48 11:48 WBC RBC MCHC RDW 15.7 H Plt Count Sodium 135 L Potassium Chloride Carbon Dioxide 19 L BUN Glucose Calcium Magnesium Alkaline Phosphatase 220 H Lactate Dehydrogenase Total Protein 5.9 L Albumin 3.5 L Urine Creatinine Ur Total Protein 24 Hr Laboratory Results - last 24 hr 02/19/22 02/19/22 11:48 11:48 WBC 8.8 RBC 3.77 Hgb 10.9 Hct 33.8 MCV 90 MCH 29 MCHC 32 RDW 15.7 H Plt Count 225 Sodium 135 L Potassium 4.7 Chloride 103.2 Carbon Dioxide 19 L Anion Gap 18 BUN 13 Creatinine 0.7 Estimated GFR > 60 BUN/Creatinine Ratio 19 Glucose 95 Calcium 9.5 Total Bilirubin < 0.20 AST 15 ALT 20 Alkaline Phosphatase 220 H Total Protein 5.9 L Albumin 3.5 L Albumin/Globulin Ratio 1.5
[2022-02-20] MEDS: hydrALAZINE 25 MG TAB PO SCH ×3 (07:18→22:23)
[2022-02-20] MEDS: PRENATAL VIT27-FE FUMARATE-FOLIC ACID VIT TAB PO SCH (10:38)
[2022-02-20] MEDS: NIFEdipine XL 60 MG TAB PO SCH ×2 (10:38→22:27)
--- NOTE | 2022-02-20 11:46 | Event Note ---
Date: 02/20/22 BPP this AM 06/06. monitor tracing with moderate variability, no accelerations noted. May return to q 4 hr NSTs.
--- NOTE | 2022-02-20 12:00 | Ultrasound Report ---
. US OB BPP wo non-stress, US OB limited INDICATION / CLINICAL INFORMATION: [facility]. COMPARISON: None available. FINDINGS: BREATHING MOVEMENT = 2 GROSS BODY MOVEMENT = 2 TONE = 2 QUALITATIVE AMNIOTIC FLUID VOLUME = 2 TOTAL BIOPHYSICAL SCORE = 8/8 AMNIOTIC FLUID INDEX (cm) = 15.5 PRESENTATION: Cephalic. HEART RATE (beats per minute): 145 IMPRESSION: 1. Single live intrauterine . No significant abnormality. biophysical profile = 06/06 2. Normal SHAYY. Signer Name: Henry Patel MD Signed: 02/20/2022 11:55 AM Workstation Name: [id number]
[2022-02-20] MEDS: diphenhydrAMINE 25 MG CAP PO PRN (22:39)
[2022-02-21 07:45] LABS: Hematocrit 35.4 % (30.3-42.9); Hemoglobin 11.4 gm/dl (10.1-14.3); Mean Corpuscular HGB Conc 32 % (30-34); Mean Corpuscular Volume 89 fl (79-97); Platelet Count 257 K/mm3 (140-440); Red Cell Distribution Width 15.4 % (13.2-15.2)
[2022-02-21 08:05] LABS: Alanine Aminotransferase 21 units/L (7-56); Albumin 3.7 g/dL (3.9-5); BUN/Creatinine Ratio 19; Blood Urea Nitrogen 15 mg/dL (7-17); Calcium 9.5 mg/dL (8.4-10.2); Hemolysis Index 3
--- NOTE | 2022-02-21 08:36 | Progress Note ---
Assessment and Plan POC with precautions reviewed with pt. Pt denies all complaints and reports positive movement. Questions encouraged and answered. Pt verbalizes understanding and agrees to POC. Dr. Johnson aware. Plan: Twice weekly CBC/CMP to screen for end organ damage ( renal failure, thrombocytopenia, HELLP) to be completed today, next ordered for 02/24 Growth scan q 2 weeks, last completed 02/15/22 EFW 1545g cephalic SHAYY 19.6cm Twice weekly BPP, 8/8 on 02/20, next ordered for today Delivery at 34 0/7 weeks gestations. Immediate delivery is advised if her severe HTN is uncontrolled, Cerebral symptoms persist, pt develops Pul edema, HELLP, renal failure, plt count <100,000, eclampsia, distress - Patient Problems (1) History of asthma Current Visit: Yes Status: Chronic Plan to address problem: respiratory treatments as ordered (2) History of sleep apnea Current Visit: Yes Status: Chronic (3) Morbid obesity Current Visit: Yes Status: Chronic Plan to address problem: SCDs to remain on BLE when pt in bed (4) Hyperkalemia Current Visit: Yes Status: Resolved Plan to address problem: hyperkalemia resolved, plan to continue CMP twice weekly (5) 31 weeks gestation of Current Visit: Yes Status: Acute Plan to address problem: NICU consult completed NST q4h, continuous monitoring if nonreactive (6) Pre-eclampsia superimposed on chronic hypertension Current Visit: Yes Status: Acute Plan to address problem: TP 495 on 02/09/22 cardiology consults done EKG done continue labetalol 700mg TID, will increase per consults up to max of 2400mg/day for uncontrolled BPs continue procardia XL 60mg daily continue hydralazine 25mg PO q8h continue to monitor closely for ssx of worsening preeclampsia Subjective - Subjective Date of service: 02/21/22 Principal diagnosis: IUP @ 31.3 wks, CHTN with superimposed Preeclampsia, BMI 60 Patient reports: movement normal, other (pt denies having any complaints), no new complaints, no loss of fluid, no vaginal bleeding, no contractions Objective - Vital Signs Vital Signs: Vital Signs - 12hr 02/20/22 02/20/22 02/20/22 20:41 20:46 20:51 Temperature Pulse Rate 78 72 74 Blood Pressure O2 Sat by Pulse 100 100 100 Oximetry 02/20/22 02/20/22 02/20/22 20:56 21:01 21:06 Temperature Pulse Rate 78 76 77 Blood Pressure 161/93 142/87 O2 Sat by Pulse 100 96 95 Oximetry 02/20/22 02/20/22 02/20/22 22:23 22:24 22:26 Temperature Pulse Rate 71 71 78 Blood Pressure 140/81 155/100 140/81 O2 Sat by Pulse Oximetry 02/20/22 02/20/22 02/21/22 23:27 23:57 00:27 Temperature Pulse Rate 75 78 82 Blood Pressure 158/93 125/60 132/69 O2 Sat by Pulse Oximetry 02/21/22 02/21/22 02/21/22 00:57 01:27 01:57 Temperature Pulse Rate 78 80 73 Blood Pressure 113/57 116/56 105/52 O2 Sat by Pulse Oximetry 02/21/22 02/21/22 02/21/22 02:41 02:43 03:12 Temperature 98.5 F Pulse Rate 73 70 Blood Pressure 123/71 131/68 O2 Sat by Pulse Oximetry 02/21/22 02/21/22 02/21/22 03:42 04:11 04:42 Temperature Pulse Rate 65 70 81 Blood Pressure 134/70 140/80 134/71 O2 Sat by Pulse Oximetry 02/21/22 02/21/22 02/21/22 05:12 05:42 06:12 Temperature Pulse Rate 86 89 77 Blood Pressure 125/96 145/76 140/84 O2 Sat by Pulse Oximetry 02/21/22 02/21/22 02/21/22 06:41 07:42 08:18 Temperature Pulse Rate 81 69 86 Blood Pressure 121/71 156/95 141/76 O2 Sat by Pulse 92 Oximetry 02/21/22 02/21/22 02/21/22 08:19 08:24 08:26 Temperature Pulse Rate 115 H 83 80 Blood Pressure 141/76 O2 Sat by Pulse 98 97 Oximetry 02/21/22 02/21/22 08:29 08:34 Temperature Pulse Rate 90 86 Blood Pressure O2 Sat by Pulse 97 93 Oximetry - Exam Abdomen: Present: soft, other (morbidly obese) Uterine Contraction Monitor Mode: Palpation Uterine Contraction Pattern: Absent Uterine Tone Measurement Phase: Resting Extremities: normal - Labs Labs: Abnormal Labs 02/08/22 02/08/2202/08/22 18:40 18:40 22:52 WBC 11.8 H RBC MCHC RDW Plt Count Sodium Potassium Chloride Carbon Dioxide BUN Glucose Calcium Magnesium 3.80 H Alkaline Phosphatase Lactate Dehydrogenase 305 H Total Protein Albumin Urine Creatinine Ur Total Protein 24 Hr 02/09/22 02/09/22 02/09/22 04:00 04:42 05:49 WBC RBC MCHC RDW Plt Count Sodium Potassium Chloride Carbon Dioxide BUN Glucose Calcium Magnesium 5.20 H Alkaline Phosphatase Lactate Dehydrogenase Total Protein Albumin Urine Creatinine 24.2 H Ur Total Protein 24 Hr 495.00 H 02/09/22 02/10/22 02/10/22 12:07 00:05 06:40 WBC RBC MCHC RDW Plt Count Sodium Potassium Chloride Carbon Dioxide BUN Glucose Calcium Magnesium 5.30 H 5.00 H 5.40 H Alkaline Phosphatase Lactate Dehydrogenase Total Protein Albumin Urine Creatinine Ur Total Protein 24 Hr 02/10/22 02/12/22 02/12/22 13:49 16:56 16:56 WBC RBC MCHC RDW Plt Count 73 L Sodium 131 L Potassium Chloride Carbon Dioxide 19 L BUN Glucose Calcium Magnesium 4.70 H Alkaline Phosphatase 205 H Lactate Dehydrogenase Total Protein Albumin 3.3 L Urine Creatinine Ur Total Protein 24 Hr 02/12/22 02/13/22 02/13/22 20:22 00:23 02:25 WBC RBC 3.58 L 3.59 L MCHC RDW 15.3 H 15.4 H Plt Count Sodium Potassium Chloride Carbon Dioxide BUN Glucose Calcium Magnesium 4.30 H Alkaline Phosphatase Lactate Dehydrogenase Total Protein Albumin Urine Creatinine Ur Total Protein 24 Hr 02/13/22 02/13/22 02/13/22 04:38 07:12 07:12 WBC RBC MCHC RDW 15.3 H 15.3 H Plt Count Sodium 131 L Potassium Chloride 97.5 L Carbon Dioxide 21 L BUN Glucose Calcium 8.3 L Magnesium Alkaline Phosphatase 200 H Lactate Dehydrogenase Total Protein Albumin 3.3 L Urine Creatinine Ur Total Protein 24 Hr 02/14/22 02/14/22 02/15/22 08:19 08:19 09:41 WBC RBC MCHC RDW 15.4 H 15.3 H Plt Count Sodium 135 L Potassium Chloride Carbon Dioxide 21 L BUN Glucose 133 H Calcium Magnesium Alkaline Phosphatase 200 H Lactate Dehydrogenase Total Protein Albumin 3.4 L Urine Creatinine Ur Total Protein 24 Hr 04/02/16/22 02/16/22 04:42 07:59 14:20 WBC RBC 3.61 L MCHC 35 H RDW 15.4 H Plt Count Sodium 136 L Potassium 5.3 H 5.2 H Chloride Carbon Dioxide BUN 18 H Glucose Calcium Magnesium Alkaline Phosphatase 204 H Lactate Dehydrogenase Total Protein Albumin 3.3 L Urine Creatinine Ur Total Protein 24 Hr 02/17/22 02/17/22 02/18/22 08:08 20:14 06:36 WBC RBC MCHC RDW Plt Count Sodium 134 L 136 L Potassium 5.1 H 5.4 H 5.2 H Chloride Carbon Dioxide 19 L 19 L BUN 18 H Glucose Calcium Magnesium Alkaline Phosphatase 231 H Lactate Dehydrogenase Total Protein Albumin 3.6 L Urine Creatinine Ur Total Protein 24 Hr 02/19/22 02/19/22 02/21/22 11:48 11:48 07:12 WBC RBC MCHC RDW 15.7 H 15.4 H Plt Count Sodium 135 L Potassium Chloride Carbon Dioxide 19 L BUN Glucose Calcium Magnesium Alkaline Phosphatase 220 H Lactate Dehydrogenase Total Protein 5.9 L Albumin 3.5 L Urine Creatinine Ur Total Protein 24 Hr 02/21/22 07:18 WBC RBC MCHC RDW Plt Count Sodium Potassium Chloride Carbon Dioxide 19 L BUN Glucose Calcium Magnesium Alkaline Phosphatase 244 H Lactate Dehydrogenase Total Protein Albumin 3.7 L Urine Creatinine Ur Total Protein 24 Hr Laboratory Results - last 24 hr 02/21/22 02/21/22 07:12 07:18 WBC 9.0 RBC 4.00 Hgb 11.4 Hct 35.4 MCV 89 MCH 28 MCHC 32 RDW 15.4 H Plt Count 257 Sodium 137 Potassium 4.6 Chloride 104.9 Carbon Dioxide 19 L Anion Gap 18 BUN 15 Creatinine 0.8 Estimated GFR > 60 BUN/Creatinine Ratio 19 Glucose 81 Calcium 9.5 Total Bilirubin < 0.20 AST 17 ALT 21 Alkaline Phosphatase 244 H Total Protein 6.4 Albumin 3.7 L Albumin/Globulin Ratio 1.4
[2022-02-21] MEDS: NIFEdipine XL 60 MG TAB PO SCH ×2 (11:38→22:02)
[2022-02-21] MEDS: PRENATAL VIT27-FE FUMARATE-FOLIC ACID VIT TAB PO SCH (11:38)
--- NOTE | 2022-02-21 13:14 | Progress Note ---
Assessment and Plan 1. IUP at 31 2/7 weeks' 2. Essential hypertension with severe range BP's 3. Morbid obesity 4. AMA 1. Continue labetalol; titrate up to 800 mg tid to keep BP < 160/110 2. Repeat CBC/CMP at least twice weekly 3. Continue BPP at least twice weekly 4. EFW q 2 weeks 5. Proceed with delivery if unable to control BP [<160/110]; o/w, delivery by 34 0/7 weeks' Subjective - Subjective Date of service: 02/21/22 Principal diagnosis: IUP @ 31 wks, CHTN with superimposed Preeclampsia, BMI 60 Interval history: Patient in shower; chart reviewed Patient reports: movement normal, other (no complaints), no new complaints, no loss of fluid, no vaginal bleeding, no contractions Objective - Vital Signs Vital Signs: Vital Signs - 12hr 02/21/22 02/21/22 02/21/22 01:27 01:57 02:41 Temperature Pulse Rate 80 73 73 Respiratory Rate Blood Pressure 116/56 105/52 123/71 O2 Sat by Pulse Oximetry 02/21/22 02/21/22 02/21/22 02:43 03:12 03:42 Temperature 98.5 F Pulse Rate 70 65 Respiratory Rate Blood Pressure 131/68 134/70 O2 Sat by Pulse Oximetry 02/21/22 02/21/22 02/21/22 04:11 04:42 05:12 Temperature Pulse Rate 70 81 86 Respiratory Rate Blood Pressure 140/80 134/71 125/96 O2 Sat by Pulse Oximetry 02/21/22 02/21/22 02/21/22 05:42 06:12 06:41 Temperature Pulse Rate 89 77 81 Respiratory Rate Blood Pressure 145/76 140/84 121/71 O2 Sat by Pulse Oximetry 02/21/22 02/21/22 02/21/22 07:42 08:18 08:19 Temperature Pulse Rate 69 86 115 H Respiratory Rate Blood Pressure 156/95 141/76 O2 Sat by Pulse 92 98 Oximetry 02/21/22 02/21/22 02/21/22 08:24 08:26 08:29 Temperature Pulse Rate 83 80 90 Respiratory Rate Blood Pressure 141/76 O2 Sat by Pulse 97 97 Oximetry 02/21/22 02/21/22 02/21/22 08:34 08:39 08:44 Temperature Pulse Rate 86 80 78 Respiratory Rate Blood Pressure O2 Sat by Pulse 93 97 95 Oximetry 02/21/22 02/21/22 02/21/22 08:49 08:50 08:54 Temperature 98.4 F Pulse Rate 78 78 75 Respiratory 16 Rate Blood Pressure O2 Sat by Pulse 96 94 97 Oximetry 02/21/22 02/21/22 02/21/22 08:59 09:04 09:09 Temperature Pulse Rate 71 72 81 Respiratory Rate Blood Pressure O2 Sat by Pulse 96 99 95 Oximetry 02/21/22 02/21/22 02/21/22 09:11 09:14 09:16 Temperature Pulse Rate 79 78 82 Respiratory Rate Blood Pressure O2 Sat by Pulse 94 95 94 Oximetry 02/21/22 02/21/22 02/21/22 09:19 09:23 09:24 Temperature Pulse Rate 74 78 82 Respiratory Rate Blood Pressure O2 Sat by Pulse 96 92 94 Oximetry 02/21/22 02/21/22 02/21/22 09:29 09:34 09:36 Temperature Pulse Rate 87 77 72 Respiratory Rate Blood Pressure O2 Sat by Pulse 98 96 94 Oximetry 02/21/22 02/21/22 02/21/22 09:39 09:44 09:49 Temperature Pulse Rate 78 72 74 Respiratory Rate Blood Pressure O2 Sat by Pulse 95 95 96 Oximetry 02/21/22 02/21/22 02/21/22 09:54 09:59 10:04 Temperature Pulse Rate 75 74 74 Respiratory Rate Blood Pressure O2 Sat by Pulse 96 96 96 Oximetry 02/21/22 02/21/22 02/21/22 10:09 10:14 10:18 Temperature Pulse Rate 76 74 78 Respiratory Rate Blood Pressure O2 Sat by Pulse 97 96 90 Oximetry 02/21/22 02/21/22 02/21/22 10:19 10:24 10:25 Temperature Pulse Rate 79 86 82 Respiratory Rate Blood Pressure O2 Sat by Pulse 96 95 94 Oximetry 02/21/22 02/21/22 02/21/22 10:29 10:34 10:39 Temperature Pulse Rate 76 75 73 Respiratory Rate Blood Pressure O2 Sat by Pulse 98 98 99 Oximetry 02/21/22 02/21/22 02/21/22 10:44 10:45 10:49 Temperature Pulse Rate 80 103 H 80 Respiratory Rate Blood Pressure O2 Sat by Pulse 99 94 99 Oximetry 02/21/22 02/21/22 10:53 10:54 Temperature Pulse Rate 58 L Respiratory Rate Blood Pressure O2 Sat by Pulse 66 L 78 L Oximetry - Exam Narrative Exam: FHT's reassuring; latest BPP 8/8; labs reviewed: no evidence HELLP Syndrome, renal insufficiency - Labs Labs: Abnormal Labs 02/08/22 02/08/22 02/08/22 18:40 18:40 22:52 WBC 11.8 H RBC MCHC RDW Plt Count Sodium Potassium Chloride Carbon Dioxide BUN Glucose Calcium Magnesium 3.80 H Alkaline Phosphatase Lactate Dehydrogenase 305 H Total Protein Albumin Urine Creatinine Ur Total Protein 24 Hr 02/09/22 02/09/22 02/09/22 04:00 04:42 05:49 WBC RBC MCHC RDW Plt Count Sodium Potassium Chloride Carbon Dioxide BUN Glucose Calcium Magnesium 5.20 H Alkaline Phosphatase Lactate Dehydrogenase Total Protein Albumin Urine Creatinine 24.2 H Ur Total Protein 24 Hr 495.00 H 02/09/22 02/10/22 02/10/22 12:07 00:05 06:40 WBC RBC MCHC RDW Plt Count Sodium Potassium Chloride Carbon Dioxide BUN Glucose Calcium Magnesium 5.30 H 5.00 H 5.40 H Alkaline Phosphatase Lactate Dehydrogenase Total Protein Albumin Urine Creatinine Ur Total Protein 24 Hr 02/10/22 02/12/22 02/12/22 13:49 16:56 16:56 WBC RBC MCHC RDW Plt Count 73 L Sodium 131 L Potassium Chloride Carbon Dioxide 19 L BUN Glucose Calcium Magnesium 4.70 H Alkaline Phosphatase 205 H Lactate Dehydrogenase Total Protein Albumin 3.3 L Urine Creatinine Ur Total Protein 24 Hr 02/12/22 02/13/22 02/13/22 20:22 00:23 02:25 WBC RBC 3.58 L 3.59 L MCHC RDW 15.3 H 15.4 H Plt Count Sodium Potassium Chloride Carbon Dioxide BUN Glucose Calcium Magnesium 4.30 H Alkaline Phosphatase Lactate Dehydrogenase Total Protein Albumin Urine Creatinine Ur Total Protein 24 Hr 02/13/22 02/13/22 02/13/22 04:38 07:12 07:12 WBC RBC MCHC RDW 15.3 H 15.3 H Plt Count Sodium 131 L Potassium Chloride 97.5 L Carbon Dioxide 21 L BUN Glucose Calcium 8.3 L Magnesium Alkaline Phosphatase 200 H Lactate Dehydrogenase Total Protein Albumin 3.3 L Urine Creatinine Ur Total Protein 24 Hr 0402/14/22 02/15/22 08:19 08:19 09:41 WBC RBC MCHC RDW 15.4 H 15.3 H Plt Count Sodium 135 L Potassium Chloride Carbon Dioxide 21 L BUN Glucose 133 H Calcium Magnesium Alkaline Phosphatase 200 H Lactate Dehydrogenase Total Protein Albumin 3.4 L Urine Creatinine Ur Total Protein 24 Hr 02/16/22 02/16/22 02/16/22 04:42 07:59 14:20 WBC RBC 3.61 L MCHC 35 H RDW 15.4 H Plt Count Sodium 136 L Potassium 5.3 H 5.2 H Chloride Carbon Dioxide BUN 18 H Glucose Calcium Magnesium Alkaline Phosphatase 204 H Lactate Dehydrogenase Total Protein Albumin 3.3 L Urine Creatinine Ur Total Protein 24 Hr 02/17/22 02/17/22 02/18/22 08:08 20:14 06:36 WBC RBC MCHC RDW Plt Count Sodium 134 L 136 L Potassium 5.1 H 5.4 H 5.2 H Chloride Carbon Dioxide 19 L 19 L BUN 18 H Glucose Calcium Magnesium Alkaline Phosphatase 231 H Lactate Dehydrogenase Total Protein Albumin 3.6 L Urine Creatinine Ur Total Protein 24 Hr 02/19/22 02/19/22 02/21/22 11:48 11:48 07:12 WBC RBC MCHC RDW 15.7 H 15.4 H Plt Count Sodium 135 L Potassium Chloride Carbon Dioxide 19 L BUN Glucose Calcium Magnesium Alkaline Phosphatase 220 H Lactate Dehydrogenase Total Protein 5.9 L Albumin 3.5 L Urine Creatinine Ur Total Protein 24 Hr 02/21/22 07:18 WBC RBC MCHC RDW Plt Count Sodium Potassium Chloride Carbon Dioxide 19 L BUN Glucose Calcium Magnesium Alkaline Phosphatase 244 H Lactate Dehydrogenase Total Protein Albumin 3.7 L Urine Creatinine Ur Total Protein 24 Hr Laboratory Results - last 24 hr 02/21/22 02/21/22 02/21/22 07:12 07:18 09:30 WBC 9.0 RBC 4.00 Hgb 11.4 Hct 35.4 MCV 89 MCH 28 MCHC 32 RDW 15.4 H Plt Count 257 Sodium 137 Potassium 4.6 Chloride 104.9 Carbon Dioxide 19 L Anion Gap 18 BUN 15 Creatinine 0.8 Estimated GFR > 60 BUN/Creatinine Ratio 19 Glucose 81 Calcium 9.5 Total Bilirubin < 0.20 AST 17 ALT 21 Alkaline Phosphatase 244 H Total Protein 6.4 Albumin 3.7 L Albumin/Globulin Ratio 1.4 Blood Type O POSITIVE Antibody Screen Negative
[2022-02-21] MEDS: hydrALAZINE 25 MG TAB PO SCH ×2 (15:33→22:01)
--- NOTE | 2022-02-21 18:36 | Ultrasound Report ---
ULTRASOUND OBSTETRIC LIMITED ULTRASOUND BIOPHYSICAL PROFILE INDICATION / CLINICAL INFORMATION: wellbeing. Clinical Gestational Age (GA) in weeks, days: Unknown TECHNIQUE: Transabdominal. COMPARISON: None available. FINDINGS: BREATHING MOVEMENT = 0 GROSS BODY MOVEMENT = 2 TONE = 2 QUALITATIVE AMNIOTIC FLUID VOLUME = 2 TOTAL BIOPHYSICAL SCORE = 6/8 HEART RATE (beats per minute): 111 ADDITIONAL FINDINGS: None. IMPRESSION: 1. Biophysical Score = 6/8 Signer Name: Charly Teresa DO Signed: 02/21/2022 6:32 PM Workstation Name: [id number]
[2022-02-21] MEDS: diphenhydrAMINE 25 MG CAP PO PRN (21:30)
[2022-02-22] MEDS: hydrALAZINE 25 MG TAB PO SCH ×3 (06:55→22:09)
--- NOTE | 2022-02-22 08:47 | Progress Note ---
Assessment and Plan POC and precautions reviewed with pt. Pt denies all complaints and reports positive movement. Questions encouraged and answered. Pt verbalizes understanding and agrees to POC. Dr. Perez made aware. Plan: Twice weekly CBC/CMP to screen for end organ damage ( renal failure, thrombocytopenia, HELLP) last completed 02/21, next ordered for 02/24 Growth scan q 2 weeks, last completed 02/15/22 EFW 1545g cephalic SHAYY 19.6cm Twice weekly BPP, 6/8 on 02/21, next ordered for 02/24 Delivery at 34 0/7 weeks gestations. Immediate delivery is advised if her severe HTN is uncontrolled, Cerebral symptoms persist, pt develops Pul edema, HELLP, renal failure, plt count <100,000, eclampsia, distress - Patient Problems (1) History of asthma Current Visit: Yes Status: Chronic Plan to address problem: respiratory treatments as ordered (2) History of sleep apnea Current Visit: Yes Status: Chronic (3) Morbid obesity Current Visit: Yes Status: Chronic Plan to address problem: SCDs to remain on BLE when pt in bed (4) Hyperkalemia Current Visit: Yes Status: Resolved Plan to address problem: hyperkalemia resolved, plan to continue CMP twice weekly (5) 31 weeks gestation of Current Visit: Yes Status: Acute Plan to address problem: NICU consult completed BMZ completed on 01/29 NST q4h, continuous monitoring if nonreactive (6) Pre-eclampsia superimposed on chronic hypertension Current Visit: Yes Status: Acute Plan to address problem: TP 495 on 02/09/22 cardiology consults done EKG done continue labetalol 700mg TID, will increase per consults up to max of 2400mg/day for uncontrolled BPs continue procardia XL 60mg daily continue hydralazine 25mg PO q8h continue to monitor closely for ssx of worsening preeclampsia Subjective - Subjective Date of service: 02/22/22 Principal diagnosis: IUP @ 31.4 wks, CHTN with superimposed Preeclampsia, BMI 60 Patient reports: movement normal, other (pt denies all complaints), no new complaints, no loss of fluid, no vaginal bleeding, no contractions Objective - Vital Signs Vital Signs: Vital Signs - 12hr 02/21/22 02/21/22 02/21/22 20:47 21:39 21:40 Temperature 98.6 F Pulse Rate 77 74 Respiratory 18 Rate Blood Pressure O2 Sat by Pulse 99 99 99 Oximetry 02/21/22 02/21/22 02/21/22 21:45 21:50 21:51 Temperature Pulse Rate 73 73 71 Respiratory Rate Blood Pressure 154/93 O2 Sat by Pulse 98 99 Oximetry 02/21/22 02/21/22 02/21/22 21:55 22:00 22:01 Temperature Pulse Rate 68 76 77 Respiratory Rate Blood Pressure 154/93 O2 Sat by Pulse 100 99 Oximetry 02/21/22 02/21/22 02/21/22 22:05 22:20 22:25 Temperature Pulse Rate 76 62 66 Respiratory Rate Blood Pressure O2 Sat by Pulse 99 100 100 Oximetry 02/21/22 02/21/22 02/21/22 22:30 22:35 22:40 Temperature Pulse Rate 75 73 71 Respiratory Rate Blood Pressure O2 Sat by Pulse 100 99 99 Oximetry 02/21/22 02/21/22 02/21/22 22:45 22:50 22:51 Temperature Pulse Rate 73 75 76 Respiratory Rate Blood Pressure 152/86 O2 Sat by Pulse 99 100 Oximetry 02/21/22 02/21/22 02/21/22 22:55 23:00 23:05 Temperature Pulse Rate 74 73 81 Respiratory Rate Blood Pressure O2 Sat by Pulse 99 99 99 Oximetry 02/21/22 02/21/22 02/21/22 23:30 23:35 23:40 Temperature Pulse Rate 76 77 73 Respiratory Rate Blood Pressure O2 Sat by Pulse 100 99 98 Oximetry 02/21/22 02/21/22 02/21/22 23:45 23:50 23:51 Temperature Pulse Rate 74 78 74 Respiratory Rate Blood Pressure 142/82 O2 Sat by Pulse 100 99 Oximetry 02/21/22 02/22/22 02/22/22 23:55 00:00 00:05 Temperature Pulse Rate 76 84 75 Respiratory Rate Blood Pressure O2 Sat by Pulse 99 99 99 Oximetry 02/22/22 02/22/22 02/22/22 00:10 00:15 00:20 Temperature Pulse Rate 76 78 78 Respiratory Rate Blood Pressure O2 Sat by Pulse 99 99 99 Oximetry 02/22/22 02/22/22 02/22/22 00:26 00:30 00:35 Temperature Pulse Rate 87 76 78 Respiratory Rate Blood Pressure O2 Sat by Pulse 99 98 99 Oximetry 02/22/22 02/22/22 02/22/22 00:41 00:45 00:50 Temperature Pulse Rate 76 75 72 Respiratory Rate Blood Pressure O2 Sat by Pulse 99 98 100 Oximetry 02/22/22 02/22/22 02/22/22 00:51 00:55 01:00 Temperature Pulse Rate 71 71 82 Respiratory Rate Blood Pressure 143/84 O2 Sat by Pulse 99 99 Oximetry 02/22/22 02/22/22 02/22/22 01:05 01:10 01:16 Temperature Pulse Rate 72 72 71 Respiratory Rate Blood Pressure O2 Sat by Pulse 98 98 98 Oximetry 02/22/22 02/22/22 02/22/22 01:21 01:26 01:31 Temperature Pulse Rate 71 75 72 Respiratory Rate Blood Pressure O2 Sat by Pulse 99 99 99 Oximetry 02/22/22 02/22/22 02/22/22 01:36 01:41 01:45 Temperature Pulse Rate 71 70 71 Respiratory Rate Blood Pressure O2 Sat by Pulse 98 98 98 Oximetry 02/22/22 02/22/22 02/22/22 01:51 01:56 02:01 Temperature 98.3 F Pulse Rate 70 71 73 Respiratory 18 Rate Blood Pressure 114/58 O2 Sat by Pulse 94 99 99 Oximetry 02/22/22 02/22/22 02/22/22 02:06 02:11 02:16 Temperature Pulse Rate 80 69 84 Respiratory Rate Blood Pressure O2 Sat by Pulse 100 99 98 Oximetry 02/22/22 02/22/22 02/22/22 02:21 02:26 02:31 Temperature Pulse Rate 78 72 69 Respiratory Rate Blood Pressure O2 Sat by Pulse 100 100 99 Oximetry 02/22/22 02/22/22 02/22/22 02:36 02:41 02:46 Temperature Pulse Rate 76 72 71 Respiratory Rate Blood Pressure O2 Sat by Pulse 99 98 98 Oximetry 02/22/22 02/22/22 02/22/22 02:51 02:52 02:56 Temperature Pulse Rate 71 97 H 72 Respiratory Rate Blood Pressure O2 Sat by Pulse 98 89 99 Oximetry 02/22/22 02/22/22 02/22/22 03:01 03:06 03:11 Temperature Pulse Rate 71 71 73 Respiratory Rate Blood Pressure O2 Sat by Pulse 99 99 98 Oximetry 02/22/22 02/22/22 02/22/22 03:16 03:21 03:26 Temperature Pulse Rate 72 74 75 Respiratory Rate Blood Pressure O2 Sat by Pulse 98 98 97 Oximetry 02/22/22 02/22/22 02/22/22 03:31 03:36 03:41 Temperature Pulse Rate 79 75 71 Respiratory Rate Blood Pressure O2 Sat by Pulse 99 99 99 Oximetry 02/22/22 02/22/22 02/22/22 03:46 03:51 03:56 Temperature Pulse Rate 73 72 76 Respiratory Rate Blood Pressure 146/92 O2 Sat by Pulse 99 99 99 Oximetry 02/22/22 02/22/22 02/22/22 04:01 04:06 04:08 Temperature Pulse Rate 81 85 83 Respiratory Rate Blood Pressure O2 Sat by Pulse 88 97 91 Oximetry 02/22/22 02/22/22 02/22/22 04:11 04:16 04:21 Temperature Pulse Rate 86 72 74 Respiratory Rate Blood Pressure O2 Sat by Pulse 95 99 98 Oximetry 02/22/22 02/22/22 02/22/22 04:26 04:31 04:48 Temperature Pulse Rate 72 72 74 Respiratory Rate Blood Pressure O2 Sat by Pulse 97 98 99 Oximetry 02/22/22 02/22/22 02/22/22 04:51 04:54 04:59 Temperature Pulse Rate 75 75 83 Respiratory Rate Blood Pressure 125/75 O2 Sat by Pulse 94 99 98 Oximetry 02/22/22 02/22/22 02/22/22 05:04 05:09 05:14 Temperature Pulse Rate 76 76 76 Respiratory Rate Blood Pressure O2 Sat by Pulse 99 99 97 Oximetry 02/22/22 02/22/22 02/22/22 05:19 05:24 05:29 Temperature Pulse Rate 82 80 80 Respiratory Rate Blood Pressure O2 Sat by Pulse 97 99 98 Oximetry 02/22/22 02/22/22 02/22/22 05:34 05:39 05:44 Temperature Pulse Rate 77 80 74 Respiratory Rate Blood Pressure O2 Sat by Pulse 96 96 96 Oximetry 02/22/22 02/22/22 02/22/22 05:49 05:51 05:54 Temperature Pulse Rate 76 76 74 Respiratory Rate Blood Pressure 133/76 O2 Sat by Pulse 96 92 96 Oximetry 02/22/22 02/22/22 02/22/22 05:59 06:04 06:09 Temperature Pulse Rate 75 71 75 Respiratory Rate Blood Pressure O2 Sat by Pulse 96 97 97 Oximetry 02/22/22 02/22/22 02/22/22 06:14 06:19 06:24 Temperature Pulse Rate 83 71 70 Respiratory Rate Blood Pressure O2 Sat by Pulse 97 99 99 Oximetry 02/22/22 02/22/22 02/22/22 06:25 06:29 06:34 Temperature 98.1 F Pulse Rate 74 80 Respiratory 18 Rate Blood Pressure O2 Sat by Pulse 99 97 98 Oximetry 02/22/22 02/22/22 02/22/22 06:39 06:44 06:49 Temperature Pulse Rate 73 76 85 Respiratory Rate Blood Pressure O2 Sat by Pulse 99 99 99 Oximetry 02/22/22 02/22/22 02/22/22 06:51 06:54 06:55 Temperature Pulse Rate 75 74 79 Respiratory Rate Blood Pressure 140/83 140/83 O2 Sat by Pulse 86 97 Oximetry 02/22/22 02/22/22 02/22/22 06:59 07:04 07:09 Temperature Pulse Rate 80 78 77 Respiratory Rate Blood Pressure O2 Sat by Pulse 97 94 96 Oximetry 02/22/22 02/22/22 02/22/22 07:13 07:14 07:19 Temperature Pulse Rate 76 72 71 Respiratory Rate Blood Pressure O2 Sat by Pulse 91 96 97 Oximetry 02/22/22 02/22/22 02/22/22 07:24 07:29 07:34 Temperature Pulse Rate 71 71 71 Respiratory Rate Blood Pressure O2 Sat by Pulse 97 97 98 Oximetry 02/22/22 02/22/22 02/22/22 07:39 07:44 07:49 Temperature Pulse Rate 71 70 69 Respiratory Rate Blood Pressure O2 Sat by Pulse 98 98 98 Oximetry 02/22/22 02/22/22 02/22/22 07:51 07:54 07:59 Temperature Pulse Rate 70 71 76 Respiratory Rate Blood Pressure 161/91 O2 Sat by Pulse 98 98 Oximetry 02/22/22 02/22/22 02/22/22 08:04 08:09 08:14 Temperature Pulse Rate 77 80 76 Respiratory Rate Blood Pressure O2 Sat by Pulse 97 97 98 Oximetry 02/22/22 02/22/22 02/22/22 08:19 08:24 08:29 Temperature Pulse Rate 80 79 76 Respiratory Rate Blood Pressure O2 Sat by Pulse 96 98 98 Oximetry 02/22/22 08:34 Temperature Pulse Rate 79 Respiratory Rate Blood Pressure O2 Sat by Pulse 97 Oximetry - Exam Abdomen: Present: soft Uterine Contraction Monitor Mode: Palpation Uterine Contraction Pattern: Absent Uterine Tone Measurement Phase: Resting Extremities: normal - Labs Labs: Abnormal Labs 02/08/22 02/08/22 02/08/22 18:40 18:40 22:52 WBC 11.8 H RBC MCHC RDW Plt Count Sodium Potassium Chloride Carbon Dioxide BUN Glucose Calcium Magnesium 3.80 H Alkaline Phosphatase Lactate Dehydrogenase 305 H Total Protein Albumin Urine Creatinine Ur Total Protein 24 Hr 02/09/22 02/09/22 02/09/22 04:00 04:42 05:49 WBC RBC MCHC RDW Plt Count Sodium Potassium Chloride Carbon Dioxide BUN Glucose Calcium Magnesium 5.20 H Alkaline Phosphatase Lactate Dehydrogenase Total Protein Albumin Urine Creatinine 24.2 H Ur Total Protein 24 Hr 495.00 H 02/09/22 02/10/22 02/10/22 12:07 00:05 06:40 WBC RBC MCHC RDW Plt Count Sodium Potassium Chloride Carbon Dioxide BUN Glucose Calcium Magnesium 5.30 H 5.00 H 5.40 H Alkaline Phosphatase Lactate Dehydrogenase Total Protein Albumin Urine Creatinine Ur Total Protein 24 Hr 02/10/22 02/12/22 02/12/22 13:49 16:56 16:56 WBC RBC MCHC RDW Plt Count 73 L Sodium 131 L Potassium Chloride Carbon Dioxide 19 L BUN Glucose Calcium Magnesium 4.70 H Alkaline Phosphatase 205 H Lactate Dehydrogenase Total Protein Albumin 3.3 L Urine Creatinine Ur Total Protein 24 Hr 02/12/22 02/13/22 02/13/22 20:22 00:23 02:25 WBC RBC 3.58 L 3.59 L MCHC RDW 15.3 H 15.4 H Plt Count Sodium Potassium Chloride Carbon Dioxide BUN Glucose Calcium Magnesium 4.30 H Alkaline Phosphatase Lactate Dehydrogenase Total Protein Albumin Urine Creatinine Ur Total Protein 24 Hr 02/13/22 02/13/22 02/13/22 04:38 07:12 07:12 WBC RBC MCHC RDW 15.3 H 15.3 H Plt Count Sodium 131 L Potassium Chloride 97.5 L Carbon Dioxide 21 L BUN Glucose Calcium 8.3 L Magnesium Alkaline Phosphatase 200 H Lactate Dehydrogenase Total Protein Albumin 3.3 L Urine Creatinine Ur Total Protein 24 Hr 02/14/22 02/14/22 02/15/22 08:19 08:19 09:41 WBC RBC MCHC RDW 15.4 H 15.3 H Plt Count Sodium 135 L Potassium Chloride Carbon Dioxide 21 L BUN Glucose 133 H Calcium Magnesium Alkaline Phosphatase 200 H Lactate Dehydrogenase Total Protein Albumin 3.4 L Urine Creatinine Ur Total Protein 24 Hr 02/16/22 02/16/22 02/16/22 04:42 07:59 14:20 WBC RBC 3.61 L MCHC 35 H RDW 15.4 H Plt Count Sodium 136 L Potassium 5.3 H 5.2 H Chloride Carbon Dioxide BUN 18 H Glucose Calcium Magnesium Alkaline Phosphatase 204 H Lactate Dehydrogenase Total Protein Albumin 3.3 L Urine Creatinine Ur Total Protein 24 Hr 02/17/22 02/17/22 02/18/22 08:08 20:14 06:36 WBC RBC MCHC RDW Plt Count Sodium 134 L 136 L Potassium 5.1 H 5.4 H 5.2 H Chloride Carbon Dioxide 19 L 19 L BUN 18 H Glucose Calcium Magnesium Alkaline Phosphatase 231 H Lactate Dehydrogenase Total Protein Albumin 3.6 L Urine Creatinine Ur Total Protein 24 Hr 02/19/22 02/19/22 02/21/22 11:48 11:48 07:12 WBC RBC MCHC RDW 15.7 H 15.4 H Plt Count Sodium 135 L Potassium Chloride Carbon Dioxide 19 L BUN Glucose Calcium Magnesium Alkaline Phosphatase 220 H Lactate Dehydrogenase Total Protein 5.9 L Albumin 3.5 L Urine Creatinine Ur Total Protein 24 Hr 02/21/22 07:18 WBC RBC MCHC RDW Plt Count Sodium Potassium Chloride Carbon Dioxide 19 L BUN Glucose Calcium Magnesium Alkaline Phosphatase 244 H Lactate Dehydrogenase Total Protein Albumin 3.7 L Urine Creatinine Ur Total Protein 24 Hr Laboratory Results - last 24 hr 02/21/22 09:30 Blood Type O POSITIVE Antibody Screen Negative
[2022-02-22] MEDS: NIFEdipine XL 60 MG TAB PO SCH ×2 (10:13→22:09)
[2022-02-22] MEDS: PRENATAL VIT27-FE FUMARATE-FOLIC ACID VIT TAB PO SCH (10:13)
[2022-02-22] MEDS: diphenhydrAMINE 25 MG CAP PO PRN (22:46)
[2022-02-23] MEDS: hydrALAZINE 25 MG TAB PO SCH ×3 (06:12→22:53)
--- NOTE | 2022-02-23 07:58 | Progress Note ---
Assessment and Plan - Patient Problems (1) Morbid obesity Current Visit: Yes Status: Chronic (2) Pre-eclampsia superimposed on chronic hypertension Current Visit: Yes Status: Acute (3) Hyperkalemia Current Visit: Yes Status: Resolved (4) 31 weeks gestation of Current Visit: Yes Status: Acute Subjective - Subjective Date of service: 02/23/22 Principal diagnosis: IUP @ 31.4 wks, CHTN with superimposed Preeclampsia, BMI 60 Patient reports: movement normal, other (pt denies all complaints), no new complaints, no loss of fluid, no vaginal bleeding, no contractions Objective - Vital Signs Vital Signs: Vital Signs - 12hr 02/22/22 02/22/22 02/22/22 19:58 20:03 20:08 Temperature Pulse Rate 79 77 70 Respiratory Rate Blood Pressure 146/81 O2 Sat by Pulse 99 100 100 Oximetry 02/22/22 02/22/22 02/22/22 20:13 20:17 20:48 Temperature Pulse Rate 73 119 H 187 H Respiratory Rate Blood Pressure O2 Sat by Pulse 100 93 0 L Oximetry 02/22/22 02/22/22 02/22/22 20:50 20:52 20:55 Temperature Pulse Rate 39 L 71 73 Respiratory Rate Blood Pressure 163/100 164/104 O2 Sat by Pulse 94 100 Oximetry 02/22/22 02/22/22 02/22/22 21:00 21:02 21:05 Temperature Pulse Rate 73 71 78 Respiratory Rate Blood Pressure 144/81 O2 Sat by Pulse 100 100 Oximetry 02/22/22 02/22/22 02/22/22 21:10 21:15 21:20 Temperature Pulse Rate 77 72 77 Respiratory Rate Blood Pressure O2 Sat by Pulse 100 100 100 Oximetry 02/22/22 02/22/22 02/22/22 21:25 21:30 21:34 Temperature Pulse Rate 77 74 71 Respiratory Rate Blood Pressure 141/87 O2 Sat by Pulse 100 100 Oximetry 02/22/22 02/22/22 02/22/22 21:35 21:40 21:45 Temperature Pulse Rate 80 83 78 Respiratory Rate Blood Pressure O2 Sat by Pulse 99 100 100 Oximetry 02/22/22 02/22/22 02/22/22 21:50 21:55 22:02 Temperature Pulse Rate 80 82 72 Respiratory Rate Blood Pressure O2 Sat by Pulse 100 100 100 Oximetry 02/22/22 02/22/22 02/22/22 22:03 22:09 22:10 Temperature Pulse Rate 72 71 71 Respiratory Rate Blood Pressure 141/77 141/77 O2 Sat by Pulse 100 Oximetry 02/22/22 02/22/22 02/22/22 22:15 22:20 22:25 Temperature Pulse Rate 71 74 70 Respiratory Rate Blood Pressure O2 Sat by Pulse 100 100 100 Oximetry 02/22/22 02/22/22 02/22/22 22:30 22:35 22:40 Temperature Pulse Rate 69 71 75 Respiratory Rate Blood Pressure O2 Sat by Pulse 100 100 100 Oximetry 02/22/22 02/22/22 02/22/22 22:45 22:50 22:55 Temperature Pulse Rate 71 73 70 Respiratory Rate Blood Pressure O2 Sat by Pulse 100 99 100 Oximetry 02/22/22 02/22/22 02/22/22 23:00 23:05 23:10 Temperature Pulse Rate 73 73 72 Respiratory Rate Blood Pressure O2 Sat by Pulse 100 100 100 Oximetry 02/22/22 02/22/22 02/22/22 23:15 23:30 23:31 Temperature 98.4 F Pulse Rate 74 83 Respiratory 18 Rate Blood Pressure O2 Sat by Pulse 100 99 99 Oximetry 02/22/22 02/22/22 02/22/22 23:35 23:40 23:45 Temperature Pulse Rate 67 64 67 Respiratory Rate Blood Pressure O2 Sat by Pulse 99 100 100 Oximetry 02/22/22 02/22/22 02/23/22 23:50 23:55 00:00 Temperature Pulse Rate 67 69 70 Respiratory Rate Blood Pressure O2 Sat by Pulse 99 100 100 Oximetry 02/23/22 02/23/22 02/23/22 00:03 00:05 00:10 Temperature Pulse Rate 73 69 69 Respiratory Rate Blood Pressure 135/74 O2 Sat by Pulse 100 100 Oximetry 02/23/22 02/23/22 02/23/22 00:15 00:20 00:25 Temperature Pulse Rate 76 73 74 Respiratory Rate Blood Pressure O2 Sat by Pulse 99 99 99 Oximetry 02/23/22 02/23/22 02/23/22 00:30 00:35 00:40 Temperature Pulse Rate 74 79 69 Respiratory Rate Blood Pressure O2 Sat by Pulse 99 100 100 Oximetry 02/23/22 02/23/22 02/23/22 00:45 00:50 00:55 Temperature Pulse Rate 71 72 72 Respiratory Rate Blood Pressure O2 Sat by Pulse 99 99 99 Oximetry 02/23/22 02/23/22 02/23/22 01:00 01:03 01:05 Temperature Pulse Rate 73 72 73 Respiratory Rate Blood Pressure 136/80 O2 Sat by Pulse 99 100 Oximetry 02/23/22 02/23/22 02/23/22 01:10 01:15 01:20 Temperature Pulse Rate 71 76 73 Respiratory Rate Blood Pressure O2 Sat by Pulse 100 99 99 Oximetry 02/23/22 02/23/22 02/23/22 01:25 01:30 01:35 Temperature Pulse Rate 76 73 72 Respiratory Rate Blood Pressure O2 Sat by Pulse 99 100 99 Oximetry 02/23/22 02/23/22 02/23/22 01:40 01:45 01:50 Temperature Pulse Rate 71 70 70 Respiratory Rate Blood Pressure O2 Sat by Pulse 98 98 98 Oximetry 02/23/22 02/23/22 02/23/22 01:56 02:00 02:03 Temperature Pulse Rate 71 68 68 Respiratory Rate Blood Pressure 135/77 O2 Sat by Pulse 98 98 93 Oximetry 02/23/22 02/23/22 02/23/22 02:06 02:11 02:16 Temperature Pulse Rate 70 68 67 Respiratory Rate Blood Pressure O2 Sat by Pulse 98 98 98 Oximetry 02/23/22 02/23/22 02/23/22 02:20 02:26 02:30 Temperature Pulse Rate 74 66 70 Respiratory Rate Blood Pressure O2 Sat by Pulse 98 100 98 Oximetry 02/23/22 02/23/22 02/23/22 02:35 02:40 02:46 Temperature Pulse Rate 64 65 65 Respiratory Rate Blood Pressure O2 Sat by Pulse 98 98 98 Oximetry 02/23/22 02/23/22 02/23/22 02:51 02:56 02:57 Temperature Pulse Rate 75 68 67 Respiratory Rate Blood Pressure O2 Sat by Pulse 96 98 91 Oximetry 02/23/22 02/23/22 02/23/22 03:01 03:03 03:06 Temperature Pulse Rate 69 65 66 Respiratory Rate Blood Pressure 146/92 O2 Sat by Pulse 99 98 Oximetry 02/23/22 02/23/22 02/23/22 03:11 03:16 03:21 Temperature Pulse Rate 66 66 66 Respiratory Rate Blood Pressure O2 Sat by Pulse 98 98 98 Oximetry 02/23/22 02/23/22 02/23/22 03:26 03:31 03:36 Temperature Pulse Rate 67 66 68 Respiratory Rate Blood Pressure O2 Sat by Pulse 98 98 97 Oximetry 02/23/22 02/23/22 02/23/22 03:40 03:46 03:51 Temperature Pulse Rate 64 70 64 Respiratory Rate Blood Pressure O2 Sat by Pulse 98 98 98 Oximetry 02/23/22 02/23/22 02/23/22 03:56 04:01 04:03 Temperature Pulse Rate 65 69 65 Respiratory Rate Blood Pressure 145/94 O2 Sat by Pulse 98 98 Oximetry 02/23/22 02/23/22 02/23/22 04:06 04:16 04:19 Temperature 97.9 F Pulse Rate 65 94 H Respiratory 18 Rate Blood Pressure O2 Sat by Pulse 98 100 100 Oximetry 02/23/22 02/23/22 02/23/22 04:21 04:26 04:31 Temperature Pulse Rate 75 76 71 Respiratory Rate Blood Pressure O2 Sat by Pulse 100 100 100 Oximetry 02/23/22 02/23/22 02/23/22 04:36 04:40 04:46 Temperature Pulse Rate 72 70 71 Respiratory Rate Blood Pressure O2 Sat by Pulse 100 100 99 Oximetry 02/23/22 02/23/22 02/23/22 04:51 04:56 05:01 Temperature Pulse Rate 71 70 79 Respiratory Rate Blood Pressure O2 Sat by Pulse 99 100 100 Oximetry 02/23/22 02/23/22 02/23/22 05:03 05:06 05:11 Temperature Pulse Rate 78 73 71 Respiratory Rate Blood Pressure 134/84 O2 Sat by Pulse 99 99 Oximetry 02/23/22 02/23/22 02/23/22 05:16 05:21 05:26 Temperature Pulse Rate 85 73 76 Respiratory Rate Blood Pressure O2 Sat by Pulse 99 100 100 Oximetry 02/23/22 02/23/22 02/23/22 05:31 05:36 05:52 Temperature Pulse Rate 81 96 H 89 Respiratory Rate Blood Pressure O2 Sat by Pulse 99 100 100 Oximetry 02/23/22 02/23/22 02/23/22 05:57 06:01 06:02 Temperature Pulse Rate 82 88 87 Respiratory Rate Blood Pressure O2 Sat by Pulse 99 87 95 Oximetry 02/23/22 02/23/22 02/23/22 06:04 06:07 06:08 Temperature Pulse Rate 74 78 81 Respiratory Rate Blood Pressure 173/102 O2 Sat by Pulse 100 92 Oximetry 02/23/22 02/23/22 02/23/22 06:12 06:17 06:22 Temperature Pulse Rate 77 77 92 H Respiratory Rate Blood Pressure 145/79 O2 Sat by Pulse 100 99 99 Oximetry 02/23/22 02/23/22 02/23/22 06:27 06:32 06:37 Temperature Pulse Rate 82 80 82 Respiratory Rate Blood Pressure O2 Sat by Pulse 100 99 99 Oximetry 02/23/22 02/23/22 02/23/22 06:42 06:47 06:52 Temperature Pulse Rate 85 84 84 Respiratory Rate Blood Pressure O2 Sat by Pulse 100 99 99 Oximetry 02/23/22 02/23/22 02/23/22 06:57 07:02 07:03 Temperature Pulse Rate 83 79 80 Respiratory Rate Blood Pressure 140/86 O2 Sat by Pulse 100 99 Oximetry 02/23/22 02/23/22 02/23/22 07:07 07:12 07:17 Temperature Pulse Rate 80 74 83 Respiratory Rate Blood Pressure O2 Sat by Pulse 99 99 97 Oximetry 02/23/22 02/23/22 02/23/22 07:22 07:25 07:27 Temperature Pulse Rate 78 89 89 Respiratory Rate Blood Pressure O2 Sat by Pulse 100 91 97 Oximetry 02/23/22 02/23/22 02/23/22 07:32 07:37 07:42 Temperature Pulse Rate 76 77 77 Respiratory Rate Blood Pressure O2 Sat by Pulse 99 99 99 Oximetry 02/23/22 02/23/22 07:47 07:52 Temperature Pulse Rate 77 76 Respiratory Rate Blood Pressure O2 Sat by Pulse 99 99 Oximetry - Exam Breasts: deferred Cardiovascular: Regular rate Lungs: Normal air movement Abdomen: Present: normal appearance, soft Vulva: both: normal Uterus: Present: normal FHR: category 1 Uterine Contraction Monitor Mode: External Uterine Contraction Pattern: Absent Extremities: normal - Labs Labs: Abnormal Labs 02/08/22 02/08/22 02/08/22 18:40 18:40 22:52 WBC 11.8 H RBC MCHC RDW Plt Count Sodium Potassium Chloride Carbon Dioxide BUN Glucose Calcium Magnesium 3.80 H Alkaline Phosphatase Lactate Dehydrogenase 305 H Total Protein Albumin Urine Creatinine Ur Total Protein 24 Hr 0402/09/22 02/09/22 04:00 04:42 05:49 WBC RBC MCHC RDW Plt Count Sodium Potassium Chloride Carbon Dioxide BUN Glucose Calcium Magnesium 5.20 H Alkaline Phosphatase Lactate Dehydrogenase Total Protein Albumin Urine Creatinine 24.2 H Ur Total Protein 24 Hr 495.00 H 02/09/22 02/10/22 02/10/22 12:07 00:05 06:40 WBC RBC MCHC RDW Plt Count Sodium Potassium Chloride Carbon Dioxide BUN Glucose Calcium Magnesium 5.30 H 5.00 H 5.40 H Alkaline Phosphatase Lactate Dehydrogenase Total Protein Albumin Urine Creatinine Ur Total Protein 24 Hr 02/10/22 02/12/22 02/12/22 13:49 16:56 16:56 WBC RBC MCHC RDW Plt Count 73 L Sodium 131 L Potassium Chloride Carbon Dioxide 19 L BUN Glucose Calcium Magnesium 4.70 H Alkaline Phosphatase 205 H Lactate Dehydrogenase Total Protein Albumin 3.3 L Urine Creatinine Ur Total Protein 24 Hr 02/12/22 02/13/22 02/13/22 20:22 00:23 02:25 WBC RBC 3.58 L 3.59 L MCHC RDW 15.3 H 15.4 H Plt Count Sodium Potassium Chloride Carbon Dioxide BUN Glucose Calcium Magnesium 4.30 H Alkaline Phosphatase Lactate Dehydrogenase Total Protein Albumin Urine Creatinine Ur Total Protein 24 Hr 02/13/22 02/13/22 02/13/22 04:38 07:12 07:12 WBC RBC MCHC RDW 15.3 H 15.3 H Plt Count Sodium 131 L Potassium Chloride 97.5 L Carbon Dioxide 21 L BUN Glucose Calcium 8.3 L Magnesium Alkaline Phosphatase 200 H Lactate Dehydrogenase Total Protein Albumin 3.3 L Urine Creatinine Ur Total Protein 24 Hr 02/14/22 02/14/22 02/15/22 08:19 08:19 09:41 WBC RBC MCHC RDW 15.4 H 15.3 H Plt Count Sodium 135 L Potassium Chloride Carbon Dioxide 21 L BUN Glucose 133 H Calcium Magnesium Alkaline Phosphatase 200 H Lactate Dehydrogenase Total Protein Albumin 3.4 L Urine Creatinine Ur Total Protein 24 Hr 02/16/22 02/16/22 02/16/22 04:42 07:59 14:20 WBC RBC 3.61 L MCHC 35 H RDW 15.4 H Plt Count Sodium 136 L Potassium 5.3 H 5.2 H Chloride Carbon Dioxide BUN 18 H Glucose Calcium Magnesium Alkaline Phosphatase 204 H Lactate Dehydrogenase Total Protein Albumin 3.3 L Urine Creatinine Ur Total Protein 24 Hr 02/17/22 02/17/22 02/18/22 08:08 20:14 06:36 WBC RBC MCHC RDW Plt Count Sodium 134 L 136 L Potassium 5.1 H 5.4 H 5.2 H Chloride Carbon Dioxide 19 L 19 L BUN 18 H Glucose Calcium Magnesium Alkaline Phosphatase 231 H Lactate Dehydrogenase Total Protein Albumin 3.6 L Urine Creatinine Ur Total Protein 24 Hr 02/19/22 02/19/22 02/21/22 11:48 11:48 07:12 WBC RBC MCHC RDW 15.7 H 15.4 H Plt Count Sodium 135 L Potassium Chloride Carbon Dioxide 19 L BUN Glucose Calcium Magnesium Alkaline Phosphatase 220 H Lactate Dehydrogenase Total Protein 5.9 L Albumin 3.5 L Urine Creatinine Ur Total Protein 24 Hr 02/21/22 07:18 WBC RBC MCHC RDW Plt Count Sodium Potassium Chloride Carbon Dioxide 19 L BUN Glucose Calcium Magnesium Alkaline Phosphatase 244 H Lactate Dehydrogenase Total Protein Albumin 3.7 L Urine Creatinine Ur Total Protein 24 Hr
--- NOTE | 2022-02-23 08:31 | Event Note ---
Date: 02/23/22 Pt currently sleeping. Will come and assess at lunch time. BPP ordered. Last BPP was 04/06. Orders placed and u/s team and RN taking care of patient aware.
--- NOTE | 2022-02-23 09:36 | Ultrasound Report ---
Biophysical OB Ultrasound HISTORY: wellbeing. TECHNIQUE: Grayscale and color imaging performed. COMPARISON: None FINDINGS: Fetus received a score of 2 out 2 for breathing, movement, posture/tone, and SHAYY. Total sco re was 8 out of 8. Heart rate during this exam was 117 bpm. IMPRESSION: Normal BPP. Signer Name: Artur Ravi MD Signed: 02/23/2022 9:32 AM Workstation Name: [id number]
[2022-02-23] MEDS: PRENATAL VIT27-FE FUMARATE-FOLIC ACID VIT TAB PO SCH (09:54)
[2022-02-23] MEDS: NIFEdipine XL 60 MG TAB PO SCH ×2 (09:55→22:09)
--- NOTE | 2022-02-23 13:25 | Progress Note ---
Assessment and Plan IUP @ 31.5 wks, CHTN with superimposed Preeclampsia, BMI 60. - Patient Problems (1) Morbid obesity Current Visit: Yes Status: Chronic (2) Pre-eclampsia superimposed on chronic hypertension Current Visit: Yes Status: Acute Plan to address problem: Cardiology and [facility] continues to follow patient. Continue Labetalol; titrate up to 800 mg tid to keep BP < 160/110 - Currently at 700mg TID. Continue with Procardia 60 mg BID. Hydralazine 25 mg PO q 8 hrs re-added to blood pressure regime. Repeat CBC/CMP at least twice weekly -CMP and CBC ordered for today. Delivery at 34 0/7 weeks gestations. Immediate delivery is advised if her severe HTN is uncontrolled, Cerebral symptoms persist, pt develops Pul edema, HELLP, renal failure, plt count <100,000, eclampsia, distress Continue to monitor blood pressures. Continue to monitor for worsening s/sx of pre eclampsia. (3) 31 weeks gestation of Current Visit: No Status: Acute Plan to address problem: Continue with q 4 hr NST's. - monitor strip with variability at the time of this assessment. - RN aware now may be q 4 hr NST's. BPP twice weekly. - Last completed on 02/19 06/06, vertex. - Next ordered for today. - Vertex presentation on last BPP. Growth Scans q 2 wks. - On 02/15 1545 gms. - Ordered next for March 01. Subjective - Subjective Date of service: 02/23/22 Principal diagnosis: IUP @ 31.5 wks, CHTN with superimposed Preeclampsia, BMI 60 Interval history: Pt denies vaginal bleeding, LOF, ctxs, GROSSMAN, blurred vision, spots before her eyes, chest pain, shortness of breath, and upper abdominal pain. Patient reports: movement normal, other (pt denies all complaints), no new complaints, no loss of fluid, no vaginal bleeding, no contractions Objective - Vital Signs Vital Signs: Vital Signs - 12hr 02/23/22 02/23/22 02/23/22 01:25 01:30 01:35 Temperature Pulse Rate 76 73 72 Respiratory Rate Blood Pressure O2 Sat by Pulse 99 100 99 Oximetry 02/23/22 02/23/22 02/23/22 01:40 01:45 01:50 Temperature Pulse Rate 71 70 70 Respiratory Rate Blood Pressure O2 Sat by Pulse 98 98 98 Oximetry 02/23/22 02/23/22 02/23/22 01:56 02:00 02:03 Temperature Pulse Rate 71 68 68 Respiratory Rate Blood Pressure 135/77 O2 Sat by Pulse 98 98 93 Oximetry 02/23/22 02/23/22 02/23/22 02:06 02:11 02:16 Temperature Pulse Rate 70 68 67 Respiratory Rate Blood Pressure O2 Sat by Pulse 98 98 98 Oximetry 02/23/22 02/23/22 02/23/22 02:20 02:26 02:30 Temperature Pulse Rate 74 66 70 Respiratory Rate Blood Pressure O2 Sat by Pulse 98 100 98 Oximetry 02/23/22 02/23/22 02/23/22 02:35 02:40 02:46 Temperature Pulse Rate 64 65 65 Respiratory Rate Blood Pressure O2 Sat by Pulse 98 98 98 Oximetry 02/23/22 02/23/22 02/23/22 02:51 02:56 02:57 Temperature Pulse Rate 75 68 67 Respiratory Rate Blood Pressure O2 Sat by Pulse 96 98 91 Oximetry 02/23/22 02/23/22 02/23/22 03:01 03:03 03:06 Temperature Pulse Rate 69 65 66 Respiratory Rate Blood Pressure 146/92 O2 Sat by Pulse 99 98 Oximetry 02/23/22 02/23/22 02/23/22 03:11 03:16 03:21 Temperature Pulse Rate 66 66 66 Respiratory Rate Blood Pressure O2 Sat by Pulse 98 98 98 Oximetry 02/23/22 02/23/22 02/23/22 03:26 03:31 03:36 Temperature Pulse Rate 67 66 68 Respiratory Rate Blood Pressure O2 Sat by Pulse 98 98 97 Oximetry 02/23/22 02/23/22 02/23/22 03:40 03:46 03:51 Temperature Pulse Rate 64 70 64 Respiratory Rate Blood Pressure O2 Sat by Pulse 98 98 98 Oximetry 02/23/22 02/23/22 02/23/22 03:56 04:01 04:03 Temperature Pulse Rate 65 69 65 Respiratory Rate Blood Pressure 145/94 O2 Sat by Pulse 98 98 Oximetry 02/23/22 02/23/22 02/23/22 04:06 04:16 04:19 Temperature 97.9 F Pulse Rate 65 94 H Respiratory 18 Rate Blood Pressure O2 Sat by Pulse 98 100 100 Oximetry 02/23/22 02/23/22 02/23/22 04:21 04:26 04:31 Temperature Pulse Rate 75 76 71 Respiratory Rate Blood Pressure O2 Sat by Pulse 100 100 100 Oximetry 02/23/22 02/23/22 02/23/22 04:36 04:40 04:46 Temperature Pulse Rate 72 70 71 Respiratory Rate Blood Pressure O2 Sat by Pulse 100 100 99 Oximetry 02/23/22 02/23/22 02/23/22 04:51 04:56 05:01 Temperature Pulse Rate 71 70 79 Respiratory Rate Blood Pressure O2 Sat by Pulse 99 100 100 Oximetry 02/23/22 02/23/22 02/23/22 05:03 05:06 05:11 Temperature Pulse Rate 78 73 71 Respiratory Rate Blood Pressure 134/84 O2 Sat by Pulse 99 99 Oximetry 02/23/22 02/23/22 02/23/22 05:16 05:21 05:26 Temperature Pulse Rate 85 73 76 Respiratory Rate Blood Pressure O2 Sat by Pulse 99 100 100 Oximetry 02/23/22 02/23/22 02/23/22 05:31 05:36 05:52 Temperature Pulse Rate 81 96 H 89 Respiratory Rate Blood Pressure O2 Sat by Pulse 99 100 100 Oximetry 02/23/22 02/23/22 02/23/22 05:57 06:01 06:02 Temperature Pulse Rate 82 88 87 Respiratory Rate Blood Pressure O2 Sat by Pulse 99 87 95 Oximetry 02/23/22 02/23/22 02/23/22 06:04 06:07 06:08 Temperature Pulse Rate 74 78 81 Respiratory Rate Blood Pressure 173/102 O2 Sat by Pulse 100 92 Oximetry 02/23/22 02/23/22 02/23/22 06:12 06:17 06:22 Temperature Pulse Rate 77 77 92 H Respiratory Rate Blood Pressure 145/79 O2 Sat by Pulse 100 99 99 Oximetry 02/23/22 02/23/22 02/23/22 06:27 06:32 06:37 Temperature Pulse Rate 82 80 82 Respiratory Rate Blood Pressure O2 Sat by Pulse 100 99 99 Oximetry 02/23/22 02/23/22 02/23/22 06:42 06:47 06:52 Temperature Pulse Rate 85 84 84 Respiratory Rate Blood Pressure O2 Sat by Pulse 100 99 99 Oximetry 02/23/22 02/23/22 02/23/22 06:57 07:02 07:03 Temperature Pulse Rate 83 79 80 Respiratory Rate Blood Pressure 140/86 O2 Sat by Pulse 100 99 Oximetry 02/23/22 02/23/22 02/23/22 07:07 07:12 07:17 Temperature Pulse Rate 80 74 83 Respiratory Rate Blood Pressure O2 Sat by Pulse 99 99 97 Oximetry 02/23/22 02/23/22 02/23/22 07:22 07:25 07:27 Temperature Pulse Rate 78 89 89 Respiratory Rate Blood Pressure O2 Sat by Pulse 100 91 97 Oximetry 02/23/22 02/23/22 02/23/22 07:32 07:37 07:42 Temperature Pulse Rate 76 77 77 Respiratory Rate Blood Pressure O2 Sat by Pulse 99 99 99 Oximetry 02/23/22 02/23/22 02/23/22 07:47 07:52 07:57 Temperature Pulse Rate 77 76 75 Respiratory Rate Blood Pressure O2 Sat by Pulse 99 99 99 Oximetry 02/23/22 02/23/22 02/23/22 08:02 08:04 08:30 Temperature 98.8 F Pulse Rate 80 80 Respiratory 16 Rate Blood Pressure 125/71 O2 Sat by Pulse 99 99 Oximetry 02/23/22 02/23/22 02/23/22 08:47 08:50 08:51 Temperature Pulse Rate 72 72 72 Respiratory Rate Blood Pressure 133/69 133/69 133/69 O2 Sat by Pulse Oximetry - Exam Cardiovascular: Regular rate Lungs: Normal air movement Abdomen: Present: normal appearance, soft Vulva: both: normal Uterus: Present: normal FHR: category 1 Uterine Contraction Monitor Mode: External Uterine Contraction Pattern: Absent Extremities: edema (+ 1 edema to hands and feet. ) Deep Tendon Reflex Grade: Normal +2 - Labs Labs: Abnormal Labs 02/08/22 02/08/22 02/08/22 18:40 18:40 22:52 WBC 11.8 H RBC MCHC RDW Plt Count Sodium Potassium Chloride Carbon Dioxide BUN Glucose Calcium Magnesium 3.80 H Alkaline Phosphatase Lactate Dehydrogenase 305 H Total Protein Albumin Urine Creatinine Ur Total Protein 24 Hr 02/09/22 02/09/22 02/09/22 04:00 04:42 05:49 WBC RBC MCHC RDW Plt Count Sodium Potassium Chloride Carbon Dioxide BUN Glucose Calcium Magnesium 5.20 H Alkaline Phosphatase Lactate Dehydrogenase Total Protein Albumin Urine Creatinine 24.2 H Ur Total Protein 24 Hr 495.00 H 02/09/22 02/10/22 02/10/22 12:07 00:05 06:40 WBC RBC MCHC RDW Plt Count Sodium Potassium Chloride Carbon Dioxide BUN Glucose Calcium Magnesium 5.30 H 5.00 H 5.40 H Alkaline Phosphatase Lactate Dehydrogenase Total Protein Albumin Urine Creatinine Ur Total Protein 24 Hr 02/10/22 02/12/22 02/12/22 13:49 16:56 16:56 WBC RBC MCHC RDW Plt Count 73 L Sodium 131 L Potassium Chloride Carbon Dioxide 19 L BUN Glucose Calcium Magnesium 4.70 H Alkaline Phosphatase 205 H Lactate Dehydrogenase Total Protein Albumin 3.3 L Urine Creatinine Ur Total Protein 24 Hr 02/12/22 02/13/22 02/13/22 20:22 00:23 02:25 WBC RBC 3.58 L 3.59 L MCHC RDW 15.3 H 15.4 H Plt Count Sodium Potassium Chloride Carbon Dioxide BUN Glucose Calcium Magnesium 4.30 H Alkaline Phosphatase Lactate Dehydrogenase Total Protein Albumin Urine Creatinine Ur Total Protein 24 Hr 02/13/22 02/13/22 02/13/22 04:38 07:12 07:12 WBC RBC MCHC RDW 15.3 H 15.3 H Plt Count Sodium 131 L Potassium Chloride 97.5 L Carbon Dioxide 21 L BUN Glucose Calcium 8.3 L Magnesium Alkaline Phosphatase 200 H Lactate Dehydrogenase Total Protein Albumin 3.3 L Urine Creatinine Ur Total Protein 24 Hr 02/14/22 02/14/22 02/15/22 08:19 08:19 09:41 WBC RBC MCHC RDW 15.4 H 15.3 H Plt Count Sodium 135 L Potassium Chloride Carbon Dioxide 21 L BUN Glucose 133 H Calcium Magnesium Alkaline Phosphatase 200 H Lactate Dehydrogenase Total Protein Albumin 3.4 L Urine Creatinine Ur Total Protein 24 Hr 02/16/22 02/16/22 02/16/22 04:42 07:59 14:20 WBC RBC 3.61 L MCHC 35 H RDW 15.4 H Plt Count Sodium 136 L Potassium 5.3 H 5.2 H Chloride Carbon Dioxide BUN 18 H Glucose Calcium Magnesium Alkaline Phosphatase 204 H Lactate Dehydrogenase Total Protein Albumin 3.3 L Urine Creatinine Ur Total Protein 24 Hr 02/17/22 02/17/22 02/18/22 08:08 20:14 06:36 WBC RBC MCHC RDW Plt Count Sodium 134 L 136 L Potassium 5.1 H 5.4 H 5.2 H Chloride Carbon Dioxide 19 L 19 L BUN 18 H Glucose Calcium Magnesium Alkaline Phosphatase 231 H Lactate Dehydrogenase Total Protein Albumin 3.6 L Urine Creatinine Ur Total Protein 24 Hr 02/19/22 02/19/22 02/21/22 11:48 11:48 07:12 WBC RBC MCHC RDW 15.7 H 15.4 H Plt Count Sodium 135 L Potassium Chloride Carbon Dioxide 19 L BUN Glucose Calcium Magnesium Alkaline Phosphatase 220 H Lactate Dehydrogenase Total Protein 5.9 L Albumin 3.5 L Urine Creatinine Ur Total Protein 24 Hr 02/21/22 07:18 WBC RBC MCHC RDW Plt Count Sodium Potassium Chloride Carbon Dioxide 19 L BUN Glucose Calcium Magnesium Alkaline Phosphatase 244 H Lactate Dehydrogenase Total Protein Albumin 3.7 L Urine Creatinine Ur Total Protein 24 Hr
--- NOTE | 2022-02-23 17:08 | Progress Note ---
Assessment and Plan UP at 31 5/7 weeks gestation CHTN with superimposed preeclampsia with severe features LI Morbid obesity Echo reviewed , normal EF , mild Pul HTN Rec: Continue Labetalol 700mg TID , procardia 30mg XL Titrate the Labetalol to maintain BP 120-160/80-105mmhg , if her HR allows Max goal is 2400mg daily Twice weekly CBC/CMP to screen for end organ damage ( renal failure, thrombocytopenia, HELLP) Growth scan q 3 weeks Twice weekly BPP Delivery at 34 0/7 weeks gestations. Immediate delivery is advised if her severe HTN is uncontrolled, Cerebral symptoms persist, pt develops Pul edema, HELLP, renal failure, plt count <100,000, eclampsia, distress Subjective - Subjective Date of service: 02/23/22 Principal diagnosis: IUP @ 31.5 wks, CHTN with superimposed Preeclampsia, BMI 60 Interval history: She has no complaints Patient reports: movement normal, other (pt denies all complaints), no new complaints, no loss of fluid, no vaginal bleeding, no contractions Objective - Vital Signs Vital Signs: Vital Signs - 12hr 02/23/22 02/23/22 02/23/22 05:11 05:16 05:21 Temperature Pulse Rate 71 85 73 Respiratory Rate Blood Pressure O2 Sat by Pulse 99 99 100 Oximetry 02/23/22 02/23/22 02/23/22 05:26 05:31 05:36 Temperature Pulse Rate 76 81 96 H Respiratory Rate Blood Pressure O2 Sat by Pulse 100 99 100 Oximetry 02/23/22 02/23/22 02/23/22 05:52 05:57 06:01 Temperature Pulse Rate 89 82 88 Respiratory Rate Blood Pressure O2 Sat by Pulse 100 99 87 Oximetry 02/23/22 02/23/22 02/23/22 06:02 06:04 06:07 Temperature Pulse Rate 87 74 78 Respiratory Rate Blood Pressure 173/102 O2 Sat by Pulse 95 100 Oximetry 02/23/22 02/23/22 02/23/22 06:08 06:12 06:17 Temperature Pulse Rate 81 77 77 Respiratory Rate Blood Pressure 145/79 O2 Sat by Pulse 92 100 99 Oximetry 02/23/22 02/23/22 02/23/22 06:22 06:27 06:32 Temperature Pulse Rate 92 H 82 80 Respiratory Rate Blood Pressure O2 Sat by Pulse 99 100 99 Oximetry 02/23/22 02/23/22 02/23/22 06:37 06:42 06:47 Temperature Pulse Rate 82 85 84 Respiratory Rate Blood Pressure O2 Sat by Pulse 99 100 99 Oximetry 02/23/22 02/23/22 02/23/22 06:52 06:57 07:02 Temperature Pulse Rate 84 83 79 Respiratory Rate Blood Pressure O2 Sat by Pulse 99 100 99 Oximetry 02/23/22 02/23/22 02/23/22 07:03 07:07 07:12 Temperature Pulse Rate 80 80 74 Respiratory Rate Blood Pressure 140/86 O2 Sat by Pulse 99 99 Oximetry 02/23/22 02/23/22 02/23/22 07:17 07:22 07:25 Temperature Pulse Rate 83 78 89 Respiratory Rate Blood Pressure O2 Sat by Pulse 97 100 91 Oximetry 02/23/22 02/23/22 02/23/22 07:27 07:32 07:37 Temperature Pulse Rate 89 76 77 Respiratory Rate Blood Pressure O2 Sat by Pulse 97 99 99 Oximetry 02/23/22 02/23/22 02/23/22 07:42 07:47 07:52 Temperature Pulse Rate 77 77 76 Respiratory Rate Blood Pressure O2 Sat by Pulse 99 99 99 Oximetry 02/23/22 02/23/22 02/23/22 07:57 08:02 08:04 Temperature Pulse Rate 75 80 80 Respiratory Rate Blood Pressure 125/71 O2 Sat by Pulse 99 99 Oximetry 02/23/22 02/23/22 02/23/22 08:30 08:47 08:50 Temperature 98.8 F Pulse Rate 72 72 Respiratory 16 Rate Blood Pressure 133/69 133/69 O2 Sat by Pulse 99 Oximetry 02/23/22 02/23/22 02/23/22 08:51 13:52 15:04 Temperature Pulse Rate 72 77 78 Respiratory Rate Blood Pressure 133/69 141/79 143/84 O2 Sat by Pulse Oximetry 02/23/22 02/23/22 02/23/22 15:34 16:04 16:44 Temperature Pulse Rate 74 66 67 Respiratory Rate Blood Pressure 166/94 173/106 158/105 O2 Sat by Pulse Oximetry 02/23/22 02/23/22 16:55 17:05 Temperature Pulse Rate 71 77 Respiratory Rate Blood Pressure 144/83 151/86 O2 Sat by Pulse Oximetry - Exam Narrative Exam: sitting up in bed Abdomen: Present: normal appearance, soft Extremities: edema (mild) - Labs Labs: Abnormal Labs 02/08/22 02/08/22 02/08/22 18:40 18:40 22:52 WBC 11.8 H RBC MCHC RDW Plt Count Sodium Potassium Chloride Carbon Dioxide BUN Glucose Calcium Magnesium 3.80 H Alkaline Phosphatase Lactate Dehydrogenase 305 H Total Protein Albumin Urine Creatinine Ur Total Protein 24 Hr 02/09/22 02/09/22 02/09/22 04:00 04:42 05:49 WBC RBC MCHC RDW Plt Count Sodium Potassium Chloride Carbon Dioxide BUN Glucose Calcium Magnesium 5.20 H Alkaline Phosphatase Lactate Dehydrogenase Total Protein Albumin Urine Creatinine 24.2 H Ur Total Protein 24 Hr 495.00 H 02/09/22 02/10/22 02/10/22 12:07 00:05 06:40 WBC RBC MCHC RDW Plt Count Sodium Potassium Chloride Carbon Dioxide BUN Glucose Calcium Magnesium 5.30 H 5.00 H 5.40 H Alkaline Phosphatase Lactate Dehydrogenase Total Protein Albumin Urine Creatinine Ur Total Protein 24 Hr 02/10/22 02/12/22 02/12/22 13:49 16:56 16:56 WBC RBC MCHC RDW Plt Count 73 L Sodium 131 L Potassium Chloride Carbon Dioxide 19 L BUN Glucose Calcium Magnesium 4.70 H Alkaline Phosphatase 205 H Lactate Dehydrogenase Total Protein Albumin 3.3 L Urine Creatinine Ur Total Protein 24 Hr 02/12/22 02/13/22 02/13/22 20:22 00:23 02:25 WBC RBC 3.58 L 3.59 L MCHC RDW 15.3 H 15.4 H Plt Count Sodium Potassium Chloride Carbon Dioxide BUN Glucose Calcium Magnesium 4.30 H Alkaline Phosphatase Lactate Dehydrogenase Total Protein Albumin Urine Creatinine Ur Total Protein 24 Hr 02/13/22 02/13/22 02/13/22 04:38 07:12 07:12 WBC RBC MCHC RDW 15.3 H 15.3 H Plt Count Sodium 131 L Potassium Chloride 97.5 L Carbon Dioxide 21 L BUN Glucose Calcium 8.3 L Magnesium Alkaline Phosphatase 200 H Lactate Dehydrogenase Total Protein Albumin 3.3 L Urine Creatinine Ur Total Protein 24 Hr 02/14/22 02/14/22 02/15/22 08:19 08:19 09:41 WBC RBC MCHC RDW 15.4 H 15.3 H Plt Count Sodium 135 L Potassium Chloride Carbon Dioxide 21 L BUN Glucose 133 H Calcium Magnesium Alkaline Phosphatase 200 H Lactate Dehydrogenase Total Protein Albumin 3.4 L Urine Creatinine Ur Total Protein 24 Hr 02/16/22 02/16/22 02/16/22 04:42 07:59 14:20 WBC RBC 3.61 L MCHC 35 H RDW 15.4 H Plt Count Sodium 136 L Potassium 5.3 H 5.2 H Chloride Carbon Dioxide BUN 18 H Glucose Calcium Magnesium Alkaline Phosphatase 204 H Lactate Dehydrogenase Total Protein Albumin 3.3 L Urine Creatinine Ur Total Protein 24 Hr 02/17/22 02/17/22 02/18/22 08:08 20:14 06:36 WBC RBC MCHC RDW Plt Count Sodium 134 L 136 L Potassium 5.1 H 5.4 H 5.2 H Chloride Carbon Dioxide 19 L 19 L BUN 18 H Glucose Calcium Magnesium Alkaline Phosphatase 231 H Lactate Dehydrogenase Total Protein Albumin 3.6 L Urine Creatinine Ur Total Protein 24 Hr 02/19/22 02/19/22 02/21/22 11:48 11:48 07:12 WBC RBC MCHC RDW 15.7 H 15.4 H Plt Count Sodium 135 L Potassium Chloride Carbon Dioxide 19 L BUN Glucose Calcium Magnesium Alkaline Phosphatase 220 H Lactate Dehydrogenase Total Protein 5.9 L Albumin 3.5 L Urine Creatinine Ur Total Protein 24 Hr 02/21/22 07:18 WBC RBC MCHC RDW Plt Count Sodium Potassium Chloride Carbon Dioxide 19 L BUN Glucose Calcium Magnesium Alkaline Phosphatase 244 H Lactate Dehydrogenase Total Protein Albumin 3.7 L Urine Creatinine Ur Total Protein 24 Hr - Results US- obstetric: other (02/23 BPP 06/06)
[2022-02-23] MEDS: hydrALAZINE 20 MG/1 ML INJ IV PRN (19:08)
[2022-02-24] MEDS: diphenhydrAMINE 25 MG CAP PO PRN ×2 (01:25→22:55)
[2022-02-24] MEDS: hydrALAZINE 25 MG TAB PO SCH ×3 (07:27→22:55)
--- NOTE | 2022-02-24 08:19 | Progress Note ---
Assessment and Plan Pt sleeping in bed without complaints. NSTs reviewed and category 2. Discussed with pt continuous monitoring if unable to obtain reactive NST. Discussed delivery recommendations. Pt verbalizes understanding. Pt denies feeling any contractions or having any complaints or concerns at this time. Reports positive movement. Dr. Perez to be made aware. Plan: Twice weekly CBC/CMP to screen for end organ damage ( renal failure, thrombocytopenia, HELLP) last completed 02/21, next ordered for today Growth scan q 2 weeks, last completed 02/15/22 EFW 1545g cephalic SHAYY 19.6cm, next ordered on 03/01 Twice weekly BPP, 8/8 on 02/23, next ordered for 02/26 Delivery at 34 0/7 weeks gestations. Immediate delivery is advised if her severe HTN is uncontrolled, Cerebral symptoms persist, pt develops Pul edema, HELLP, renal failure, plt count <100,000, eclampsia, distress - Patient Problems (1) History of asthma Current Visit: Yes Status: Chronic Plan to address problem: respiratory treatments as ordered (2) History of sleep apnea Current Visit: Yes Status: Chronic (3) Morbid obesity Current Visit: Yes Status: Chronic Plan to address problem: SCDs to remain on BLE when pt in bed (4) Hyperkalemia Current Visit: Yes Status: Resolved Plan to address problem: hyperkalemia resolved, plan to continue CMP twice weekly (5) 31 weeks gestation of Current Visit: Yes Status: Acute Plan to address problem: NICU consult completed BMZ completed on 01/29 NST q4h, continuous monitoring if nonreactive (6) Pre-eclampsia superimposed on chronic hypertension Current Visit: Yes Status: Acute Plan to address problem: TP 495 on 02/09/22 cardiology consults done EKG done continue labetalol 700mg TID, will increase per consults up to max of 2400mg/day for uncontrolled BPs continue procardia XL 60mg daily continue hydralazine 25mg PO q8h continue to monitor closely for ssx of worsening preeclampsia Subjective - Subjective Date of service: 02/24/22 Principal diagnosis: IUP @ 31.5 wks, CHTN with superimposed Preeclampsia, BMI 60 Patient reports: movement normal, other (pt denies all complaints), no new complaints, no loss of fluid, no vaginal bleeding, no contractions Objective - Vital Signs Vital Signs: Vital Signs - 12hr 02/23/22 02/23/22 02/23/22 20:17 20:21 20:22 Temperature Pulse Rate 83 77 77 Respiratory Rate Blood Pressure 143/78 O2 Sat by Pulse 100 99 Oximetry 02/23/22 02/23/22 02/23/22 20:27 20:32 20:37 Temperature Pulse Rate 81 80 76 Respiratory Rate Blood Pressure O2 Sat by Pulse 99 100 99 Oximetry 02/23/22 02/23/22 02/23/22 20:42 20:47 20:52 Temperature Pulse Rate 73 85 83 Respiratory Rate Blood Pressure O2 Sat by Pulse 99 100 100 Oximetry 02/23/22 02/23/22 02/23/22 20:57 21:01 21:02 Temperature Pulse Rate 77 78 Respiratory Rate Blood Pressure O2 Sat by Pulse 100 92 89 Oximetry 02/23/22 02/23/22 02/23/22 21:19 21:36 21:45 Temperature Pulse Rate 78 Respiratory Rate Blood Pressure O2 Sat by Pulse 79 L 82 L 80 L Oximetry 02/23/22 02/23/22 02/23/22 21:46 21:47 21:51 Temperature Pulse Rate 38 L 78 86 Respiratory Rate Blood Pressure 141/81 O2 Sat by Pulse 83 L 100 Oximetry 02/23/22 02/23/22 02/23/22 21:56 22:01 22:06 Temperature Pulse Rate 80 81 79 Respiratory Rate Blood Pressure O2 Sat by Pulse 100 100 99 Oximetry 02/23/22 02/23/22 02/23/22 22:11 22:16 22:17 Temperature Pulse Rate 82 79 77 Respiratory Rate Blood Pressure 133/96 O2 Sat by Pulse 100 100 Oximetry 02/23/22 02/23/22 02/23/22 22:21 22:26 22:31 Temperature Pulse Rate 78 79 79 Respiratory Rate Blood Pressure O2 Sat by Pulse 100 100 99 Oximetry 02/23/22 02/23/22 02/23/22 22:36 22:41 22:46 Temperature Pulse Rate 77 74 76 Respiratory Rate Blood Pressure O2 Sat by Pulse 100 100 100 Oximetry 02/23/22 02/23/22 02/23/22 22:47 22:51 22:56 Temperature Pulse Rate 75 78 74 Respiratory Rate Blood Pressure 142/87 O2 Sat by Pulse 100 100 Oximetry 02/23/22 02/23/22 02/23/22 23:01 23:06 23:11 Temperature Pulse Rate 80 78 74 Respiratory Rate Blood Pressure O2 Sat by Pulse 99 100 100 Oximetry 02/23/22 02/23/22 02/23/22 23:16 23:17 23:21 Temperature Pulse Rate 73 71 74 Respiratory Rate Blood Pressure 171/94 O2 Sat by Pulse 100 100 Oximetry 02/23/22 02/23/22 02/23/22 23:32 23:37 23:39 Temperature Pulse Rate 51 L 72 Respiratory Rate Blood Pressure O2 Sat by Pulse 89 83 L 82 L Oximetry 02/23/22 02/23/22 02/23/22 23:40 23:41 23:42 Temperature 97.4 F L Pulse Rate 71 89 Respiratory 20 Rate Blood Pressure 154/85 O2 Sat by Pulse 82 L Oximetry 02/23/22 02/23/22 02/23/22 23:47 23:52 23:57 Temperature Pulse Rate 70 74 77 Respiratory Rate Blood Pressure 143/76 O2 Sat by Pulse 99 99 100 Oximetry 02/24/22 02/24/22 02/24/22 00:02 00:07 00:12 Temperature Pulse Rate 73 83 70 Respiratory Rate Blood Pressure O2 Sat by Pulse 100 100 99 Oximetry 02/24/22 02/24/22 02/24/22 00:17 00:22 00:27 Temperature Pulse Rate 71 70 69 Respiratory Rate Blood Pressure 143/85 O2 Sat by Pulse 100 99 98 Oximetry 02/24/22 02/24/22 02/24/22 00:32 00:37 00:42 Temperature Pulse Rate 73 71 72 Respiratory Rate Blood Pressure O2 Sat by Pulse 100 100 99 Oximetry 02/24/22 02/24/22 02/24/22 00:47 00:52 00:57 Temperature Pulse Rate 71 71 69 Respiratory Rate Blood Pressure 151/102 O2 Sat by Pulse 100 100 100 Oximetry 02/24/22 02/24/22 02/24/22 01:02 01:07 01:12 Temperature Pulse Rate 68 75 73 Respiratory Rate Blood Pressure O2 Sat by Pulse 100 99 98 Oximetry 02/24/22 02/24/22 02/24/22 01:14 01:17 01:18 Temperature Pulse Rate 74 77 71 Respiratory Rate Blood Pressure 171/95 O2 Sat by Pulse 93 99 Oximetry 02/24/22 02/24/22 02/24/22 01:22 01:27 01:32 Temperature Pulse Rate 77 81 81 Respiratory Rate Blood Pressure O2 Sat by Pulse 100 99 98 Oximetry 02/24/22 02/24/22 02/24/22 01:40 01:41 01:45 Temperature Pulse Rate 95 H 81 79 Respiratory Rate Blood Pressure 148/79 O2 Sat by Pulse 99 99 Oximetry 02/24/22 02/24/22 02/24/22 01:47 01:50 01:55 Temperature Pulse Rate 81 80 81 Respiratory Rate Blood Pressure 130/82 O2 Sat by Pulse 99 98 Oximetry 02/24/22 02/24/22 02/24/22 02:00 02:05 02:10 Temperature Pulse Rate 81 83 79 Respiratory Rate Blood Pressure O2 Sat by Pulse 99 99 99 Oximetry 02/24/22 02/24/22 02/24/22 02:15 02:17 02:20 Temperature Pulse Rate 83 78 80 Respiratory Rate Blood Pressure 114/59 O2 Sat by Pulse 99 98 Oximetry 02/24/22 02/24/22 02/24/22 02:25 02:30 02:35 Temperature Pulse Rate 77 77 79 Respiratory Rate Blood Pressure O2 Sat by Pulse 99 98 98 Oximetry 02/24/22 02/24/22 02/24/22 02:40 02:45 02:47 Temperature Pulse Rate 78 78 76 Respiratory Rate Blood Pressure 117/61 O2 Sat by Pulse 98 98 Oximetry 02/24/22 02/24/22 02/24/22 02:50 02:55 03:00 Temperature Pulse Rate 78 79 77 Respiratory Rate Blood Pressure O2 Sat by Pulse 99 99 99 Oximetry 02/24/22 02/24/22 02/24/22 03:05 03:10 03:15 Temperature Pulse Rate 78 79 75 Respiratory Rate Blood Pressure O2 Sat by Pulse 98 99 97 Oximetry 02/24/22 02/24/22 02/24/22 03:17 03:20 03:25 Temperature Pulse Rate 75 74 79 Respiratory Rate Blood Pressure 121/61 O2 Sat by Pulse 97 97 Oximetry 02/24/22 02/24/22 02/24/22 03:30 03:35 03:40 Temperature Pulse Rate 72 75 74 Respiratory Rate Blood Pressure O2 Sat by Pulse 98 98 98 Oximetry 02/24/22 02/24/22 02/24/22 03:45 03:47 03:50 Temperature Pulse Rate 74 75 72 Respiratory Rate Blood Pressure 129/60 O2 Sat by Pulse 98 98 Oximetry 02/24/22 02/24/22 02/24/22 03:55 04:00 04:05 Temperature Pulse Rate 72 73 80 Respiratory Rate Blood Pressure O2 Sat by Pulse 97 96 98 Oximetry 02/24/22 02/24/22 02/24/22 04:10 04:15 04:17 Temperature Pulse Rate 75 73 78 Respiratory Rate Blood Pressure O2 Sat by Pulse 98 97 93 Oximetry 02/24/22 02/24/22 02/24/22 04:20 04:25 04:30 Temperature Pulse Rate 77 74 75 Respiratory Rate Blood Pressure O2 Sat by Pulse 97 99 98 Oximetry 02/24/22 02/24/22 02/24/22 04:35 04:36 04:40 Temperature 98.7 F Pulse Rate 72 70 Respiratory 19 Rate Blood Pressure O2 Sat by Pulse 96 96 Oximetry 02/24/22 02/24/22 02/24/22 04:45 04:47 04:50 Temperature Pulse Rate 68 70 65 Respiratory Rate Blood Pressure 123/66 O2 Sat by Pulse 97 95 Oximetry 02/24/22 02/24/22 02/24/22 04:55 05:00 05:05 Temperature Pulse Rate 78 72 84 Respiratory Rate Blood Pressure O2 Sat by Pulse 96 96 97 Oximetry 02/24/22 02/24/22 02/24/22 05:10 05:16 05:17 Temperature Pulse Rate 80 78 Respiratory Rate Blood Pressure 133/76 O2 Sat by Pulse 99 99 Oximetry 02/24/22 02/24/22 02/24/22 05:40 05:41 05:46 Temperature Pulse Rate 74 72 Respiratory Rate Blood Pressure O2 Sat by Pulse 74 L 97 97 Oximetry 02/24/22 02/24/22 02/24/22 05:51 05:56 06:01 Temperature Pulse Rate 72 70 73 Respiratory Rate Blood Pressure O2 Sat by Pulse 97 97 97 Oximetry 02/24/22 02/24/22 02/24/22 06:06 06:11 06:16 Temperature Pulse Rate 71 70 68 Respiratory Rate Blood Pressure O2 Sat by Pulse 97 97 97 Oximetry 02/24/22 02/24/22 02/24/22 06:21 06:26 06:31 Temperature Pulse Rate 73 74 74 Respiratory Rate Blood Pressure O2 Sat by Pulse 97 98 96 Oximetry 02/24/22 02/24/22 02/24/22 06:36 06:41 06:46 Temperature Pulse Rate 72 79 72 Respiratory Rate Blood Pressure O2 Sat by Pulse 97 97 97 Oximetry 02/24/22 02/24/22 02/24/22 06:51 06:56 07:01 Temperature Pulse Rate 79 71 66 Respiratory Rate Blood Pressure O2 Sat by Pulse 93 97 97 Oximetry 02/24/22 02/24/22 02/24/22 07:06 07:11 07:16 Temperature Pulse Rate 67 66 65 Respiratory Rate Blood Pressure O2 Sat by Pulse 97 97 97 Oximetry 02/24/22 02/24/22 02/24/22 07:21 07:26 07:27 Temperature Pulse Rate 68 73 73 Respiratory Rate Blood Pressure 130/74 130/74 O2 Sat by Pulse 97 95 Oximetry 02/24/22 07:47 Temperature Pulse Rate 74 Respiratory Rate Blood Pressure 132/83 O2 Sat by Pulse Oximetry - Exam Abdomen: Present: soft, other (morbidly obese) FHR: category 2 - Labs Labs: Abnormal Labs 02/08/22 02/08/22 02/08/22 18:40 18:40 22:52 WBC 11.8 H RBC MCHC RDW Plt Count Sodium Potassium Chloride Carbon Dioxide BUN Glucose Calcium Magnesium 3.80 H Alkaline Phosphatase Lactate Dehydrogenase 305 H Total Protein Albumin Urine Creatinine Ur Total Protein 24 Hr 02/09/22 02/09/22 02/09/22 04:00 04:42 05:49 WBC RBC MCHC RDW Plt Count Sodium Potassium Chloride Carbon Dioxide BUN Glucose Calcium Magnesium 5.20 H Alkaline Phosphatase Lactate Dehydrogenase Total Protein Albumin Urine Creatinine 24.2 H Ur Total Protein 24 Hr 495.00 H 02/09/22 02/10/22 02/10/22 12:07 00:05 06:40 WBC RBC MCHC RDW Plt Count Sodium Potassium Chloride Carbon Dioxide BUN Glucose Calcium Magnesium 5.30 H 5.00 H 5.40 H Alkaline Phosphatase Lactate Dehydrogenase Total Protein Albumin Urine Creatinine Ur Total Protein 24 Hr 02/10/22 02/12/22 02/12/22 13:49 16:56 16:56 WBC RBC MCHC RDW Plt Count 73 L Sodium 131 L Potassium Chloride Carbon Dioxide 19 L BUN Glucose Calcium Magnesium 4.70 H Alkaline Phosphatase 205 H Lactate Dehydrogenase Total Protein Albumin 3.3 L Urine Creatinine Ur Total Protein 24 Hr 02/12/22 02/13/22 02/13/22 20:22 00:23 02:25 WBC RBC 3.58 L 3.59 L MCHC RDW 15.3 H 15.4 H Plt Count Sodium Potassium Chloride Carbon Dioxide BUN Glucose Calcium Magnesium 4.30 H Alkaline Phosphatase Lactate Dehydrogenase Total Protein Albumin Urine Creatinine Ur Total Protein 24 Hr 02/13/22 02/13/22 02/13/22 04:38 07:12 07:12 WBC RBC MCHC RDW 15.3 H 15.3 H Plt Count Sodium 131 L Potassium Chloride 97.5 L Carbon Dioxide 21 L BUN Glucose Calcium 8.3 L Magnesium Alkaline Phosphatase 200 H Lactate Dehydrogenase Total Protein Albumin 3.3 L Urine Creatinine Ur Total Protein 24 Hr 02/14/22 02/14/22 02/15/22 08:19 08:19 09:41 WBC RBC MCHC RDW 15.4 H 15.3 H Plt Count Sodium 135 L Potassium Chloride Carbon Dioxide 21 L BUN Glucose 133 H Calcium Magnesium Alkaline Phosphatase 200 H Lactate Dehydrogenase Total Protein Albumin 3.4 L Urine Creatinine Ur Total Protein 24 Hr 02/16/22 02/16/22 02/16/22 04:42 07:59 14:20 WBC RBC 3.61 L MCHC 35 H RDW 15.4 H Plt Count Sodium 136 L Potassium 5.3 H 5.2 H Chloride Carbon Dioxide BUN 18 H Glucose Calcium Magnesium Alkaline Phosphatase 204 H Lactate Dehydrogenase Total Protein Albumin 3.3 L Urine Creatinine Ur Total Protein 24 Hr 02/17/22 02/17/22 02/18/22 08:08 20:14 06:36 WBC RBC MCHC RDW Plt Count Sodium 134 L 136 L Potassium 5.1 H 5.4 H 5.2 H Chloride Carbon Dioxide 19 L 19 L BUN 18 H Glucose Calcium Magnesium Alkaline Phosphatase 231 H Lactate Dehydrogenase Total Protein Albumin 3.6 L Urine Creatinine Ur Total Protein 24 Hr 02/19/22 02/19/22 02/21/22 11:48 11:48 07:12 WBC RBC MCHC RDW 15.7 H 15.4 H Plt Count Sodium 135 L Potassium Chloride Carbon Dioxide 19 L BUN Glucose Calcium Magnesium Alkaline Phosphatase 220 H Lactate Dehydrogenase Total Protein 5.9 L Albumin 3.5 L Urine Creatinine Ur Total Protein 24 Hr 02/21/22 07:18 WBC RBC MCHC RDW Plt Count Sodium Potassium Chloride Carbon Dioxide 19 L BUN Glucose Calcium Magnesium Alkaline Phosphatase 244 H Lactate Dehydrogenase Total Protein Albumin 3.7 L Urine Creatinine Ur Total Protein 24 Hr
[2022-02-24] MEDS: NIFEdipine XL 60 MG TAB PO SCH ×2 (11:07→22:10)
[2022-02-24] MEDS: PRENATAL VIT27-FE FUMARATE-FOLIC ACID VIT TAB PO SCH (11:07)
[2022-02-24 15:42] LABS: Basophils % (Auto) 0.3 % (0.0-1.8); Eosinophils # (Auto) 0.1 K/mm3 (0.0-0.4); Eosinophils % (Auto) 1.1 % (0.0-4.3); Hematocrit 33.1 % (30.3-42.9); Lymphocytes # (Auto) 1.5 K/mm3 (1.2-5.4); Lymphocytes % (Auto) 17.3 % (13.4-35.0); Mean Corpuscular HGB Conc 33 % (30-34); Mean Corpuscular Volume 88 fl (79-97); Monocytes # (Auto) 0.6 K/mm3 (0.0-0.8); Monocytes % (Auto) 6.7 % (0.0-7.3); Platelet Count 254 K/mm3 (140-440); Red Blood Count 3.76 M/mm3 (3.65-5.03); Red Cell Distribution Width 15.1 % (13.2-15.2)
[2022-02-24 16:00] LABS: Alanine Aminotransferase 23 units/L (7-56); Albumin 3.6 g/dL (3.9-5); BUN/Creatinine Ratio 14; Blood Urea Nitrogen 15 mg/dL (7-17); Calcium 9.1 mg/dL (8.4-10.2); Hemolysis Index 0
--- NOTE | 2022-02-24 17:23 | Progress Note ---
Assessment and Plan UP at 31 6/7 weeks gestation CHTN with superimposed preeclampsia with severe features LI Morbid obesity Echo reviewed , normal EF , mild Pul HTN Rec: Continue Labetalol 700mg TID , procardia 30mg XL Titrate the Labetalol to maintain BP 120-160/80-105mmhg , if her HR allows Max goal is 2400mg daily Twice weekly CBC/CMP to screen for end organ damage ( renal failure, thrombocytopenia, HELLP) Growth scan q 3 weeks Twice weekly BPP Delivery at 34 0/7 weeks gestations. Immediate delivery is advised if her severe HTN is uncontrolled, Cerebral symptoms persist, pt develops Pul edema, HELLP, renal failure, plt count <100,000, eclampsia, distress Subjective - Subjective Principal diagnosis: IUP @ 31.5 wks, CHTN with superimposed Preeclampsia, BMI 60 Interval history: She has no complaints Patient reports: movement normal, other (pt denies all complaints), no new complaints, no loss of fluid, no vaginal bleeding, no contractions Objective - Vital Signs Vital Signs: Vital Signs - 12hr 02/24/22 02/24/22 02/24/22 05:40 05:41 05:46 Temperature Pulse Rate 74 72 Respiratory Rate Blood Pressure O2 Sat by Pulse 74 L 97 97 Oximetry O2 Sat by Pulse Oximetry [ Bilateral Throughout] 02/24/22 02/24/22 02/24/22 05:51 05:56 06:01 Temperature Pulse Rate 72 70 73 Respiratory Rate Blood Pressure O2 Sat by Pulse 97 97 97 Oximetry O2 Sat by Pulse Oximetry [ Bilateral Throughout] 02/24/22 02/24/22 02/24/22 06:06 06:11 06:16 Temperature Pulse Rate 71 70 68 Respiratory Rate Blood Pressure O2 Sat by Pulse 97 97 97 Oximetry O2 Sat by Pulse Oximetry [ Bilateral Throughout] 02/24/22 02/24/22 02/24/22 06:21 06:26 06:31 Temperature Pulse Rate 73 74 74 Respiratory Rate Blood Pressure O2 Sat by Pulse 97 98 96 Oximetry O2 Sat by Pulse Oximetry [ Bilateral Throughout] 02/24/22 02/24/22 02/24/22 06:36 06:41 06:46 Temperature Pulse Rate 72 79 72 Respiratory Rate Blood Pressure O2 Sat by Pulse 97 97 97 Oximetry O2 Sat by Pulse Oximetry [ Bilateral Throughout] 02/24/22 02/24/22 02/24/22 06:51 06:56 07:01 Temperature Pulse Rate 79 71 66 Respiratory Rate Blood Pressure O2 Sat by Pulse 93 97 97 Oximetry O2 Sat by Pulse Oximetry [ Bilateral Throughout] 02/24/22 02/24/22 02/24/22 07:06 07:11 07:16 Temperature Pulse Rate 67 66 65 Respiratory Rate Blood Pressure O2 Sat by Pulse 97 97 97 Oximetry O2 Sat by Pulse Oximetry [ Bilateral Throughout] 02/24/22 02/24/22 02/24/22 07:21 07:26 07:27 Temperature Pulse Rate 68 73 73 Respiratory Rate Blood Pressure 130/74 130/74 O2 Sat by Pulse 97 95 Oximetry O2 Sat by Pulse Oximetry [ Bilateral Throughout] 02/24/22 02/24/22 02/24/22 07:47 08:17 08:35 Temperature Pulse Rate 74 74 85 Respiratory Rate Blood Pressure 132/83 137/78 140/83 O2 Sat by Pulse Oximetry O2 Sat by Pulse Oximetry [ Bilateral Throughout] 02/24/22 02/24/22 02/24/22 08:36 08:47 09:00 Temperature Pulse Rate 78 68 81 Respiratory Rate Blood Pressure 140/83 144/87 O2 Sat by Pulse 98 100 Oximetry O2 Sat by Pulse Oximetry [ Bilateral Throughout] 02/24/22 02/24/22 02/24/22 09:08 09:48 09:49 Temperature Pulse Rate 88 46 L 84 Respiratory Rate Blood Pressure 161/92 O2 Sat by Pulse 100 84 84 Oximetry O2 Sat by Pulse Oximetry [ Bilateral Throughout] 02/24/22 02/24/22 02/24/22 09:54 10:02 10:05 Temperature Pulse Rate 82 149 H 77 Respiratory Rate Blood Pressure O2 Sat by Pulse 98 79 L 98 Oximetry O2 Sat by Pulse Oximetry [ Bilateral Throughout] 02/24/22 02/24/22 02/24/22 10:10 10:15 10:17 Temperature Pulse Rate 79 81 78 Respiratory Rate Blood Pressure 142/71 O2 Sat by Pulse 99 99 Oximetry O2 Sat by Pulse Oximetry [ Bilateral Throughout] 02/24/22 02/24/22 02/24/22 10:21 10:24 10:29 Temperature Pulse Rate 78 82 82 Respiratory Rate Blood Pressure O2 Sat by Pulse 87 100 100 Oximetry O2 Sat by Pulse Oximetry [ Bilateral Throughout] 02/24/22 02/24/22 02/24/22 10:34 10:43 10:47 Temperature Pulse Rate 81 79 80 Respiratory Rate Blood Pressure 133/81 O2 Sat by Pulse 97 100 Oximetry O2 Sat by Pulse Oximetry [ Bilateral Throughout] 02/24/22 02/24/22 02/24/22 10:48 10:55 11:00 Temperature Pulse Rate 78 83 86 Respiratory Rate Blood Pressure O2 Sat by Pulse 98 100 99 Oximetry O2 Sat by Pulse Oximetry [ Bilateral Throughout] 02/24/22 02/24/22 02/24/22 11:05 11:10 11:15 Temperature 98.4 F Pulse Rate 80 82 82 Respiratory 20 Rate Blood Pressure O2 Sat by Pulse 100 99 100 Oximetry O2 Sat by Pulse 99 Oximetry [ Bilateral Throughout] 02/24/22 02/24/22 02/24/22 11:17 11:20 11:25 Temperature Pulse Rate 79 81 76 Respiratory Rate Blood Pressure 123/70 O2 Sat by Pulse 99 98 Oximetry O2 Sat by Pulse Oximetry [ Bilateral Throughout] 02/24/22 02/24/22 02/24/22 11:30 11:35 11:40 Temperature Pulse Rate 72 76 76 Respiratory Rate Blood Pressure O2 Sat by Pulse 99 100 100 Oximetry O2 Sat by Pulse Oximetry [ Bilateral Throughout] 02/24/22 02/24/22 02/24/22 11:46 11:47 11:51 Temperature Pulse Rate 75 74 81 Respiratory Rate Blood Pressure 120/66 O2 Sat by Pulse 100 82 L 100 Oximetry O2 Sat by Pulse Oximetry [ Bilateral Throughout] 02/24/22 02/24/22 02/24/22 11:56 12:01 12:06 Temperature Pulse Rate 75 73 79 Respiratory Rate Blood Pressure O2 Sat by Pulse 98 100 98 Oximetry O2 Sat by Pulse Oximetry [ Bilateral Throughout] 02/24/22 02/24/22 02/24/22 12:11 12:16 12:17 Temperature Pulse Rate 76 79 78 Respiratory Rate Blood Pressure 138/77 O2 Sat by Pulse 100 100 Oximetry O2 Sat by Pulse Oximetry [ Bilateral Throughout] 02/24/22 02/24/22 02/24/22 12:21 12:25 12:27 Temperature Pulse Rate 54 L 99 H Respiratory Rate Blood Pressure O2 Sat by Pulse 100 85 78 L Oximetry O2 Sat by Pulse Oximetry [ Bilateral Throughout] 02/24/22 02/24/22 02/24/22 12:30 12:36 12:41 Temperature Pulse Rate 77 Respiratory Rate Blood Pressure O2 Sat by Pulse 79 L 83 L 71 L Oximetry O2 Sat by Pulse Oximetry [ Bilateral Throughout] 02/24/22 02/24/22 02/24/22 12:46 12:47 12:51 Temperature Pulse Rate 67 76 161 H Respiratory Rate Blood Pressure 141/90 O2 Sat by Pulse 80 L 77 L Oximetry O2 Sat by Pulse Oximetry [ Bilateral Throughout] 02/24/22 02/24/22 02/24/22 12:54 12:58 12:59 Temperature Pulse Rate 87 108 H Respiratory Rate Blood Pressure O2 Sat by Pulse 0 L 82 L 82 L Oximetry O2 Sat by Pulse Oximetry [ Bilateral Throughout] 02/24/22 02/24/22 02/24/22 13:05 13:08 13:10 Temperature Pulse Rate 103 H Respiratory Rate Blood Pressure O2 Sat by Pulse 86 86 82 L Oximetry O2 Sat by Pulse Oximetry [ Bilateral Throughout] 02/24/22 02/24/22 02/24/22 13:13 13:15 13:20 Temperature Pulse Rate 145 H 136 H Respiratory Rate Blood Pressure O2 Sat by Pulse 84 81 L 84 Oximetry O2 Sat by Pulse Oximetry [ Bilateral Throughout] 02/24/22 02/24/22 02/24/22 13:25 13:26 14:10 Temperature Pulse Rate 93 H 68 Respiratory Rate Blood Pressure O2 Sat by Pulse 59 L 84 83 L Oximetry O2 Sat by Pulse Oximetry [ Bilateral Throughout] 02/24/22 02/24/22 02/24/22 14:11 14:23 14:26 Temperature Pulse Rate 77 Respiratory Rate Blood Pressure O2 Sat by Pulse 79 L 74 L 85 Oximetry O2 Sat by Pulse Oximetry [ Bilateral Throughout] 02/24/22 02/24/22 02/24/22 14:31 14:32 14:36 Temperature 98.1 F Pulse Rate 89 84 91 H Respiratory Rate Blood Pressure O2 Sat by Pulse 99 87 99 Oximetry O2 Sat by Pulse Oximetry [ Bilateral Throughout] 02/24/22 02/24/22 02/24/22 14:37 14:38 14:39 Temperature Pulse Rate 86 90 90 Respiratory Rate Blood Pressure 122/88 122/80 122/80 O2 Sat by Pulse Oximetry O2 Sat by Pulse Oximetry [ Bilateral Throughout] 02/24/22 02/24/22 02/24/22 14:41 14:46 14:53 Temperature Pulse Rate 88 84 86 Respiratory Rate Blood Pressure O2 Sat by Pulse 97 99 98 Oximetry O2 Sat by Pulse Oximetry [ Bilateral Throughout] 02/24/22 02/24/22 02/24/22 14:58 15:03 15:08 Temperature Pulse Rate 79 84 79 Respiratory Rate Blood Pressure O2 Sat by Pulse 99 99 99 Oximetry O2 Sat by Pulse Oximetry [ Bilateral Throughout] 02/24/22 02/24/22 02/24/22 15:13 15:18 15:23 Temperature Pulse Rate 83 82 75 Respiratory Rate Blood Pressure O2 Sat by Pulse 98 100 98 Oximetry O2 Sat by Pulse Oximetry [ Bilateral Throughout] 02/24/22 02/24/22 02/24/22 15:28 15:33 15:38 Temperature Pulse Rate 73 76 78 Respiratory Rate Blood Pressure O2 Sat by Pulse 98 99 99 Oximetry O2 Sat by Pulse Oximetry [ Bilateral Throughout] 02/24/22 02/24/22 02/24/22 15:43 15:48 15:53 Temperature Pulse Rate 85 80 80 Respiratory Rate Blood Pressure O2 Sat by Pulse 100 99 98 Oximetry O2 Sat by Pulse Oximetry [ Bilateral Throughout] 02/24/22 02/24/22 02/24/22 15:58 16:03 16:08 Temperature Pulse Rate 72 71 71 Respiratory Rate Blood Pressure O2 Sat by Pulse 99 100 99 Oximetry O2 Sat by Pulse Oximetry [ Bilateral Throughout] 02/24/22 02/24/22 02/24/22 16:13 16:18 16:23 Temperature Pulse Rate 69 70 69 Respiratory Rate Blood Pressure O2 Sat by Pulse 99 99 99 Oximetry O2 Sat by Pulse Oximetry [ Bilateral Throughout] 02/24/22 02/24/22 02/24/22 16:28 16:33 16:38 Temperature Pulse Rate 69 73 69 Respiratory Rate Blood Pressure O2 Sat by Pulse 99 99 98 Oximetry O2 Sat by Pulse Oximetry [ Bilateral Throughout] 02/24/22 02/24/22 02/24/22 16:43 16:48 16:53 Temperature Pulse Rate 78 66 76 Respiratory Rate Blood Pressure O2 Sat by Pulse 100 100 99 Oximetry O2 Sat by Pulse Oximetry [ Bilateral Throughout] 02/24/22 02/24/22 02/24/22 16:58 17:03 17:08 Temperature Pulse Rate 77 79 83 Respiratory Rate Blood Pressure O2 Sat by Pulse 99 99 100 Oximetry O2 Sat by Pulse Oximetry [ Bilateral Throughout] 02/24/22 02/24/22 17:13 17:18 Temperature Pulse Rate 78 72 Respiratory Rate Blood Pressure O2 Sat by Pulse 99 99 Oximetry O2 Sat by Pulse Oximetry [ Bilateral Throughout] - Exam Narrative Exam: NAD Abdomen: Present: normal appearance Extremities: edema - Labs Labs: Abnormal Labs 02/08/22 02/08/22 02/08/22 18:40 18:40 22:52 WBC 11.8 H RBC MCHC RDW Plt Count Seg Neutrophils % Sodium Potassium Chloride Carbon Dioxide BUN Glucose Calcium Magnesium 3.80 H Alkaline Phosphatase Lactate Dehydrogenase 305 H Total Protein Albumin Urine Creatinine Ur Total Protein 24 Hr 02/09/22 02/09/22 02/09/22 04:00 04:42 05:49 WBC RBC MCHC RDW Plt Count Seg Neutrophils % Sodium Potassium Chloride Carbon Dioxide BUN Glucose Calcium Magnesium 5.20 H Alkaline Phosphatase Lactate Dehydrogenase Total Protein Albumin Urine Creatinine 24.2 H Ur Total Protein 24 Hr 495.00 H 02/09/22 02/10/22 02/10/22 12:07 00:05 06:40 WBC RBC MCHC RDW Plt Count Seg Neutrophils % Sodium Potassium Chloride Carbon Dioxide BUN Glucose Calcium Magnesium 5.30 H 5.00 H 5.40 H Alkaline Phosphatase Lactate Dehydrogenase Total Protein Albumin Urine Creatinine Ur Total Protein 24 Hr 02/10/22 02/12/22 02/12/22 13:49 16:56 16:56 WBC RBC MCHC RDW Plt Count 73 L Seg Neutrophils % Sodium 131 L Potassium Chloride Carbon Dioxide 19 L BUN Glucose Calcium Magnesium 4.70 H Alkaline Phosphatase 205 H Lactate Dehydrogenase Total Protein Albumin 3.3 L Urine Creatinine Ur Total Protein 24 Hr 02/12/22 02/13/22 02/13/22 20:22 00:23 02:25 WBC RBC 3.58 L 3.59 L MCHC RDW 15.3 H 15.4 H Plt Count Seg Neutrophils % Sodium Potassium Chloride Carbon Dioxide BUN Glucose Calcium Magnesium 4.30 H Alkaline Phosphatase Lactate Dehydrogenase Total Protein Albumin Urine Creatinine Ur Total Protein 24 Hr 02/13/22 02/13/22 02/13/22 04:38 07:12 07:12 WBC RBC MCHC RDW 15.3 H 15.3 H Plt Count Seg Neutrophils % Sodium 131 L Potassium Chloride 97.5 L Carbon Dioxide 21 L BUN Glucose Calcium 8.3 L Magnesium Alkaline Phosphatase 200 H Lactate Dehydrogenase Total Protein Albumin 3.3 L Urine Creatinine Ur Total Protein 24 Hr 02/14/22 02/14/22 02/15/22 08:19 08:19 09:41 WBC RBC MCHC RDW 15.4 H 15.3 H Plt Count Seg Neutrophils % Sodium 135 L Potassium Chloride Carbon Dioxide 21 L BUN Glucose 133 H Calcium Magnesium Alkaline Phosphatase 200 H Lactate Dehydrogenase Total Protein Albumin 3.4 L Urine Creatinine Ur Total Protein 24 Hr 02/16/22 02/16/22 02/16/22 04:42 07:59 14:20 WBC RBC 3.61 L MCHC 35 H RDW 15.4 H Plt Count Seg Neutrophils % Sodium 136 L Potassium 5.3 H 5.2 H Chloride Carbon Dioxide BUN 18 H Glucose Calcium Magnesium Alkaline Phosphatase 204 H Lactate Dehydrogenase Total Protein Albumin 3.3 L Urine Creatinine Ur Total Protein 24 Hr 02/17/22 02/17/22 02/18/22 08:08 20:14 06:36 WBC RBC MCHC RDW Plt Count Seg Neutrophils % Sodium 134 L 136 L Potassium 5.1 H 5.4 H 5.2 H Chloride Carbon Dioxide 19 L 19 L BUN 18 H Glucose Calcium Magnesium Alkaline Phosphatase 231 H Lactate Dehydrogenase Total Protein Albumin 3.6 L Urine Creatinine Ur Total Protein 24 Hr 02/19/22 02/19/22 02/21/22 11:48 11:48 07:12 WBC RBC MCHC RDW 15.7 H 15.4 H Plt Count Seg Neutrophils % Sodium 135 L Potassium Chloride Carbon Dioxide 19 L BUN Glucose Calcium Magnesium Alkaline Phosphatase 220 H Lactate Dehydrogenase Total Protein 5.9 L Albumin 3.5 L Urine Creatinine Ur Total Protein 24 Hr 02/21/22 02/24/22 02/24/22 07:18 15:19 15:19 WBC RBC MCHC RDW Plt Count Seg Neutrophils % 74.6 H Sodium 135 L Potassium Chloride Carbon Dioxide 19 L 20 L BUN Glucose 106 H Calcium Magnesium Alkaline Phosphatase 244 H 269 H Lactate Dehydrogenase Total Protein 6.1 L Albumin 3.7 L 3.6 L Urine Creatinine Ur Total Protein 24 Hr Laboratory Results - last 24 hr 02/24/22 02/24/22 15:19 15:19 WBC 8.5 RBC 3.76 Hgb 11.0 Hct 33.1 MCV 88 MCH 29 MCHC 33 RDW 15.1 Plt Count 254 Lymph % (Auto) 17.3 [place] % (Auto) 6.7 Eos % (Auto) 1.1 Baso % (Auto) 0.3 Lymph # (Auto) 1.5 [place] # (Auto) 0.6 Eos # (Auto) 0.1 Baso # (Auto) 0.0 Seg Neutrophils % 74.6 H Seg Neutrophils # 6.3 Sodium 135 L Potassium 4.7 Chloride 103.8 Carbon Dioxide 20 L Anion Gap 16 BUN 15 Creatinine 1.1 Estimated GFR > 60 BUN/Creatinine Ratio 14 Glucose 106 H Calcium 9.1 Total Bilirubin < 0.20 AST 19 ALT 23 Alkaline Phosphatase 269 H Total Protein 6.1 L Albumin 3.6 L Albumin/Globulin Ratio 1.4
[2022-02-25] MEDS: hydrALAZINE 20 MG/1 ML INJ IV PRN (02:25)
[2022-02-25] MEDS: hydrALAZINE 25 MG TAB PO SCH ×3 (06:12→21:35)
--- NOTE | 2022-02-25 07:18 | Progress Note ---
Assessment and Plan Pt resting, denies GROSSMAN, visual changes or epigastric pain. pt reports + Fm and denies ctx. efm currently continuous. BPP ordered for today. All questions addressed. IUP at 32 0/7 weeks gestation CHTN with superimposed preeclampsia with severe features LI Morbid obesity Echo reviewed , normal EF , mild Pul HTN AMFM Rec: Continue Labetalol 700mg TID , procardia 30mg XL Titrate the Labetalol to maintain BP 120-160/80-105mmhg , if her HR allows Max goal is 2400mg daily Twice weekly CBC/CMP to screen for end organ damage ( renal failure, thrombocytopenia, HELLP) (done 02/24/2022) Growth scan q 3 weeks (ordered for 03/01/2022) Twice weekly BPP ( ordered today) Delivery at 34 0/7 weeks gestations. Immediate delivery is advised if her severe HTN is uncontrolled, Cerebral symptoms persist, pt develops Pul edema, HELLP, renal failure, plt count <100,000, eclampsia, distress - Patient Problems (1) Morbid obesity Current Visit: Yes Status: Chronic (2) 32 weeks gestation of Current Visit: Yes Status: Acute (3) Pre-eclampsia superimposed on chronic hypertension Current Visit: Yes Status: Acute Subjective - Subjective Date of service: 02/25/22 Principal diagnosis: IUP @ 32+0 wks, CHTN with superimposed Preeclampsia, BMI 60 Patient reports: movement normal, other (pt denies all complaints), no new complaints, no loss of fluid, no vaginal bleeding, no contractions Objective - Vital Signs Vital Signs: Vital Signs - 12hr 02/24/22 02/24/22 02/24/22 19:15 19:20 19:25 Temperature Pulse Rate 83 90 83 Respiratory Rate Blood Pressure O2 Sat by Pulse 100 100 100 Oximetry O2 Sat by Pulse Oximetry [ Bilateral Throughout] 02/24/22 02/24/22 02/24/22 19:26 19:30 19:32 Temperature 98.2 F Pulse Rate 81 92 H Respiratory Rate Blood Pressure O2 Sat by Pulse 98 93 Oximetry O2 Sat by Pulse 99 Oximetry [ Bilateral Throughout] 02/24/22 02/24/22 02/24/22 19:35 19:40 19:45 Temperature Pulse Rate 78 78 76 Respiratory Rate Blood Pressure 161/94 O2 Sat by Pulse 99 92 95 Oximetry O2 Sat by Pulse Oximetry [ Bilateral Throughout] 02/24/22 02/24/22 02/24/22 19:50 19:55 20:00 Temperature Pulse Rate 72 72 66 Respiratory Rate Blood Pressure O2 Sat by Pulse 98 98 100 Oximetry O2 Sat by Pulse Oximetry [ Bilateral Throughout] 02/24/22 02/24/22 02/24/22 20:12 20:15 20:17 Temperature Pulse Rate 73 75 77 Respiratory Rate Blood Pressure 141/81 O2 Sat by Pulse 99 93 99 Oximetry O2 Sat by Pulse Oximetry [ Bilateral Throughout] 02/24/22 02/24/22 02/24/22 20:22 20:27 20:32 Temperature Pulse Rate 75 72 88 Respiratory Rate Blood Pressure O2 Sat by Pulse 97 100 99 Oximetry O2 Sat by Pulse Oximetry [ Bilateral Throughout] 02/24/22 02/24/22 02/24/22 20:37 20:42 20:44 Temperature Pulse Rate 72 76 75 Respiratory Rate Blood Pressure 137/82 O2 Sat by Pulse 98 98 Oximetry O2 Sat by Pulse Oximetry [ Bilateral Throughout] 02/24/22 02/24/22 02/24/22 20:47 20:48 20:52 Temperature Pulse Rate 75 79 75 Respiratory Rate Blood Pressure O2 Sat by Pulse 96 94 98 Oximetry O2 Sat by Pulse Oximetry [ Bilateral Throughout] 02/24/22 02/24/22 02/24/22 20:57 21:02 21:07 Temperature Pulse Rate 83 80 76 Respiratory Rate Blood Pressure O2 Sat by Pulse 98 100 96 Oximetry O2 Sat by Pulse Oximetry [ Bilateral Throughout] 02/24/22 02/24/22 02/24/22 21:12 21:19 21:24 Temperature Pulse Rate 80 75 72 Respiratory Rate Blood Pressure O2 Sat by Pulse 93 99 96 Oximetry O2 Sat by Pulse Oximetry [ Bilateral Throughout] 02/24/22 02/24/22 02/24/22 21:29 21:34 21:39 Temperature Pulse Rate 73 77 75 Respiratory Rate Blood Pressure O2 Sat by Pulse 100 99 99 Oximetry O2 Sat by Pulse Oximetry [ Bilateral Throughout] 02/24/22 02/24/22 02/24/22 21:44 21:46 21:51 Temperature Pulse Rate 83 70 72 Respiratory Rate Blood Pressure O2 Sat by Pulse 93 98 99 Oximetry O2 Sat by Pulse Oximetry [ Bilateral Throughout] 02/24/22 02/24/22 02/24/22 21:56 22:01 22:06 Temperature Pulse Rate 66 70 69 Respiratory Rate Blood Pressure O2 Sat by Pulse 98 100 100 Oximetry O2 Sat by Pulse Oximetry [ Bilateral Throughout] 02/24/22 02/24/22 02/24/22 22:28 22:33 22:38 Temperature 98.4 F Pulse Rate 67 68 69 Respiratory 18 Rate Blood Pressure O2 Sat by Pulse 96 99 99 Oximetry O2 Sat by Pulse Oximetry [ Bilateral Throughout] 02/24/22 02/24/22 02/24/22 22:43 22:44 22:48 Temperature Pulse Rate 86 68 71 Respiratory Rate Blood Pressure 141/69 O2 Sat by Pulse 97 91 98 Oximetry O2 Sat by Pulse Oximetry [ Bilateral Throughout] 02/24/22 02/24/22 02/24/22 22:53 22:55 22:58 Temperature Pulse Rate 76 72 76 Respiratory Rate Blood Pressure 141/69 O2 Sat by Pulse 96 98 Oximetry O2 Sat by Pulse Oximetry [ Bilateral Throughout] 02/24/22 02/24/22 02/24/22 23:09 23:14 23:19 Temperature Pulse Rate 77 76 79 Respiratory Rate Blood Pressure O2 Sat by Pulse 99 100 100 Oximetry O2 Sat by Pulse Oximetry [ Bilateral Throughout] 02/24/22 02/24/22 02/24/22 23:24 23:29 23:34 Temperature Pulse Rate 79 75 81 Respiratory Rate Blood Pressure O2 Sat by Pulse 100 99 100 Oximetry O2 Sat by Pulse Oximetry [ Bilateral Throughout] 02/24/22 02/24/22 02/24/22 23:39 23:44 23:49 Temperature Pulse Rate 81 79 74 Respiratory Rate Blood Pressure 139/76 O2 Sat by Pulse 100 97 98 Oximetry O2 Sat by Pulse Oximetry [ Bilateral Throughout] 02/24/22 02/24/22 02/25/22 23:54 23:59 00:04 Temperature Pulse Rate 76 75 70 Respiratory Rate Blood Pressure O2 Sat by Pulse 98 100 96 Oximetry O2 Sat by Pulse Oximetry [ Bilateral Throughout] 02/25/22 02/25/22 02/25/22 00:09 00:14 00:19 Temperature Pulse Rate 71 70 66 Respiratory Rate Blood Pressure 139/82 O2 Sat by Pulse 95 95 95 Oximetry O2 Sat by Pulse Oximetry [ Bilateral Throughout] 02/25/22 02/25/22 02/25/22 00:24 00:29 00:34 Temperature Pulse Rate 68 68 70 Respiratory Rate Blood Pressure O2 Sat by Pulse 96 96 96 Oximetry O2 Sat by Pulse Oximetry [ Bilateral Throughout] 02/25/22 02/25/22 02/25/22 00:39 00:44 00:49 Temperature Pulse Rate 69 72 70 Respiratory Rate Blood Pressure 154/85 O2 Sat by Pulse 97 97 98 Oximetry O2 Sat by Pulse Oximetry [ Bilateral Throughout] 02/25/22 02/25/22 02/25/22 00:54 00:59 01:04 Temperature Pulse Rate 77 67 70 Respiratory Rate Blood Pressure O2 Sat by Pulse 97 97 97 Oximetry O2 Sat by Pulse Oximetry [ Bilateral Throughout] 02/25/22 02/25/22 02/25/22 01:09 01:14 01:19 Temperature Pulse Rate 65 66 67 Respiratory Rate Blood Pressure 149/84 O2 Sat by Pulse 97 97 97 Oximetry O2 Sat by Pulse Oximetry [ Bilateral Throughout] 02/25/22 02/25/22 02/25/22 01:24 01:29 01:34 Temperature Pulse Rate 76 65 64 Respiratory Rate Blood Pressure O2 Sat by Pulse 97 99 99 Oximetry O2 Sat by Pulse Oximetry [ Bilateral Throughout] 02/25/22 02/25/22 02/25/22 01:39 01:44 01:49 Temperature Pulse Rate 66 67 69 Respiratory Rate Blood Pressure 143/86 O2 Sat by Pulse 99 99 99 Oximetry O2 Sat by Pulse Oximetry [ Bilateral Throughout] 02/25/22 02/25/22 02/25/22 01:54 01:59 02:07 Temperature Pulse Rate 73 78 66 Respiratory Rate Blood Pressure O2 Sat by Pulse 100 100 96 Oximetry O2 Sat by Pulse Oximetry [ Bilateral Throughout] 02/25/22 02/25/22 02/25/22 02:12 02:14 02:17 Temperature Pulse Rate 71 72 73 Respiratory Rate Blood Pressure 164/96 O2 Sat by Pulse 91 94 Oximetry O2 Sat by Pulse Oximetry [ Bilateral Throughout] 02/25/22 02/25/22 02/25/22 02:22 02:25 02:27 Temperature Pulse Rate 73 68 73 Respiratory Rate Blood Pressure 164/96 O2 Sat by Pulse 96 97 Oximetry O2 Sat by Pulse Oximetry [ Bilateral Throughout] 02/25/22 02/25/22 02/25/22 02:32 02:37 02:42 Temperature Pulse Rate 68 70 83 Respiratory Rate Blood Pressure O2 Sat by Pulse 97 97 96 Oximetry O2 Sat by Pulse Oximetry [ Bilateral Throughout] 02/25/22 02/25/22 02/25/22 02:44 02:47 02:52 Temperature Pulse Rate 77 77 86 Respiratory Rate Blood Pressure 143/76 O2 Sat by Pulse 96 96 Oximetry O2 Sat by Pulse Oximetry [ Bilateral Throughout] 02/25/22 02/25/22 02/25/22 02:57 03:01 03:02 Temperature Pulse Rate 79 78 81 Respiratory Rate Blood Pressure O2 Sat by Pulse 97 94 96 Oximetry O2 Sat by Pulse Oximetry [ Bilateral Throughout] 02/25/22 02/25/22 02/25/22 03:07 03:12 03:14 Temperature Pulse Rate 76 78 75 Respiratory Rate Blood Pressure 133/75 O2 Sat by Pulse 99 99 Oximetry O2 Sat by Pulse Oximetry [ Bilateral Throughout] 02/25/22 02/25/22 02/25/22 03:17 03:22 03:27 Temperature Pulse Rate 76 74 75 Respiratory Rate Blood Pressure O2 Sat by Pulse 99 99 98 Oximetry O2 Sat by Pulse Oximetry [ Bilateral Throughout] 02/25/22 02/25/22 02/25/22 03:32 03:37 03:42 Temperature Pulse Rate 76 72 71 Respiratory Rate Blood Pressure O2 Sat by Pulse 97 99 99 Oximetry O2 Sat by Pulse Oximetry [ Bilateral Throughout] 02/25/22 02/25/22 02/25/22 03:44 03:47 03:52 Temperature Pulse Rate 72 74 74 Respiratory Rate Blood Pressure 121/66 O2 Sat by Pulse 99 97 Oximetry O2 Sat by Pulse Oximetry [ Bilateral Throughout] 02/25/22 02/25/22 02/25/22 03:57 04:02 04:07 Temperature Pulse Rate 77 72 71 Respiratory Rate Blood Pressure O2 Sat by Pulse 96 96 97 Oximetry O2 Sat by Pulse Oximetry [ Bilateral Throughout] 02/25/22 02/25/22 02/25/22 04:12 04:14 04:18 Temperature Pulse Rate 72 70 70 Respiratory Rate Blood Pressure 124/67 O2 Sat by Pulse 97 97 Oximetry O2 Sat by Pulse Oximetry [ Bilateral Throughout] 02/25/22 02/25/22 02/25/22 04:22 04:27 04:32 Temperature Pulse Rate 72 77 73 Respiratory Rate Blood Pressure O2 Sat by Pulse 98 93 97 Oximetry O2 Sat by Pulse Oximetry [ Bilateral Throughout] 02/25/22 02/25/22 02/25/22 04:34 04:37 04:42 Temperature Pulse Rate 80 70 77 Respiratory Rate Blood Pressure O2 Sat by Pulse 93 99 96 Oximetry O2 Sat by Pulse Oximetry [ Bilateral Throughout] 02/25/22 02/25/22 02/25/22 04:44 04:54 04:58 Temperature 98.3 F Pulse Rate 62 73 Respiratory 19 Rate Blood Pressure O2 Sat by Pulse 100 99 Oximetry O2 Sat by Pulse Oximetry [ Bilateral Throughout] 02/25/22 02/25/22 02/25/22 05:04 05:09 05:13 Temperature Pulse Rate 69 71 67 Respiratory Rate Blood Pressure O2 Sat by Pulse 99 99 98 Oximetry O2 Sat by Pulse Oximetry [ Bilateral Throughout] 02/25/22 02/25/22 02/25/22 05:14 05:18 05:24 Temperature Pulse Rate 67 68 69 Respiratory Rate Blood Pressure 133/75 O2 Sat by Pulse 98 98 Oximetry O2 Sat by Pulse Oximetry [ Bilateral Throughout] 02/25/22 02/25/22 02/25/22 05:29 05:33 05:39 Temperature Pulse Rate 68 68 67 Respiratory Rate Blood Pressure O2 Sat by Pulse 99 98 98 Oximetry O2 Sat by Pulse Oximetry [ Bilateral Throughout] 02/25/22 02/25/22 02/25/22 05:44 05:48 05:53 Temperature Pulse Rate 66 68 67 Respiratory Rate Blood Pressure 139/67 O2 Sat by Pulse 99 99 97 Oximetry O2 Sat by Pulse Oximetry [ Bilateral Throughout] 02/25/22 02/25/22 02/25/22 05:59 06:04 06:09 Temperature Pulse Rate 66 69 71 Respiratory Rate Blood Pressure O2 Sat by Pulse 98 99 98 Oximetry O2 Sat by Pulse Oximetry [ Bilateral Throughout] 02/25/22 02/25/22 02/25/22 06:11 06:12 06:14 Temperature Pulse Rate 69 72 68 Respiratory Rate Blood Pressure 153/82 153/82 O2 Sat by Pulse 92 100 Oximetry O2 Sat by Pulse Oximetry [ Bilateral Throughout] 02/25/22 02/25/22 02/25/22 06:19 06:24 06:29 Temperature Pulse Rate 71 67 67 Respiratory Rate Blood Pressure O2 Sat by Pulse 98 98 98 Oximetry O2 Sat by Pulse Oximetry [ Bilateral Throughout] 02/25/22 02/25/22 02/25/22 06:33 06:39 06:44 Temperature Pulse Rate 67 68 66 Respiratory Rate Blood Pressure 150/78 O2 Sat by Pulse 98 98 98 Oximetry O2 Sat by Pulse Oximetry [ Bilateral Throughout] 02/25/22 02/25/22 02/25/22 06:47 06:49 06:54 Temperature Pulse Rate 80 73 70 Respiratory Rate Blood Pressure O2 Sat by Pulse 91 97 98 Oximetry O2 Sat by Pulse Oximetry [ Bilateral Throughout] 02/25/22 02/25/22 02/25/22 06:59 07:04 07:09 Temperature Pulse Rate 76 71 72 Respiratory Rate Blood Pressure O2 Sat by Pulse 99 98 98 Oximetry O2 Sat by Pulse Oximetry [ Bilateral Throughout] - Exam Breasts: normal Cardiovascular: Regular rate Lungs: Normal air movement Abdomen: Present: normal appearance, soft FHR: category 2 (decreased variabilty, variables) Uterine Contraction Monitor Mode: External Uterine Contraction Pattern: Absent Uterine Tone Measurement Phase: Resting Extremities: edema Deep Tendon Reflex Grade: Normal +2 - Labs Labs: Abnormal Labs 02/08/22 02/08/22 02/08/22 18:40 18:40 22:52 WBC 11.8 H RBC MCHC RDW Plt Count Seg Neutrophils % Sodium Potassium Chloride Carbon Dioxide BUN Glucose Calcium Magnesium 3.80 H Alkaline Phosphatase Lactate Dehydrogenase 305 H Total Protein Albumin Urine Creatinine Ur Total Protein 24 Hr 02/09/22 02/09/22 02/09/22 04:00 04:42 05:49 WBC RBC MCHC RDW Plt Count Seg Neutrophils % Sodium Potassium Chloride Carbon Dioxide BUN Glucose Calcium Magnesium 5.20 H Alkaline Phosphatase Lactate Dehydrogenase Total Protein Albumin Urine Creatinine 24.2 H Ur Total Protein 24 Hr 495.00 H 02/09/22 02/10/22 02/10/22 12:07 00:05 06:40 WBC RBC MCHC RDW Plt Count Seg Neutrophils % Sodium Potassium Chloride Carbon Dioxide BUN Glucose Calcium Magnesium 5.30 H 5.00 H 5.40 H Alkaline Phosphatase Lactate Dehydrogenase Total Protein Albumin Urine Creatinine Ur Total Protein 24 Hr 02/10/22 02/12/22 02/12/22 13:49 16:56 16:56 WBC RBC MCHC RDW Plt Count 73 L Seg Neutrophils % Sodium 131 L Potassium Chloride Carbon Dioxide 19 L BUN Glucose Calcium Magnesium 4.70 H Alkaline Phosphatase 205 H Lactate Dehydrogenase Total Protein Albumin 3.3 L Urine Creatinine Ur Total Protein 24 Hr 02/12/22 02/13/22 02/13/22 20:22 00:23 02:25 WBC RBC 3.58 L 3.59 L MCHC RDW 15.3 H 15.4 H Plt Count Seg Neutrophils % Sodium Potassium Chloride Carbon Dioxide BUN Glucose Calcium Magnesium 4.30 H Alkaline Phosphatase Lactate Dehydrogenase Total Protein Albumin Urine Creatinine Ur Total Protein 24 Hr 02/13/22 02/13/22 02/13/22 04:38 07:12 07:12 WBC RBC MCHC RDW 15.3 H 15.3 H Plt Count Seg Neutrophils % Sodium 131 L Potassium Chloride 97.5 L Carbon Dioxide 21 L BUN Glucose Calcium 8.3 L Magnesium Alkaline Phosphatase 200 H Lactate Dehydrogenase Total Protein Albumin 3.3 L Urine Creatinine Ur Total Protein 24 Hr 02/14/22 02/14/22 02/15/22 08:19 08:19 09:41 WBC RBC MCHC RDW 15.4 H 15.3 H Plt Count Seg Neutrophils % Sodium 135 L Potassium Chloride Carbon Dioxide 21 L BUN Glucose 133 H Calcium Magnesium Alkaline Phosphatase 200 H Lactate Dehydrogenase Total Protein Albumin 3.4 L Urine Creatinine Ur Total Protein 24 Hr 02/16/22 02/16/22 02/16/22 04:42 07:59 14:20 WBC RBC 3.61 L MCHC 35 H RDW 15.4 H Plt Count Seg Neutrophils % Sodium 136 L Potassium 5.3 H 5.2 H Chloride Carbon Dioxide BUN 18 H Glucose Calcium Magnesium Alkaline Phosphatase 204 H Lactate Dehydrogenase Total Protein Albumin 3.3 L Urine Creatinine Ur Total Protein 24 Hr 02/17/22 02/17/22 02/18/22 08:08 20:14 06:36 WBC RBC MCHC RDW Plt Count Seg Neutrophils % Sodium 134 L 136 L Potassium 5.1 H 5.4 H 5.2 H Chloride Carbon Dioxide 19 L 19 L BUN 18 H Glucose Calcium Magnesium Alkaline Phosphatase 231 H Lactate Dehydrogenase Total Protein Albumin 3.6 L Urine Creatinine Ur Total Protein 24 Hr 02/19/22 02/19/22 02/21/22 11:48 11:48 07:12 WBC RBC MCHC RDW 15.7 H 15.4 H Plt Count Seg Neutrophils % Sodium 135 L Potassium Chloride Carbon Dioxide 19 L BUN Glucose Calcium Magnesium Alkaline Phosphatase 220 H Lactate Dehydrogenase Total Protein 5.9 L Albumin 3.5 L Urine Creatinine Ur Total Protein 24 Hr 02/21/22 02/24/22 02/24/22 07:18 15:19 15:19 WBC RBC MCHC RDW Plt Count Seg Neutrophils % 74.6 H Sodium 135 L Potassium Chloride Carbon Dioxide 19 L 20 L BUN Glucose 106 H Calcium Magnesium Alkaline Phosphatase 244 H 269 H Lactate Dehydrogenase Total Protein 6.1 L Albumin 3.7 L 3.6 L Urine Creatinine Ur Total Protein 24 Hr Laboratory Results - last 24 hr 02/24/22 02/24/22 15:19 15:19 WBC 8.5 RBC 3.76 Hgb 11.0 Hct 33.1 MCV 88 MCH 29 MCHC 33 RDW 15.1 Plt Count 254 Lymph % (Auto) 17.3 [place] % (Auto) 6.7 Eos % (Auto) 1.1 Baso % (Auto) 0.3 Lymph # (Auto) 1.5 [place] # (Auto) 0.6 Eos # (Auto) 0.1 Baso # (Auto) 0.0 Seg Neutrophils % 74.6 H Seg Neutrophils # 6.3 Sodium 135 L Potassium 4.7 Chloride 103.8 Carbon Dioxide 20 L Anion Gap 16 BUN 15 Creatinine 1.1 Estimated GFR > 60 BUN/Creatinine Ratio 14 Glucose 106 H Calcium 9.1 Total Bilirubin < 0.20 AST 19 ALT 23 Alkaline Phosphatase 269 H Total Protein 6.1 L Albumin 3.6 L Albumin/Globulin Ratio 1.4
[2022-02-25] MEDS: NIFEdipine XL 60 MG TAB PO SCH ×2 (10:10→21:34)
[2022-02-25] MEDS: PRENATAL VIT27-FE FUMARATE-FOLIC ACID VIT TAB PO SCH (10:12)
--- NOTE | 2022-02-25 17:47 | Ultrasound Report ---
ULTRASOUND BIOPHYSICAL PROFILE INDICATION / CLINICAL INFORMATION: wellbeing. COMPARISON: biophysical profile 02/23/2022. FINDINGS: BREATHING MOVEMENT = 2 GROSS BODY MOVEMENT = 2 TONE = 2 QUALITATIVE AMNIOTIC FLUID VOLUME = 2 TOTAL BIOPHYSICAL SCORE = 8/8 HEART RATE (beats per minute): 137 bpm IMPRESSION: 1. biophysical profile = 06/06 Scribed by: Susana Younger RDMS, RVT, RMSKS Scribed: 02/25/2022 4:10 PM I have reviewed the images, agree with this report, and edited this report as needed. Signer Name: Jose G Jones MD Signed: 02/25/2022 5:43 PM Workstation Name: [id number]
[2022-02-25] MEDS: diphenhydrAMINE 25 MG CAP PO PRN (21:35)
[2022-02-26] MEDS: ONDANSETRON 4 MG/2 ML INJ IV PRN ×2 (02:16→09:56)
[2022-02-26] MEDS: MAGNESIUM HYDROXIDE (MOM) ORAL LIQD UDC PO PRN (02:16)
[2022-02-26] MEDS: hydrALAZINE 25 MG TAB PO SCH ×3 (05:38→21:56)
--- NOTE | 2022-02-26 07:14 | Progress Note ---
Assessment and Plan Assessment: IUP at 32 weeks gestation CHTN with superimposed preeclampsia with severe features LI Morbid obesity Echo reviewed , normal EF , mild Pul HTN Rec: Continue Labetalol 700mg TID , procardia 30mg XL Titrate the Labetalol to maintain BP 120-160/80-105mmhg , if her HR allows Max goal is 2400mg daily Twice weekly CBC/CMP to screen for end organ damage ( renal failure, thrombocytopenia, HELLP) Growth scan q 3 weeks Twice weekly BPP Delivery at 34 0/7 weeks gestations. Immediate delivery is advised if her severe HTN is uncontrolled, Cerebral symptoms persist, pt develops Pul edema, HELLP, renal failure, plt count <100,000, eclampsia, distress Subjective - Subjective Principal diagnosis: IUP @ 32+0 wks, CHTN with superimposed Preeclampsia, BMI 60 Interval history: Patient reports she is doing well and denies complaints. She denies headaches, visual changes, chest pain, SOB or RUQ pain. Good movement. Patient reports: movement normal, other (pt denies all complaints), no new complaints, no loss of fluid, no vaginal bleeding, no contractions Objective - Vital Signs Vital Signs: Vital Signs - 12hr 02/25/22 02/25/22 02/25/22 19:17 19:22 19:27 Temperature Pulse Rate 76 72 72 Respiratory Rate Blood Pressure O2 Sat by Pulse 99 99 100 Oximetry O2 Sat by Pulse Oximetry [ Bilateral Throughout] 02/25/22 02/25/22 02/25/22 19:32 19:34 19:35 Temperature 98.3 F Pulse Rate 68 71 Respiratory 18 Rate Blood Pressure 163/97 O2 Sat by Pulse 100 92 Oximetry O2 Sat by Pulse Oximetry [ Bilateral Throughout] 02/25/22 02/25/22 02/25/22 19:37 19:40 19:42 Temperature Pulse Rate 79 74 Respiratory Rate Blood Pressure O2 Sat by Pulse 100 97 Oximetry O2 Sat by Pulse 97 Oximetry [ Bilateral Throughout] 02/25/22 02/25/22 02/25/22 19:47 19:52 19:57 Temperature Pulse Rate 72 76 74 Respiratory Rate Blood Pressure O2 Sat by Pulse 99 100 98 Oximetry O2 Sat by Pulse Oximetry [ Bilateral Throughout] 02/25/22 02/25/22 02/25/22 20:02 20:04 20:07 Temperature Pulse Rate 77 73 71 Respiratory Rate Blood Pressure 163/97 O2 Sat by Pulse 99 100 Oximetry O2 Sat by Pulse Oximetry [ Bilateral Throughout] 02/25/22 02/25/22 02/25/22 20:12 20:17 20:22 Temperature Pulse Rate 80 79 77 Respiratory Rate Blood Pressure O2 Sat by Pulse 99 99 99 Oximetry O2 Sat by Pulse Oximetry [ Bilateral Throughout] 02/25/22 02/25/22 02/25/22 20:27 20:32 20:34 Temperature Pulse Rate 76 75 76 Respiratory Rate Blood Pressure O2 Sat by Pulse 98 100 92 Oximetry O2 Sat by Pulse Oximetry [ Bilateral Throughout] 02/25/22 02/25/22 02/25/22 20:37 20:39 20:42 Temperature Pulse Rate 83 77 76 Respiratory Rate Blood Pressure 169/86 O2 Sat by Pulse 98 96 Oximetry O2 Sat by Pulse Oximetry [ Bilateral Throughout] 02/25/22 02/25/22 02/25/22 20:44 20:47 20:51 Temperature 98.3 F Pulse Rate 75 61 Respiratory Rate Blood Pressure O2 Sat by Pulse 98 90 Oximetry O2 Sat by Pulse Oximetry [ Bilateral Throughout] 02/25/22 02/25/22 02/25/22 20:56 20:57 21:02 Temperature Pulse Rate 90 83 Respiratory Rate Blood Pressure 177/102 O2 Sat by Pulse 92 88 Oximetry O2 Sat by Pulse Oximetry [ Bilateral Throughout] 02/25/22 02/25/22 02/25/22 21:04 21:07 21:10 Temperature Pulse Rate 55 L 79 Respiratory Rate Blood Pressure 166/108 O2 Sat by Pulse 86 83 L Oximetry O2 Sat by Pulse Oximetry [ Bilateral Throughout] 02/25/22 02/25/22 02/25/22 21:12 21:16 21:35 Temperature Pulse Rate 26 L 73 73 Respiratory Rate Blood Pressure 150/82 150/82 O2 Sat by Pulse 89 Oximetry O2 Sat by Pulse Oximetry [ Bilateral Throughout] 02/25/22 02/25/22 02/25/22 21:49 22:19 22:49 Temperature Pulse Rate 79 77 75 Respiratory Rate Blood Pressure 142/79 154/81 159/86 O2 Sat by Pulse Oximetry O2 Sat by Pulse Oximetry [ Bilateral Throughout] 02/25/22 02/25/22 02/26/22 23:19 23:49 00:02 Temperature Pulse Rate 68 66 72 Respiratory Rate Blood Pressure 140/65 129/63 O2 Sat by Pulse 100 Oximetry O2 Sat by Pulse Oximetry [ Bilateral Throughout] 02/26/22 02/26/22 02/26/22 00:07 00:12 00:17 Temperature Pulse Rate 73 71 75 Respiratory Rate Blood Pressure O2 Sat by Pulse 100 100 100 Oximetry O2 Sat by Pulse Oximetry [ Bilateral Throughout] 02/26/22 02/26/22 02/26/22 00:19 00:22 00:27 Temperature Pulse Rate 76 74 76 Respiratory Rate Blood Pressure 139/67 O2 Sat by Pulse 100 100 Oximetry O2 Sat by Pulse Oximetry [ Bilateral Throughout] 02/26/22 02/26/22 02/26/22 00:32 00:37 00:42 Temperature Pulse Rate 76 76 81 Respiratory Rate Blood Pressure O2 Sat by Pulse 100 100 99 Oximetry O2 Sat by Pulse Oximetry [ Bilateral Throughout] 02/26/22 02/26/22 02/26/22 00:47 00:52 00:57 Temperature Pulse Rate 84 84 83 Respiratory Rate Blood Pressure O2 Sat by Pulse 98 99 99 Oximetry O2 Sat by Pulse Oximetry [ Bilateral Throughout] 02/26/22 02/26/22 02/26/22 01:02 01:07 01:12 Temperature Pulse Rate 85 84 84 Respiratory Rate Blood Pressure O2 Sat by Pulse 98 98 98 Oximetry O2 Sat by Pulse Oximetry [ Bilateral Throughout] 02/26/22 02/26/22 02/26/22 01:17 01:22 01:27 Temperature Pulse Rate 90 81 79 Respiratory Rate Blood Pressure O2 Sat by Pulse 99 98 98 Oximetry O2 Sat by Pulse Oximetry [ Bilateral Throughout] 02/26/22 02/26/22 02/26/22 01:32 01:34 01:37 Temperature Pulse Rate 78 75 86 Respiratory Rate Blood Pressure 113/58 O2 Sat by Pulse 99 99 Oximetry O2 Sat by Pulse Oximetry [ Bilateral Throughout] 02/26/22 02/26/22 02/26/22 01:41 01:42 01:47 Temperature Pulse Rate 134 H 113 H Respiratory Rate Blood Pressure O2 Sat by Pulse 76 L 82 L 85 Oximetry O2 Sat by Pulse Oximetry [ Bilateral Throughout] 02/26/22 02/26/22 02/26/22 01:49 01:53 02:02 Temperature Pulse Rate 104 H 100 H 125 H Respiratory Rate Blood Pressure O2 Sat by Pulse 94 63 L 90 Oximetry O2 Sat by Pulse Oximetry [ Bilateral Throughout] 02/26/22 02/26/22 02/26/22 02:14 02:18 02:19 Temperature Pulse Rate 57 L 118 H Respiratory Rate Blood Pressure O2 Sat by Pulse 0 L 90 87 Oximetry O2 Sat by Pulse Oximetry [ Bilateral Throughout] 02/26/22 02/26/22 02/26/22 02:37 02:43 02:44 Temperature Pulse Rate 52 L 77 Respiratory Rate Blood Pressure O2 Sat by Pulse 94 93 98 Oximetry O2 Sat by Pulse Oximetry [ Bilateral Throughout] 02/26/22 02/26/22 02/26/22 02:49 02:54 02:59 Temperature Pulse Rate 75 76 75 Respiratory Rate Blood Pressure O2 Sat by Pulse 97 97 96 Oximetry O2 Sat by Pulse Oximetry [ Bilateral Throughout] 02/26/22 02/26/22 02/26/22 03:04 03:09 03:14 Temperature Pulse Rate 70 74 72 Respiratory Rate Blood Pressure O2 Sat by Pulse 96 96 97 Oximetry O2 Sat by Pulse Oximetry [ Bilateral Throughout] 02/26/22 02/26/22 02/26/22 03:19 03:24 03:29 Temperature Pulse Rate 66 64 72 Respiratory Rate Blood Pressure O2 Sat by Pulse 97 96 96 Oximetry O2 Sat by Pulse Oximetry [ Bilateral Throughout] 02/26/22 02/26/22 02/26/22 03:34 04:34 05:34 Temperature Pulse Rate 75 71 71 Respiratory Rate Blood Pressure 128/62 130/61 134/70 O2 Sat by Pulse Oximetry O2 Sat by Pulse Oximetry [ Bilateral Throughout] 02/26/22 02/26/22 05:38 06:33 Temperature Pulse Rate 71 78 Respiratory Rate Blood Pressure 134/70 147/80 O2 Sat by Pulse Oximetry O2 Sat by Pulse Oximetry [ Bilateral Throughout] - Exam Abdomen: Present: soft - Labs Labs: Abnormal Labs 02/08/22 02/08/22 02/08/22 18:40 18:40 22:52 WBC 11.8 H RBC MCHC RDW Plt Count Seg Neutrophils % Sodium Potassium Chloride Carbon Dioxide BUN Glucose Calcium Magnesium 3.80 H Alkaline Phosphatase Lactate Dehydrogenase 305 H Total Protein Albumin Urine Creatinine Ur Total Protein 24 Hr 02/09/22 02/09/22 02/09/22 04:00 04:42 05:49 WBC RBC MCHC RDW Plt Count Seg Neutrophils % Sodium Potassium Chloride Carbon Dioxide BUN Glucose Calcium Magnesium 5.20 H Alkaline Phosphatase Lactate Dehydrogenase Total Protein Albumin Urine Creatinine 24.2 H Ur Total Protein 24 Hr 495.00 H 02/09/22 02/10/22 02/10/22 12:07 00:05 06:40 WBC RBC MCHC RDW Plt Count Seg Neutrophils % Sodium Potassium Chloride Carbon Dioxide BUN Glucose Calcium Magnesium 5.30 H 5.00 H 5.40 H Alkaline Phosphatase Lactate Dehydrogenase Total Protein Albumin Urine Creatinine Ur Total Protein 24 Hr 02/10/22 02/12/22 02/12/22 13:49 16:56 16:56 WBC RBC MCHC RDW Plt Count 73 L Seg Neutrophils % Sodium 131 L Potassium Chloride Carbon Dioxide 19 L BUN Glucose Calcium Magnesium 4.70 H Alkaline Phosphatase 205 H Lactate Dehydrogenase Total Protein Albumin 3.3 L Urine Creatinine Ur Total Protein 24 Hr 02/12/22 02/13/22 02/13/22 20:22 00:23 02:25 WBC RBC 3.58 L 3.59 L MCHC RDW 15.3 H 15.4 H Plt Count Seg Neutrophils % Sodium Potassium Chloride Carbon Dioxide BUN Glucose Calcium Magnesium 4.30 H Alkaline Phosphatase Lactate Dehydrogenase Total Protein Albumin Urine Creatinine Ur Total Protein 24 Hr 02/13/22 02/13/22 02/13/22 04:38 07:12 07:12 WBC RBC MCHC RDW 15.3 H 15.3 H Plt Count Seg Neutrophils % Sodium 131 L Potassium Chloride 97.5 L Carbon Dioxide 21 L BUN Glucose Calcium 8.3 L Magnesium Alkaline Phosphatase 200 H Lactate Dehydrogenase Total Protein Albumin 3.3 L Urine Creatinine Ur Total Protein 24 Hr 02/14/22 02/14/22 02/15/22 08:19 08:19 09:41 WBC RBC MCHC RDW 15.4 H 15.3 H Plt Count Seg Neutrophils % Sodium 135 L Potassium Chloride Carbon Dioxide 21 L BUN Glucose 133 H Calcium Magnesium Alkaline Phosphatase 200 H Lactate Dehydrogenase Total Protein Albumin 3.4 L Urine Creatinine Ur Total Protein 24 Hr 02/16/22 02/16/22 02/16/22 04:42 07:59 14:20 WBC RBC 3.61 L MCHC 35 H RDW 15.4 H Plt Count Seg Neutrophils % Sodium 136 L Potassium 5.3 H 5.2 H Chloride Carbon Dioxide BUN 18 H Glucose Calcium Magnesium Alkaline Phosphatase 204 H Lactate Dehydrogenase Total Protein Albumin 3.3 L Urine Creatinine Ur Total Protein 24 Hr 02/17/22 02/17/22 02/18/22 08:08 20:14 06:36 WBC RBC MCHC RDW Plt Count Seg Neutrophils % Sodium 134 L 136 L Potassium 5.1 H 5.4 H 5.2 H Chloride Carbon Dioxide 19 L 19 L BUN 18 H Glucose Calcium Magnesium Alkaline Phosphatase 231 H Lactate Dehydrogenase Total Protein Albumin 3.6 L Urine Creatinine Ur Total Protein 24 Hr 02/19/22 02/19/22 02/21/22 11:48 11:48 07:12 WBC RBC MCHC RDW 15.7 H 15.4 H Plt Count Seg Neutrophils % Sodium 135 L Potassium Chloride Carbon Dioxide 19 L BUN Glucose Calcium Magnesium Alkaline Phosphatase 220 H Lactate Dehydrogenase Total Protein 5.9 L Albumin 3.5 L Urine Creatinine Ur Total Protein 24 Hr 02/21/22 02/24/22 02/24/22 07:18 15:19 15:19 WBC RBC MCHC RDW Plt Count Seg Neutrophils % 74.6 H Sodium 135 L Potassium Chloride Carbon Dioxide 19 L 20 L BUN Glucose 106 H Calcium Magnesium Alkaline Phosphatase 244 H 269 H Lactate Dehydrogenase Total Protein 6.1 L Albumin 3.7 L 3.6 L Urine Creatinine Ur Total Protein 24 Hr
[2022-02-26] MEDS: NIFEdipine XL 60 MG TAB PO SCH ×2 (09:53→21:58)
[2022-02-26] MEDS: PRENATAL VIT27-FE FUMARATE-FOLIC ACID VIT TAB PO SCH (09:54)
[2022-02-26] MEDS: diphenhydrAMINE 25 MG CAP PO PRN (21:59)
--- NOTE | 2022-02-26 22:32 | Progress Note ---
Assessment and Plan Pt awake and talkative. Denies GROSSMAN, visual changes or epigastric pain. pt reports + Fm and denies ctx. IUP at 32 1/7 weeks gestation CHTN with superimposed preeclampsia with severe features LI Morbid obesity Echo reviewed , normal EF , mild Pul HTN AMFM Rec: Continue Labetalol 700mg TID , procardia 30mg XL Titrate the Labetalol to maintain BP 120-160/80-105mmhg , if her HR allows Max goal is 2400mg daily Twice weekly CBC/CMP to screen for end organ damage ( renal failure, thrombocytopenia, HELLP) Growth scan q 3 weeks (ordered for 03/01/2022) Twice weekly BPP Delivery at 34 0/7 weeks gestations. Immediate delivery is advised if her severe HTN is uncontrolled, Cerebral symptoms persist, pt develops Pul edema, HELLP, renal failure, plt count <100,000, eclampsia, distress - Patient Problems (1) 32 weeks gestation of Current Visit: Yes Status: Acute (2) Pre-eclampsia superimposed on chronic hypertension Current Visit: Yes Status: Acute (3) History of asthma Current Visit: Yes Status: Chronic (4) History of sleep apnea Current Visit: Yes Status: Chronic (5) Morbid obesity Current Visit: Yes Status: Chronic Subjective - Subjective Date of service: 02/26/22 (Late Entry) Principal diagnosis: IUP @ 32+0 wks, CHTN with superimposed Preeclampsia, BMI 60 Patient reports: movement normal, other (pt denies all complaints), no new complaints, no loss of fluid, no vaginal bleeding, no contractions Objective - Vital Signs Vital Signs: Vital Signs - 12hr 02/26/22 02/26/22 02/26/22 10:33 10:38 10:39 Temperature Pulse Rate 70 74 Respiratory Rate Blood Pressure 132/74 Blood Pressure [Right] O2 Sat by Pulse 100 100 90 Oximetry O2 Sat by Pulse Oximetry [ Bilateral Throughout] 02/26/22 02/26/22 02/26/22 10:43 10:48 10:53 Temperature Pulse Rate 82 78 82 Respiratory Rate Blood Pressure Blood Pressure [Right] O2 Sat by Pulse 100 100 100 Oximetry O2 Sat by Pulse Oximetry [ Bilateral Throughout] 02/26/22 02/26/22 02/26/22 10:58 11:03 11:08 Temperature Pulse Rate 83 78 79 Respiratory Rate Blood Pressure Blood Pressure [Right] O2 Sat by Pulse 99 100 99 Oximetry O2 Sat by Pulse Oximetry [ Bilateral Throughout] 02/26/22 02/26/22 02/26/22 11:13 11:18 11:23 Temperature Pulse Rate 81 76 74 Respiratory Rate Blood Pressure Blood Pressure [Right] O2 Sat by Pulse 99 100 100 Oximetry O2 Sat by Pulse Oximetry [ Bilateral Throughout] 02/26/22 02/26/22 02/26/22 11:28 11:33 11:34 Temperature Pulse Rate 74 78 77 Respiratory Rate Blood Pressure 166/83 Blood Pressure [Right] O2 Sat by Pulse 99 100 Oximetry O2 Sat by Pulse Oximetry [ Bilateral Throughout] 02/26/22 02/26/22 02/26/22 11:38 11:43 11:48 Temperature Pulse Rate 74 80 73 Respiratory Rate Blood Pressure Blood Pressure [Right] O2 Sat by Pulse 99 99 100 Oximetry O2 Sat by Pulse Oximetry [ Bilateral Throughout] 02/26/22 02/26/22 02/26/22 11:53 11:58 12:03 Temperature Pulse Rate 71 74 78 Respiratory Rate Blood Pressure Blood Pressure [Right] O2 Sat by Pulse 99 100 99 Oximetry O2 Sat by Pulse Oximetry [ Bilateral Throughout] 02/26/22 02/26/22 02/26/22 12:08 12:29 12:34 Temperature 98.4 F Pulse Rate 76 73 78 Respiratory Rate Blood Pressure 145/81 139/92 Blood Pressure [Right] O2 Sat by Pulse 100 Oximetry O2 Sat by Pulse Oximetry [ Bilateral Throughout] 02/26/22 02/26/22 02/26/22 13:34 13:57 13:58 Temperature Pulse Rate 82 82 83 Respiratory Rate Blood Pressure 146/87 160/85 160/85 Blood Pressure [Right] O2 Sat by Pulse Oximetry O2 Sat by Pulse Oximetry [ Bilateral Throughout] 02/26/22 02/26/22 02/26/22 16:15 16:17 16:34 Temperature 98.6 F Pulse Rate 75 66 Respiratory Rate Blood Pressure 148/83 133/70 Blood Pressure [Right] O2 Sat by Pulse Oximetry O2 Sat by Pulse Oximetry [ Bilateral Throughout] 02/26/22 02/26/22 02/26/22 17:34 19:01 19:08 Temperature 98.4 F Pulse Rate 67 84 74 Respiratory 17 Rate Blood Pressure 175/103 171/74 Blood Pressure 146/79 [Right] O2 Sat by Pulse 99 Oximetry O2 Sat by Pulse Oximetry [ Bilateral Throughout] 02/26/22 02/26/22 02/26/22 19:10 19:34 20:39 Temperature Pulse Rate 73 76 80 Respiratory Rate Blood Pressure 146/79 151/86 147/90 Blood Pressure [Right] O2 Sat by Pulse Oximetry O2 Sat by Pulse 99 Oximetry [ Bilateral Throughout] 02/26/22 02/26/22 21:34 21:56 Temperature Pulse Rate 75 72 Respiratory Rate Blood Pressure 174/100 159/86 Blood Pressure [Right] O2 Sat by Pulse Oximetry O2 Sat by Pulse Oximetry [ Bilateral Throughout] - Exam Breasts: deferred Abdomen: Present: normal appearance, soft. Absent: distention, tenderness - Labs Labs: Abnormal Labs 02/08/22 02/08/22 02/08/22 18:40 18:40 22:52 WBC 11.8 H RBC MCHC RDW Plt Count Seg Neutrophils % Sodium Potassium Chloride Carbon Dioxide BUN Glucose Calcium Magnesium 3.80 H Alkaline Phosphatase Lactate Dehydrogenase 305 H Total Protein Albumin Urine Creatinine Ur Total Protein 24 Hr 02/09/22 02/09/22 02/09/22 04:00 04:42 05:49 WBC RBC MCHC RDW Plt Count Seg Neutrophils % Sodium Potassium Chloride Carbon Dioxide BUN Glucose Calcium Magnesium 5.20 H Alkaline Phosphatase Lactate Dehydrogenase Total Protein Albumin Urine Creatinine 24.2 H Ur Total Protein 24 Hr 495.00 H 02/09/22 02/10/22 02/10/22 12:07 00:05 06:40 WBC RBC MCHC RDW Plt Count Seg Neutrophils % Sodium Potassium Chloride Carbon Dioxide BUN Glucose Calcium Magnesium 5.30 H 5.00 H 5.40 H Alkaline Phosphatase Lactate Dehydrogenase Total Protein Albumin Urine Creatinine Ur Total Protein 24 Hr 02/10/22 02/12/22 02/12/22 13:49 16:56 16:56 WBC RBC MCHC RDW Plt Count 73 L Seg Neutrophils % Sodium 131 L Potassium Chloride Carbon Dioxide 19 L BUN Glucose Calcium Magnesium 4.70 H Alkaline Phosphatase 205 H Lactate Dehydrogenase Total Protein Albumin 3.3 L Urine Creatinine Ur Total Protein 24 Hr 02/12/22 02/13/22 02/13/22 20:22 00:23 02:25 WBC RBC 3.58 L 3.59 L MCHC RDW 15.3 H 15.4 H Plt Count Seg Neutrophils % Sodium Potassium Chloride Carbon Dioxide BUN Glucose Calcium Magnesium 4.30 H Alkaline Phosphatase Lactate Dehydrogenase Total Protein Albumin Urine Creatinine Ur Total Protein 24 Hr 02/13/22 02/13/22 02/13/22 04:38 07:12 07:12 WBC RBC MCHC RDW 15.3 H 15.3 H Plt Count Seg Neutrophils % Sodium 131 L Potassium Chloride 97.5 L Carbon Dioxide 21 L BUN Glucose Calcium 8.3 L Magnesium Alkaline Phosphatase 200 H Lactate Dehydrogenase Total Protein Albumin 3.3 L Urine Creatinine Ur Total Protein 24 Hr 02/14/22 02/14/22 02/15/22 08:19 08:19 09:41 WBC RBC MCHC RDW 15.4 H 15.3 H Plt Count Seg Neutrophils % Sodium 135 L Potassium Chloride Carbon Dioxide 21 L BUN Glucose 133 H Calcium Magnesium Alkaline Phosphatase 200 H Lactate Dehydrogenase Total Protein Albumin 3.4 L Urine Creatinine Ur Total Protein 24 Hr 02/16/22 02/16/22 02/16/22 04:42 07:59 14:20 WBC RBC 3.61 L MCHC 35 H RDW 15.4 H Plt Count Seg Neutrophils % Sodium 136 L Potassium 5.3 H 5.2 H Chloride Carbon Dioxide BUN 18 H Glucose Calcium Magnesium Alkaline Phosphatase 204 H Lactate Dehydrogenase Total Protein Albumin 3.3 L Urine Creatinine Ur Total Protein 24 Hr 02/17/22 02/17/22 02/18/22 08:08 20:14 06:36 WBC RBC MCHC RDW Plt Count Seg Neutrophils % Sodium 134 L 136 L Potassium 5.1 H 5.4 H 5.2 H Chloride Carbon Dioxide 19 L 19 L BUN 18 H Glucose Calcium Magnesium Alkaline Phosphatase 231 H Lactate Dehydrogenase Total Protein Albumin 3.6 L Urine Creatinine Ur Total Protein 24 Hr 02/19/22 02/19/22 02/21/22 11:48 11:48 07:12 WBC RBC MCHC RDW 15.7 H 15.4 H Plt Count Seg Neutrophils % Sodium 135 L Potassium Chloride Carbon Dioxide 19 L BUN Glucose Calcium Magnesium Alkaline Phosphatase 220 H Lactate Dehydrogenase Total Protein 5.9 L Albumin 3.5 L Urine Creatinine Ur Total Protein 24 Hr 02/21/22 02/24/22 02/24/22 07:18 15:19 15:19 WBC RBC MCHC RDW Plt Count Seg Neutrophils % 74.6 H Sodium 135 L Potassium Chloride Carbon Dioxide 19 L 20 L BUN Glucose 106 H Calcium Magnesium Alkaline Phosphatase 244 H 269 H Lactate Dehydrogenase Total Protein 6.1 L Albumin 3.7 L 3.6 L Urine Creatinine Ur Total Protein 24 Hr
[2022-02-27] MEDS: DOCUSATE SODIUM 100 MG CAP PO PRN (11:24)
--- NOTE | 2022-02-27 12:03 | Progress Note ---
Assessment and Plan Pt awake and talkative. Denies GROSSMAN, visual changes or epigastric pain. pt reports + Fm and denies ctx. IUP at 32 2/7 weeks gestation CHTN with superimposed preeclampsia with severe features LI Morbid obesity Echo reviewed , normal EF , mild Pul HTN AMFM Rec: Patient with severe range BP yesterday evening and overnight Labetalol increased to 800mg TID , procardia 30mg XL Max goal is 2400mg has now been reached Twice weekly CBC/CMP to screen for end organ damage ( renal failure, thrombocytopenia, HELLP) Growth scan q 3 weeks (ordered for 03/01/2022) Twice weekly BPP Delivery at 34 0/7 weeks gestations. Immediate delivery is advised if her severe HTN is uncontrolled, Cerebral symptoms persist, pt develops Pul edema, HELLP, renal failure, plt count <100,000, eclampsia, distress - Patient Problems (1) 32 weeks gestation of Current Visit: Yes Status: Acute (2) Pre-eclampsia superimposed on chronic hypertension Current Visit: Yes Status: Acute (3) History of asthma Current Visit: Yes Status: Chronic (4) History of sleep apnea Current Visit: Yes Status: Chronic (5) Morbid obesity Current Visit: Yes Status: Chronic Subjective - Subjective Date of service: 02/27/22 Principal diagnosis: IUP @ 32+2 wks, CHTN with superimposed Preeclampsia, BMI 60 Patient reports: movement normal, other (pt denies all complaints), no new complaints, no loss of fluid, no vaginal bleeding, no contractions Objective - Vital Signs Vital Signs: Vital Signs - 12hr 02/27/22 02/27/22 02/27/22 00:33 01:13 01:33 Temperature 98.7 F Pulse Rate 83 74 Blood Pressure 147/82 130/74 02/27/22 02/27/22 02/27/22 02:33 03:33 04:33 Temperature Pulse Rate 79 71 70 Blood Pressure 132/69 132/78 138/92 02/27/22 02/27/22 02/27/22 04:40 05:58 06:07 Temperature 97.8 F Pulse Rate 76 72 Blood Pressure 190/91 146/72 02/27/22 02/27/22 02/27/22 06:33 07:33 08:33 Temperature Pulse Rate 83 75 74 Blood Pressure 140/79 133/69 130/71 02/27/22 02/27/22 11:20 11:33 Temperature Pulse Rate 71 68 Blood Pressure 170/93 146/71 - Exam Abdomen: Present: normal appearance, soft. Absent: distention, tenderness - Labs Labs: Abnormal Labs 02/08/22 02/08/22 02/08/22 18:40 18:40 22:52 WBC 11.8 H RBC MCHC RDW Plt Count Seg Neutrophils % Sodium Potassium Chloride Carbon Dioxide BUN Glucose Calcium Magnesium 3.80 H Alkaline Phosphatase Lactate Dehydrogenase 305 H Total Protein Albumin Urine Creatinine Ur Total Protein 24 Hr 02/09/22 02/09/22 02/09/22 04:00 04:42 05:49 WBC RBC MCHC RDW Plt Count Seg Neutrophils % Sodium Potassium Chloride Carbon Dioxide BUN Glucose Calcium Magnesium 5.20 H Alkaline Phosphatase Lactate Dehydrogenase Total Protein Albumin Urine Creatinine 24.2 H Ur Total Protein 24 Hr 495.00 H 02/09/22 02/10/22 02/10/22 12:07 00:05 06:40 WBC RBC MCHC RDW Plt Count Seg Neutrophils % Sodium Potassium Chloride Carbon Dioxide BUN Glucose Calcium Magnesium 5.30 H 5.00 H 5.40 H Alkaline Phosphatase Lactate Dehydrogenase Total Protein Albumin Urine Creatinine Ur Total Protein 24 Hr 02/10/22 02/12/22 02/12/22 13:49 16:56 16:56 WBC RBC MCHC RDW Plt Count 73 L Seg Neutrophils % Sodium 131 L Potassium Chloride Carbon Dioxide 19 L BUN Glucose Calcium Magnesium 4.70 H Alkaline Phosphatase 205 H Lactate Dehydrogenase Total Protein Albumin 3.3 L Urine Creatinine Ur Total Protein 24 Hr 02/12/22 02/13/22 02/13/22 20:22 00:23 02:25 WBC RBC 3.58 L 3.59 L MCHC RDW 15.3 H 15.4 H Plt Count Seg Neutrophils % Sodium Potassium Chloride Carbon Dioxide BUN Glucose Calcium Magnesium 4.30 H Alkaline Phosphatase Lactate Dehydrogenase Total Protein Albumin Urine Creatinine Ur Total Protein 24 Hr 02/13/22 02/13/22 02/13/22 04:38 07:12 07:12 WBC RBC MCHC RDW 15.3 H 15.3 H Plt Count Seg Neutrophils % Sodium 131 L Potassium Chloride 97.5 L Carbon Dioxide 21 L BUN Glucose Calcium 8.3 L Magnesium Alkaline Phosphatase 200 H Lactate Dehydrogenase Total Protein Albumin 3.3 L Urine Creatinine Ur Total Protein 24 Hr 02/14/22 02/14/22 02/15/22 08:19 08:19 09:41 WBC RBC MCHC RDW 15.4 H 15.3 H Plt Count Seg Neutrophils % Sodium 135 L Potassium Chloride Carbon Dioxide 21 L BUN Glucose 133 H Calcium Magnesium Alkaline Phosphatase 200 H Lactate Dehydrogenase Total Protein Albumin 3.4 L Urine Creatinine Ur Total Protein 24 Hr 02/16/22 02/16/22 02/16/22 04:42 07:59 14:20 WBC RBC 3.61 L MCHC 35 H RDW 15.4 H Plt Count Seg Neutrophils % Sodium 136 L Potassium 5.3 H 5.2 H Chloride Carbon Dioxide BUN 18 H Glucose Calcium Magnesium Alkaline Phosphatase 204 H Lactate Dehydrogenase Total Protein Albumin 3.3 L Urine Creatinine Ur Total Protein 24 Hr 02/17/22 02/17/22 02/18/22 08:08 20:14 06:36 WBC RBC MCHC RDW Plt Count Seg Neutrophils % Sodium 134 L 136 L Potassium 5.1 H 5.4 H 5.2 H Chloride Carbon Dioxide 19 L 19 L BUN 18 H Glucose Calcium Magnesium Alkaline Phosphatase 231 H Lactate Dehydrogenase Total Protein Albumin 3.6 L Urine Creatinine Ur Total Protein 24 Hr 02/19/22 02/19/22 02/21/22 11:48 11:48 07:12 WBC RBC MCHC RDW 15.7 H 15.4 H Plt Count Seg Neutrophils % Sodium 135 L Potassium Chloride Carbon Dioxide 19 L BUN Glucose Calcium Magnesium Alkaline Phosphatase 220 H Lactate Dehydrogenase Total Protein 5.9 L Albumin 3.5 L Urine Creatinine Ur Total Protein 24 Hr 02/21/22 02/24/22 02/24/22 07:18 15:19 15:19 WBC RBC MCHC RDW Plt Count Seg Neutrophils % 74.6 H Sodium 135 L Potassium Chloride Carbon Dioxide 19 L 20 L BUN Glucose 106 H Calcium Magnesium Alkaline Phosphatase 244 H 269 H Lactate Dehydrogenase Total Protein 6.1 L Albumin 3.7 L 3.6 L Urine Creatinine Ur Total Protein 24 Hr
[2022-02-27] MEDS: hydrALAZINE 25 MG TAB PO SCH ×2 (13:51→22:42)
[2022-02-27] MEDS: MAGNESIUM HYDROXIDE (MOM) ORAL LIQD UDC PO PRN (15:08)
--- NOTE | 2022-02-27 16:44 | Event Note ---
Date: 02/27/22 Late entry: Received call from nurse regarding complaint from patient of epigastric pain. Initially thought it was due to needing to have a bowel movement. Given a stool softener and had a good bowel movement. Notes pain continues. Endorses previous episode of pain. Will try milk of mag and treat as GERD. Will also add GI ppx. Patient already meets dx of severe PreE, but per [facility] recs for delivery, only symptoms are cerebral, which patient denies.
[2022-02-27] MEDS: NIFEdipine XL 60 MG TAB PO SCH (22:03)
[2022-02-27] MEDS: diphenhydrAMINE 25 MG CAP PO PRN (22:03)
[2022-02-28] MEDS ORDERED: FAMOTIDINE 20 MG/2 ML INJ IV ONE (03:39)
[2022-02-28] MEDS: hydrALAZINE 25 MG TAB PO SCH ×6 (05:33→21:36)
[2022-02-28] MEDS: ACETAMINOPHEN 500 MG TAB PO PRN (05:34)
[2022-02-28] MEDS ORDERED: hydrALAZINE 20 MG/1 ML INJ IV ONE (06:01)
[2022-02-28] MEDS: PRENATAL VIT27-FE FUMARATE-FOLIC ACID VIT TAB PO SCH ×3 (07:35→09:13)
[2022-02-28] MEDS: NIFEdipine XL 60 MG TAB PO SCH ×3 (07:36→21:36)
--- NOTE | 2022-02-28 07:38 | Progress Note ---
Assessment and Plan - Patient Problems (1) 32 weeks gestation of Current Visit: Yes Status: Acute (2) Pre-eclampsia superimposed on chronic hypertension Current Visit: Yes Status: Acute Plan to address problem: IUP at 32 3/7 weeks gestation CHTN with superimposed preeclampsia with severe features LI Morbid obesity Echo reviewed , normal EF , mild Pul HTN [facility] Rec: Patient with severe range BP yesterday evening and overnight-currently bp is stable. Will con't to monitor Labetalol increased to 800mg TID , procardia 30mg XL Max goal is 2400mg Labetalol has now been reached Twice weekly CBC/CMP to screen for end organ damage ( renal failure, thrombocytopenia, HELLP) -done this am due to epigastric pain pt had today Growth scan q 3 weeks (ordered for 03/01/2022) Twice weekly BPP Delivery at 34 0/7 weeks gestations. Immediate delivery is advised if her severe HTN is uncontrolled, Cerebral symptoms persist, pt develops Pul edema, HELLP, renal failure, plt count <100,000, eclampsia, distress (3) History of asthma Current Visit: Yes Status: Chronic (4) Morbid obesity Current Visit: Yes Status: Chronic (5) Chronic hypertension affecting Current Visit: No Status: Chronic Subjective - Subjective Date of service: 02/28/22 Principal diagnosis: IUP @ 32+3 wks, CHTN with superimposed Preeclampsia, BMI 60 Interval history: Pt c/o having epigastrc pain not RUQ pain that has improved since initial complaint with taking medications and she has a heating pad to this area but not on the abdomen. I d/w pt that we will start pepcid at this time IV to see if if helps. Pt also has no headches, or blurry vision. BP is improved with the hydralazine given IV. Labetalol increased to 800mg tid (max dosage). I d/w pt that should bps become unable to be controlled, will need to proceed with IOL on magnesium sulfate at we are at the max level of bp meds. Pt expressed understanding. BP currently in good range. Patient reports: new complaints (epigastric pain), movement normal, other (pt denies all complaints), no loss of fluid, no vaginal bleeding, no contractions Objective - Vital Signs Vital Signs: Vital Signs - 12hr 02/27/22 02/27/22 02/27/22 20:23 20:25 20:33 Temperature Pulse Rate 75 75 68 Respiratory Rate Blood Pressure 136/81 136/81 145/88 O2 Sat by Pulse Oximetry 02/27/22 02/27/22 02/27/22 20:35 20:36 20:41 Temperature Pulse Rate 67 69 72 Respiratory Rate Blood Pressure O2 Sat by Pulse 11 L 100 100 Oximetry 02/27/22 02/27/22 02/27/22 20:46 20:51 20:56 Temperature Pulse Rate 80 77 72 Respiratory Rate Blood Pressure O2 Sat by Pulse 100 100 99 Oximetry 02/27/22 02/27/22 02/27/22 20:59 21:01 21:06 Temperature Pulse Rate 71 76 74 Respiratory Rate Blood Pressure O2 Sat by Pulse 92 96 99 Oximetry 02/27/22 02/27/22 02/27/22 21:33 22:33 22:42 Temperature Pulse Rate 73 73 73 Respiratory Rate Blood Pressure 135/78 160/97 145/79 O2 Sat by Pulse Oximetry 02/27/22 02/27/22 02/28/22 23:13 23:43 00:13 Temperature Pulse Rate 75 74 76 Respiratory Rate Blood Pressure 146/78 136/78 144/79 O2 Sat by Pulse Oximetry 02/28/22 02/28/22 02/28/22 00:44 01:30 01:31 Temperature 98.3 F Pulse Rate 70 Respiratory 18 Rate Blood Pressure O2 Sat by Pulse 88 99 Oximetry 02/28/22 02/28/22 02/28/22 01:36 01:41 01:44 Temperature Pulse Rate 68 67 64 Respiratory Rate Blood Pressure 144/76 O2 Sat by Pulse 98 99 Oximetry 02/28/22 02/28/22 02/28/22 01:46 01:49 01:51 Temperature Pulse Rate 66 55 L Respiratory Rate Blood Pressure O2 Sat by Pulse 99 78 L 86 Oximetry 02/28/22 02/28/22 02/28/22 01:59 02:00 02:05 Temperature Pulse Rate 77 85 Respiratory Rate Blood Pressure O2 Sat by Pulse 86 99 100 Oximetry 02/28/22 02/28/22 02/28/22 02:10 02:15 02:20 Temperature Pulse Rate 77 75 76 Respiratory Rate Blood Pressure O2 Sat by Pulse 100 97 100 Oximetry 05/02/22 05/02/22 05/02/22 02:25 02:30 02:35 Temperature Pulse Rate 72 70 71 Respiratory Rate Blood Pressure O2 Sat by Pulse 100 100 99 Oximetry 02/28/22 02/28/22 02/28/22 02:40 02:44 02:45 Temperature Pulse Rate 69 70 71 Respiratory Rate Blood Pressure 147/81 O2 Sat by Pulse 99 91 99 Oximetry 02/28/22 02/28/22 02/28/22 02:50 02:55 03:00 Temperature Pulse Rate 74 72 74 Respiratory Rate Blood Pressure O2 Sat by Pulse 99 100 98 Oximetry 02/28/22 02/28/22 02/28/22 03:05 03:10 03:15 Temperature Pulse Rate 80 78 79 Respiratory Rate Blood Pressure O2 Sat by Pulse 99 99 99 Oximetry 02/28/22 02/28/22 02/28/22 03:20 03:24 03:25 Temperature Pulse Rate 73 81 81 Respiratory Rate Blood Pressure O2 Sat by Pulse 98 86 99 Oximetry 02/28/22 02/28/22 02/28/22 03:30 03:35 03:40 Temperature Pulse Rate 73 73 73 Respiratory Rate Blood Pressure O2 Sat by Pulse 99 98 98 Oximetry 02/28/22 02/28/22 02/28/22 03:45 03:50 03:53 Temperature 98.4 F Pulse Rate 73 81 78 Respiratory 19 Rate Blood Pressure O2 Sat by Pulse 98 99 Oximetry 02/28/22 02/28/22 02/28/22 03:54 03:55 04:00 Temperature Pulse Rate 71 72 74 Respiratory Rate Blood Pressure 140/75 O2 Sat by Pulse 91 98 98 Oximetry 02/28/22 02/28/22 02/28/22 04:20 04:24 04:25 Temperature Pulse Rate 71 71 Respiratory Rate Blood Pressure 146/89 O2 Sat by Pulse 99 94 100 Oximetry 02/28/22 02/28/22 02/28/22 04:30 04:35 04:40 Temperature Pulse Rate 75 73 79 Respiratory Rate Blood Pressure O2 Sat by Pulse 100 100 100 Oximetry 02/28/22 02/28/22 02/28/22 04:45 04:50 04:54 Temperature Pulse Rate 76 70 69 Respiratory Rate Blood Pressure 155/86 O2 Sat by Pulse 100 100 94 Oximetry 02/28/22 02/28/22 02/28/22 04:55 05:00 05:05 Temperature Pulse Rate 69 69 76 Respiratory Rate Blood Pressure O2 Sat by Pulse 98 100 98 Oximetry 02/28/22 02/28/22 02/28/22 05:10 05:15 05:17 Temperature Pulse Rate 74 72 81 Respiratory Rate Blood Pressure O2 Sat by Pulse 99 100 80 L Oximetry 02/28/22 02/28/22 02/28/22 05:24 05:25 05:31 Temperature Pulse Rate 117 H 75 Respiratory Rate Blood Pressure 162/96 O2 Sat by Pulse 0 L 77 L 87 Oximetry 02/28/22 02/28/22 02/28/22 05:33 05:36 05:38 Temperature Pulse Rate 90 66 Respiratory Rate Blood Pressure 162/96 O2 Sat by Pulse 82 L 0 L Oximetry 02/28/22 02/28/22 02/28/22 05:44 05:54 05:55 Temperature Pulse Rate 71 Respiratory Rate Blood Pressure 182/88 O2 Sat by Pulse 86 81 L Oximetry 02/28/22 02/28/22 02/28/22 05:58 05:59 06:04 Temperature Pulse Rate 66 68 66 Respiratory Rate Blood Pressure 181/98 O2 Sat by Pulse 98 96 Oximetry 02/28/22 02/28/22 02/28/22 06:09 06:12 06:14 Temperature Pulse Rate 69 64 75 Respiratory Rate Blood Pressure 181/98 O2 Sat by Pulse 95 97 Oximetry 02/28/22 02/28/22 02/28/22 06:19 06:22 06:24 Temperature Pulse Rate 72 70 76 Respiratory Rate Blood Pressure 158/90 O2 Sat by Pulse 99 99 Oximetry 02/28/22 02/28/22 02/28/22 06:29 06:32 06:34 Temperature Pulse Rate 76 75 76 Respiratory Rate Blood Pressure 159/97 O2 Sat by Pulse 97 100 Oximetry 02/28/22 02/28/22 02/28/22 06:39 06:42 06:44 Temperature Pulse Rate 73 72 73 Respiratory Rate Blood Pressure 164/97 O2 Sat by Pulse 98 98 Oximetry 02/28/22 02/28/22 02/28/22 06:49 06:52 06:54 Temperature Pulse Rate 74 67 71 Respiratory Rate Blood Pressure 164/94 O2 Sat by Pulse 98 98 Oximetry 02/28/22 02/28/22 02/28/22 06:59 07:02 07:04 Temperature Pulse Rate 72 73 72 Respiratory Rate Blood Pressure 166/97 O2 Sat by Pulse 98 97 Oximetry 02/28/22 02/28/22 02/28/22 07:09 07:12 07:14 Temperature Pulse Rate 76 68 70 Respiratory Rate Blood Pressure 155/96 O2 Sat by Pulse 98 98 Oximetry 02/28/22 02/28/22 02/28/22 07:19 07:22 07:24 Temperature Pulse Rate 71 71 72 Respiratory Rate Blood Pressure 157/98 O2 Sat by Pulse 97 97 Oximetry 02/28/22 07:29 Temperature Pulse Rate 77 Respiratory Rate Blood Pressure O2 Sat by Pulse 97 Oximetry - Exam Lungs: Normal air movement Abdomen: Present: normal appearance, soft, other (the ). Absent: distention, tenderness, guarding FHR: category 1 Deep Tendon Reflex Grade: Normal +2 - Labs Labs: Abnormal Labs 02/08/22 02/08/22 02/08/22 18:40 18:40 22:52 WBC 11.8 H RBC MCHC RDW Plt Count Seg Neutrophils % Sodium Potassium Chloride Carbon Dioxide BUN Glucose Calcium Magnesium 3.80 H Alkaline Phosphatase Lactate Dehydrogenase 305 H Total Protein Albumin Urine Creatinine Ur Total Protein 24 Hr 02/09/22 02/09/22 02/09/22 04:00 04:42 05:49 WBC RBC MCHC RDW Plt Count Seg Neutrophils % Sodium Potassium Chloride Carbon Dioxide BUN Glucose Calcium Magnesium 5.20 H Alkaline Phosphatase Lactate Dehydrogenase Total Protein Albumin Urine Creatinine 24.2 H Ur Total Protein 24 Hr 495.00 H 02/09/22 02/10/22 02/10/22 12:07 00:05 06:40 WBC RBC MCHC RDW Plt Count Seg Neutrophils % Sodium Potassium Chloride Carbon Dioxide BUN Glucose Calcium Magnesium 5.30 H 5.00 H 5.40 H Alkaline Phosphatase Lactate Dehydrogenase Total Protein Albumin Urine Creatinine Ur Total Protein 24 Hr 02/10/22 02/12/22 02/12/22 13:49 16:56 16:56 WBC RBC MCHC RDW Plt Count 73 L Seg Neutrophils % Sodium 131 L Potassium Chloride Carbon Dioxide 19 L BUN Glucose Calcium Magnesium 4.70 H Alkaline Phosphatase 205 H Lactate Dehydrogenase Total Protein Albumin 3.3 L Urine Creatinine Ur Total Protein 24 Hr 02/12/22 02/13/22 02/13/22 20:22 00:23 02:25 WBC RBC 3.58 L 3.59 L MCHC RDW 15.3 H 15.4 H Plt Count Seg Neutrophils % Sodium Potassium Chloride Carbon Dioxide BUN Glucose Calcium Magnesium 4.30 H Alkaline Phosphatase Lactate Dehydrogenase Total Protein Albumin Urine Creatinine Ur Total Protein 24 Hr 02/13/22 02/13/22 02/13/22 04:38 07:12 07:12 WBC RBC MCHC RDW 15.3 H 15.3 H Plt Count Seg Neutrophils % Sodium 131 L Potassium Chloride 97.5 L Carbon Dioxide 21 L BUN Glucose Calcium 8.3 L Magnesium Alkaline Phosphatase 200 H Lactate Dehydrogenase Total Protein Albumin 3.3 L Urine Creatinine Ur Total Protein 24 Hr 02/14/22 02/14/22 02/15/22 08:19 08:19 09:41 WBC RBC MCHC RDW 15.4 H 15.3 H Plt Count Seg Neutrophils % Sodium 135 L Potassium Chloride Carbon Dioxide 21 L BUN Glucose 133 H Calcium Magnesium Alkaline Phosphatase 200 H Lactate Dehydrogenase Total Protein Albumin 3.4 L Urine Creatinine Ur Total Protein 24 Hr 02/16/22 02/16/22 02/16/22 04:42 07:59 14:20 WBC RBC 3.61 L MCHC 35 H RDW 15.4 H Plt Count Seg Neutrophils % Sodium 136 L Potassium 5.3 H 5.2 H Chloride Carbon Dioxide BUN 18 H Glucose Calcium Magnesium Alkaline Phosphatase 204 H Lactate Dehydrogenase Total Protein Albumin 3.3 L Urine Creatinine Ur Total Protein 24 Hr 02/17/22 02/17/22 02/18/22 08:08 20:14 06:36 WBC RBC MCHC RDW Plt Count Seg Neutrophils % Sodium 134 L 136 L Potassium 5.1 H 5.4 H 5.2 H Chloride Carbon Dioxide 19 L 19 L BUN 18 H Glucose Calcium Magnesium Alkaline Phosphatase 231 H Lactate Dehydrogenase Total Protein Albumin 3.6 L Urine Creatinine Ur Total Protein 24 Hr 02/19/22 02/19/22 02/21/22 11:48 11:48 07:12 WBC RBC MCHC RDW 15.7 H 15.4 H Plt Count Seg Neutrophils % Sodium 135 L Potassium Chloride Carbon Dioxide 19 L BUN Glucose Calcium Magnesium Alkaline Phosphatase 220 H Lactate Dehydrogenase Total Protein 5.9 L Albumin 3.5 L Urine Creatinine Ur Total Protein 24 Hr 02/21/22 02/24/22 02/24/22 07:18 15:19 15:19 WBC RBC MCHC RDW Plt Count Seg Neutrophils % 74.6 H Sodium 135 L Potassium Chloride Carbon Dioxide 19 L 20 L BUN Glucose 106 H Calcium Magnesium Alkaline Phosphatase 244 H 269 H Lactate Dehydrogenase Total Protein 6.1 L Albumin 3.7 L 3.6 L Urine Creatinine Ur Total Protein 24 Hr
--- NOTE | 2022-02-28 07:49 | Event Note ---
Date: 02/28/[address] [place] regarding pt increased Labetaol and epigastric pain. Advised of the improvement of pain with pepcid and that we are starting it daily. States understanding and he will see patient later today.
[2022-02-28] MEDS: FAMOTIDINE 20 MG/2 ML INJ IV SCH ×2 (08:28→09:13)
--- NOTE | 2022-02-28 08:42 | Progress Note ---
Assessment and Plan 1. IUP at 32 2/7 weeks' 2. Essential hypertension with severe range BP's, rising serum creatinine 3. Morbid obesity 4. AMA 1. Continue labetalol; now at max recommended dose of 800 mg tid 2. Repeat CBC/CMP at least twice weekly, to be drawn today 3. Continue BPP at least twice weekly 4. EFW q 2-3 weeks 5. Proceed with delivery if unable to control BP [<160/110], further significant rise in creatinine c/w renal insufficiency, evidence of HELLP Syndrome; o/w, delivery by 34 0/7 weeks' Subjective - Subjective Principal diagnosis: IUP @ 32+3 wks, CHTN with superimposed Preeclampsia, BMI 60 Interval history: Feeling well except fr mild epiogastric discomfort; denied GROSSMAN, scotomata and reported an active fetus. Patient reports: new complaints (epigastric pain), movement normal, other (pt denies all complaints), no loss of fluid, no vaginal bleeding, no contractions Objective - Vital Signs Vital Signs: Vital Signs - 12hr 02/27/22 02/27/22 02/27/22 20:41 20:46 20:51 Temperature Pulse Rate 72 80 77 Respiratory Rate Blood Pressure Blood Pressure [Right] O2 Sat by Pulse 100 100 100 Oximetry O2 Sat by Pulse Oximetry [ Bilateral Throughout] 02/27/22 02/27/22 02/27/22 20:56 20:59 21:01 Temperature Pulse Rate 72 71 76 Respiratory Rate Blood Pressure Blood Pressure [Right] O2 Sat by Pulse 99 92 96 Oximetry O2 Sat by Pulse Oximetry [ Bilateral Throughout] 02/27/22 02/27/22 02/27/22 21:06 21:33 22:33 Temperature Pulse Rate 74 73 73 Respiratory Rate Blood Pressure 135/78 160/97 Blood Pressure [Right] O2 Sat by Pulse 99 Oximetry O2 Sat by Pulse Oximetry [ Bilateral Throughout] 02/27/22 02/27/22 02/27/22 22:42 23:13 23:43 Temperature Pulse Rate 73 75 74 Respiratory Rate Blood Pressure 145/79 146/78 136/78 Blood Pressure [Right] O2 Sat by Pulse Oximetry O2 Sat by Pulse Oximetry [ Bilateral Throughout] 02/28/22 02/28/22 02/28/22 00:13 00:44 01:30 Temperature 98.3 F Pulse Rate 76 Respiratory 18 Rate Blood Pressure 144/79 Blood Pressure [Right] O2 Sat by Pulse 88 Oximetry O2 Sat by Pulse Oximetry [ Bilateral Throughout] 02/28/22 02/28/22 02/28/22 01:31 01:36 01:41 Temperature Pulse Rate 70 68 67 Respiratory Rate Blood Pressure Blood Pressure [Right] O2 Sat by Pulse 99 98 99 Oximetry O2 Sat by Pulse Oximetry [ Bilateral Throughout] 02/28/22 02/28/22 02/28/22 01:44 01:46 01:49 Temperature Pulse Rate 64 66 Respiratory Rate Blood Pressure 144/76 Blood Pressure [Right] O2 Sat by Pulse 99 78 L Oximetry O2 Sat by Pulse Oximetry [ Bilateral Throughout] 02/28/22 02/28/22 02/28/22 01:51 01:59 02:00 Temperature Pulse Rate 55 L 77 Respiratory Rate Blood Pressure Blood Pressure [Right] O2 Sat by Pulse 86 86 99 Oximetry O2 Sat by Pulse Oximetry [ Bilateral Throughout] 02/28/22 02/28/22 02/28/22 02:05 02:10 02:15 Temperature Pulse Rate 85 77 75 Respiratory Rate Blood Pressure Blood Pressure [Right] O2 Sat by Pulse 100 100 97 Oximetry O2 Sat by Pulse Oximetry [ Bilateral Throughout] 02/28/22 02/28/22 02/28/22 02:20 02:25 02:30 Temperature Pulse Rate 76 72 70 Respiratory Rate Blood Pressure Blood Pressure [Right] O2 Sat by Pulse 100 100 100 Oximetry O2 Sat by Pulse Oximetry [ Bilateral Throughout] 02/28/22 02/28/22 02/28/22 02:35 02:40 02:44 Temperature Pulse Rate 71 69 70 Respiratory Rate Blood Pressure 147/81 Blood Pressure [Right] O2 Sat by Pulse 99 99 91 Oximetry O2 Sat by Pulse Oximetry [ Bilateral Throughout] 02/28/22 02/28/22 02/28/22 02:45 02:50 02:55 Temperature Pulse Rate 71 74 72 Respiratory Rate Blood Pressure Blood Pressure [Right] O2 Sat by Pulse 99 99 100 Oximetry O2 Sat by Pulse Oximetry [ Bilateral Throughout] 02/28/22 02/28/22 02/28/22 03:00 03:05 03:10 Temperature Pulse Rate 74 80 78 Respiratory Rate Blood Pressure Blood Pressure [Right] O2 Sat by Pulse 98 99 99 Oximetry O2 Sat by Pulse Oximetry [ Bilateral Throughout] 02/28/22 02/28/22 02/28/22 03:15 03:20 03:24 Temperature Pulse Rate 79 73 81 Respiratory Rate Blood Pressure Blood Pressure [Right] O2 Sat by Pulse 99 98 86 Oximetry O2 Sat by Pulse Oximetry [ Bilateral Throughout] 02/28/22 02/28/22 02/28/22 03:25 03:30 03:35 Temperature Pulse Rate 81 73 73 Respiratory Rate Blood Pressure Blood Pressure [Right] O2 Sat by Pulse 99 99 98 Oximetry O2 Sat by Pulse Oximetry [ Bilateral Throughout] 02/28/22 02/28/22 02/28/22 03:40 03:45 03:50 Temperature Pulse Rate 73 73 81 Respiratory Rate Blood Pressure Blood Pressure [Right] O2 Sat by Pulse 98 98 99 Oximetry O2 Sat by Pulse Oximetry [ Bilateral Throughout] 02/28/22 02/28/22 02/28/22 03:53 03:54 03:55 Temperature 98.4 F Pulse Rate 78 71 72 Respiratory 19 Rate Blood Pressure 140/75 Blood Pressure [Right] O2 Sat by Pulse 91 98 Oximetry O2 Sat by Pulse Oximetry [ Bilateral Throughout] 02/28/22 02/28/22 02/28/22 04:00 04:20 04:24 Temperature Pulse Rate 74 71 Respiratory Rate Blood Pressure 146/89 Blood Pressure [Right] O2 Sat by Pulse 98 99 94 Oximetry O2 Sat by Pulse Oximetry [ Bilateral Throughout] 02/28/22 02/28/22 02/28/22 04:25 04:30 04:35 Temperature Pulse Rate 71 75 73 Respiratory Rate Blood Pressure Blood Pressure [Right] O2 Sat by Pulse 100 100 100 Oximetry O2 Sat by Pulse Oximetry [ Bilateral Throughout] 02/28/22 02/28/22 02/28/22 04:40 04:45 04:50 Temperature Pulse Rate 79 76 70 Respiratory Rate Blood Pressure Blood Pressure [Right] O2 Sat by Pulse 100 100 100 Oximetry O2 Sat by Pulse Oximetry [ Bilateral Throughout] 02/28/22 02/28/22 02/28/22 04:54 04:55 05:00 Temperature Pulse Rate 69 69 69 Respiratory Rate Blood Pressure 155/86 Blood Pressure [Right] O2 Sat by Pulse 94 98 100 Oximetry O2 Sat by Pulse Oximetry [ Bilateral Throughout] 02/28/22 02/28/22 02/28/22 05:05 05:10 05:15 Temperature Pulse Rate 76 74 72 Respiratory Rate Blood Pressure Blood Pressure [Right] O2 Sat by Pulse 98 99 100 Oximetry O2 Sat by Pulse Oximetry [ Bilateral Throughout] 02/28/22 02/28/22 02/28/22 05:17 05:24 05:25 Temperature Pulse Rate 81 117 H Respiratory Rate Blood Pressure 162/96 Blood Pressure [Right] O2 Sat by Pulse 80 L 0 L 77 L Oximetry O2 Sat by Pulse Oximetry [ Bilateral Throughout] 02/28/22 02/28/22 02/28/22 05:31 05:33 05:36 Temperature Pulse Rate 75 90 Respiratory Rate Blood Pressure 162/96 Blood Pressure [Right] O2 Sat by Pulse 87 82 L Oximetry O2 Sat by Pulse Oximetry [ Bilateral Throughout] 02/28/22 02/28/22 02/28/22 05:38 05:44 05:54 Temperature Pulse Rate 66 Respiratory Rate Blood Pressure Blood Pressure [Right] O2 Sat by Pulse 0 L 86 81 L Oximetry O2 Sat by Pulse Oximetry [ Bilateral Throughout] 02/28/22 02/28/22 02/28/22 05:55 05:58 05:59 Temperature Pulse Rate 71 66 68 Respiratory Rate Blood Pressure 182/88 181/98 Blood Pressure [Right] O2 Sat by Pulse 98 Oximetry O2 Sat by Pulse Oximetry [ Bilateral Throughout] 02/28/22 02/28/22 02/28/22 06:04 06:09 06:12 Temperature Pulse Rate 66 69 64 Respiratory Rate Blood Pressure 181/98 Blood Pressure [Right] O2 Sat by Pulse 96 95 Oximetry O2 Sat by Pulse Oximetry [ Bilateral Throughout] 02/28/22 02/28/22 02/28/22 06:14 06:19 06:22 Temperature Pulse Rate 75 72 70 Respiratory Rate Blood Pressure 158/90 Blood Pressure [Right] O2 Sat by Pulse 97 99 Oximetry O2 Sat by Pulse Oximetry [ Bilateral Throughout] 02/28/22 02/28/22 02/28/22 06:24 06:29 06:32 Temperature Pulse Rate 76 76 75 Respiratory Rate Blood Pressure 159/97 Blood Pressure [Right] O2 Sat by Pulse 99 97 Oximetry O2 Sat by Pulse Oximetry [ Bilateral Throughout] 02/28/22 02/28/22 02/28/22 06:34 06:39 06:42 Temperature Pulse Rate 76 73 72 Respiratory Rate Blood Pressure 164/97 Blood Pressure [Right] O2 Sat by Pulse 100 98 Oximetry O2 Sat by Pulse Oximetry [ Bilateral Throughout] 02/28/22 02/28/22 02/28/22 06:44 06:49 06:52 Temperature Pulse Rate 73 74 67 Respiratory Rate Blood Pressure 164/94 Blood Pressure [Right] O2 Sat by Pulse 98 98 Oximetry O2 Sat by Pulse Oximetry [ Bilateral Throughout] 02/28/22 02/28/22 02/28/22 06:54 06:59 07:02 Temperature Pulse Rate 71 72 73 Respiratory Rate Blood Pressure 166/97 Blood Pressure [Right] O2 Sat by Pulse 98 98 Oximetry O2 Sat by Pulse Oximetry [ Bilateral Throughout] 02/28/22 02/28/22 02/28/22 07:04 07:09 07:12 Temperature Pulse Rate 72 76 68 Respiratory Rate Blood Pressure 155/96 Blood Pressure [Right] O2 Sat by Pulse 97 98 Oximetry O2 Sat by Pulse Oximetry [ Bilateral Throughout] 02/28/22 02/28/22 02/28/22 07:14 07:19 07:22 Temperature Pulse Rate 70 71 71 Respiratory Rate Blood Pressure 157/98 Blood Pressure [Right] O2 Sat by Pulse 98 97 Oximetry O2 Sat by Pulse Oximetry [ Bilateral Throughout] 02/28/22 02/28/22 02/28/22 07:24 07:29 07:32 Temperature Pulse Rate 72 77 76 Respiratory Rate Blood Pressure 154/94 Blood Pressure [Right] O2 Sat by Pulse 97 97 Oximetry O2 Sat by Pulse Oximetry [ Bilateral Throughout] 02/28/22 02/28/22 02/28/22 07:33 07:34 07:38 Temperature 98 F Pulse Rate 79 76 Respiratory 18 Rate Blood Pressure 154/94 Blood Pressure 154/94 [Right] O2 Sat by Pulse 96 96 Oximetry O2 Sat by Pulse 98 Oximetry [ Bilateral Throughout] 02/28/22 02/28/22 02/28/22 07:43 07:48 07:53 Temperature Pulse Rate 79 75 74 Respiratory Rate Blood Pressure Blood Pressure [Right] O2 Sat by Pulse 99 96 99 Oximetry O2 Sat by Pulse Oximetry [ Bilateral Throughout] 02/28/22 02/28/22 02/28/22 07:58 08:03 08:08 Temperature Pulse Rate 70 70 77 Respiratory Rate Blood Pressure Blood Pressure [Right] O2 Sat by Pulse 97 97 99 Oximetry O2 Sat by Pulse Oximetry [ Bilateral Throughout] 02/28/22 02/28/22 02/28/22 08:13 08:18 08:23 Temperature Pulse Rate 75 79 77 Respiratory Rate Blood Pressure Blood Pressure [Right] O2 Sat by Pulse 99 99 99 Oximetry O2 Sat by Pulse Oximetry [ Bilateral Throughout] 02/28/22 02/28/22 08:28 08:33 Temperature Pulse Rate 79 78 Respiratory Rate Blood Pressure 168/99 Blood Pressure [Right] O2 Sat by Pulse 99 89 Oximetry O2 Sat by Pulse Oximetry [ Bilateral Throughout] - Exam Narrative Exam: Abd soft, nontender; FHT's reassuring; latest BPP 06/06; labs reviewed: no evidence HELLP Syndrome, slow rise in serum creatinine noted: 1.1 on 02/24/22 - Labs Labs: Abnormal Labs 02/08/22 02/08/22 02/08/22 18:40 18:40 22:52 WBC 11.8 H RBC MCHC RDW Plt Count Seg Neutrophils % Sodium Potassium Chloride Carbon Dioxide BUN Glucose Calcium Magnesium 3.80 H Alkaline Phosphatase Lactate Dehydrogenase 305 H Total Protein Albumin Urine Creatinine Ur Total Protein 24 Hr 02/09/22 02/09/22 02/09/22 04:00 04:42 05:49 WBC RBC MCHC RDW Plt Count Seg Neutrophils % Sodium Potassium Chloride Carbon Dioxide BUN Glucose Calcium Magnesium 5.20 H Alkaline Phosphatase Lactate Dehydrogenase Total Protein Albumin Urine Creatinine 24.2 H Ur Total Protein 24 Hr 495.00 H 02/09/22 02/10/22 02/10/22 12:07 00:05 06:40 WBC RBC MCHC RDW Plt Count Seg Neutrophils % Sodium Potassium Chloride Carbon Dioxide BUN Glucose Calcium Magnesium 5.30 H 5.00 H 5.40 H Alkaline Phosphatase Lactate Dehydrogenase Total Protein Albumin Urine Creatinine Ur Total Protein 24 Hr 02/10/22 02/12/22 02/12/22 13:49 16:56 16:56 WBC RBC MCHC RDW Plt Count 73 L Seg Neutrophils % Sodium 131 L Potassium Chloride Carbon Dioxide 19 L BUN Glucose Calcium Magnesium 4.70 H Alkaline Phosphatase 205 H Lactate Dehydrogenase Total Protein Albumin 3.3 L Urine Creatinine Ur Total Protein 24 Hr 02/12/22 02/13/22 02/13/22 20:22 00:23 02:25 WBC RBC 3.58 L 3.59 L MCHC RDW 15.3 H 15.4 H Plt Count Seg Neutrophils % Sodium Potassium Chloride Carbon Dioxide BUN Glucose Calcium Magnesium 4.30 H Alkaline Phosphatase Lactate Dehydrogenase Total Protein Albumin Urine Creatinine Ur Total Protein 24 Hr 02/13/22 02/13/22 02/13/22 04:38 07:12 07:12 WBC RBC MCHC RDW 15.3 H 15.3 H Plt Count Seg Neutrophils % Sodium 131 L Potassium Chloride 97.5 L Carbon Dioxide 21 L BUN Glucose Calcium 8.3 L Magnesium Alkaline Phosphatase 200 H Lactate Dehydrogenase Total Protein Albumin 3.3 L Urine Creatinine Ur Total Protein 24 Hr 02/14/22 02/14/22 02/15/22 08:19 08:19 09:41 WBC RBC MCHC RDW 15.4 H 15.3 H Plt Count Seg Neutrophils % Sodium 135 L Potassium Chloride Carbon Dioxide 21 L BUN Glucose 133 H Calcium Magnesium Alkaline Phosphatase 200 H Lactate Dehydrogenase Total Protein Albumin 3.4 L Urine Creatinine Ur Total Protein 24 Hr 02/16/22 02/16/22 02/16/22 04:42 07:59 14:20 WBC RBC 3.61 L MCHC 35 H RDW 15.4 H Plt Count Seg Neutrophils % Sodium 136 L Potassium 5.3 H 5.2 H Chloride Carbon Dioxide BUN 18 H Glucose Calcium Magnesium Alkaline Phosphatase 204 H Lactate Dehydrogenase Total Protein Albumin 3.3 L Urine Creatinine Ur Total Protein 24 Hr 02/17/22 02/17/22 02/18/22 08:08 20:14 06:36 WBC RBC MCHC RDW Plt Count Seg Neutrophils % Sodium 134 L 136 L Potassium 5.1 H 5.4 H 5.2 H Chloride Carbon Dioxide 19 L 19 L BUN 18 H Glucose Calcium Magnesium Alkaline Phosphatase 231 H Lactate Dehydrogenase Total Protein Albumin 3.6 L Urine Creatinine Ur Total Protein 24 Hr 02/19/22 02/19/22 02/21/22 11:48 11:48 07:12 WBC RBC MCHC RDW 15.7 H 15.4 H Plt Count Seg Neutrophils % Sodium 135 L Potassium Chloride Carbon Dioxide 19 L BUN Glucose Calcium Magnesium Alkaline Phosphatase 220 H Lactate Dehydrogenase Total Protein 5.9 L Albumin 3.5 L Urine Creatinine Ur Total Protein 24 Hr 02/21/22 02/24/22 02/24/22 07:18 15:19 15:19 WBC RBC MCHC RDW Plt Count Seg Neutrophils % 74.6 H Sodium 135 L Potassium Chloride Carbon Dioxide 19 L 20 L BUN Glucose 106 H Calcium Magnesium Alkaline Phosphatase 244 H 269 H Lactate Dehydrogenase Total Protein 6.1 L Albumin 3.7 L 3.6 L Urine Creatinine Ur Total Protein 24 Hr
[2022-02-28 09:59] LABS: Hematocrit 33.6 % (30.3-42.9); Mean Corpuscular HGB Conc 33 % (30-34); Mean Corpuscular Volume 87 fl (79-97); Platelet Count 219 K/mm3 (140-440); Red Blood Count 3.87 M/mm3 (3.65-5.03)
[2022-02-28 10:15] LABS: Alanine Aminotransferase 53 units/L (7-56); Albumin 3.5 g/dL (3.9-5); Blood Urea Nitrogen 12 mg/dL (7-17); Hemolysis Index 10
[2022-02-28 10:16] LABS: BUN/Creatinine Ratio 17
--- NOTE | 2022-02-28 14:07 | Event Note ---
Date: 02/28/22 Pt noted to have elevation of AST to 54 which is above normal range. ALT also elevated but not outside of normal range. Other labs remain in normal ranges. Will repeat at this time which is 4hrs from time of last draw. I did discuss repeating labs with [facility] distribution district supervisor today Dr. D[place] and she also agrees with serial labs at this time.
--- NOTE | 2022-02-28 14:36 | Event Note ---
Date: 02/28/22 late entry @[id number] Felecia RN reports pt VSSAF and pt without complaints; pt up to shower and SpO2 with false readings d/t not on pt. RN to document findings. Dr. Johnson made aware.
[2022-02-28 16:43] LABS: Alanine Aminotransferase 49 units/L (7-56); Albumin 3.4 g/dL (3.9-5); BUN/Creatinine Ratio 17; Blood Urea Nitrogen 15 mg/dL (7-17); Calcium 8.8 mg/dL (8.4-10.2); Hemolysis Index 6
--- NOTE | 2022-02-28 19:00 | Event Note ---
Date: 02/28/22 AST on repeat labs 44(normal upper limit is 40). Will con't to closely monitor at this time as pt has not other sx at this time.
[2022-02-28] MEDS: diphenhydrAMINE 25 MG CAP PO PRN (21:36)
[2022-03-01 00:25] LABS: Alanine Aminotransferase 47 units/L (7-56); Albumin 3.4 g/dL (3.9-5); BUN/Creatinine Ratio 17; Blood Urea Nitrogen 15 mg/dL (7-17); Calcium 8.4 mg/dL (8.4-10.2); Hemolysis Index 8
[2022-03-01] MEDS: hydrALAZINE 25 MG TAB PO SCH ×2 (05:43→14:07)
--- NOTE | 2022-03-01 07:15 | Progress Note ---
Assessment and Plan 1. IUP at 32 3/7 weeks 2. Essential hypertension with severe range BP's, rising serum creatinine 3. Morbid obesity 4. AMA AM[facility] recommendations: 1. Continue labetalol; now at max recommended dose of 800 mg tid 2. Repeat CBC/CMP at least twice weekly (drawn yesterday) 3. Continue BPP at least twice weekly (ordered for today) 4. EFW q 2-3 weeks (ordered for today) 5. Proceed with delivery if unable to control BP [<160/110], further significant rise in creatinine c/w renal insufficiency, evidence of HELLP Syndrome; o/w, delivery by 34 0/7 weeks' - Patient Problems (1) Morbid obesity Current Visit: Yes Status: Chronic (2) 32 weeks gestation of Current Visit: Yes Status: Acute (3) Pre-eclampsia superimposed on chronic hypertension Current Visit: Yes Status: Acute Subjective - Subjective Date of service: 03/01/22 Principal diagnosis: IUP @ 32+3 wks, CHTN with superimposed Preeclampsia, BMI 60 Patient reports: movement normal, no loss of fluid, no vaginal bleeding, no contractions, no other (denies GROSSMAN, visual changes or epigastric pain) Objective - Vital Signs Vital Signs: Vital Signs - 12hr 02/28/22 02/28/22 02/28/22 19:20 19:48 19:50 Temperature 98.4 F Pulse Rate 73 73 Blood Pressure 138/76 181/102 O2 Sat by Pulse Oximetry 02/28/22 02/28/22 02/28/22 19:57 20:57 21:36 Temperature Pulse Rate 65 72 72 Blood Pressure 169/87 159/93 159/93 O2 Sat by Pulse Oximetry 02/28/22 02/28/22 02/28/22 22:09 22:15 22:17 Temperature Pulse Rate 68 76 Blood Pressure 156/104 O2 Sat by Pulse 69 L 99 Oximetry 02/28/22 02/28/22 02/28/22 22:22 22:37 22:38 Temperature Pulse Rate 75 74 67 Blood Pressure O2 Sat by Pulse 98 85 99 Oximetry 02/28/22 02/28/22 02/28/22 22:43 22:48 22:53 Temperature Pulse Rate 69 64 64 Blood Pressure 145/90 O2 Sat by Pulse 99 100 99 Oximetry 02/28/22 02/28/22 02/28/22 22:58 23:03 23:08 Temperature Pulse Rate 65 68 66 Blood Pressure O2 Sat by Pulse 99 99 97 Oximetry 02/28/22 02/28/22 03/01/22 23:13 23:18 00:20 Temperature Pulse Rate 66 67 78 Blood Pressure 120/67 O2 Sat by Pulse 97 97 Oximetry 03/01/22 03/01/22 03/01/22 01:20 02:20 02:26 Temperature Pulse Rate 74 73 71 Blood Pressure 130/78 136/85 O2 Sat by Pulse 100 Oximetry 03/01/22 03/01/22 03/01/22 02:31 02:36 02:41 Temperature Pulse Rate 69 68 74 Blood Pressure O2 Sat by Pulse 99 98 97 Oximetry 03/01/22 03/01/22 03/01/22 02:46 02:51 02:56 Temperature Pulse Rate 72 71 69 Blood Pressure O2 Sat by Pulse 99 99 99 Oximetry 03/01/22 03/01/22 03/01/22 03:01 03:06 03:11 Temperature Pulse Rate 73 69 71 Blood Pressure O2 Sat by Pulse 99 99 99 Oximetry 03/01/22 03/01/22 03/01/22 03:16 03:20 03:21 Temperature Pulse Rate 68 65 70 Blood Pressure 142/79 O2 Sat by Pulse 99 99 Oximetry 03/01/22 03/01/22 03/01/22 03:26 03:31 03:36 Temperature Pulse Rate 67 66 68 Blood Pressure O2 Sat by Pulse 99 99 99 Oximetry 03/01/22 03/01/22 03/01/22 03:41 03:46 03:51 Temperature Pulse Rate 71 68 66 Blood Pressure O2 Sat by Pulse 99 99 99 Oximetry 03/01/22 03/01/22 03/01/22 03:56 04:01 04:06 Temperature Pulse Rate 64 66 63 Blood Pressure O2 Sat by Pulse 99 99 99 Oximetry 03/01/22 03/01/22 03/01/22 04:11 04:16 04:20 Temperature Pulse Rate 61 69 65 Blood Pressure 147/94 O2 Sat by Pulse 99 98 Oximetry 03/01/22 03/01/22 03/01/22 04:21 04:26 04:31 Temperature Pulse Rate 67 67 68 Blood Pressure O2 Sat by Pulse 98 99 99 Oximetry 03/01/22 03/01/22 03/01/22 04:34 04:41 04:42 Temperature Pulse Rate 52 L 91 H Blood Pressure O2 Sat by Pulse 87 80 L 93 Oximetry 03/01/22 03/01/22 03/01/22 05:20 05:43 06:20 Temperature Pulse Rate 76 76 77 Blood Pressure 140/85 140/85 128/76 O2 Sat by Pulse Oximetry - Exam Narrative Exam: Upon entering room, pt sitting on side of bed, eating breakfast. VSS. Affirms movement and denies vaginal bleeding, LOF, abdominal pain, chest pain, headaches, vision changes, SOB, RUQ, and NVD. Children planning to visit hospital this afternoon. Requesting Sprite. No complaints or questions at this time. Discussed today's POC including growth scan and BPP. Breasts: deferred Cardiovascular: Regular rate Lungs: Normal air movement Abdomen: Present: normal appearance Uterus: Present: normal FHR: category 1 Uterine Contraction Monitor Mode: External Uterine Contraction Pattern: Absent Uterine Tone Measurement Phase: Resting - Labs Labs: Abnormal Labs 02/08/22 02/08/22 02/08/22 18:40 18:40 22:52 WBC 11.8 H RBC MCHC RDW Plt Count Seg Neutrophils % Sodium Potassium Chloride Carbon Dioxide BUN Glucose Calcium Magnesium 3.80 H AST Alkaline Phosphatase Lactate Dehydrogenase 305 H Total Protein Albumin Urine Creatinine Ur Total Protein 24 Hr 02/09/22 02/09/22 02/09/22 04:00 04:42 05:49 WBC RBC MCHC RDW Plt Count Seg Neutrophils % Sodium Potassium Chloride Carbon Dioxide BUN Glucose Calcium Magnesium 5.20 H AST Alkaline Phosphatase Lactate Dehydrogenase Total Protein Albumin Urine Creatinine 24.2 H Ur Total Protein 24 Hr 495.00 H 02/09/22 02/10/22 02/10/22 12:07 00:05 06:40 WBC RBC MCHC RDW Plt Count Seg Neutrophils % Sodium Potassium Chloride Carbon Dioxide BUN Glucose Calcium Magnesium 5.30 H 5.00 H 5.40 H AST Alkaline Phosphatase Lactate Dehydrogenase Total Protein Albumin Urine Creatinine Ur Total Protein 24 Hr 02/10/22 02/12/22 02/12/22 13:49 16:56 16:56 WBC RBC MCHC RDW Plt Count 73 L Seg Neutrophils % Sodium 131 L Potassium Chloride Carbon Dioxide 19 L BUN Glucose Calcium Magnesium 4.70 H AST Alkaline Phosphatase 205 H Lactate Dehydrogenase Total Protein Albumin 3.3 L Urine Creatinine Ur Total Protein 24 Hr 02/12/22 02/13/22 02/13/22 20:22 00:23 02:25 WBC RBC 3.58 L 3.59 L MCHC RDW 15.3 H 15.4 H Plt Count Seg Neutrophils % Sodium Potassium Chloride Carbon Dioxide BUN Glucose Calcium Magnesium 4.30 H AST Alkaline Phosphatase Lactate Dehydrogenase Total Protein Albumin Urine Creatinine Ur Total Protein 24 Hr 02/13/22 02/13/22 02/13/22 04:38 07:12 07:12 WBC RBC MCHC RDW 15.3 H 15.3 H Plt Count Seg Neutrophils % Sodium 131 L Potassium Chloride 97.5 L Carbon Dioxide 21 L BUN Glucose Calcium 8.3 L Magnesium AST Alkaline Phosphatase 200 H Lactate Dehydrogenase Total Protein Albumin 3.3 L Urine Creatinine Ur Total Protein 24 Hr 02/14/22 02/14/22 02/15/22 08:19 08:19 09:41 WBC RBC MCHC RDW 15.4 H 15.3 H Plt Count Seg Neutrophils % Sodium 135 L Potassium Chloride Carbon Dioxide 21 L BUN Glucose 133 H Calcium Magnesium AST Alkaline Phosphatase 200 H Lactate Dehydrogenase Total Protein Albumin 3.4 L Urine Creatinine Ur Total Protein 24 Hr 02/16/22 02/16/22 02/16/22 04:42 07:59 14:20 WBC RBC 3.61 L MCHC 35 H RDW 15.4 H Plt Count Seg Neutrophils % Sodium 136 L Potassium 5.3 H 5.2 H Chloride Carbon Dioxide BUN 18 H Glucose Calcium Magnesium AST Alkaline Phosphatase 204 H Lactate Dehydrogenase Total Protein Albumin 3.3 L Urine Creatinine Ur Total Protein 24 Hr 02/17/22 02/17/22 02/18/22 08:08 20:14 06:36 WBC RBC MCHC RDW Plt Count Seg Neutrophils % Sodium 134 L 136 L Potassium 5.1 H 5.4 H 5.2 H Chloride Carbon Dioxide 19 L 19 L BUN 18 H Glucose Calcium Magnesium AST Alkaline Phosphatase 231 H Lactate Dehydrogenase Total Protein Albumin 3.6 L Urine Creatinine Ur Total Protein 24 Hr 02/19/22 02/19/22 02/21/22 11:48 11:48 07:12 WBC RBC MCHC RDW 15.7 H 15.4 H Plt Count Seg Neutrophils % Sodium 135 L Potassium Chloride Carbon Dioxide 19 L BUN Glucose Calcium Magnesium AST Alkaline Phosphatase 220 H Lactate Dehydrogenase Total Protein 5.9 L Albumin 3.5 L Urine Creatinine Ur Total Protein 24 Hr 02/21/22 02/24/22 02/24/22 07:18 15:19 15:19 WBC RBC MCHC RDW Plt Count Seg Neutrophils % 74.6 H Sodium 135 L Potassium Chloride Carbon Dioxide 19 L 20 L BUN Glucose 106 H Calcium Magnesium AST Alkaline Phosphatase 244 H 269 H Lactate Dehydrogenase Total Protein 6.1 L Albumin 3.7 L 3.6 L Urine Creatinine Ur Total Protein 24 Hr 02/28/22 02/28/22 02/28/22 09:00 09:00 15:51 WBC 11.4 H RBC MCHC RDW Plt Count Seg Neutrophils % Sodium 135 L 136 L Potassium 5.1 H Chloride Carbon Dioxide 20 L 19 L BUN Glucose Calcium Magnesium AST 54 H 44 H Alkaline Phosphatase 267 H 268 H Lactate Dehydrogenase Total Protein 5.8 L Albumin 3.5 L 3.4 L Urine Creatinine Ur Total Protein 24 Hr 02/28/22 23:45 WBC RBC MCHC RDW Plt Count Seg Neutrophils % Sodium Potassium Chloride Carbon Dioxide 20 L BUN Glucose 105 H Calcium Magnesium AST Alkaline Phosphatase 280 H Lactate Dehydrogenase Total Protein 5.9 L Albumin 3.4 L Urine Creatinine Ur Total Protein 24 Hr Laboratory Results - last 24 hr 02/28/22 02/28/22 02/28/22 09:00 09:00 09:00 WBC 11.4 H RBC 3.87 Hgb 11.0 Hct 33.6 MCV 87 MCH 29 MCHC 33 RDW 15.0 Plt Count 219 Sodium 135 L Potassium 4.8 Chloride 102.7 Carbon Dioxide 20 L Anion Gap 17 BUN 12 Creatinine 0.7 Estimated GFR > 60 BUN/Creatinine Ratio 17 Glucose 79 Calcium 9.0 Total Bilirubin 0.20 AST 54 H ALT 53 Alkaline Phosphatase 267 H Total Protein 6.3 Albumin 3.5 L Albumin/Globulin Ratio 1.3 Blood Type O POSITIVE Antibody Screen Negative 02/28/22 02/28/22 15:51 23:45 WBC RBC Hgb Hct MCV MCH MCHC RDW Plt Count Sodium 136 L 137 Potassium 5.1 H 4.9 Chloride 104.7 104.3 Carbon Dioxide 19 L 20 L Anion Gap 17 18 BUN 15 15 Creatinine 0.9 0.9 Estimated GFR > 60 > 60 BUN/Creatinine Ratio 17 17 Glucose 83 105 H Calcium 8.8 8.4 Total Bilirubin < 0.20 0.20 AST 44 H 39 ALT 49 47 Alkaline Phosphatase 268 H 280 H Total Protein 5.8 L 5.9 L Albumin 3.4 L 3.4 L Albumin/Globulin Ratio 1.4 1.4 Blood Type Antibody Screen
--- NOTE | 2022-03-01 10:20 | Electrocardiograph Report ---
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
[2022-03-01] MEDS: FAMOTIDINE 20 MG/2 ML INJ IV SCH (10:46)
[2022-03-01] MEDS: NIFEdipine XL 60 MG TAB PO SCH (10:47)
[2022-03-01] MEDS: PRENATAL VIT27-FE FUMARATE-FOLIC ACID VIT TAB PO SCH (10:48)
[2022-03-01] MEDS: ONDANSETRON 4 MG/2 ML INJ IV PRN (14:07)
--- NOTE | 2022-03-01 15:09 | Ultrasound Report ---
ULTRASOUND OBSTETRIC LIMITED ULTRASOUND BIOPHYSICAL PROFILE INDICATION / CLINICAL INFORMATION: well being. TECHNIQUE: Transabdominal. COMPARISON: None available. FINDINGS: BREATHING MOVEMENT = 0 GROSS BODY MOVEMENT = 2 TONE = 2 QUALITATIVE AMNIOTIC FLUID VOLUME = 2 TOTAL BIOPHYSICAL SCORE = 6/8 HEART RATE (beats per minute): 145 AMNIOTIC FLUID INDEX (cm) = 8 cm (normal = 7-24 cm) PRESENTATION: Cephalic. ADDITIONAL FINDINGS: None. IMPRESSION: 1. Biophysical Score = 6/8 Signer Name: Nicholas Hinkle MD Signed: 03/01/2022 3:04 PM Workstation Name: [id number]
--- NOTE | 2022-03-01 15:20 | Ultrasound Report ---
ULTRASOUND OBSTETRIC INDICATION / CLINICAL INFORMATION: growth. Clinical Gestational Age (GA) in weeks, days: 33 weeks 4 days TECHNIQUE: Transabdominal. COMPARISON: Limited OB ultrasound 02/15/2022. FINDINGS: Single intrauterine . Biparietal Diameter = 7.5 cm = 30.1 weeks, days Head Circumference = 29.0 cm = 32.0 weeks, days Abdominal Circumference = 27.8 cm = 31.6 weeks, days Femur Length = 6.0 cm = 31.2 weeks, days Average Ultrasound Age (AUA) = 31.2 weeks, days Heart Rate: 145 BPM beats per minute. Estimated Weight in grams (if calculated): 1786 g Estimated Weight Growth Percentile (if calculated): Not calculated. Position: cephalic. Cervix: Not visualized. Placenta: Posterior fundal grade 1 and free of the os. Amniotic Fluid Volume: normal Amniotic Fluid Index (SHAYY) in cm (if calculated): 8.0 cm. IMPRESSION: 1. Single, living intrauterine with estimated sonographic age of 31 weeks 2 days weeks. day s, which is approximately 2 weeks behind clinical gestational age. ULTRASOUND BIOPHYSICAL PROFILE INDICATION / CLINICAL INFORMATION: growth. Clinical Gestational Age (GA) in weeks, days: 33 weeks 4 days TECHNIQUE: Transabdominal. COMPARISON: Biophysical profile 02/25/2022. FINDINGS: BREATHING MOVEMENT = 0 GROSS BODY MOVEMENT = 2 TONE = 2 QUALITATIVE AMNIOTIC FLUID VOLUME = 2 TOTAL BIOPHYSICAL SCORE = 6/8 HEART RATE (beats per minute): 145 BPM AMNIOTIC FLUID INDEX (cm) = 8.0 (normal = 7-24 cm) PRESENTATION: Cephalic. ADDITIONAL FINDINGS: None. IMPRESSION: 1. Biophysical Score = 6/8 Scribed by: Susana Younger RDMS, CATRACHITO, SHILOH Scribed: 03/01/2022 2:00 PM I have reviewed the images, agree with this report, and edited this report as needed. Signer Name: Ancelmo Cotter MD Signed: 03/01/2022 3:16 PM Workstation Name: [id number]
[2022-03-01] MEDS ORDERED: BETAMET ACET/BETAMET NA PH 6 MG/ML INJ 5 ML MDV IM SCH ×2 (20:26→21:00)
[2022-03-01] MEDS ORDERED: MAGNESIUM SULFATE 4 GM/100 ML BAG IV ONE (20:30)
[2022-03-01] MEDS ORDERED: LACTATED RINGERS 1,000 ML IV SCH ×3 (20:30→21:00)
[2022-03-01] MEDS ORDERED: hydrALAZINE 20 MG/1 ML INJ IV ONE (20:31)
[2022-03-01] MEDS ORDERED: AMPICILLIN/NS 2 GM/100 ML 2 GM/100 ML BAG IV ONE (20:34)
[2022-03-01] MEDS ORDERED: LOPERAMIDE 2 MG CAP PO PRN (20:38)
[2022-03-01] MEDS ORDERED: METHYLERGONOVINE MALEATE 0.2 MG/ML VIAL IM PRN (20:38)
[2022-03-01] MEDS ORDERED: DINOPROSTONE 10 MG VAG SUPP VG ONE (20:38)
[2022-03-01] MEDS ORDERED: TERBUTALINE 1 MG/1 ML INJ SUB-Q PRN (20:38)
[2022-03-01] MEDS ORDERED: OXYTOCIN 10 UNIT/1 ML INJ IM PRN (20:38)
[2022-03-01] MEDS ORDERED: LIDOCAINE (2%) 20 MG/1 ML VIAL 20 ML MDV INFILTRATI ONE (20:38)
[2022-03-01] MEDS ORDERED: MINERAL OIL 30 ML ORAL LIQD PO PRN (20:38)
[2022-03-01] MEDS ORDERED: CARBOPROST TROMETHAMINE 250 MCG/1 ML INJ IM PRN (20:38)
[2022-03-01] MEDS ORDERED: miSOPROStol 200 MCG TAB PR PRN (20:38)
[2022-03-01] MEDS ORDERED: ePHEDrine SULFATE 50 MG/1 ML INJ IV PRN (20:38)
[2022-03-01] MEDS ORDERED: BICITRA ORAL LIQD 30ML PO ONE (20:55)
[2022-03-01] MEDS ORDERED: FAMOTIDINE 20 MG/2 ML INJ IV ONE (20:55)
[2022-03-01] MEDS ORDERED: METOCLOPRAMIDE 10 MG/2 ML INJ IV ONE (20:55)
--- NOTE | 2022-03-01 20:55 | Event Note ---
Date: 03/01/22 FHT CAT 3 - absent to min variability with recurrent variable decels (3 in [address]). Dr[address] Benavides made aware and in route to hospital. LISA Tyler informed of pt's status and last meal @ 1600. Nayeli will come see patient. Discussed with patient concern over FHT, BPP 6/8, and b/p elevated in sever range maxed out on labetalol dose.
[2022-03-01] MEDS: LACTATED RINGERS 1,000 ML IV SCH (20:59)
[2022-03-01] MEDS ORDERED: OXYTOCIN DRIP 30 UNITS/500 ML BAG IV SCH (21:00)
--- NOTE | 2022-03-01 21:21 | Anesthesia Day of Surgery ---
Anesthesia Day of Surgery - Day of Surgery Patient Examined: Yes Patient H&P Reviewed: Yes Patient is NPO: No ([id number]) Beta Blockers: Yes
--- NOTE | 2022-03-01 21:23 | Anesthesia Consultation ---
Anesthesia Consult and Med Hx Date of service: 03/01/22 - Airway Anesthetic Teeth Evaluation: Poor ROM Head & Neck: Adequate Mental/Hyoid Distance: Adequate Mallampati Class: Class III Intubation Access Assessment: Probably Good - Pulmonary Exam CTA: Yes - Cardiac Exam Cardiac Exam: RRR - Pre-Operative Health Status ASA Pre-Surgery Classification: ASA3 Proposed Anesthetic Plan: Spinal - Pulmonary Hx Smoking: No (former smoker) Hx Asthma: Yes (2019 Last exacerbation) Hx Respiratory Symptoms: No SOB: No COPD: No Hx Pneumonia: No - Cardiovascular System Hx Hypertension: Yes (Dx 2005) - Central Nervous System Hx Neuromuscular Disorder: Yes (carpel Tunnel) Hx Seizures: No Hx Back Pain: Yes Hx Psychiatric Problems: No - Gastrointestinal Hx Gastroesophageal Reflux Disease: Yes - Endocrine Hx Renal Disease: No Hx End Stage Renal Disease: No Hx Hypothyroidism: No Hx Hyperthyroidism: No - Hematic Hx Anemia: Yes (2003, 2005, 2013) Hx Sickle Cell Disease: No - Other Systems Hx Alcohol Use: No Hx Substance Use: No Hx Obesity: Yes
[2022-03-01] MEDS ORDERED: ONDANSETRON 4 MG/2 ML INJ ONE (21:26)
[2022-03-01] MEDS ORDERED: MORPHINE PF 10MG/10 ML AMPULE ONE (21:26)
[2022-03-01 21:38] LABS: Hematocrit 34.1 % (30.3-42.9); Hemoglobin 10.9 gm/dl (10.1-14.3); Mean Corpuscular HGB Conc 32 % (30-34); Mean Corpuscular Volume 88 fl (79-97); Platelet Count 175 K/mm3 (140-440); Red Blood Count 3.86 M/mm3 (3.65-5.03); Red Cell Distribution Width 15.1 % (13.2-15.2)
[2022-03-01 22:06] LABS: Alanine Aminotransferase 52 units/L (7-56); Albumin 3.5 g/dL (3.9-5); BUN/Creatinine Ratio 15; Blood Urea Nitrogen 17 mg/dL (7-17); Calcium 8.5 mg/dL (8.4-10.2); Hemolysis Index 2
[2022-03-01] MEDS ORDERED: PROMETHAZINE 25 MG TAB PO PRN (23:20)
[2022-03-01] MEDS ORDERED: NALOXONE 0.4 MG/1 ML INJ IV PRN (23:20)
[2022-03-01] MEDS ORDERED: ONDANSETRON 4 MG/2 ML INJ IV PRN (23:20)
[2022-03-01] MEDS ORDERED: PROMETHAZINE 25 MG RECT SUPP PR PRN (23:20)
--- NOTE | 2022-03-01 23:25 | Post Operative Note ---
Pre-op diagnosis: IUGR, Cat 3 FHT's, CHTN w/ superimposed PreE, BMI 59; sterilization Post-op diagnosis: same Procedure: PC/S w/ (B) salpingectomy Anesthesia: epidural Surgeon: RANDY OLMSTEAD Collections Professional: RYLIE KAMARA Pathology: list ((B) tubes and placenta) Specimen disposition: to lab Condition: stable Disposition: PACU
--- NOTE | 2022-03-01 23:28 | Progress Note ---
Spinal Anesthesia Block - Spinal Anesthesia Block Start Time: 21:33 Stop Time: 21:38 Performed by:: JUNIE HARPER Procedure: Patient is requesting epidural for labor pain. H&P and labs reviewed. Procedure explained, questions answered, consent obtained. Patient placed in sitting position with monitors applied. Timeout performed immediately before start of procedure. Prep/drape in usual sterile fashion. Skin localized 3 mL 1% lidocaine at L[2]-L[3] interspace. 17-gauge Tuohy epidural needle advanced to JUAN with saline at [9] cm. No blood/CSF noted via epidural needle. 25g spinal needle advanced into intrathecal space until clear, free flowing CSF noted. 1.4mL 0.75% hyperbaric bupivacaine + 0.2mg Duramorph into intrathecal space. Spinal needle removed and epidural catheter advanced to [12] cm. Negative aspiration for blood and CSF via catheter, Sterile dressing applied followed by tape reinforcement. Patient tolerated procedure well. No immediate complications noted.
--- NOTE | 2022-03-02 00:43 | Operative Report ---
Operative Report Operative Report: Date of operation: 03/01/2022 Pre-operative diagnosis: 1. 32 weeks gestational age 2. Chronic hypertension with superimposed preeclampsia with severe features uncontrolled with antihypertensives 3. BMI 59.7 kg/m 4. Desires bilateral salpingectomy for sterilization 5. Asthma 6. Sleep apnea 7. growth restriction 8. Category 3 heart rate tracing 9. Migraines 10. Advanced maternal age Post-operative diagnosis: 1. 32 weeks gestational age 2. Chronic hypertension with superimposed preeclampsia with severe features uncontrolled with antihypertensives 3. BMI 59.7 kg/m 4. Desires bilateral salpingectomy for sterilization 5. Asthma 6. Sleep apnea 7. growth restriction 8. Category 3 heart rate tracing 9. Migraines 10. Advanced maternal age Procedure name(s): Low transverse uterine incision with bilateral salpingectomy for sterilization Surgeon: Mary Benavides MD Staff Forester: Alyce Senior CNM Anesthesia: Epidural QBL: 926 mL Urine output: 500 mL of clear urine out at the end of the procedure Fluids: 1700 mL Findings: Liveborn male infant weight 3 Lbs. 6 oz. Apgars of 8 and 9 at one and 5 minutes Indications: This is a 41-year-old female who presented with chronic hypertension with superimposed preeclampsia. Patient had a long hospital course culminating tonight when was noted she had a 6 out of 8 on her BPP, persistently elevated blood pressures on 3 antihypertensives 2 of which had reached the maximum dose, growth restriction, category 3 heart rate tracing. Procedure: Patient was taking to the operating room. Epidural anesthesia was placed. Patient was then prepped and draped in the usual sterile fashion Timeout was performed. Once an appropriate level of anesthesia was noted, a Pfannenstiel incision was made and extended the fascia which was incised and extended lateral direction. The overlying fascia was sharply dissected away from the underlying rectus muscles in the superior inferior direction. The midline was entered bluntly. The large [place] retractor was placed. Bladder blade was placed. Vesicouterine fold was incised with blunt dissection bladder flap was created. A transverse incision was made in the lower uterine segment and extended superolateral direction with finger fractionation. Copious clear fluid was noted. was delivered from the cephalic LOT position. had spontaneous cry and excellent tone. Mouth and nose bulb were bulb suctioned. Cord was doubly clamped and cut infant was given to the resuscitation team present. Placenta was delivered and sent to pathology. The uterus was exteriorized and cleaned of any further placental tissue and products of conception. Uterine incision was approximated using 0 Vicryl in a running interlocking stitch followed by further suture of 0 Vicryl in imbricating fashion. Once hemostasis was noted, confirmation was obtained from patient to proceed with salpingectomy for sterilization, the right tube was grasped with a [place] clamp, elevated and using the Paty clamp and cautery, the tube was cauterized and transected at the cornu. Then in a serial manner the meosalpinx was clamped, cauterized and incised to the distal fimbriated end and the tube was removed without complications. Hemostasis was noted. Then att ention was turned to the left tube and a salpingectomy was performed using the same technique Hemostasis was noted. The cornual segments were cauterized. Both tubes were sent to pathology in separate specimen containers. When hemostasis was noted the uterus was allowed back in the pelvic cavity. Pelvis was irrigated with warm normal saline. Once hemostasis was noted the rectus muscles were approximated using 0 Vicryl interrupted simple stitches 3. Once hemostasis was noted the fascia was approximated using 0 Vicryl simple running stitch. The incision was irrigated with warm saline, once hemostasis as noted, the subcuticular adipose tissue was reapproximated using 3-0 Vicryl in a simple running fashion. Once hemostasis was noted, skin was approximated using 4-0 Vicryl on a Ranulfo needle in a subcuticular manner. Counts were correct x3. Patient tolerated the procedure well, she was taken to recovery room in stable condition.
[2022-03-02] MEDS ORDERED: AMPICILLIN/NS 1 GM/50 ML 1 GM/50 ML BAG IV SCH (01:00)
[2022-03-02] MEDS: HYDROmorphone 1 MG/1 ML INJ IV PRN ×3 (01:17→18:21)
[2022-03-02] MEDS: LACTATED RINGERS 1,000 ML IV SCH ×2 (01:19→13:49)
[2022-03-02] MEDS: MAGNESIUM SULFATE 40GM/1000ML 40 GM/1,000 ML BAG IV SCH ×2 (01:19→21:05)
[2022-03-02] MEDS: diphenhydrAMINE 25 MG CAP PO PRN ×2 (01:56→22:01)
[2022-03-02 06:26] LABS: Basophils % (Auto) 0.2 % (0.0-1.8); Eosinophils # (Auto) 0.1 K/mm3 (0.0-0.4); Hemoglobin 9.5 gm/dl (10.1-14.3); Mean Corpuscular HGB Conc 33 % (30-34); Mean Corpuscular Volume 88 fl (79-97); Monocytes # (Auto) 0.8 K/mm3 (0.0-0.8); Monocytes % (Auto) 6.6 % (0.0-7.3); Platelet Count 158 K/mm3 (140-440); Red Blood Count 3.28 M/mm3 (3.65-5.03); Red Cell Distribution Width 15.3 % (13.2-15.2)
[2022-03-02] MEDS: hydrALAZINE 25 MG TAB PO SCH ×4 (06:55→21:04)
[2022-03-02] MEDS: SIMETHICONE 80 MG CHEW TAB PO PRN ×2 (07:37→12:59)
--- NOTE | 2022-03-02 07:54 | Progress Note ---
Assessment and Plan A: s/p primary PO ~ 7 hrs, cHTN superimposed on Pre E, magnesium infusion - Patient Problems (1) Pre-eclampsia superimposed on chronic hypertension Current Visit: Yes Status: Acute Plan to address problem: Continue with care on labor and delivery. Continue with magnesium infusion: d/t be turned off @ 0119. Continue to monitor blood pressures. Continue with blood pressure regime: - Labetalol 800mg TID. - Hydralazine 25 mg q 8 hrs. - Procardia 60mg BID. Continue to monitor for worsening s/sx of pre eclampsia. Will transfer to mother/baby on 03/03 if blood pressures remain stable. Subjective - Subjective Date of service: 03/02/22 Principal diagnosis: s/p primary PO ~ 7 hrs, cHTN superimposed on Pre E, mag infusion Interval history: Pt denies GROSSMAN, blurred vision, spots before her eyes, chest pain, shortness of breath, and upper abdominal pain. We discussed her course while on magnesium: watch blood pressures, watch for worsening s/sx of pre eclampsia, and if her blood pressures remain stable on her medications, she will be transferred to the mother/baby unit for more monitoring. Patient reports: pain well controlled [place]: doing well, in NICU Objective - Vital Signs Latest vital signs: Vital Signs Temp Pulse Resp BP BP Pulse Ox Pulse Ox 03/02/22 07:53 73 135/71 03/02/22 07:50 74 97 03/02/22 07:45 73 97 03/02/22 07:40 77 98 03/02/22 07:38 79 143/72 03/02/22 07:36 98.5 F 77 18 147/79 97 03/02/22 07:35 77 98 03/02/22 07:30 76 96 03/02/22 07:29 100 03/02/22 07:25 73 97 03/02/22 07:23 74 147/79 03/02/22 07:20 75 99 03/02/22 07:15 75 99 03/02/22 07:10 72 100 03/02/22 07:08 74 134/75 03/02/22 07:05 78 98 03/02/22 07:00 79 99 03/02/22 06:56 16 03/02/22 06:55 77 137/71 100 03/02/22 06:53 72 137/71 05 06:50 73 99 05 06:45 72 99 05 06:40 73 100 05 06:38 81 91 05 06:35 73 100 05 06:29 75 100 05 06:24 72 100 05 06:23 73 132/74 05 06:19 76 100 05 06:14 75 100 05 06:09 84 99 05 06:04 82 98 05 05:59 74 98 05 05:54 76 98 05 05:49 78 98 05 05:44 75 97 05 05:39 76 97 05 05:38 75 147/68 05 05:34 72 98 05 05:29 75 98 05 05:24 74 97 05 05:23 72 139/77 05 05:19 74 97 05 05:14 76 98 05 05:09 75 98 05 05:08 71 149/74 05 05:04 75 98 05 04:59 75 98 05 04:54 80 98 05 04:53 75 143/69 05 04:49 72 98 05 04:44 77 98 05 04:39 72 100 05 04:38 73 135/78 0504 04:34 82 98 0504 04:29 74 98 05 04:24 75 98 05 04:23 72 121/67 0504 04:19 73 98 0504 04:14 77 98 0504 04:09 75 98 0504 04:08 70 121/57 05 04:04 74 98 0504 03:59 76 98 0504 03:54 74 98 0504 03:53 79 112/55 05 03:49 71 98 05 03:44 73 98 05 03:39 74 98 05 03:38 70 118/62 05 03:34 73 98 05 03:29 71 98 03/02/22 03:24 74 142/65 98 05 03:19 84 98 03/02/22 03:14 66 98 05 03:09 71 98 05 03:08 73 121/58 05 03:04 69 98 05 02:59 69 98 0504 02:54 68 98 05 02:53 68 137/61 05 02:49 67 98 05 02:44 67 98 03/02/22 02:39 66 98 05 02:38 67 149/68 03/02/22 02:34 66 99 05 02:29 67 98 03/02/22 02:24 66 99 05 02:23 68 168/77 03/02/22 02:19 68 100 05 02:14 74 100 05 02:09 69 100 05 02:08 65 163/96 03/02/22 02:04 77 100 05 01:59 76 100 05 01:54 73 100 05 01:53 69 161/87 03/02/22 01:49 70 100 05 01:44 66 100 05 01:39 74 100 05 01:38 67 156/87 03/02/22 01:34 68 100 05 01:29 76 99 05 01:24 82 100 05 01:23 70 145/92 05 01:19 66 100 05 01:17 16 05 01:14 69 100 05 01:09 76 100 05 01:08 64 141/96 05 01:04 70 100 05 00:59 70 100 0504 00:54 71 99 0504 00:53 67 131/88 05 00:49 78 100 05 00:44 67 100 03/02/22 00:39 70 100 03/02/22 00:34 71 100 03/02/22 00:31 69 136/96 03/02/22 00:29 70 99 03/01/22 21:21 88 100 03/01/22 21:16 85 100 03/01/22 21:15 98.1 F 77 18 03/01/22 21:11 77 100 03/01/22 21:06 86 100 03/01/22 21:01 85 100 03/01/22 20:56 91 H 100 03/01/22 20:51 89 100 03/01/22 20:46 100 H 100 03/01/22 20:41 70 100 03/01/22 20:36 72 100 03/01/22 20:31 76 99 03/01/22 20:20 66 84 03/01/22 20:14 71 164/79 03/01/22 19:58 69 173/98 03/01/22 18:18 68 162/85 03/01/22 16:57 74 163/103 03/01/22 16:56 73 164/94 03/01/22 16:34 82 157/104 03/01/22 15:55 81 151/99 03/01/22 15:08 74 152/109 03/01/22 14:08 69 144/77 03/01/22 14:07 69 144/77 03/01/22 13:53 69 144/77 03/01/22 10:50 98 03/01/22 10:45 98.6 F 72 16 145/102 145/102 03/01/22 10:00 72 145/102 Intake and Output 03/01/22 03/02/22 03/02/22 22:59 06:59 14:59 Intake Total 325 Output Total 500 Balance -175 Intake: IV 325 Lactated Ringers 1,000 ml 325 @ 75 mls/hr IV DIRECT ANNAMARIA Rx#:[id number] Output: Urine 500 Uretheral ([place]) 500 Other: Voiding Method Toilet Estimated Blood Loss 926 - Exam Breasts: Present: deferred Cardiovascular: Present: Normal S1, Normal S2 Lungs: Present: Clear to auscultation Abdomen: Present: normal appearance, soft Vulva: both: normal Uterus: Present: normal Extremities: Present: edema (+1 edema to hands and feet.) Deep Tendon Reflex Grade: Normal +2 Incision: Present: normal, intact, other (No s/sx of infection and no drainage noted. ) - Labs Labs: Abnormal lab results 03/01/22 03/01/22 03/02/22 Range/Units Unknown Unknown 06:00 WBC 11.1 H (4.5-11.0) K/mm3 RBC (3.65-5.03) M/mm3 Hgb (10.1-14.3) gm/dl Hct (30.3-42.9) % RDW (13.2-15.2) % Seg Neutrophils % (40.0-70.0) % Seg Neutrophils # (1.8-7.7) K/mm3 Sodium 134 L (137-145) mmol/L Potassium 5.1 H (3.6-5.0) mmol/L Carbon Dioxide 21 L (22-30) mmol/L Magnesium 5.10 H (1.7-2.3) mg/dL Alkaline Phosphatase 298 H (35-129) units/L Total Protein 6.0 L (6.3-8.2) g/dL Albumin 3.5 L (3.9-5) g/dL 03/02/22 Range/Units 06:06 WBC 11.8 H (4.5-11.0) K/mm3 RBC 3.28 L (3.65-5.03) M/mm3 Hgb 9.5 L (10.1-14.3) gm/dl Hct 29.0 L (30.3-42.9) % RDW 15.3 H (13.2-15.2) % Seg Neutrophils % 75.2 H (40.0-70.0) % Seg Neutrophils # 8.8 H (1.8-7.7) K/mm3 Sodium (137-145) mmol/L Potassium (3.6-5.0) mmol/L Carbon Dioxide (22-30) mmol/L Magnesium (1.7-2.3) mg/dL Alkaline Phosphatase (35-129) units/L Total Protein (6.3-8.2) g/dL Albumin (3.9-5) g/dL
--- NOTE | 2022-03-02 08:56 | Post Anesthesia Evaluation ---
- Post Anesthesia Evaluation Patient Participated: Yes Airway Patent: Yes Stable Respiratory Function: Yes Nausea/Vomiting: No Temp > 96.8F: Yes Pain Manageable: Yes Adequeate Hydration: Yes Anesthesia Complications: No Block Receding Appropriately: Yes Patient on Ventilator: No
[2022-03-02] MEDS: PRENATAL VIT27-FE FUMARATE-FOLIC ACID VIT TAB PO SCH (11:16)
[2022-03-02] MEDS: FAMOTIDINE 20 MG/2 ML INJ IV SCH (11:18)
[2022-03-02] MEDS: NIFEdipine XL 60 MG TAB PO SCH ×3 (11:21→21:55)
[2022-03-02] MEDS: ACETAMINOPHEN 500 MG TAB PO PRN (13:50)
[2022-03-03] MEDS: HYDROmorphone 1 MG/1 ML INJ IV PRN (01:58)
[2022-03-03] MEDS ORDERED: IBUPROFEN 800 MG TAB PO PRN (04:40)
[2022-03-03] MEDS ORDERED: OXYTOCIN DRIP 30 UNITS/500 ML BAG IV SCH (04:40)
[2022-03-03] MEDS ORDERED: LACTATED RINGERS 1,000 ML IV SCH (04:40)
[2022-03-03] MEDS ORDERED: KETOROLAC 30 MG/1 ML INJ IV PRN ×2 (04:40)
[2022-03-03] MEDS ORDERED: WITCH HAZEL/ GLYCERIN PAD TP PRN (04:40)
[2022-03-03] MEDS ORDERED: MORPHINE 4 MG/1 ML INJ IV PRN (04:40)
[2022-03-03] MEDS ORDERED: NALOXONE 0.4 MG/1 ML INJ IV PRN (04:40)
[2022-03-03] MEDS ORDERED: TETANUS,DIPH,PERTUSS(ACELL) VACCINE 0.5 ML SYRINGE IM ONE (05:00)
[2022-03-03] MEDS ORDERED: ceFAZolin/NS 1 GM/50 ML 1 GM/50 ML BAG IV SCH ×2 (05:00→16:30)
[2022-03-03] MEDS: hydrALAZINE 25 MG TAB PO SCH (07:28)
[2022-03-03] MEDS: HYDROcodone/ACETAMINOPHEN 5-325 MG TAB PO PRN ×2 (07:32→20:26)
--- NOTE | 2022-03-03 07:48 | Progress Note ---
Assessment and Plan Patient doing well, sitting up in chair this morning pumping breast milk for son in NICU. b/p's well controlled on current medications. postop H&H 9.5/29.0 - asymptomatic anemia d/t acute blood loss. encouraged frequent pumping, daily shower and ambulation as tolerated. Pt plans on going to NICU for 1145 skin to skin time. - Patient Problems (1) Morbid obesity Current Visit: Yes Status: Chronic Plan to address problem: extensive discussion on wound care (2) Pre-eclampsia superimposed on chronic hypertension Current Visit: Yes Status: Acute Plan to address problem: Continue to monitor blood pressures. Continue with blood pressure regime: - Labetalol 800mg TID. - Hydralazine 25 mg q 8 hrs. - Procardia 60mg BID. (3) delivery delivered Current Visit: Yes Status: Acute Plan to address problem: continue postop pathway advance activity and diet as tolerated Shower today - keep incision clean and dry thoroughly after shower (4) Sterilization Current Visit: Yes Status: Acute Subjective - Subjective Date of service: 03/03/22 Principal diagnosis: s/p primary PO day 2; cHTN superimposed on Pre E Patient reports: appetite normal, voiding normally, pain well controlled, ambulating normally, no dizzy ambulation, no nauseated : in NICU (pt pumping breast milk) Objective - Vital Signs Latest vital signs: Vital Signs Temp Pulse Resp BP BP Pulse Ox Pulse Ox 03/03/22 07:28 76 133/86 03/03/22 04:45 98.3 F 73 18 122/76 100 03/03/22 04:40 100 03/03/22 03:30 79 124/74 03/03/22 03:26 77 133/91 03/03/22 03:10 78 124/68 03/03/22 02:56 75 126/70 03/03/22 02:40 71 120/62 03/03/22 02:25 73 120/66 03/03/22 02:11 73 127/70 03/03/22 01:58 18 03/03/22 01:56 75 130/63 03/03/22 01:11 72 98 03/03/22 01:06 77 98 03/03/22 01:01 72 98 03/03/22 00:56 72 98 03/03/22 00:51 72 116/59 98 03/03/22 00:46 76 98 05/05 00:41 73 98 0505 00:36 74 98 0505 00:31 73 98 0505 00:29 77 92 0505 00:26 74 97 0505 00:21 74 97 0505 00:16 72 97 0505 00:11 72 97 0505 00:06 73 98 0505 00:01 71 98 05 23:56 72 98 05 23:52 73 84/51 05 23:51 73 98 05 23:46 72 98 05 23:41 70 96 05 23:36 71 96 05 23:31 71 96 05 23:26 71 96 05 23:21 71 96 05 23:16 71 96 05 23:11 71 96 05 23:06 72 96 05 23:01 73 96 05 22:56 74 96 05 22:52 73 100/55 05 22:51 73 97 05 22:46 74 96 05 22:41 78 99 05 22:38 54 L 92 03/02/22 22:36 80 99 05 22:31 79 98 05 22:26 83 99 05 22:21 81 98 05 22:16 81 98 05 22:11 80 96 0504 22:06 75 99 0504 22:03 83 94 0504 22:01 80 99 0504 21:56 75 99 0504 21:54 73 122/58 05 21:51 77 122/58 100 0504 21:46 77 100 0504 21:41 76 99 05 21:36 75 99 0504 21:31 76 99 05 21:25 73 99 05 21:21 75 100 05 21:16 74 100 05 21:11 73 100 03/02/22 21:06 78 98 03/02/22 21:04 70 129/61 05 21:01 74 99 03/02/22 20:58 45 L 84 03/02/22 20:56 74 100 03/02/22 20:51 74 129/61 99 03/02/22 20:46 75 99 03/02/22 20:41 84 97 03/02/22 20:39 73 91 03/02/22 20:36 74 97 03/02/22 20:31 75 100 03/02/22 20:26 71 98 03/02/22 20:21 72 98 03/02/22 20:16 71 99 03/02/22 20:11 73 99 03/02/22 20:07 83 93 03/02/22 20:06 68 98 03/02/22 20:01 72 99 03/02/22 19:56 75 99 03/02/22 19:51 68 138/79 99 03/02/22 19:46 70 99 03/02/22 19:41 71 98 03/02/22 19:36 74 98 03/02/22 19:31 72 99 03/02/22 19:26 73 99 03/02/22 19:21 70 99 03/02/22 19:16 71 97 03/02/22 19:11 72 98 03/02/22 19:08 98.6 F 03/02/22 19:06 74 98 03/02/22 19:05 100 03/02/22 19:01 73 97 03/02/22 18:56 71 99 03/02/22 18:51 72 123/76 99 03/02/22 18:46 77 99 03/02/22 18:41 73 99 03/02/22 18:36 72 98 03/02/22 18:31 73 98 03/02/22 18:26 78 98 03/02/22 18:21 79 96 03/02/22 18:18 67 77 L 03/02/22 18:16 75 99 03/02/22 18:11 71 99 05 18:06 74 100 03/02/22 18:01 74 98 05 17:56 74 99 03/02/22 17:52 72 104/60 05 17:51 74 98 05 17:46 72 97 05 17:41 76 99 05 17:36 77 97 05 17:33 81 92 05 17:31 77 98 05 17:25 85 97 03/02/22 17:20 72 97 03/02/22 17:15 74 97 05 17:11 76 97 05 17:06 79 98 05 17:01 76 96 05 16:56 74 99 05 16:51 73 122/66 05 16:50 73 98 05 16:46 78 96 05 16:41 76 99 05 16:36 80 98 03/02/22 16:31 74 99 03/02/22 16:25 77 98 03/02/22 16:20 75 99 03/02/22 16:15 75 97 05 16:11 74 99 05 16:05 77 96 05 16:01 75 97 05 15:56 76 97 05 15:52 71 107/73 05 15:51 71 96 05 15:45 73 95 03/02/22 15:41 71 96 03/02/22 15:36 77 97 03/02/22 15:30 73 96 03/02/22 15:25 71 96 03/02/22 15:20 72 97 05 15:15 72 96 05 15:10 76 99 05 15:06 81 98 05 15:00 76 98 05 14:55 75 99 05 14:52 72 119/61 05 14:50 76 99 05 14:48 98.5 F 79 16 97 05 14:45 78 99 05 14:40 76 98 03/02/22 14:35 73 97 05 14:30 75 99 05 14:25 74 99 05 14:20 78 98 05 14:15 77 99 05 14:10 76 99 05 14:05 75 100 05 14:00 71 98 05 13:55 76 98 05 13:51 72 131/70 05 13:50 78 98 05 13:45 73 97 05 13:42 75 130/70 05 13:41 73 130/70 05 13:40 76 130/70 98 05 13:35 78 97 05 13:30 76 97 05 13:25 79 99 05 13:20 77 100 05 13:15 76 97 05 13:10 84 97 05 13:05 76 100 05 13:00 76 98 05 12:55 75 98 05 12:52 74 128/66 05 12:50 78 98 05 12:45 78 97 05 12:40 81 97 05 12:35 77 98 05 12:30 73 99 05 12:25 79 98 05 12:20 77 99 05 12:15 75 99 05 12:10 80 98 05 12:07 89 92 03/02/22 12:05 75 98 05 12:00 75 99 05 11:55 76 99 05 11:52 98.3 F 74 20 126/74 97 05 11:50 77 99 05 11:45 74 126/74 100 05 11:40 74 98 05 11:35 74 97 05 11:30 73 117/63 98 05 11:25 72 96 05 11:20 74 109/57 99 05 11:15 73 103/59 98 05 11:10 75 98 05 11:05 71 97 05 11:00 72 105/56 98 05 10:55 72 98 05 10:50 72 98 05/04/22 10:45 73 111/56 98 03/02/22 10:40 75 97 03/02/22 10:35 78 98 03/02/22 10:31 75 116/69 03/02/22 10:30 78 98 03/02/22 10:25 76 99 03/02/22 10:20 76 98 03/02/22 10:16 73 112/59 03/02/22 10:15 90 99 03/02/22 10:10 74 98 03/02/22 10:05 75 99 03/02/22 10:00 74 141/65 98 03/02/22 09:55 77 96 03/02/22 09:50 78 98 03/02/22 09:45 75 109/57 99 03/02/22 09:40 76 97 03/02/22 09:35 78 99 03/02/22 09:30 72 107/62 97 03/02/22 09:25 74 96 03/02/22 09:20 74 97 03/02/22 09:15 73 109/56 97 03/02/22 09:10 73 97 03/02/22 09:05 75 96 03/02/22 09:00 73 148/82 97 03/02/22 08:55 73 98 03/02/22 08:50 79 97 03/02/22 08:45 78 98 03/02/22 08:40 79 97 03/02/22 08:38 75 121/69 03/02/22 08:35 79 99 03/02/22 08:30 79 99 03/02/22 08:25 76 99 03/02/22 08:23 76 120/70 03/02/22 08:20 77 98 03/02/22 08:15 78 100 03/02/22 08:10 77 100 03/02/22 08:08 73 137/70 03/02/22 08:05 76 99 03/02/22 08:00 75 99 03/02/22 07:55 78 97 03/02/22 07:53 73 135/71 03/02/22 07:50 74 97 Intake and Output 03/02/22 03/02/22 05 15:59 23:59 07:59 Intake Total 937.5 492.767 7367.833 Output Total 1000 1850 2700 Balance -62.5 -861.667 -1479.167 Intake: IV 937.5 802.813 5372.833 Lactated Ringers 1,000 ml 937.5 1000 @ 75 mls/hr IV DIRECT ANNAMARIA Rx#:[id number] MAGNESIUM SULFATE 40GM/ 988.333 220.833 1000ML 40 gm In 1,000 ml @ 2 GM/HR 50 mls/hr IV DIRECT ANNAMARIA Rx#:[id number] Output: Urine 1000 1850 2700 Indwelling Catheter 1000 1850 700 Void 2000 Other: Total, Output Amount 1000 500 200 # Voids Indwelling Catheter 1 Void 1 - Exam Breasts: Present: normal, Cardiovascular: Present: Regular rate Lungs: Present: Clear to auscultation, Normal air movement Abdomen: Present: normal appearance, soft Vulva: both: normal Uterus: Present: normal, firm, fundal height at umbilicus Extremities: Present: edema Deep Tendon Reflex Grade: Normal +2 Incision: Present: normal, dry, intact - Labs Labs: Abnormal lab results 03/02/22 03/02/22 Range/Units 11:55 22:51 Magnesium 6.50 H 6.60 H (1.7-2.3) mg/dL
[2022-03-03 08:14] LABS: Hematocrit 28.5 % (30.3-42.9); Hemoglobin 9.5 gm/dl (10.1-14.3)
[2022-03-03 08:33] LABS: BUN/Creatinine Ratio 13; Blood Urea Nitrogen 12 mg/dL (7-17); Calcium 7.7 mg/dL (8.4-10.2); Hemolysis Index 4
[2022-03-03] MEDS: FERROUS SULFATE 325 MG TAB PO SCH (09:23)
[2022-03-03] MEDS: LANOLIN/ZINC/DIMETHICONE (LANSINOH) 7 GM TP PRN (09:23)
[2022-03-03] MEDS: NIFEdipine XL 60 MG TAB PO SCH ×2 (11:17→22:00)
[2022-03-03] MEDS: IBUPROFEN 800 MG TAB PO SCH ×2 (11:22→18:13)
[2022-03-03] MEDS: DOCUSATE SODIUM 100 MG CAP PO SCH (11:22)
--- NOTE | 2022-03-03 16:41 | Event Note ---
Date: 03/03/22 reviewed b/p's - will stop hydralizine at this time and continue procardia and labetalol for now and reassess PRN.
[2022-03-03] MEDS: oxyCODONE /ACETAMINOPHEN 5-325MG TAB PO PRN (21:42)
[2022-03-04] MEDS: IBUPROFEN 800 MG TAB PO SCH ×3 (09:55→22:35)
[2022-03-04] MEDS: FERROUS SULFATE 325 MG TAB PO SCH (09:57)
[2022-03-04] MEDS: DOCUSATE SODIUM 100 MG CAP PO SCH ×2 (09:57→21:31)
--- NOTE | 2022-03-04 10:19 | Progress Note ---
Assessment and Plan VSSAF, no Procardia administered since 03/02. Pt reports ambulating to NICU without problems, and voiding and eating without difficulty. POC d/w pt. Discussed precautions and ssx of hypotension vs hypertension. Questions encouraged and answered. Pt verbalizes understanding. Plan to continue to monitor pt and decrease antihypertensives . Anticipate discharge home tomorrow. Pt reports desires to discharge home today. Dr Benavides made aware. - Patient Problems (1) History of asthma Current Visit: Yes Status: Chronic Plan to address problem: albuterol PRN (2) History of sleep apnea Current Visit: Yes Status: Chronic (3) Morbid obesity Current Visit: Yes Status: Chronic (4) Pre-eclampsia superimposed on chronic hypertension Current Visit: Yes Status: Acute Plan to address problem: continue labetalol 800mg TID stop procardia XL 60mg BID continue to monitor closely for changes in BP and ssx (5) delivery delivered Current Visit: Yes Status: Acute (6) Sterilization Current Visit: Yes Status: Acute Subjective - Subjective Date of service: 03/04/22 Principal diagnosis: s/p primary POD#3; cHTN superimposed on Pre E Patient reports: appetite normal, voiding normally, pain well controlled, ambulating normally, other (pt denies GROSSMAN, vision changes, blurred vision, spots before eyes, and RUQ abdominal pain) : doing well, in NICU Objective - Vital Signs Latest vital signs: Vital Signs Temp Pulse Resp BP BP Pulse Ox 03/04/22 09:58 88 135/77 03/04/22 00:52 98.4 F 80 16 121/65 99 03/04/22 00:44 98.4 F 74 16 99/47 100 03/03/22 21:42 16 03/03/22 21:26 18 03/03/22 20:40 75 03/03/22 20:38 98.3 F 16 103/53 03/03/22 20:26 18 03/03/22 20:00 103/53 03/03/22 19:13 18 03/03/22 16:31 75 117/67 03/03/22 16:30 98.7 F 75 18 117/67 99 03/03/22 13:05 97.8 F 78 18 133/75 97 03/03/22 10:54 97.9 F 76 18 101/58 99 - Exam Breasts: Present: normal, other (breastpumping) Abdomen: Present: soft, other (morbidly obese) Uterus: Present: normal, firm, fundal height at umbilicus Extremities: Present: normal Incision: Present: normal, dry, intact
[2022-03-04] MEDS: NIFEdipine XL 60 MG TAB PO SCH (12:15)
[2022-03-04] MEDS: oxyCODONE /ACETAMINOPHEN 5-325MG TAB PO PRN ×2 (14:12→21:33)
[2022-03-04] MEDS ORDERED: SIMETHICONE 80 MG CHEW TAB PO PRN (18:43)
[2022-03-05] MEDS: IBUPROFEN 800 MG TAB PO SCH (05:39)
--- NOTE | 2022-03-05 09:04 | Discharge Summary ---
Providers - Providers Date of Admission: 02/08/22 17:27 Date of discharge: 03/05/22 Attending physician: RANDY OLMSTEAD 03/03/22 04:40 Consult to Software Developer Intern [CONS] Routine Reason For Exam: Primary care physician: RANDY OLMSTEAD Hospitalization Delivery: Procedure: primary low transverse Episiotomy: none Laceration: none Incision: normal, intact Other procedures: tubal ligation complications: none Discharge diagnosis: delivery [place] baby: male Pertinent studies: Pt denies GROSSMAN, blurred vision, spots before her eyes, chest pain, shortness of breath, and upper abdominal pain. She is aware should any of these symptoms occur when discharged, she is to call the metal fabrication supervisor provider immediately and await further instructions. Hospital course: Upon entering room, pt sitting upright in sofa chair at bedside pumping breast milk. Pt meeting goals at this time, ready for discharge today. VSS. Reporting occasional right sided incisional burning pain that worsens with touch and movement. Incisional site healing well, no drainage noted, 2-3cm pink skin deep area on right side of incision, well approximated (photo taken for pt reference). Scant amount of lochia noted on peripad. Pain well controlled with current regimen. Voiding and passing flatus, since delivery had 1 bowel movement yesterday. Observed ambulating from chair to bed to sitting on edge of bed. Encouraged to continue using incentive spirometer, use splinting method with coughing, apply ice to incisional site for burning, wash incision with mild soap and rinse with running water, and ensure incisional site is kept dry/air dry, may use pad over incision. Discharge instructions, including warning signs and return precautions, as well as prescribed medications reviewed with pt. To take labetalol 800mg TID, verbalized understanding. Pt is aware that she will have follow up in the office on Monday @ 130pm in [place]. She states that she knows how to take her blood pressure. Going to visit baby in NICU now. Condition at discharge: Good Disposition: HOME / SELF CARE / HOMELESS - Discharge Diagnoses (1) Pre-eclampsia superimposed on chronic hypertension Status: Acute (2) delivery delivered Status: Acute (3) Chronic hypertension affecting Status: Chronic Plan - Discharge Medications Prescriptions: Blood Pressure Kit-Extra Large [Blood Pressure Monitor] 1 each MC DAILY #1 kit Docusate Sodium [Colace] 100 mg PO BID PRN #30 capsule PRN Reason: Constipation Docusate Sodium [Colace] 100 mg PO BID PRN #60 capsule PRN Reason: Constipation Lidocain2.5%/Prilocai2.5% [Emla] 5 gm TP ONCE #1 tube Lidocain2.5%/Prilocai2.5% [Emla] 1 applic TP ONCE #1 tube Ferrous Sulfate [Feosol 325 MG tab] 325 mg PO BID #90 tablet labetaloL [Labetalol 200mg TAB] 800 mg PO TID #90 tab Ibuprofen [Motrin 800 MG tab] 800 mg PO TID PRN #30 tablet PRN Reason: Pain Ibuprofen [Motrin] 800 mg PO Q8HR PRN #30 tablet PRN Reason: Pain, Moderate (4-6) oxyCODONE /ACETAMINOPHEN [Percocet 5/325 mg] 1 - 2 tab PO Q6HR PRN #14 tablet PRN Reason: Pain - Provider Discharge Summary Activity: routine, no sex for 6 weeks, no heavy lifting 4 weeks Diet: routine Instructions: routine Additional instructions: [] Smoking cessation referral if applicable(refer to patient education folder for contact #) [] Refer to [facility]'s [facility] Booklet Call your doctor immediately for: * Fever > 100.5 * Heavy vaginal bleeding ( >1 pad per hour) * Severe persistent headache * Shortness of breath * Reddened, hot, painful area to leg or breast * Drainage or odor from incision. * Keep incision clean and dry at all times and follow doctor's instructions regarding bathing/showering - Follow up plan Follow up: RANDY OLMSTEAD MD [Primary Care Provider] - 03/08/22 1:30 pm (Congratulations on the of your baby boy! Thank you for allowing us to take care of you. Your one week appointment for an incision check and a blood pressure check has been scheduled at the [facility] office in [place] at 1:30pm on March 08. Please take all of your medications as prescribed. Should you have any questions following discharge, please do not hesitate to contact us. )
[2022-03-05] MEDS: DOCUSATE SODIUM 100 MG CAP PO SCH (09:51)
[2022-03-05] MEDS: FERROUS SULFATE 325 MG TAB PO SCH (09:51)
[2022-03-05] MEDS: LANOLIN/ZINC/DIMETHICONE (LANSINOH) 7 GM TP PRN (09:51)
[2022-03-05] MEDS: oxyCODONE /ACETAMINOPHEN 5-325MG TAB PO PRN (10:00)
[2022-03-05 13:15] VITALS: BP 147/78
== END 2022-03-05 13:49 | disposition home or self-care (01) | DRG 765 ==
LOC: TRG 17:04 → UNDOADMIN 17:05 → APU 17:05 → TRG 17:21 → APU 17:27 → LD 20:11 → OB 03-03 04:00
PROVIDERS: ADMIT Obstetrics & Gynecology; ATTEND Obstetrics & Gynecology
PROC: 10D00Z1 Extraction of Products of Conception, Low, Open Approach (ICD-10-PCS; principal; 2022-03-01)
PROC: 0UB70ZZ Excision of Bilateral Fallopian Tubes, Open Approach (ICD-10-PCS; 2022-03-01)
PROC: 3E0234Z Introduction of Serum, Toxoid and Vaccine into Muscle, Percutaneous Approach (ICD-10-PCS; 2022-03-03)
DX: O14.94 Unspecified pre-eclampsia, complicating childbirth (principal); O36.5930 Maternal care for other known or suspected poor fetal growth, third trimester, not applicable or unspecified; O60.14X0 Preterm labor third trimester with preterm delivery third trimester, not applicable or unspecified; K21.9 Gastro-esophageal reflux disease without esophagitis; O99.214 Obesity complicating childbirth; E66.01 Morbid (severe) obesity due to excess calories; O99.52 Diseases of the respiratory system complicating childbirth; O99.62 Diseases of the digestive system complicating childbirth; Z3A.32 32 weeks gestation of pregnancy; Z37.0 Single live birth; E87.5 Hyperkalemia; G43.909 Migraine, unspecified, not intractable, without status migrainosus; O75.89 Other specified complications of labor and delivery; Z20.822 Contact with and (suspected) exposure to COVID-19; Z23 Encounter for immunization; Z30.2 Encounter for sterilization
CPT/HCPCS: 36415; 76815; 76816; 76819; 80048; 80053; 80074; 81001; 82565; 82570; 83615; 83735; 84132; 84156; 84450; 84460; 84550; 85014; 85018; 85025; 85027; 86592; 86850; 86900; 86901; 87086; 87806; 88302; 88307; 90471; 90715; 93005; 93306; 94640; 99211; G0378; J3490; C8929; G0463; J0360; J0610; J0690; J1170; J2274; J2405; J3475; J7120; U0003